=== PATIENT | female | born 1970 | race Caucasian/White ===

== ENCOUNTER 2020-02-28 11:41 | Outpatient (REF) | payer OTHER, SELFPAY | END 2020-02-28 11:42 | disposition home or self-care (01) | LOC: HO.HOSX 11:41 | PROVIDERS: Visit Provider Orthopaedic Surgery | DX: Z13.89 Encounter for screening for other disorder (principal) ==

== ENCOUNTER → 2020-03-03 09:16 | Outpatient (BNVA) | payer OTHER, SELFPAY | PROVIDERS: Visit Provider Orthopaedic Surgery | DX: E66.01 Morbid (severe) obesity due to excess calories (principal); M17.11 Unilateral primary osteoarthritis, right knee | CPT/HCPCS: Q3014 ==

== ENCOUNTER → 2020-03-08 08:04 | Outpatient (BNVA) | payer OTHER, SELFPAY | PROVIDERS: PCP Family Medicine; Visit Provider Surgery | DX: E66.01 Morbid (severe) obesity due to excess calories (principal); K21.9 Gastro-esophageal reflux disease without esophagitis | CPT/HCPCS: 99202 ==

== ENCOUNTER 2020-03-17 09:49 | Outpatient (REF) | payer OTHER, SELFPAY ==
--- NOTE | 2020-03-17 10:00 | EMG_ITS ---
Right median and ulnar motor and sensory studies were performed. Right radial sensory studies were performed and paraspinal muscles were tested. IMPRESSION: Mild right median neuropathy across carpal tunnel. MD SAMMY Carmichael/PARRISH / [id number]
== END 2020-03-17 09:50 | disposition home or self-care (01) ==
LOC: HO.NEURO 09:49
PROVIDERS: Visit Provider Family Medicine
DX: G56.01 Carpal tunnel syndrome, right upper limb (principal)
CPT/HCPCS: 95860; 95886; 95909

== ENCOUNTER → 2020-03-21 14:51 | Outpatient (BNVA) | payer OTHER, SELFPAY | PROVIDERS: PCP Family Medicine; Visit Provider Nurse Practitioner Family | DX: Z76.89 Persons encountering health services in other specified circumstances (principal) | CPT/HCPCS: 99212 ==

== ENCOUNTER → 2020-03-28 08:33 | Outpatient (BNVA) | payer OTHER, SELFPAY | PROVIDERS: PCP Family Medicine; Visit Provider Dietitian, Registered | DX: Z76.89 Persons encountering health services in other specified circumstances (principal) ==

== ENCOUNTER → 2020-04-06 08:08 | Outpatient (BNVA) | payer OTHER, SELFPAY | PROVIDERS: PCP Family Medicine; Visit Provider Surgery ==

== ENCOUNTER → 2020-04-13 08:12 | Outpatient (BNVA) | payer OTHER, SELFPAY | PROVIDERS: PCP Family Medicine; Visit Provider Surgery | DX: E66.01 Morbid (severe) obesity due to excess calories (principal) | CPT/HCPCS: Q3014 ==

== ENCOUNTER 2020-04-14 08:00 | Outpatient (REF) | payer OTHER, SELFPAY ==
[2020-04-14 08:37] LABS: MANUAL DIFF FLAG NO
[2020-04-14 08:48] LABS: Basophils Percent Auto 0.4 % (0-2); Eosinophils Absolute Auto 0.2 X10*3/uL (0.0-0.4); Eosinophils Percent Auto 5.1 % (0-4); Hematocrit 45.7 % (37-47); Imm Gran Abs Auto 0.01 X10*3/uL (0.00-0.03); Imm Gran Pct Auto 0.2 % (0.0-0.4); Lymphocytes Absolute Auto 1.4 X10*3/uL (1.2-4.9); Mean Corpuscular HGB Conc 32.8 g/dl (31.0-35.0); Mean Corpuscular Volume 97.4 fL (80-98); Mean Platelet Volume 12.6 fL (9.4-12.3); Monocytes Absolute Auto 0.4 X10*3/uL (0.1-1.2); Monocytes Percent Auto 8.1 % (2-11); Neutrophils Absolute Auto 2.5 X10*3/uL (2.0-8.3); Neutrophils Percent Auto 55.2 % (45-73); Platelet Count 194 X10*3/uL (160-400); Red Blood Count 4.69 X10*6/uL (4.20-5.50); Red Cell Distribution Width 13.3 % (11.0-16.0); White Blood Count 4.6 X10*3/uL (4.8-10.8)
[2020-04-14 08:58] LABS: Estimated Average Glucose 100 mg/dL; Hemoglobin A1C 127.5661 umol/L; Hemoglobin A1c % 5.1 %
[2020-04-14 09:06] LABS: Alanine Aminotransferase 7 U/L (0-31); Albumin Level 4.2 g/dL (3.5-5.0); Alkaline Phosphatase 72 U/L (39-117); Anion Gap 10 (12-20); Aspartate Amino Transferase 15 U/L (5-31); Bilirubin Total 0.6 mg/dL (0.0-1.0); Blood Urea Nitrogen 14 mg/dL (9-16); C Reactive Protein 0.42 mg/dL (< or = 0.50); Carbon Dioxide 28 mmol/L (22-29); Chloride 108 mmol/L (96-108); Cholesterol 184 mg/dL; Estimated Glomerular Filt Rate > 60; Glucose Random 86 mg/dL (60-115); HDL Cholesterol 55 mg/dL; LDL Cholesterol Calculated 116 mg/dl; Potassium 4.5 mmol/l (3.3-5.1); Sodium 141 mmol/L (135-145); Total Protein 6.9 g/dL (6.5-8.0); Triglycerides 69 mg/dL
[2020-04-14 09:28] LABS: Ferritin 87 ng/mL (10-250); TSH reflex Free T4 2.51 mIU/mL (0.32-4.0); Vitamin D 25-OH Total 12.7 ng/mL (>30)
[2020-04-14 09:35] LABS: Folate 8.6 ng/mL (> or = 4.0); Vitamin B12 220 pg/mL (200-900)
[2020-04-15 10:52] LABS: Insulin Level Total 4.3 uIU/mL
[2020-04-15 15:42] LABS: Calcium (PTHI) 9.2 mg/dL (8.6-10.4); PTHI 52 pg/mL (14-64)
[2020-04-18 00:27] LABS: Zinc 64 mcg/dL (60-130)
[2020-04-18 14:07] LABS: Vitamin B1 7 nmol/L (8-30)
[2020-04-20 19:02] LABS: Vitamin A 25 mcg/dL (38-98)
== END 2020-04-14 08:01 | disposition home or self-care (01) ==
LOC: HO.LAB 08:00
PROVIDERS: PCP Family Medicine; Visit Provider Surgery
DX: E66.01 Morbid (severe) obesity due to excess calories (principal); K21.9 Gastro-esophageal reflux disease without esophagitis
CPT/HCPCS: 36415; 80053; 80061; 82306; 82607; 82728; 82746; 83036; 83525; 83970; 84425; 84443; 84590; 84630; 85025; 86140

== ENCOUNTER 2020-04-22 07:48 | Outpatient (REF) | payer OTHER, SELFPAY ==
--- NOTE | ~2020-04-22 | XR_ITS ---
EXAMINATION: XR KNEE STANDING, BILATERAL XR KNEE, RIGHT CLINICAL INFORMATION: Bilateral knee pain. COMPARISON: None TECHNIQUE: AP bilateral knee. Right knee 2 views. FINDINGS: AP BILATERAL KNEE: There is bilateral genu valgus deformity of both knees with greater on the right side. There is moderate sclerosis along the right subchondral lateral tibia, question old bone contusion or stress fracture. There is moderate loss of lateral compartment joint space right knee with periarticular spurring. There is an enthesophyte along the superomedial condyle likely old avulsion injury. No visible fracture, dislocation or subluxation seen. The left knee is unremarkable. RIGHT KNEE: The patellofemoral compartment joint space is normal. No abnormal spur or joint effusion seen. No loose bodies or bony erosive changes. XR/XR knee standing BI IMPRESSION: Genu valgum deformities of both knees, slightly greater on the right side. Moderate loss of lateral compartment joint space with periarticular spurring, right knee. There is subchondral sclerosis right lateral tibia. Question old fracture or bone contusion. This could be correlated with MRI right knee. There is a moderate enthesophyte along the medial superior femoral condyle/Merlyn stieda disease from old medial collateral ligament avulsion injury.
--- NOTE | ~2020-04-22 | FL_ITS ---
EXAMINATION: XR GI SERIES CLINICAL INFORMATION: Morbid obesity due to excessive calories. COMPARISON: None TECHNIQUE: Routine upper GI air-contrast study was performed in upright and lying position. FINDINGS: Following oral administration of thick barium and effervescent granules, there is normal propagation of bolus from the oral cavity through the pharynx, esophagus into stomach without any evidence of obstruction, narrowing or stricture. On placing patient supine and prone lying, there is a small hiatal hernia with gastroesophageal reflux. The course, caliber and peristalsis of the stomach and duodenal bulb is normal. The soft tissues are normal. FLUOROSCOPY TIME: 1.1 minutes DOSE AREA PRODUCT: 28.775 uGy-m2 (microgray-meter squared) FL/FL upper GI series IMPRESSION: Small hiatal hernia with mild gastroesophageal reflux. The rest of the upper GI exam is unremarkable.
--- NOTE | ~2020-04-22 | XR_ITS ---
EXAMINATION: XR KNEE STANDING, BILATERAL XR KNEE, RIGHT CLINICAL INFORMATION: Bilateral knee pain. COMPARISON: None TECHNIQUE: AP bilateral knee. Right knee 2 views. FINDINGS: AP BILATERAL KNEE: There is bilateral genu valgus deformity of both knees with greater on the right side. There is moderate sclerosis along the right subchondral lateral tibia, question old bone contusion or stress fracture. There is moderate loss of lateral compartment joint space right knee with periarticular spurring. There is an enthesophyte along the superomedial condyle likely old avulsion injury. No visible fracture, dislocation or subluxation seen. The left knee is unremarkable. RIGHT KNEE: The patellofemoral compartment joint space is normal. No abnormal spur or joint effusion seen. No loose bodies or bony erosive changes. XR/XR knee RT 2V IMPRESSION: Genu valgum deformities of both knees, slightly greater on the right side. Moderate loss of lateral compartment joint space with periarticular spurring, right knee. There is subchondral sclerosis right lateral tibia. Question old fracture or bone contusion. This could be correlated with MRI right knee. There is a moderate enthesophyte along the medial superior femoral condyle/Merlyn stieda disease from old medial collateral ligament avulsion injury.
--- NOTE | ~2020-04-22 | XR_ITS ---
EXAMINATION: XR CHEST CLINICAL INFORMATION: Morbid obesity. COMPARISON: Chest radiographs dated 05/14/2007. TECHNIQUE: 2 views of the chest were obtained. FINDINGS: No significant abnormality is noted involving the heart, lungs, mediastinum, bony thorax or soft tissues. XR/XR chest 2V IMPRESSION: No acute cardiopulmonary process.
== END 2020-04-22 07:49 | disposition home or self-care (01) ==
LOC: HO.XRAY 07:48
PROVIDERS: Visit Provider Surgery
DX: Z01.818 Encounter for other preprocedural examination (principal); M25.561 Pain in right knee; M25.562 Pain in left knee; K21.9 Gastro-esophageal reflux disease without esophagitis; E66.01 Morbid (severe) obesity due to excess calories
CPT/HCPCS: 71046; 73560; 73565; 74240

== ENCOUNTER 2020-04-28 07:21 | Outpatient (REF) | payer OTHER, SELFPAY ==
--- NOTE | ~2020-04-28 | US_ITS ---
EXAMINATION: US COMPLETE ABDOMEN WITH LIVER ELASTOGRAPHY CLINICAL INFORMATION: Bariatric service evaluation. E66.01 COMPARISON: None. TECHNIQUE: Real-time imaging of the abdominal viscera. Noninvasive ultrasound liver fibrosis assessment is performed using Aden ElastPQ point quantification shear wave elastography (pSWE) with a C5-2 MHz transducer. Multiple elastography samples are obtained. FINDINGS: PANCREAS: The visualized pancreas is normal in size and contour and echogenicity. There is no pancreatic ductal distention. Portion pancreatic tail partly obscured by bowel gas and not completely imaged. ABDOMINAL AORTA: The proximal, middle, and distal aortic segments are normal in caliber. INFERIOR VENA CAVA: Visualized portions are normal. LIVER: Normal. The liver demonstrates normal size, contour and echogenicity. No focal lesion or intrahepatic biliary duct dilatation. The right lobe measures 14.7 cm in length. The left lobe measures 8.9 cm in length. Portal flow is towards the liver (hepatopetal). Shear wave liver elastography median stiffness is 1.79 m/s (reference: normal median stiffness is 1.3 m/s or less). IQR/median stiffness to assess sampling precision is 0.12 (reference: good quality data set is IQR/median stiffness of 0.15 or less). GALLBLADDER: Prior cholecystectomy. COMMON BILE DUCT: Normal in caliber measuring 0.4 cm in diameter. RIGHT KIDNEY: Normal. No hydronephrosis. No renal calculi or focal parenchymal lesions. The kidney measures 10.3 cm in maximum dimension. LEFT KIDNEY: Normal. No hydronephrosis. No renal calculi or focal parenchymal lesions. The kidney measures 10.4 cm in maximum dimension. SPLEEN: Normal. The spleen measures 10.3 cm in maximum dimension. FREE FLUID: None. ??? US/US abdomen comp w elastography IMPRESSION: 1. Liver normal in size and homogeneous. Prior cholecystectomy. No ductal dilatation. 2. Liver elastography: Measurements are suggestive of compensated advanced chronic liver disease but need further test for confirmation. 3. Visualized pancreas unremarkable. No hydronephrosis. REFERENCE: Society of Radiologists in Ultrasound Liver Stiffness Thresholds (2019): LIVER STIFFNESS THRESHOLDS: *Liver Stiffness equal or less than 1.3 m/s: High probability of being normal. *Liver Stiffness less than 1.7 m/s: In the absence of other known clinical signs, rules out compensated advanced chronic liver disease. *Liver Stiffness 1.7-2.1 m/s: Suggestive of compensated advanced chronic liver disease but need further test for confirmation. *Liver Stiffness over 2.1 m/s: Rules in compensated advanced chronic liver disease. *Liver Stiffness over 2.4 m/s: Suggestive of clinically significant portal hypertension. QUALITY OF DATA SET: *IQR/Median value equal or less than 0.15 implies a quality data set. *IQR/Median value over 0.15 implies a poor quality data set. SIGNIFICANT CHANGE FROM PRIOR EXAM: Significant change if liver stiffness measurement is 10% or greater from prior exam. OTHER CONSIDERATIONS: The stage of liver fibrosis may be overestimated in the setting of acute hepatitis, liver inflammation, elevated liver function tests, hepatic vascular congestion, obstructive cholestasis, non-fasting state, and infiltrative diseases such as amyloidosis and lymphoma. In some patients with NAFLD, the liver stiffness thresholds for compensated advanced chronic liver disease may be lower. In causes other than viral hepatitis and NAFLD, liver stiffness thresholds are not well established.
== END 2020-04-28 07:22 | disposition home or self-care (01) ==
LOC: HO.US 07:21
PROVIDERS: Visit Provider Surgery
DX: Z01.818 Encounter for other preprocedural examination (principal); E66.01 Morbid (severe) obesity due to excess calories; K21.9 Gastro-esophageal reflux disease without esophagitis
CPT/HCPCS: 76705; 76981

== ENCOUNTER → 2020-05-11 08:25 | Outpatient (BNVA) | payer OTHER, SELFPAY | PROVIDERS: PCP Family Medicine; Visit Provider Surgery | DX: E66.01 Morbid (severe) obesity due to excess calories (principal) | CPT/HCPCS: Q3014 ==

== ENCOUNTER → 2020-05-16 08:00 | Outpatient (BNVA) | payer OTHER, SELFPAY | PROVIDERS: PCP Family Medicine; Visit Provider Surgery ==

== ENCOUNTER 2020-05-30 07:40 | Outpatient (REF) | payer OTHER, SELFPAY ==
[2020-05-31 14:17] LABS: H Pylori Breath Test NOT DETECTED (NOT DETECTED)
== END 2020-05-30 07:41 | disposition home or self-care (01) ==
LOC: HO.LNP 07:40
PROVIDERS: PCP Family Medicine; Visit Provider Surgery
DX: A04.8 Other specified bacterial intestinal infections (principal); E66.01 Morbid (severe) obesity due to excess calories; K21.9 Gastro-esophageal reflux disease without esophagitis
CPT/HCPCS: 83013; 99211

== ENCOUNTER → 2020-06-08 08:11 | Outpatient (BNVA) | payer OTHER, SELFPAY | PROVIDERS: PCP Family Medicine; Visit Provider Surgery | DX: E66.01 Morbid (severe) obesity due to excess calories (principal); Z68.41 Body mass index [BMI] 40.0-44.9, adult; F17.200 Nicotine dependence, unspecified, uncomplicated; Z71.3 Dietary counseling and surveillance; Z71.6 Tobacco abuse counseling | CPT/HCPCS: Q3014 ==

== ENCOUNTER → 2020-06-14 12:53 | Outpatient (BNVA) | payer OTHER, SELFPAY | PROVIDERS: PCP Family Medicine; Visit Provider Dietitian, Registered ==

== ENCOUNTER → 2020-09-21 13:19 | Outpatient (BNVA) | payer OTHER, SELFPAY | PROVIDERS: Visit Provider Nurse Practitioner Family | DX: K21.9 Gastro-esophageal reflux disease without esophagitis (principal) | CPT/HCPCS: Q3014 ==

== ENCOUNTER 2021-02-02 14:40 | Outpatient (REF) | payer OTHER, SELFPAY ==
--- NOTE | ~2021-02-02 | MM_ITS ---
EXAMINATION: MM SCREENING DIGITAL BREAST TOMOSYNTHESIS, BILATERAL CLINICAL INFORMATION: Screening. Asymptomatic. The lifetime risk of breast cancer based on the Tyrer-Cuzick Model is 19%. COMPARISON: Mammography: 12/19/2018, 12/11/2018, 10/09/2017, 06/01/2016 TECHNIQUE: Digital breast tomosynthesis is performed in both the craniocaudal and mediolateral oblique views along with computer-aided detection (CAD). Synthesized 2D images are generated from the tomosynthesis. Additional bilateral exaggerated CC views are provided. FINDINGS: There are scattered areas of fibroglandular density (ACR BI-RADS breast composition Category b). There are no significant masses, abnormal calcifications, or other abnormalities. No developing density. No significant changes. MM/MM tomosynthesis screening BI IMPRESSION: No mammographic evidence of malignancy. ASSESSMENT: BI-RADS 1: Negative RECOMMENDATION: Routine annual mammography screening. This patient's information was entered into a reminder system with a target due date for their next mammogram.
== END 2021-02-02 14:41 | disposition home or self-care (01) ==
LOC: HO.MAMMO 14:40
PROVIDERS: Visit Provider Nurse Practitioner Primary Care
DX: Z12.31 Encounter for screening mammogram for malignant neoplasm of breast (principal)
CPT/HCPCS: 77063; 77067

== ENCOUNTER → 2021-02-14 13:37 | Outpatient (BNVA) | payer OTHER, SELFPAY | PROVIDERS: Visit Provider Surgery Vascular Surgery | DX: I83.11 Varicose veins of right lower extremity with inflammation (principal); E66.9 Obesity, unspecified; F17.210 Nicotine dependence, cigarettes, uncomplicated; Z68.41 Body mass index [BMI] 40.0-44.9, adult | CPT/HCPCS: 99202 ==

== ENCOUNTER 2021-03-07 06:51 | Outpatient (REF) | payer OTHER, SELFPAY ==
--- NOTE | ~2021-03-07 | US_ITS ---
EXAMINATION: US LOWER EXTREMITY VENOUS (REFLUX EXAM), BILATERAL CLINICAL INDICATION: This is a 51-year-old female with varicose veins and venous insufficiency. COMPARISON: None. TECHNIQUE: Color flow triplex imaging and compression Doppler was performed to evaluate both the deep and the superficial systems bilaterally. To evaluate the superficial system, the examination was performed in the upright position. Color-flow Doppler ultrasound and compression ultrasound were utilized. In addition, maneuvers were utilized to demonstrate reflux. FINDINGS: 1. DEEP VENOUS ULTRASOUND OF THE RIGHT LOWER EXTREMITY: Common Femoral Vein: Compressible, normal respiratory variation and augmented flow. Femoral vein: Compressible, normal color flow and augmentation. Popliteal Vein: There is reflux in the left popliteal vein with the reflux time of 1072 ms. Deep Reflux: There is deep vein reflux in the popliteal vein. There is no evidence of a Anthony's cyst. 2. SUPERFICIAL ULTRASOUND WITH DOPPLER OF RIGHT LOWER EXTREMITY: GREAT SAPHENOUS VEIN: Saphenofemoral Junction: 0.6 cm. There is no reflux. Mid Thigh: 0.3 cm Above Knee: 0.3 cm Below Knee: 0.2 cm. There is no reflux at this level and above. Mid Calf: 0.3 cm. The reflux time is 3516 ms. Ankle: 0.2 cm. The reflux time is 3400 ms. GSV REFLUX: There is no reflux in the great saphenous vein at the junction and extending through the thigh. There is mid and distal calf reflux. DUPLICATED GREAT SAPHENOUS VEIN: None SMALL SAPHENOUS VEIN: Proximal: 0.2 cm Distal: 0.2 cm SSV REFLUX: No evidence of reflux. VEIN OF GIACOMINI: None Imaged. PERFORATORS: There are 0.3 cm mid thigh perforators without reflux. VARICOSITIES: There are 0.3 cm proximal thigh varicose veins. There are 0.5 cm 0.6 cm calf and lateral knee varicose veins. The posterior lateral knee varicose veins measure 0.5 cm with the reflux time of 2788 ms. The other varicose veins do not reflux. 3. DEEP VENOUS ULTRASOUND OF THE LEFT LOWER EXTREMITY: Common Femoral Vein: Compressible, normal respiratory variation and augmented flow. Femoral Vein: Compressible, normal color flow and augmentation. Popliteal Vein: Compressible, normal augmentation. Deep Reflux: There is no evidence of reflux in the deep system in either the common femoral vein or the popliteal vein. There is no evidence of a Anthony's cyst. 4. SUPERFICIAL ULTRASOUND WITH DOPPLER OF LEFT LOWER EXTREMITY: GREAT SAPHENOUS VEIN: Saphenofemoral Junction: 0.9 cm Mid Thigh: 0.3 cm Above Knee: 0.3 cm Below Knee: 0.2 cm Mid Calf: 0.2 cm Ankle: 0.2 cm GSV REFLUX: No evidence of reflux. DUPLICATED GREAT SAPHENOUS VEIN: There is a 0.5 cm duplicated lateral great saphenous vein at the junction without reflux. It measures 0.2 cm in the mid thigh with the reflux time of 1516 ms. SMALL SAPHENOUS VEIN: Proximal: 0.3 cm Distal: 0.1 cm SSV REFLUX: No evidence of reflux. VEIN OF GIACOMINI: None Imaged. PERFORATORS: There is a 0.1 cm proximal calf sheet metal assembler without reflux. VARICOSITIES: There are 0.3 cm proximal thigh varicose veins without reflux. There are 0.3 cm varicose veins at the knee with greater than 3 seconds of reflux. There are calf varicose veins measuring 0.3 cm and 0.6 cm without reflux. US/US venous duplex LE BI IMPRESSION: 1. There is a patent right great saphenous vein without reflux at the saphenofemoral junction or extending through the thigh to below the knee. There is distal reflux in this great saphenous vein. 2. There is a patent right small saphenous vein without evidence of reflux. 3. There are varicose veins in the right lower extremity with only reflux seen at the posterior lateral knee of 2780 ms. This measures 0.5 cm. 4. There is a patent left great saphenous vein without reflux. 5. There is a patent left duplicated lateral great saphenous vein without reflux at the junction. 6. There is a patent left small saphenous vein without reflux. 7. There are 0.3 cm varicose veins at the knee with greater than 3 seconds of reflux.
== END 2021-03-07 06:52 | disposition home or self-care (01) ==
LOC: HO.US 06:51
PROVIDERS: PCP Nurse Practitioner Primary Care; Visit Provider Surgery Vascular Surgery
DX: I83.11 Varicose veins of right lower extremity with inflammation (principal)
CPT/HCPCS: 93970

== ENCOUNTER → 2021-03-14 09:22 | Outpatient (BNVA) | payer OTHER, SELFPAY | PROVIDERS: PCP Nurse Practitioner Primary Care; Visit Provider Surgery Vascular Surgery | DX: I83.11 Varicose veins of right lower extremity with inflammation (principal) | CPT/HCPCS: 99212 ==

== ENCOUNTER 2021-03-24 13:14 | Outpatient (REF) | payer OTHER, SELFPAY ==
[2021-03-24 15:28] LABS: TSH reflex Free T4 1.47 uIU/mL (0.32-4.0)
[2021-03-24 15:39] LABS: Folate 15.4 ng/mL (> or = 4.0); Vitamin B12 774 pg/mL (200-900)
[2021-03-29 12:52] LABS: Vitamin D 25-OH, D2 5 ng/mL; Vitamin D 25-OH, D3 17 ng/mL; Vitamin D 25-OH, Total 22 ng/mL (30-100)
== END 2021-03-24 13:15 | disposition home or self-care (01) ==
LOC: HO.LAB 13:14
PROVIDERS: PCP Nurse Practitioner Primary Care; Referring Provider Nurse Practitioner Primary Care; Visit Provider Nurse Practitioner Family
DX: K21.9 Gastro-esophageal reflux disease without esophagitis (principal); E53.8 Deficiency of other specified B group vitamins; R79.89 Other specified abnormal findings of blood chemistry; K58.1 Irritable bowel syndrome with constipation; K59.04 Chronic idiopathic constipation; E55.9 Vitamin D deficiency, unspecified; R19.7 Diarrhea, unspecified; Z79.899 Other long term (current) drug therapy
CPT/HCPCS: 36415; 82306; 82607; 82746; 84443; 99212

== ENCOUNTER 2021-03-25 09:01 | Outpatient (REF) | payer OTHER, SELFPAY | END 2021-03-25 09:02 | disposition home or self-care (01) | LOC: HO.LNP 09:01 | PROVIDERS: Visit Provider Nurse Practitioner Family | DX: K21.9 Gastro-esophageal reflux disease without esophagitis (principal) | CPT/HCPCS: 87338 ==

== ENCOUNTER → 2021-03-31 11:15 | Outpatient (BNVA) | payer OTHER, SELFPAY | PROVIDERS: PCP Nurse Practitioner Primary Care; Visit Provider Surgery Vascular Surgery | DX: I83.11 Varicose veins of right lower extremity with inflammation (principal) | CPT/HCPCS: 37766 ==

== ENCOUNTER → 2021-04-13 09:00 | Outpatient (BNVA) | payer OTHER, SELFPAY | PROVIDERS: PCP Nurse Practitioner Primary Care; Visit Provider Surgery Vascular Surgery | DX: I83.11 Varicose veins of right lower extremity with inflammation (principal) | CPT/HCPCS: 99212 ==

== ENCOUNTER → 2021-07-13 09:39 | Outpatient (BNVA) | payer OTHER, SELFPAY | PROVIDERS: PCP Nurse Practitioner Primary Care; Visit Provider Surgery Vascular Surgery | DX: I83.11 Varicose veins of right lower extremity with inflammation (principal) | CPT/HCPCS: 99212 ==

== ENCOUNTER 2022-02-28 12:15 | Outpatient (REF) | payer OTHER, SELFPAY ==
--- NOTE | ~2022-02-28 | US_ITS ---
EXAMINATION: US SOFT TISSUE HEAD/NECK CLINICAL INFORMATION: Enlarged lymph nodes. COMPARISON: None TECHNIQUE: Linear transducer grayscale and color Doppler examination of the bilateral neck in the submandibular region. FINDINGS: The bilateral submandibular glands are normal-appearing. There are prominent bilateral cervical lymph nodes adjacent to the submandibular glands. Largest right cervical lymph node measures 1.6 x 2.9 x 0.7 cm. Largest left cervical lymph node measures 1.2 x 1.7 x 0.7 cm. Lymph nodes demonstrate normal ultrasound morphology and flow. Management should be determined on a clinical basis. Small bilateral thyroid nodules are incidentally noted. US/US soft tiss head and/or neck IMPRESSION: Normal-appearing submandibular glands. Prominent bilateral submandibular lymph nodes. Management should be determined on a clinical basis.
== END 2022-02-28 12:16 | disposition home or self-care (01) ==
LOC: HO.US 12:15
PROVIDERS: PCP Nurse Practitioner Primary Care; Visit Provider Nurse Practitioner Primary Care
DX: R59.0 Localized enlarged lymph nodes (principal)
CPT/HCPCS: 76536

== ENCOUNTER → 2022-07-10 11:42 | Outpatient (BNVA) | payer OTHER, SELFPAY | PROVIDERS: PCP Nurse Practitioner Primary Care; Visit Provider Nurse Practitioner Family | DX: Z76.0 Encounter for issue of repeat prescription (principal); K21.9 Gastro-esophageal reflux disease without esophagitis; K59.01 Slow transit constipation; R14.0 Abdominal distension (gaseous) | CPT/HCPCS: 99212 ==

== ENCOUNTER 2022-08-16 13:44 | Outpatient (REF) | payer OTHER, SELFPAY ==
--- NOTE | ~2022-08-16 | XR_ITS ---
EXAMINATION: XR SHOULDER, RIGHT CLINICAL INFORMATION: Right shoulder pain x 3 weeks COMPARISON: None available. TECHNIQUE: AP external rotation, Grashey, scapular Y, and axillary views of the right shoulder. FINDINGS: The glenohumeral and AC joint space is maintained normal. There is mild inferior spurring along the AC joint but no visible acute fracture, dislocation or subluxation seen. The soft tissues are normal. XR/XR shoulder RT min 2V IMPRESSION: Mild degenerative changes right shoulder joint. No visible acute fracture or dislocation seen.
== END 2022-08-16 13:45 | disposition home or self-care (01) ==
LOC: HO.HHCX 13:44
PROVIDERS: Visit Provider Nurse Practitioner Primary Care
DX: M25.511 Pain in right shoulder (principal)
CPT/HCPCS: 73030

== ENCOUNTER → 2022-09-04 08:28 | Outpatient (BNVA) | payer OTHER, SELFPAY | PROVIDERS: Visit Provider Nurse Practitioner Family | DX: K21.9 Gastro-esophageal reflux disease without esophagitis (principal); K59.01 Slow transit constipation; R14.0 Abdominal distension (gaseous); Z79.899 Other long term (current) drug therapy | CPT/HCPCS: 99212 ==

== ENCOUNTER 2022-09-27 09:50 | Outpatient (REF) | payer OTHER, SELFPAY | END 2022-09-27 09:51 | disposition home or self-care (01) | LOC: HO.HHCL 09:50 | PROVIDERS: Visit Provider Nurse Practitioner Primary Care | DX: R09.81 Nasal congestion (principal); R20.0 Anesthesia of skin; R20.2 Paresthesia of skin | CPT/HCPCS: 36415; 87624; 88141; 88142 ==

== ENCOUNTER 2022-09-27 09:55 | Outpatient (REF) | payer OTHER, SELFPAY ==
[2022-09-27 11:51] LABS: Hematocrit 46.8 % (37.0-47.0); Hemoglobin 15.4 g/dl (12.0-16.0)
[2022-09-27 12:53] LABS: Free T4 (Free Thyroxine) 0.89 ng/dL (0.71-1.85)
[2022-09-27 12:58] LABS: Vitamin B12 945 pg/mL (200-900)
[2022-09-28 12:09] LABS: Syphilis Screen Nonreactive (Nonreactive)
== END 2022-09-27 09:56 | disposition home or self-care (01) ==
LOC: HO.HHCL 09:55
PROVIDERS: Visit Provider Nurse Practitioner Primary Care
DX: R20.0 Anesthesia of skin (principal); R20.2 Paresthesia of skin
CPT/HCPCS: 36415; 82607; 84439; 85014; 85018; 86780

== ENCOUNTER 2022-09-28 07:33 | Outpatient (REF) | payer OTHER, SELFPAY ==
--- NOTE | ~2022-09-28 | MM_ITS ---
EXAMINATION: MM SCREENING DIGITAL BREAST TOMOSYNTHESIS, BILATERAL CLINICAL INFORMATION: Screening. Asymptomatic. The lifetime risk of breast cancer based on the Tyrer-Cuzick Model is 12.4%. COMPARISON: Mammography: This study is compared with prior exams dating back to 2019. TECHNIQUE: Digital breast tomosynthesis is performed in both the craniocaudal and mediolateral oblique views along with computer-aided detection (CAD). Synthesized 2D images are generated from the tomosynthesis. FINDINGS: There are scattered areas of fibroglandular density (ACR BI-RADS breast composition Category b). There are no significant masses, abnormal calcifications, or other abnormalities. MM/MM tomosynthesis screening BI IMPRESSION: No mammographic evidence of malignancy. ASSESSMENT: BI-RADS BI-RADS 1 - Negative RECOMMENDATION: Routine annual mammography screening. 1 year F/U This examination should not preclude the clinical evaluation of a suspicious palpable abnormality. This patient's information was entered into a reminder system with a target due date for their next mammogram.
== END 2022-09-28 07:34 | disposition home or self-care (01) ==
LOC: HO.MAMMO 07:33
PROVIDERS: Visit Provider Nurse Practitioner Primary Care
DX: Z12.31 Encounter for screening mammogram for malignant neoplasm of breast (principal)
CPT/HCPCS: 77063; 77067

== ENCOUNTER → 2022-09-28 07:45 | Outpatient (BNV) | payer OTHER, SELFPAY | PROVIDERS: Visit Provider Radiology Diagnostic Radiology | DX: Z12.31 Encounter for screening mammogram for malignant neoplasm of breast (principal) | CPT/HCPCS: 77063; 77067 ==

== ENCOUNTER 2022-11-08 05:55 | Day surgery (SDC) | payer OTHER, SELFPAY ==
[2022-11-06 11:01] VITALS: BMI 40.3
--- NOTE | 2022-11-07 12:39 | HO.ANESPROP2 ---
Documented by User: Renu Toro NP 11/07/22 12:41 HPI - Anesthesia Eval Consult details Narrative: 52yo F for Upper Endoscopy and Colonoscopy [facility] Active Problems Active Problems: All Active Problems (Updated 03/24/21 @ 14:00 by Rochelle Sosa, [facility]) Low vitamin D level (Acute) Varicose veins of right lower extremity with inflammation (Acute) Vitamin B12 deficiency (Acute) Vitamin A deficiency (Acute) Vitamin B1 deficiency (Acute) Bipolar 1 disorder (Acute) Gastroesophageal reflux disease (Acute) Morbid obesity (Acute) Arthritis of right knee (Acute) Past Medical History Medical History Arthritis of right knee Bipolar 1 disorder Depression Gastroesophageal reflux disease Low vitamin D level Morbid obesity Right tennis elbow Family History Family History Father No problems noted. Mother Hx of heat stroke History of colon cancer Sister Diabetes Brother No problems noted. Daughter No problems noted. Surgical History Surgical History History of colonoscopy S/P cholecystectomy Social History Social History Alcohol intake: current Alcohol intake frequency: does not drink Patient Tobacco Use Status: Current everyday Tobacco user Tobacco use type: Cigarette Cigarettes Per Day: 2 Date Education Initiated: 11/08/22 Use of substances other than those prescribed or required for medical reasons: No Are you DNR?: No Advance Directives: No Advance Directives Information Provided: Yes Meds Allergies Allergy/AdvReac Type Severity Reaction Status Date / Time No Known Allergies Allergy Verified 09/04/22 08:43 [No Known Allergies*] Home Medications Medication Instructions Recorded Confirmed Last Taken Type buspirone 10 mg tablet 10 mg PO BID 02/19/20 11/08/22 Unknown History cyclobenzaprine 5 mg tablet 5 mg PO BID PRN Pain 02/19/20 11/08/22 Unknown History gabapentin 300 mg capsule 300 mg PO BEDTIME 02/19/20 11/08/22 Unknown History naproxen 500 mg tablet 500 mg PO BID 02/19/20 11/08/22 Unknown History oxycodone-acetaminophen 5 mg-325 1 tab PO Q12H PRN severe pain 03/08/20 11/08/22 Unknown History mg tablet melatonin 5 mg tablet 5 mg PO BEDTIME PRN insomnia 09/21/20 11/08/22 Unknown History zolpidem 10 mg tablet 10 mg PO BEDTIME PRN Insomnia 09/21/20 11/08/22 Unknown History Exam Exam Date and Time: November 07, 2022 1239 Height,Weight and Vital Signs: Height 5 ft 5 in Weight 109.996 kg Assessment and Plan Assessment Anesthesia Assessment: Chart Reviewed Documented by User: Soheila Guajardo MD 11/08/22 07:24 PMF Past Medical History Medical History Arthritis of right knee Bipolar 1 disorder Depression Gastroesophageal reflux disease Low vitamin D level Morbid obesity Right tennis elbow Family History Family History Father No problems noted. Mother Hx of heat stroke History of colon cancer Sister Diabetes Brother No problems noted. Daughter No problems noted. Family history of problems with anesthesia: No Surgical History Surgical History History of colonoscopy S/P cholecystectomy History of Problems with Anesthesia: No Social History Social History Alcohol intake: current Alcohol intake frequency: does not drink Patient Tobacco Use Status: Current everyday Tobacco user Tobacco use type: Cigarette Cigarettes Per Day: 2 Date Education Initiated: 11/08/22 Use of substances other than those prescribed or required for medical reasons: No Are you DNR?: No Advance Directives: No Advance Directives Information Provided: Yes Meds Allergies Allergy/AdvReac Type Severity Reaction Status Date / Time No Known Allergies Allergy Verified 09/04/22 08:43 [No Known Allergies*] Home Medications Medication Instructions Recorded Confirmed Last Taken Type buspirone 10 mg tablet 10 mg PO BID 02/19/20 11/08/22 Unknown History cyclobenzaprine 5 mg tablet 5 mg PO BID PRN Pain 02/19/20 11/08/22 Unknown History gabapentin 300 mg capsule 300 mg PO BEDTIME 02/19/20 11/08/22 Unknown History naproxen 500 mg tablet 500 mg PO BID 02/19/20 11/08/22 Unknown History oxycodone-acetaminophen 5 mg-325 1 tab PO Q12H PRN severe pain 03/08/20 11/08/22 Unknown History mg tablet melatonin 5 mg tablet 5 mg PO BEDTIME PRN insomnia 09/21/20 11/08/22 Unknown History zolpidem 10 mg tablet 10 mg PO BEDTIME PRN Insomnia 09/21/20 11/08/22 Unknown History Exam Airway Mallampati Class: II TM Dist: >3cm Neck ROM: Full Loose/Missing/Broken Teeth: Yes and Lower Heart: rrr Lungs: cta Assessment and Plan Assessment Anesthesia Assessment: Anesthesia Plan Discussed Final Anesthetic Review Family History of Problems with Anesthesia: No History of Problems with Anesthesia: No NPO: Yes ASA Class: II Final Preanesthetic Review: No Changes in Pt Med Stat, Meds/Allgs Chart Reviewed, Consent Obtained/Reviewed and Anes Risks/Benef Reviewed Patient Risk: Low Procedure Risk: Low Anesthetic Plan Anesthetic Plan: MAC: Disposition: Standard PACU
[2022-11-08 06:19] VITALS: BMI 39.3
[2022-11-08 06:26] VITALS: BP 125/71; PULSE 57; RESP 18; TEMP 36.6; O2SAT 98
[2022-11-08] MEDS: Lactated Ringers 1,000 ML 100 ML IVCONT (06:52)
--- NOTE | 2022-11-08 07:35 | MHC.SHP ---
Pre-Procedural Eval Section A Date of Service: 11/08/22 Section B Chief Complaint: screening ,reflux disease Details of Present Illness: dysphagia as well Relevant Family History (Specify if Yes): Yes Relevant Social History: Tobacco Use Present Medications: see Short Stay Collaborative assessment Medical History: Significant History (Arthritis of right knee Bipolar 1 disorder Depression Gastroesophageal reflux disease Low vitamin D level Morbid obesity Right tennis elbow) History of Previous Operations: Relevant previous surgery/procedure and date(s) (History of colonoscopy S/P cholecystectomy) Allergies: Allergies Allergy/AdvReac Type Severity Reaction Status Date / Time No Known Allergies Allergy Verified 09/04/22 08:43 [No Known Allergies*] Review of Systems Sugical H&P ROS: Negative: Constitution, Cardiovascular, Respiratory, Neurological, Psychiatric, Hem-Onc, Allergic/Immunologic, Gastrointestinal, Genitourinary, Musculoskeletal, Integumentary, Endocrine and Eyes/Ears/Nose/Throat Exam Surgical H&P Exam: Normal: HEENT, Normal: Heart, Normal: Lungs, Normal: Extremities, Normal: Abdomen, Normal: Skin and Normal: Neurological Plan Diagnosis/Plan: Unchanged I have reviewed the history and physical and performed a pertinent physical examination on my patient. No changes have occurred unless specified. EGD and balloon dilation with colonoscopy Time Spent With Patient Time: Total time managing care of this patient today ____ minutes.
--- NOTE | 2022-11-08 07:37 | W.PM.OPN ---
Operative Note Operative Note Date of Service: 11/08/22 Narrative: Operative Information Procedure Description: EGD, Colonoscopy Indication: GERD, colon screening, dysphagia Anesthesia: MAC FLEXIBLE TRANSORAL UPPER GASTROINTESTINAL ENDOSCOPY AND COLONOSCOPY PROCEDURE NOTE UPPER ENDOSCOPY Consent: Indications for the procedure and potential complications of bleeding, perforation, reaction to medications and missed diagnosis were discussed with the patient and informed consent was obtained. Instrument: Olympus GIF H 190 J mid size upper endoscope Monitoring: Vital signs and clinical assessment, continuous EKG monitoring, Pulse oximetry, Carbon Dioxide monitoring and blood pressure monitoring were done throughout the procedure. Procedure: The patient was placed in the left lateral decubitis position and pre-procedure medications were administered and a bite block was placed. The endoscope was inserted into the mouth and advanced under direct vision to the third part of duodenum. A careful inspection was made as the upper endoscope was withdrawn including a retroflexed examination of the proximal stomach; Findings and interventions are described below. Findings: Larynx:normal Esophagus: GE junction at 35 cm, diaphragm hiatus at 38 cm consistent with 3 cm sliding hiatal hernia, salmon pink tongues at GEJ suggestive of short segment barretts, bx taken from GEj and distal esophagus, balloon dilation done at distal and proximal esophagus to 20 mm, no tears seen Stomach: PAtchy erythematous mucosa with some scarring. Biopsies were obtained. Grade 3 flap valve on retroflexed examination of the cardia with lax LEs noted. Duodenum: Normal bulb and descending duodenum, bx taken Intervention: Biopsies as noted above COLONOSCOPY Instrument: Olympus variable stiffness pediatric scope 190L Colonoscopy Monitoring: Vital signs and clinical assessment, continuous EKG monitoring, Pulse oximetry, Carbon Dioxide monitoring and blood pressure monitoring were done throughout the procedure. Colon withdrawal time was 18 minutes. Procedure: The patient was placed in the left lateral decubitis position and pre-procedure medications were administered. After a digital rectal examination of the ano-rectum, the video colonoscope was inserted into the rectum and advanced through the colon to the cecum/TI. The colonoscope was slowly withdrawn in a retrograde panoramic fashion and the colon mucosa was carefully examined including a retroflexed view of the rectum. Findings and interventions are described below. Procedure Difficulty:moderate Findings: Terminal Ileum-not intubated Cecum: 6-8 mm sessile polyp removed with cold snare Ascending Colon: 5-6 mm sessile polyp removed with cold forceps, diverticulosis noted Transverse Colon -normal Descending Colon: diverticulosis noted Sigmoid Colon: moderate severe diverticulosis, x3 sessile polyps 8-10 mm removed with cold snare Rectum: Retroflexion with small internal hemorrhoids, grade I Anorectum - normal Colon preparation: [place] Bowel Preparation Scale Right colon; 2 Transverse colon: 2 Left colon; 2 (0 = Unprepared colon segment with mucosa not seen due to solid stool that cannot be cleared. 1 = Portion of mucosa of the colon segment seen, but other areas of the colon segment not well seen due to staining, residual stool and/or opaque liquid. 2 = Minor amount of residual staining, small fragments of stool and/or opaque liquid, but mucosa of colon segment seen well. 3 = Entire mucosa of colon segment seen well with no residual staining, small fragments of stool or opaque liquid) Impression and Post Procedure Diagnosis: Endoscopy Findings: hiatal hernia possible barretts lax LES gastritis Colonoscopy Findings: polyps internal hemorrhoids diverticular disease Plan: Await Pathology results Repeat Colonoscopy in 2-3 years due to polyps or earlier if clinically indicated High fiber diet leaflet avoid straining at stool, epsom salts and sitz bath, anusol supps or cream GERD precautions smoking cessation Above findings were reviewed with the patient and relevant handouts were provided if indicated.
[2022-11-08 08:41] VITALS: BP 99/54; PULSE 64; RESP 16; TEMP 36.1; O2SAT 97
[2022-11-08 09:01] VITALS: BP 109/64; PULSE 50; RESP 18; TEMP 36.1; O2SAT 98
== END 2022-11-08 09:34 | disposition home or self-care (01) ==
PROVIDERS: PCP Nurse Practitioner Primary Care; Visit Provider Internal Medicine Gastroenterology
PROC: (CPT 45385; principal; 2022-11-08 07:30)
DX: Z12.11 Encounter for screening for malignant neoplasm of colon (principal); D12.0 Benign neoplasm of cecum; K63.5 Polyp of colon; K57.30 Diverticulosis of large intestine without perforation or abscess without bleeding; K64.0 First degree hemorrhoids; K59.01 Slow transit constipation; K21.9 Gastro-esophageal reflux disease without esophagitis; R13.10 Dysphagia, unspecified; K20.80 Other esophagitis without bleeding; K29.70 Gastritis, unspecified, without bleeding; K44.9 Diaphragmatic hernia without obstruction or gangrene; F31.9 Bipolar disorder, unspecified; E55.9 Vitamin D deficiency, unspecified; E66.01 Morbid (severe) obesity due to excess calories; Z68.41 Body mass index [BMI] 40.0-44.9, adult; Z90.49 Acquired absence of other specified parts of digestive tract
CPT/HCPCS: 45385; 45380; 43249; 43239; 88305; 88342; C1726

== ENCOUNTER → 2022-11-08 05:55 | Outpatient (BNV) | payer OTHER, SELFPAY | PROVIDERS: PCP Nurse Practitioner Primary Care; Visit Provider Internal Medicine Gastroenterology | DX: Z12.11 Encounter for screening for malignant neoplasm of colon (principal); K21.9 Gastro-esophageal reflux disease without esophagitis; D12.0 Benign neoplasm of cecum; D12.2 Benign neoplasm of ascending colon; D12.5 Benign neoplasm of sigmoid colon; K64.0 First degree hemorrhoids | CPT/HCPCS: 43249; 45380; 45385 ==

== ENCOUNTER 2024-05-29 09:13 | Outpatient (AMB) | payer OTHER, SELFPAY ==
--- NOTE | 2024-05-29 09:20 | MHC.OFFVIS ---
Vital Signs 05/29/24 09:21 Height 5 ft 5 in Weight 238 lb 8.642 oz BMI 39.7 BP 110/76 Blood Pressure Location Rt brachial Position Sitting Pulse 56 Pulse Source Pulse Oximeter Pulse Oximetry (%) 98 Oxygen Delivery Method Room Air Intake Visit Reasons: FUV re-establish care. Since 2022. Intake Note: ESTABLISHED PATIENT for re-est care. Prev mgmt of constipation. CHARLES 2022. Chief Complaint; Pt reports sx are well controlled currently. No GI concerns at this time. Rfid Technician Required: No Rfid Technician Services: Rfid Technician Offered & Declined Accompanied by: Self / Same As Patient Allergies No Known Allergies [No Known Allergies*] Allergy (Verified 05/29/24 09:20) HPI HPI FUV re-establish care. Since 2022.: Details: LAST VISIT: 09/04/2022 Gastroesophageal reflux disease Continue omeprazole every morning half an hour before breakfast. Continue avoiding dietary triggers. Discussed with patient staying upright for minimum 3 hours after meals. Patient will be sent for upper endoscopy to evaluate for esophagitis, Layne's, gastritis, duodenitis, gastric or peptic ulcers, Constipation Patient was encouraged to increase fluid intake and activity to promote better bowel motility. Patient states that she is moving her bowels better now that she is losing weight and changing her diet. Patient can take Senokot on as needed basis Postprandial abdominal bloating Reports postprandial abdominal bloating specially when drinking milk or eating ice cream. Patient was encouraged to avoid lactose. Low FODMAP diet discussed with patient. List of food recommended as well as list of food to avoid given to patient. Screen for colon cancer Discussed with patient going for colonoscopy. Last colonoscopy in 2016 showed hyperplastic polyp. Family history of colo rectal cancer in patient should have a colonoscopy every 5 years regardless. Discussed with patient clear liquid diet day before the procedure as well as the importance of good bowel prep. Patient denies any cardiac or respiratory symptoms. No history of sleep apnea. Not on any anticoagulation medication. Denies any issues with anesthesia in the past. No infectious disease in the past or present. Patient will do MiraLax prep split 17:00 and 22:00. I will see patient after the procedure. Patient is agreeable to this plan and verbalizes understanding of instructions. She was given the opportunity to ask questions and all questions answered. ? Thank you for allowing me to participate in her care Plan Medications New bisacodyl (Dulcolax (bisacodyl)) take 2 tabs at noon the day before your colonoscopy 10 mg (2 x 5 mg) PO ONCE 1 day 2 tabs 0RF Z12.11 - Encounter for screening for malignant neoplasm of colon polyethylene glycol 3350 (Miralax) As directed by gastroenterology department at [facility] 238 grams PO ONCE 238 grams 0RF Z12.11 - Encounter for screening for malignant neoplasm of colon Refilled simethicone (Gas Relief (simethicone)) 125 mg PO TID-QID PRN 240 caps 5RF abdominal distention K21.9 - Gastro-esophageal reflux disease without esophagitis omeprazole 20 mg PO DAILY 90 caps 2RF K21.9 - Gastro-esophageal reflux disease without esophagitis UPPER ENDOSCOPY AND COLONOSCOPY 11/08/[address] EDMONDS Findings: Larynx:normal Esophagus: GE junction at 35 cm, diaphragm hiatus at 38 cm consistent with 3 cm sliding hiatal hernia, salmon pink tongues at GEJ suggestive of short segment barretts, bx taken from GEj and distal esophagus, balloon dilation done at distal and proximal esophagus to 20 mm, no tears seen Stomach: PAtchy erythematous mucosa with some scarring. Biopsies were obtained. Grade 3 flap valve on retroflexed examination of the cardia with lax LEs noted. Duodenum: Normal bulb and descending duodenum, bx taken Intervention: Biopsies as noted above COLONOSCOPY Instrument: Olympus variable stiffness pediatric scope 190L Colonoscopy Monitoring: Vital signs and clinical assessment, continuous EKG monitoring, Pulse oximetry, Carbon Dioxide monitoring and blood pressure monitoring were done throughout the procedure. Colon withdrawal time was 18 minutes. Procedure: The patient was placed in the left lateral decubitis position and pre-procedure medications were administered. After a digital rectal examination of the ano-rectum, the video colonoscope was inserted into the rectum and advanced through the colon to the cecum/TI. The colonoscope was slowly withdrawn in a retrograde panoramic fashion and the colon mucosa was carefully examined including a retroflexed view of the rectum. Findings and interventions are described below. Procedure Difficulty:moderate Findings: Terminal Ileum-not intubated Cecum: 6-8 mm sessile polyp removed with cold snare Ascending Colon: 5-6 mm sessile polyp removed with cold forceps, diverticulosis noted Transverse Colon -normal Descending Colon: diverticulosis noted Sigmoid Colon: moderate severe diverticulosis, x3 sessile polyps 8-10 mm removed with cold snare Rectum: Retroflexion with small internal hemorrhoids, grade I Anorectum - normal Colon preparation: [place] Bowel Preparation Scale Right colon; 2 Transverse colon: 2 Left colon; 2 (0 = Unprepared colon segment with mucosa not seen due to solid stool that cannot be cleared. 1 = Portion of mucosa of the colon segment seen, but other areas of the colon segment not well seen due to staining, residual stool and/or opaque liquid. 2 = Minor amount of residual staining, small fragments of stool and/or opaque liquid, but mucosa of colon segment seen well. 3 = Entire mucosa of colon segment seen well with no residual staining, small fragments of stool or opaque liquid) Impression and Post Procedure Diagnosis: Endoscopy Findings: hiatal hernia possible barretts lax LES gastritis Colonoscopy Findings: polyps internal hemorrhoids diverticular disease Plan: Await Pathology results Repeat Colonoscopy in 2-3 years due to polyps or earlier if clinically indicated High fiber diet leaflet avoid straining at stool, epsom salts and sitz bath, anusol supps or cream GERD precautions smoking cessation PATHOLOGY RESULTS Diagnosis A. Duodenum, biopsy: Duodenal mucosa within normal limits; preserved villous architecture and no increased intraepithelial lymphocytes seen. B. Stomach, biopsy: Gastric body mucosa within normal limits; negative for Helicobacter pylori, intestinal metaplasia and dysplasia. C. Gastroesophageal junction, biopsy: Squamous and columnar junctional mucosa with mild chronic inactive inflammation and intestinal metaplasia consistent with Layne's esophagus; negative for dysplasia (see comment). D. Esophagus, distal, biopsy: Squamous mucosa with rare scattered intraepithelial eosinophils (up to 3- 4 per high power field) and reactive epithelial changes; negative for fungal organisms and intestinal metaplasia. E. Colon, cecum, polypectomy: Tubular adenoma; negative for high-grade dysplasia. F. Colon, ascending, polyp, biopsy: Clinically polypoid colonic mucosa noted; negative for a hyperplastic or neoplastic process. G. Colon, sigmoid, polypectomy: Hyperplastic polyp. COMMENT (C): These findings are consistent with Layne's esophagus if the biopsies were taken above the anatomic gastroesophageal junction. Clinical and endoscopic correlation is advised. TODAY'S VISIT Is here today to discuss going for colonoscopy. Patient had colonoscopy and upper endoscopy in October of 2022, never follow-up after procedure. Patient was diagnosed with Barretts and 1 tubular adenoma seen without high-grade dysplasia or carcinoma. Recommendation was made for patient to return for colorectal screening in 2-3 years. Patient reports that she has been feeling well. For avoiding dietary triggers. Eating better. Denies any acid reflux, dyspepsia, dysphagia or odynophagia. Patient is taking omeprazole in the morning and famotidine at bedtime. Denies any melena, hematochezia, unintentional weight loss or ribbon like stools. Patient denies any issues with anesthesia in the past. No history of sleep apnea. No family history of CRC. Not on any anticoagulation medication [facility] Medical History (Updated 05/29/24 @ 10:30 by Rochelle Sosa, [facility]) Layne's esophagus determined by biopsy Bipolar 1 disorder Gastroesophageal reflux disease Arthritis of right knee Morbid obesity Depression Low vitamin D level Right tennis elbow Surgical History History of esophagogastroduodenoscopy (EGD) S/P cholecystectomy History of colonoscopy Family History Father No problems noted. Mother Hx of heat stroke History of colon cancer Sister Diabetes Brother No problems noted. Daughter No problems noted. Social History Alcohol intake: current Alcohol intake frequency: does not drink Patient Tobacco Use Status: Current everyday Tobacco user Tobacco use type: Cigarette Cigarettes Per Day: 2 Review of Systems Const Denies weight gain and Denies weight loss ENT Reports no additional complaints, Denies dysphagia and Denies odynophagia Card Reports no additional complaints Resp Reports no additional complaints GI Denies abdominal pain, Denies belching, Denies melena, Denies bloating, Denies change in bowel habits, Denies dysphagia, Denies excessive flatus, Denies dyspepsia, Denies heartburn, Denies diarrhea, Denies loose stools, Denies nausea, Denies odynophagia and Denies vomiting Musc Reports no additional complaints Neuro Reports no additional complaints Psych Reports no additional complaints Endo Reports no additional complaints Physical Exam Vital Signs: Last Vital Signs Pulse 56 05/29/24 09:21 BP 110/76 05/29/24 09:21 Pulse Ox 98 05/29/24 09:21 Oxygen Delivery Method Room Air 05/29/24 09:21 BMI result Body Mass Index 39.7 Const General: healthy appearing and no acute distress Nutritional Appearance: obese Orientation/consciousness: patient oriented x3 Resp Effort & Inspection: normal respiratory effort, able to speak in complete sentences, no tracheal deviation and symmetric chest movement Auscultation: clear to auscultation bilaterally Cardio Rate: regular rate Heart sounds: S1 normal heart sound present and S2 normal heart sound present GI Inspection: Yes normal to inspection, No distended and Yes obesity Palpation (GI): Soft to palpation, not firm, nontender and No hepatosplenomegaly present Auscultation: normal bowel sounds General: Yes no CVA tenderness Back/Spine/Pelvis Back: no CVA tenderness Skin General skin exam: elasticity normal, turgor normal and dry skin Neuro General: patient oriented x3 Psych Appearance: grossly normal Mental Status: mental status grossly normal Assessment & Plan Assessment & Plan (1) Gastroesophageal reflux disease: Code(s): K21.9 - Gastro-esophageal reflux disease without esophagitis Category: Medical Qualifiers: Esophagitis presence: without esophagitis Qualified Code(s): K21.9 - Gastro-esophageal reflux disease without esophagitis (2) Layne's esophagus determined by biopsy: Code(s): K22.70 - Layne's esophagus without dysplasia Category: Medical (3) Postprandial abdominal bloating: Code(s): R14.0 - Abdominal distension (gaseous) (4) Screen for colon cancer: Code(s): Z12.11 - Encounter for screening for malignant neoplasm of colon Plan Patient reports to be feeling much better. No longer is constipated. Moves her bowels without any issues. Occasional abdominal bloating depending on what she eats. Symptoms of acid reflux are controlled with omeprazole occasionally takes famotidine at bedtime. Diagnosed with Barretts on last endoscopy in 2022. We will send patient for upper endoscopy as patient never returned for follow-up after her last endoscopy. What to expect before during and after procedure discussed with patient. Stressed the importance of good bowel prep and clear liquid diet day before procedure. Patient will call our office if she will have any GI concerning symptoms, otherwise will be seen after the procedure. I have stressed with patient the importance of following up after the procedure to discuss if the treatment for Barretts is appropriate or if we need to change PPI depending on biopsy results. Patient agrees. Message sent to surgical schedulers to book procedure for patient. She is agreeable to current plan of care and verbalizes understanding of instructions. She was given the opportunity to ask questions and all questions answered. Thank you for allowing me to participate in her care Medications: New bisacodyl (Dulcolax (bisacodyl)) take 4 tabs at noon the day before your colonoscopy 20 mg (4 x 5 mg) PO ONCE 1 day 4 tabs 0RF Z12.11 - Encounter for screening for malignant neoplasm of colon polyethylene glycol 3350 (Miralax) As directed by gastroenterology department at [facility] 238 grams PO ONCE 238 grams 0RF Z12.11 - Encounter for screening for malignant neoplasm of colon Coding Level of Care Code Est Pt Level 4 (65976) Complex EM visit Add On G2211 Diagnoses Gastroesophageal reflux disease without esophagitis K21.9 Esophagitis presence: without esophagitis Layne's esophagus determined by biopsy K22.70 Postprandial abdominal bloating R14.0 Screen for colon cancer Z12.11 Time Spent (min) 40 Comment 25 minutes spent with patient and additional 15 minutes spent reviewing
[2024-05-29 09:21] VITALS: BP 110/76; PULSE 56; O2SAT 98; BMI 39.7
--- OUTSIDE RECORDS SUMMARY | 2024-05-29 09:59 | XMS_ITS | Encounter Summary ---
Author Organization [employer] Address [address] [place] [address] Care Team Providers Care Clerical And Office Support Workers Name Role Phone Marni Allison PEREZ Primary Care Provider [phone] Uche Dueñas PharmD Unavailable [phone] Encounter Details Date Type Department Care Team (Latest Contact Info) Description 05/21/2024 Travel Social History Tobacco Use Types Packs/Day Years Used Date Smoking Tobacco: Every Day Cigarettes 1 32.2 Started: 1992 Passive Smoke Exposure: Current Smokeless Tobacco: Never Comments:1 ppd since 22 y/o, reduced to 5-10 cigs/day at 51 y/o Alcohol Use Standard Drinks/Week Comments Never 0 (1 standard drink = 0.6 oz pur e alcohol) Depression Answer Date Recorded Patient Health Questionnaire-9 Score 17 05/21/2024 Patient Health Questionnaire-9 Score 17 05/21/2024 Last PHQ-9: Questionnaire Data Not on file 0 05/21/2024 Housing Stability Answer Date Recorded What is your housing situation today? I have shakeel gotti 02/26/[address] you li ve. Do you have problems with any of the following? None of the above 02/26/2023 Food Insecurity Answer Date Recorded Within the past 12 months, y ou worried that your food would run out before you got money to buy more: Never True 02/26/2023 Within the past 12 months,th e food you bought just didn't last and you didn't have enough money to get more: Never True 02/2023 Transportation Answer Date Recorded In the past 12 months, has l ack of transportation kept you from medical appts, meetings, work or from getting things needed for daily living? No 01/15/2023 Utilities Answer Date Recorded In the past 12 months, has t he electric, gas, oil or water company threatened to shut off services in your home? I am not sure 05/21/2024 Depression Answer Date Recorded Patient Health Questionnaire-2 Score 4 05/21/2024 Internet Access Answer Date Recorded Internet Access Q1 Yes 05/21/2024 Internet Access Q2 Not on file 05/21/2024 Comments Unknown Sex and Gender Information Value Date Recorded Sex Assigned at Female 01/15/2022 10:15 AM EDT Legal Sex Female 10:15 AM EDT Gender Identity Female 01/15/2022 10:15 AM EDT Sexual Orientation Choose not to disclose 2021 10:15 AM EDT documented as of this encounter Plan of Treatment Upcoming Encounters Date Type Department Care Team (Late st Contact Info) Description 06/17/2024 9:30 AM EDT Clinical Support [facility] [address] [place] [address] Rohini Torres, SYMONE [address] [place] [address] 08/25/2024 9:15 AM EDT Office Visit [facility] [address] [place] [phone] Allison Grider ANP [address] [place] [address] documented as of this encounter Goals Goal Patient Goal Type Associated Problems Recent Progress Patient-Stated? Author Quit using tobacco (cigarettes, smokeless, etc) Tobacco Use No Uche Dueñas, Molly documented as of this encounter Visit Diagnoses Not on filedocumented in this encounter Additional Health Concerns Assessment Noted Time PHQ-9 Depression Total Score: 17 025 9:34 AM EST documented as of this encounter Care Teams Clerical And Office Support Workers Relationship Specialty Start Date End Date Allison Grider ANP [address] [place] [id number] PCP - General Family Medicine 04/05/20 Uche Dueñas PharmD [address] [place] [phone] Pharmacist Internal Medicine 11/11/23 documented as of this encounter
--- OUTSIDE RECORDS SUMMARY | 2024-05-29 09:59 | XMS_ITS | Encounter Summary ---
Author Organization [employer] Address [address] [place] [address] [address] [place] [address] Care Team Providers Care Electric Organ Assembler Name Role Phone Allison Grider Primary Care Provider [phone] Uche Dueñas PharmD Unavailable [phone] Reason for Visit * Reason Onset Date Comments Med Refill 12/21/2022 Encounter Details Date Type Department Care Team (Late st Contact Info) Description 12/21/2022 Telephone [facility] [address] [place] [address] Allison Grider ANP [address] [place] [address] Med Refill Social History Tobacco Use Types Packs/Day Years Used Date Smoking Tobacco: Every Day Cigarettes Passive Smoke Exposure: Current Smokeless Tobacco: Never Alcohol Use Standard Drinks/Week Comments Never 0 (1 standard drink = 0.6 oz pur e alcohol) Depression Answer Date Recorded Patient Health Questionnaire-9 Score 4 12/04/2022 Depression Answer Date Recorded Patient Health Questionnaire-2 Score 1 12/04/2022 Comments Unknown Sex and Gender Information Value Date Recorded Sex Assigned at Female 01/15/2022 10:15 AM EDT Legal Sex Female 10:15 AM EDT Gender Identity Female 01/15/2022 10:15 AM EDT Sexual Orientation Choose not to disclose 2021 10:15 AM EDT documented as of this encounter Miscellaneous Notes * Telephone Encounter - Katrin Rivera - 12/21/2022 11:21 AM EDT Tc from patient requesting a med refill for medication oxycodone 5mg. PCP Dr. Grider documented in this encounter Plan of Treatment Upcoming Encounters Date Type Department Care Team (Late st Contact Info) Description 06/17/2024 9:30 AM EDT Clinical Support [facility] [address] [place] [address] Rohini Torres, RN [address] [place] [address] 08/25/2024 9:15 AM EDT Office Visit [facility] [address] [place] [address] Allison Grider ANP [address] [place] [address] documented as of this encounter Visit Diagnoses Not on filedocumented in this encounter Additional Health Concerns Assessment Noted Time PHQ-9 Depression Total Score: 4 12/05/19 23 10:38 AM EDT documented as of this encounter Care Teams Electric Organ Assembler Relationship Specialty Start Date End Date Allison Grider ANP [address] [place] [address] PCP - General Family Medicine 04/05/20 Uche Dueñas, CatarinoD [address] [place] [phone] Pharmacist Internal Medicine 11/11/23 documented as of this encounter
--- OUTSIDE RECORDS SUMMARY | 2024-05-29 09:59 | XMS_ITS | Clinical Summary ---
Author Organization [employer] Address 75 [facility] 7t [place] [address] Care Team Providers Care Five Roll Refiner Batch Mixer Name Role Phone Yefri Terrell CHRIS Primary Care Provider [phone] Uche Dueñas PharmD Unavailable [phone] Allergies No known active allergies Medications * This document contains information received from the source organization and may not represent a complete record from that organization. busPIRone (Buspar) 5 MG tablet TAKE TWO TABLETS BY MOUTH TWICE A DAY DIRECTED. 023 Active cyanocobalamin (Vitamin B-12) 1000 MCG tablet TOME LIZBET TABLETA VIA ORAL CADA SHANTEL 023 Active gabapentin (Neurontin) 300 MG capsule TOME LIZBET CAPSULA VIA ORAL CADA MANANA DIRECTED 023 Active melatonin 5 MG tablet TAKE ONE TABLET BY MOUTH AT BEDTIME DIRECTED FOR SLEEP. 023 Active omeprazole (PriLOSEC) [address] capsule TOME LIZBET CAPSULA VIA ORAL DOS VECES AL SHANTEL BEFORE A MEAL). 023 Active senna (Senokot) 8.6 MG tablet TOME DOS TABLETAS VIA ORAL AL ACOSTARSE REMA SEA NECESARIO FOR CONSTIPATION 023 Active GAS RELIEF 125 MG capsule TAKE 1 CAPSULE BY MOUTH 3 TO 4 TIMES A DAY NEEDED FOR ABDO INAL DISTENSION 023 Active ziprasidone (Geodon) 80 MG capsule TAKE 1 CAPSULE BY MOUTH EVERY NIGHT WITH MEALS . 023 Active zolpidem (Ambien) 10 MG tablet TAKE 1/2 -1 TABLET BY MOUTH AT BEDTIME NEEDED FOR SLEEP. 023 Active naloxone (Narcan) 4 mg/0.1 mL nasal spray Administer 0.1 mL into affected nostril(s). 021 Active Diclofenac Sodium (Voltaren) 1 % gelIndications:Ac [place] pain of right shoulder Apply up to 4x/d to affected joint(s) for pain/swelling 100 g 2 023 Active Semaglutide-Weigh t Management (Wegovy) 0.25 MG/0.5ML solution auto-injectorIndi cations:BMI 40.0-44.9, adult (CMS/HCC),Class 3 severe obesity with serious comorbidity and body mass index (BMI) of 40.0 to 44.9 in adult, unspecified obesity type (CMS/HCC),Post-tr aumatic osteoarthritis of right knee Inject 0.25 mg under the skin every 7 (seven) days. 2 mL 024 Active cholecalciferol (D3 Super Strength) 50 MCG (1999 UT) capsule TAKE ONE CAPSULE BY MOUTH EVERY MORNING 90 capsule 1 024 Active naproxen (Naprosyn) 500 MG tabletIndications :Post-traumatic osteoarthritis of right knee TAKE 1 TABLET BY MOUTH IN THE MORNING AND AT BEDTIME IF NEEDED FOR MODERATE PAIN. TAKE WITH FOOD. 60 tablet Active oxyCODONE-acetami nophen (Percocet) 5-325 MG tabletIndications :Pain Take 1 tablet by mouth every 12 (twelve) hours if needed for severe pain for up to 28 days. 56 tablet 025 2024 Active oxyCODONE-acetami nophen (Percocet) 5-325 MG tabletIndications :Pain Take 1 tablet by mouth every 12 (twelve) hours if needed for severe pain for up to 28 days. 56 tablet 025 2024 Discontinued(R eorder (will not trigger notification to Pharmacy)) Active Problems Problem Noted Date Diagnosed Date Class 2 severe obesity with serious comorbidity and body mass index (BMI) of 38.0 to 38.9 in adult 01/21/2024 Vitamin A deficiency 11/11/2023 Gender dysphoria in adult 02/11/2023 Arthritis of right knee 01/10/2023 01/11/20 23 Low vitamin D level 01/10/2023 01/10/2023 Varicose veins of right lower extremity with inf lammation 01/10/2023 01/10/2023 Morbid obesity 01/10/2023 01/10/2023 Vitamin B1 deficiency 01/10/2023 01/10/2023 Vitamin B12 deficiency 01/10/2023 Bipolar 1 disorder 01/10/2023 01/10/2023 Vitamin D deficiency 08/15/2022 Plantar fasciitis 05/11/2019 Shoulder pain 07/31/2018 Spasm of cervical paraspinous muscle 07/31/2018 Heel pain 07/08/2018 Bipolar disorder 06/05/2017 Osteoarthritis of knee 10/02/2016 Insomnia 07/03/2016 Post-traumatic osteoarthritis of right knee 06/16 Tear of lateral meniscus of knee 07/03/2016 Gastroesophageal reflux disease 05/31/2016 Knee pain 11/14/2012 Encounters Date Type Department Care Team Description 05/26/2024 Telephone [facility] [address] [place] [address] Yefri Terrell ANP Status check forearm 05/21/2024 9:00 AM EST Office Visit [facility] [address] [place] [address] Yefri Terrell ANP Class 2 severe obesity with serious comorbidity and body mass index (BMI) of 38.0 to 38.9 in adult, unspecified obesity type (CMS/HCC) (Primary Dx); Pain 05/21/2024 Travel 05/12/2024 Patient Outreach [facility] [address] [place] [address] Yefri Terrell ANP Pre-visit Planning (Pre-visit planning - LVM ) 04/20/2024 Refill [facility] [address] [place] [address] Yefri Terrell ANP Pain 03/19/2024 Refill [facility] [address] [place] [address] Yefri Terrell ANP Pain 03/16/2024 Telephone [facility] [address] [place] [address] Monserrat Nguyễn [place] May recall from Last 3 Months Immunizations Name Administration Dates Next Due Influenza injectable quadriv alent IIV4 with preservative 02/04/2017 Influenza injectable quadriv alent preservative free 01/15/2023,01/23/2022,12/24/2018,07/08 Influenza, IIV3, injectable 12/09/2009, 8 Influenza, seasonal, injecta ble, preservative free 01/21/2024 Pfizer Covid-19 Vaccine 12+ 01/21/2024 Pneumococcal Conjugate PCV 20 01/15/2023 Pneumococcal Polysaccharide PPSV23 12/24/2018 TD (adult), 2 Lf tetanus tox oid, preservative free, adsorbed 10/17/2020 Td (adult), 5 Lf tetanus tox oid, preservative free, adsorbed 09/01/2013 Tdap 01/20/2010,01/12/2008 Zoster, Recombinant 01/06/2021 Social History Tobacco Use Types Packs/Day Years Used Date Smoking Tobacco: Every Day Cigarettes 1 32.2 Started: 1992 Passive Smoke Exposure: Current Smokeless Tobacco: Never Tobacco Cessation:Ready to Q uit: Not Asked; Counseling Given: Not Answered Comments:1 ppd since 22 y/o, reduced to [...] not to disclose 2021 10:15 AM EDT Last Filed Vital Signs Vital Sign Reading Time Taken Comments Blood Pressure 112/67 05/21/2024 9:07 AM EST Pulse 65 05/21/2024 9:07 AM EST Temperature 36.6 ??C (97.9 ??F) 05/21/2024 9:07 AM ES T Respiratory Rate 20 05/21/2024 9:07 AM EST Oxygen Saturation 98% 05/21/2024 9:07 AM EST Inhaled Oxygen Concentration - - Weight 110 kg (242 lb) 05/21/2024 9:07 AM EST Height 167.6 cm (5' 6 ) 05/21/2024 9:07 AM EST Body Mass Index 39.06 05/21/2024 9:07 AM EST Plan of Treatment Upcoming Encounters Date Type Department Care Team (Late st Contact Info) Description 06/17/2024 9:30 AM EDT Clinical Support [facility] [address] [place] [address] Rohini Torres, SYMONE [address] [place] [address] 08/25/2024 9:15 AM EDT Office Visit [facility] [address] [place] [address] Yefri Terrell, CHRIS [address] [place] [address] Health Maintenance Due Date Last Done Comments CT Colonography 1970 FIT DNA/Cologuard 1970 FIT 1970 FOBT 1970 HIV Screening 1970 Lipid Panel 1970 Sigmoidoscopy 1970 Hepatitis C Screening 01/14/1988 Hepatitis B Vaccines (1 of 3 - 19+ 3-dose series) 1989 Lung Cancer Screening 01/14/2020 Zoster Vaccines (2 of 2) 03/03/2021 01/06/2021 Mammogram 09/29/2023 09/28/2022, 09/15, 02/02/2021, Additional history exists Depression Monitoring (PHQ-9) 11/21/2024 05/21/2024, 05/21/2024 Alcohol/Substance Use Screening 05/21/2025 05/21/2024 Depression Screening 05/21/2025 05/21/2024, 05/22/19 25 SDOH Screening 05/21/2025 05/21/2024 Tobacco Screening 05/21/2025 05/21/2024 Pap Smear 09/27/2025 09/27/2022, 09/27/2022 Colonoscopy 11/08/2025 09/05/2017, 01/29/2017 Colorectal Cancer Screening 11/08/2025 Cervical Cancer Screening 09/28/2027 HPV/Cotest 09/28/2027 09/27/2022, 07/11/2016 DTaP/Tdap/Td Vaccines (5 - Td or Tdap) 10/17/2030 10/17/2020, 09/01/2013, 01/20/2010, Additional history exists RSV Patients and Patients Aged 60 years or older (1 - 1-dose 75+ series) 2045 Pneumococcal Vaccine: 50+ Years Completed 01/15/2023, 12/24/2018 COVID-19 Vaccine Completed 01/21/2024, , 02/14/2021, Additional history exists Influenza Vaccine Completed 01/21/2024, , 01/23/2022, Additional history exists HIB Vaccines Aged Out No longer eligi ble based on patient's age to complete this topic HPV Vaccines Aged Out No longer eligi ble based on patient's age to complete this topic Hepatitis A Vaccines Aged Out No long er eligible based on patient's age to complete this topic IPV Vaccines Aged Out No longer eligi ble based on patient's age to complete this topic Meningococcal Vaccine Aged Out No yong lazarus eligible based on patient's age to complete this topic RSV under 20 months Aged Out No longe r eligible based on patient's age to complete this topic Rotavirus Vaccines Aged Out No longer eligible based on patient's age to complete this topic Goals Goal Patient Goal Type Associated Problems Recent Progress Patient-Stated? Author Quit using tobacco (cigarettes, smokeless, etc) Tobacco Use No Uche Dueñas PharmD Procedures Procedure Name Priority Date/Time Associated Diagnosis Comments BI MAMMOGRAM SCREENING TOMOSYNTHESIS BILATERAL Routine 09/28/2022 7:51 AM EDT THINPREP IMAGING PAP AND HPV MRNA E6/E7 WITH REFLEX TO HPV 16,18/45 Routine 09/27/2022 12:00 AM EDT THINPREP IMAGING PAP AND HPV MRNA E6/E7 WITH REFLEX TO HPV 16,18/45 Routine 09/27/2022 12:00 AM EDT Screening for cervical cancer HM COLONOSCOPY Routine 09/05/2017 from Last 3 Months or Most Recently Relevant to Health Maintenance Results * BI Mammogram Screening Tomosynthesis Bilateral (09/28/2022 7:51 AM EDT) Anatomical Region Laterality Modality Breast Bilateral Mammography 09/28/2022 7:51 AM EDT Narrative 10/23/2022 2:04 PM EDT ? [facility] ? [address] [facility] ?[place] [address] ? Mammography Report ? Signed ? Patient: Tyrone,Ludmila E ?MR#: [id number] ? : 1970 ?Acct:[id number] ? Age/Sex: 52 / F ?ADM Date: 07/14/23 ? Loc: HO.MAMMO ? Attending Dr: Yefri Terrell ADVERTISEMENT DISTRIBUTOR ? Ordering Physician: YEFRI TERRELL ADVERTISEMENT DISTRIBUTOR ?Results: ? Date of Service: 09/28/22 ?Follow Up: ? Procedure(s): MM tomosynthesis screening BI ?? Accession Number(s): [id number] ? cc: NIDHI,YEFRI GUZMAN ? EXAMINATION: ?? MM SCREENING DIGITAL BREAST TOMOSYNTHESIS, BILATERAL ? CLINICAL INFORMATION: ? Screening. Asymptomatic. ? The lifetime risk of breast cancer based on the Tyrer-Cuzick Model is ?? 12.4%. ? COMPARISON: ?? Mammography: This study is compared with prior exams dating back to ?? 2018. ? TECHNIQUE: ?? Digital breast tomosynthesis is performed in both the craniocaudal and ?? mediolateral oblique views along with computer-aided detection (CAD). ?? Synthesized 2D images are generated from the tomosynthesis. ? FINDINGS: ?? There are scattered areas of fibroglandular density (ACR BI-RADS breast ?? composition Category b). ? There are no significant masses, abnormal calcifications, or other ?? abnormalities. ? MM/MM tomosynthesis screening BI ?? IMPRESSION: ?? No mammographic evidence of malignancy. ? ASSESSMENT: ? BI-RADS BI-RADS 1 - Negative ? RECOMMENDATION: ?? Routine annual mammography screening. ? 1 year F/U ? This examination should not preclude the clinical evaluation of a ?? suspicious palpable abnormality. ? This patient's information was entered into a reminder system with a ?? target due date for their next mammogram. ? Dictated By: ?Amparo De Paz MD ? Signed By: ?<Electronically signed by Amparo De Paz MD in OV> ? 10/23/22 1401 ? DD/DT: 09/28/ 0751 ? TD/TT: ? Spray Technician: ? Procedure Note Donotuseinterpreter, Image - [facility]/23/20[facility] [address] [place] [address] Mammography Report Signed Patient: Ludmila Hansen EMR#: [id number] : 1970Acct:[id number] Age/Sex: 52 / FADM Date: 09/28/22 Loc: HO.MAMMO Attending Dr: Yefri Terrell ADVERTISEMENT DISTRIBUTOR Ordering Physician: YEFRI TERRELL NPResults: Date of Service: 09/28/22Follow Up: Procedure(s): MM tomosynthesis screening BI Accession Number(s): [id number] cc: YEFRI TERRELL NP EXAMINATION: MM SCREENING DIGITAL BREAST TOMOSYNTHESIS, BILATERAL CLINICAL INFORMATION: Screening. Asymptomatic. The lifetime risk of breast cancer based on the Tyrer-Cuzick Model is 12.4%. COMPARISON: Mammography: This study is compared with prior exams dating back to 2019. TECHNIQUE: Digital breast tomosynthesis is performed in both the craniocaudal and mediolateral oblique views along with computer-aided detection (CAD). Synthesized 2D images are generated from the tomosynthesis. FINDINGS: There are scattered areas of fibroglandular density (ACR BI-RADS breast composition Category b). There are no significant masses, abnormal calcifications, or other abnormalities. MM/MM tomosynthesis screening BI IMPRESSION: No mammographic evidence of malignancy. ASSESSMENT: BI-RADS BI-RADS 1 - Negative RECOMMENDATION: Routine annual mammography screening. 1 year F/U This examination should not preclude the clinical evaluation of a suspicious palpable abnormality. This patient's information was entered into a reminder system with a target due date for their next mammogram. Dictated By: Amparo De Paz MD Signed By: <Electronically signed by Amparo De Paz MD in OV> 10/23/22 1401 DD/ 0751 TD/TT: Spray Technician: Yefri Terrell ANP IMG BI PROCEDURES Final Result * Thinprep TIS PAP And HPV mRNA E6/E7 With Reflex To HPV 16,18/45 (09/27/2022 12:00 AM EDT) HPV nRNA E6/E7 [facility] SOURCE: SEE NOTE [facility] Comment:None given Report Status: [facility] Clinical Information: SEE [facility] Comment:None given LMP: SEE NOTE [facility] Comment:NONE GIVEN Prev. PAP: SEE NOTE [facility] Comment:NONE GIVEN Prev. BX: SEE NOTE [facility] Comment:NONE GIVEN Statement Of Adequacy: SEE NOTE [facility] Comment:Satisfactory for karen luation.Endocervical/transformation zone componentpresent. General Categorization: [facility] Interpretation/Result: SEE NOTE [facility] Comment:Cytology Results: Ne gative for intraepitheliallesion or malignancy. Cytology Comment [facility] Aircraft Worker: SEE NOTE [facility] Comment:EXJ, CT(ASCP)CT Scre ening Location: [address] [address] Review Aircraft Worker: [facility] Pathologist [facility] PAP Infection [facility] 09/27/2022 09/27/2022 Yefri Terrell [facility] PATHOLOGY ORDERABLES Final R esult [facility] [address] [place] [address] [phone] * Hm Colonoscopy (09/05/2017) Colonoscopy Normal Normal 09/05/2017 Historical Provider HEALTH MAINTENANCE Final Result from Last 3 Months or Most Recently Relevant to Health Maintenance Insurance [facility] Care Teams Five Roll Refiner Batch Mixer Relationship Specialty Start Date End Date Yefri Terrell ANP [address] [place] [address] PCP - General Family Medicine 04/05/20 Uche Dueñas PharmD [address] [place] [address] Pharmacist Internal Medicine 11/11/23
--- OUTSIDE RECORDS SUMMARY | 2024-05-29 09:59 | XMS_ITS | Encounter Summary ---
Author Organization [employer] Address [address] [facility] 7t [place] [address] Care Team Providers Care Stave Log Ripsaw Operator Name Role Phone Allison Grider Primary Care Provider [phone] Uche Dueñas PharmD Unavailable [phone] Reason for Visit * Reason Onset Date Comments Med Refill 11/22/2022 Encounter Details Date Type Department Care Team ([facility] Contact Info) Description 11/22/2022 Telephone [facility] [address] [place] [address] Allison Grider ANP [address] [place] [address] Med Refill Social History Tobacco Use Types Packs/Day Years Used Date Smoking Tobacco: Every Day Cigarettes Passive Smoke Exposure: Current Smokeless Tobacco: Never Alcohol Use Standard Drinks/Week Comments Never 0 (1 standard drink = 0.6 oz pur e alcohol) Comments Unknown Sex and Gender Information Value Date Recorded Sex Assigned at Female 01/15/2022 10:15 AM EDT Legal Sex Female 10:15 AM EDT Gender Identity Female 01/15/2022 10:15 AM EDT Sexual Orientation Choose not to disclose 2021 10:15 AM EDT documented as of this encounter Miscellaneous Notes * Telephone Encounter - Eileen Bai - 11/22/2022 9:16 AM EDT Tc from pt requesting medication refill on oxyCODONE-acetaminophen (Percocet) 5- 325 MG tablet documented in this encounter Plan of Treatment Upcoming Encounters Date Type Department Care Team ([facility] st Contact Info) Description 06/17/2024 9:30 AM EDT Clinical Support [facility] [address] [place] [address] Rohini Torres, RN [address] [place], [place] 08/25/2024 9:15 AM EDT Office Visit [facility] [address] [place] [address] Allison Grider ANP [address] [place], [place] documented as of this encounter Visit Diagnoses Not on filedocumented in this encounter Additional Health Concerns Assessment Noted Time PHQ-9 Depression Total Score: 13 023 1:20 PM EDT documented as of this encounter Care Teams Stave Log Ripsaw Operator Relationship Specialty Start Date End Date Allison Grider ANP [address] [place] [address] PCP - General Family Medicine 04/05/20 Uche Dueñas, CatarinoD [address] [place] [address] [phone] Pharmacist Internal Medicine 11/11/23 documented as of this encounter
--- OUTSIDE RECORDS SUMMARY | 2024-05-29 09:59 | XMS_ITS | Encounter Summary ---
Author Organization [employer] Address [address] [facility] 7t [place] [address] Care Team Providers Care Sharepoint Manager Name Role Phone Allison Grider Primary Care Provider [phone] Uche Dueñas PharmD Unavailable [phone] Reason for Visit * Reason Onset Date Comments Med Refill 01/17/2024 Encounter Details Date Type Department Care Team ([facility] st Contact Info) Description 01/17/2024 Telephone [facility] MED[facility]INE [address] [place] [address] Allison Grider ANP [address] [place] [address] Med Refill Social History Tobacco Use Types [...] Recorded Patient Health Questionnaire-9 Score 4 12/04/2022 Housing Stability Answer Date Recorded What is your housing situation today? I have shakeelricky gotti 02/26/[address] you [...] to shut off services in your home? No 01/15/2023 Depression Answer Date Recorded Patient Health Questionnaire-2 Score 1 12/04/2022 Comments Unknown Sex and Gender Information Value Date Recorded Sex Assigned at Female 01/15/2022 10:15 AM EDT Legal Sex Female 10:15 AM EDT Gender Identity Female 01/15/2022 10:15 AM EDT Sexual Orientation Choose not to disclose 2021 10:15 AM EDT documented as of this encounter Miscellaneous Notes * Telephone Encounter - Thanh Myers - 01/17/2024 11:36 AM EDT TC from pt requesting medication refill. Medications needing refill : oxyCODONE-acetaminophen (Percocet) 5-325 MG tablet To be sent to: [facility] documented in this encounter Plan of Treatment Upcoming Encounters Date Type Department Care Team (Late st Contact Info) Description 06/17/2024 9:30 AM EDT Clinical Support [facility] [address] [place] [address] Rohini Torres, SYMONE [address] [place] [address] 08/25/2024 9:15 AM EDT Office Visit [facility] [address] [place] [address] Allison Grider ANP [address] [place] [address] documented as of this encounter Goals Goal Patient Goal Type Associated Problems Recent Progress Patient-Stated? Author Quit using tobacco (cigarettes, smokeless, etc) Tobacco Use No Uche Dueñas, PharmD documented as of this encounter Visit Diagnoses Not on filedocumented in this encounter Additional Health Concerns Assessment Noted Time PHQ-9 Depression Total Score: 4 12/05/19 23 10:38 AM EDT documented as of this encounter Care Teams Sharepoint Manager Relationship Specialty Start Date End Date Allison Grider ANP [address] [place] [address] PCP - General Family Medicine 04/05/20 Uche Dueñas PharmD [address] [place] [address] Pharmacist Internal Medicine 11/11/23 documented as of this encounter
--- OUTSIDE RECORDS SUMMARY | 2024-05-29 09:59 | XMS_ITS | Encounter Summary ---
Author Organization [employer] Address [address] [facility] 7t [place] [address] Care Team Providers Care Antisqueak Chalker Name Role Phone Allison Grider Primary Care Provider [phone] Uche Dueñas PharmD Unavailable [phone] Reason for Visit * Reason Onset Date Comments Med Refill 10/22/2022 Encounter Details Date Type Department Care Team (Late st Contact Info) Description 10/22/2022 Telephone [facility] [address] [place] [address] Allison Grider ANP [address] [place] [address] Med Refill Social History Tobacco Use Types [...] * Telephone Encounter - Katrin Rivera - 10/22/2022 11:30 AM EDT Tc from patient requesting a med refill on medication oxycodone [address] Grider documented in this encounter Plan of Treatment Upcoming Encounters Date Type Department Care Team (Late st Contact Info) Description 06/17/2024 9:30 AM EDT Clinical Support [facility] [address] [place] [address] Rohini Torres, RN [address] [place], [place] 08/25/2024 9:15 AM EDT Office Visit [facility] [address] [place] [address] Allison Grider ANP [address] [place], [place] documented as of this encounter Visit Diagnoses Not on filedocumented in this encounter Additional Health Concerns Assessment Noted Time PHQ-9 Depression Total Score: 13 023 1:20 PM EDT documented as of this encounter Care Teams Antisqueak Chalker Relationship Specialty Start Date End Date Allison Grider ANP [address] [place] [phone] PCP - General Family Medicine 04/05/20 Uche Dueñas, CatarinoD [address] [place] [phone] Pharmacist Internal Medicine 11/11/23 documented as of this encounter
--- OUTSIDE RECORDS SUMMARY | 2024-05-29 09:59 | XMS_ITS | Encounter Summary ---
Author Organization [employer] Address [address] [facility] 7t [place] [address] Care Team Providers Care Training Manager Name Role Phone Allison Grider Primary Care Provider [phone] Uche Dueñas PharmD Unavailable [phone] Reason for Visit * Reason Onset Date Comments Med Refill 12/18/2023 Encounter Details Date Type Department Care Team ([facility] st Contact Info) Description 12/18/2023 Telephone [facility] MEDICINE [address] [place] [address] Allison Grider ANP [address] [place] [address] Med Refill Social History Tobacco Use Types [...] encounter Miscellaneous Notes * Telephone Encounter - Estelle Greene - 12/18/2023 2:28 PM EDT TC from pt requesting medication refill. Medications needing refill : oxyCODONE-acetaminophen (Percocet) 5-325 MG tablet To be sent to: [facility] documented in this encounter Plan of Treatment Upcoming Encounters Date Type Department Care Team (Late st Contact Info) Description 06/17/2024 9:30 AM EDT Clinical Support [facility] [address] [place] [address] Rohini Torres, SYMONE [address] [place] [address] 08/25/2024 9:15 AM EDT Office Visit [facility] MEDICINE [address] [place] [address] Allison Grider ANP [address] [place] [address] documented as of this encounter Goals Goal [...] documented as of this encounter Care Teams Training Manager Relationship Specialty Start Date End Date Allison Grider ANP [address] [place] [address] PCP - General Family Medicine 04/05/20 Uche Dueñas PharmD [address] [place] [address] Pharmacist Internal Medicine 11/11/23 documented as of this encounter
--- OUTSIDE RECORDS SUMMARY | 2024-05-29 10:00 | XMS_ITS | Encounter Summary ---
Author Organization [employer] Address [address] [facility] 7t [place] [address] Care Team Providers Care Gis Software Developer Name Role Phone Allison Grider Primary Care Provider [phone] Uche Dueñas PharmD Unavailable Encounter Details Date Type Department Care Team (Late st Contact Info) Description 03/09/2022 Orders Only [facility] [address] [place] [address] Allison Grider ANP [address] [place] [address] Cervical lymphadenopathy (Primary Dx) Social History Tobacco Use Types Packs/Day Years Used Date Smoking Tobacco: Never Assessed Comments Unknown Sex and Gender Information Value Date Recorded Sex Assigned at Female 01/15/2022 10:15 AM EDT Legal Sex Female 10:15 AM EDT Gender Identity Female 01/15/2022 10:15 AM EDT Sexual Orientation Choose not to disclose 2021 10:15 AM EDT documented as of this encounter Plan of Treatment Upcoming Encounters Date Type Department Care Team (Late Contact Info) Description 06/17/2024 9:30 AM EDT Clinical Support [facility] [address] [place] [address] Rohini Torres, SYMONE [address] [place] [address] 08/25/2024 9:15 AM EDT Office Visit [facility] [address] [place] [address] Allison Grider ANP [address] [place] [address] Scheduled Orders Name Type Priority Associated Diagnoses Orde r Schedule US Cervical Lymph Node Imaging Routine Cervical lymphadenopathy Expected: 09/07/2022, Expires: 03/09/2023 documented as of this encounter Visit Diagnoses Diagnosis Cervical lymphadenopathy- Primary Enlargement of lymph nodes documented in this encounter Care Teams Gis Software Developer Relationship Specialty Start Date End Date Allison Grider ANP [address] [place] [address] PCP - General Family Medicine 04/05/20 Uche Dueñas, Molly [address] [place] [address] Pharmacist Internal Medicine 11/11/23 documented as of this encounter
--- OUTSIDE RECORDS SUMMARY | 2024-05-29 10:00 | XMS_ITS | Encounter Summary ---
Author Organization [employer] Address [address] [facility] 7t [place] [address] Care Team Providers Care Director Of Advertising Sales Name Role Phone Allison Grider Primary Care Provider [phone] Uche Dueñas PharmD Unavailable Reason for Visit * Reason Onset Date Comments Med Refill 07/20/2022 Encounter Details Date Type Department Care Team (Late st Contact Info) Description 07/20/2022 Telephone [facility] [address] [place] [address] Allison Grider ANP [address] [place] [address] Med Refill Social History Tobacco Use Types [...] * Telephone Encounter - Katrin Rivera - 07/20/2022 1:31 PM EDT Tc from patient requesting a med refill for medication oxycodone [address] Grider documented in this encounter Plan of Treatment Upcoming Encounters Date Type Department Care Team (Late st Contact Info) Description 06/17/2024 9:30 AM EDT Clinical Support [facility] [address] [place] [address] Rohini Torres, RN [address] [place] [address] 08/25/2024 9:15 AM EDT Office Visit [facility] [address] [place] [address] Allison Grider ANP [address] [place] [address] documented as of this encounter Visit Diagnoses Not on filedocumented in this encounter Care Teams Director Of Advertising Sales Relationship Specialty Start Date End Date Allison Grider ANP [address] [place] [address] PCP - General Family Medicine 04/05/20 Uche Dueñas, CatarinoD [address] [place] [address] Pharmacist Internal Medicine 11/11/23 documented as of this encounter
--- OUTSIDE RECORDS SUMMARY | 2024-05-29 10:00 | XMS_ITS | Encounter Summary ---
Author Organization [employer] Address 75 [facility] 7t [place] [address] Care Team Providers Care Senior Pharmacy Technician Name Role Phone Allison Grider Primary Care Provider Uche Dueñas PharmD Unavailable [phone] Encounter Details Date Type Department Care Team (Late st Contact Info) Description 05/21/2024 9:00 AM EST Office Visit [facility] [address] [place], [place] [phone] Allison Grider ANP 230 [place] [address] Class 2 severe obesity with serious comorbidity and body mass index (BMI) of 38.0 to 38.9 in adult, unspecified obesity type (CMS/HCC) (Primary Dx); Pain Social History Tobacco Use Types Packs/Day Years [...] the past 12 months, has t he [employer], gas, oil or water [employer] threatened to shut off services in your [...] AM EDT documented as of this encounter Last Filed Vital Signs Vital Sign Reading [...] Mass Index 39.06 05/21/2024 9:07 AM EST documented in this encounter Plan of Treatment Upcoming Encounters Date Type Department Care Team (Late st Contact Info) Description 06/17/2024 9:30 AM EDT Clinical Support [facility] [address] [place] [address] Rohini Torres, SYMONE 505 [place] [address] 08/25/2024 9:15 AM EDT Office Visit [facility] [address] [place] [address] Allison Grider ANP [address] [place] [address] documented as of this encounter Goals Goal Patient Goal Type Associated Problems Recent Progress Patient-Stated? Author Quit using tobacco (cigarettes, smokeless, etc) Tobacco Use No Uche Dueñas, Molly documented as of this encounter Visit Diagnoses Diagnosis Class 2 severe obesity with serious comorbidity and body mass index (BMI) of 38.0 to 38.9 in adult, unspecified obesity type (CMS/HCC)- Primary Pain Generalized pain documented in this encounter Additional Health Concerns Assessment Noted Time PHQ-9 Depression Total Score: 17 05/21/2 025 9:34 AM EST documented as of this encounter Care Teams Senior Pharmacy Technician Relationship Specialty Start Date End Date Allison Grider ANP [address] [place] [address] PCP - General Family Medicine 04/05/20 Uche Dueñas, PharmD [address] [place] [address] Pharmacist Internal Medicine 11/11/23 documented as of this encounter
--- OUTSIDE RECORDS SUMMARY | 2024-05-29 10:00 | XMS_ITS | Encounter Summary ---
Author Organization [employer] Address 75 [facility] 7t [place] [address] Care Team Providers Care Portable Track Line Marker Name Role Phone Allison Grider Primary Care Provider [phone] Uche Dueñas PharmD Unavailable [phone] Reason for Visit * Reason Onset Date Comments Med Refill 02/17/2024 Encounter Details Date Type Department Care Team ([facility] st Contact Info) Description 02/17/2024 Telephone [facility] 230 [place] [address] Allison Grider ANP [address] [place] [address] Med Refill Social History Tobacco Use Types [...] encounter Miscellaneous Notes * Telephone Encounter - Belen Carter LPN - 02/17/2024 10:04 AM EST Medication pended to PCP. * Telephone Encounter - Sukhdev Kern - 02/17/2024 9:46 AM EST TC from pt requesting medication refill. Medications needing refill : naproxen (Naprosyn) 500 MG tablet To be sent to: [facility] documented in this encounter Plan of Treatment Upcoming Encounters Date Type Department Care Team (Late st Contact Info) Description 06/17/2024 9:30 AM EDT Clinical Support [facility] [address] [place] [address] Rohini Torres, SYMONE 505 [place] [address] 08/25/2024 9:15 AM EDT Office Visit [facility] 230 [place] [address] Allison Grider ANP [address] [place] [address] documented as of this encounter Goals Goal Patient Goal Type Associated Problems Recent Progress Patient-Stated? Author Quit using tobacco (cigarettes, smokeless, etc) Tobacco Use No Uche Dueñas PharmD documented as of this encounter Visit Diagnoses Not on filedocumented in this encounter Additional Health Concerns Assessment Noted Time PHQ-9 Depression Total Score: 4 12/05/19 23 10:38 AM EDT documented as of this encounter Care Teams Portable Track Line Marker Relationship Specialty Start Date End Date Allison Grider ANP [address] [place] [address] PCP - General Family Medicine 04/05/20 Uche Dueñas, Molly [address] [place] [address] Pharmacist Internal Medicine 11/11/23 documented as of this encounter
--- OUTSIDE RECORDS SUMMARY | 2024-05-29 10:00 | XMS_ITS | Encounter Summary ---
Author Organization [employer] Address 75 [facility] 7t [place] [address] Care Team Providers Care Strap Stitcher Name Role Phone Allison Grider Primary Care Provider [phone] Uche Dueñas PharmD Unavailable [phone] Reason for Visit * Reason Comments Pre-visit Planning Pre-visit planning - LVM Encounter Details Date Type Department Care Team ([facility] st Contact Info) Description 05/12/2024 Patient Outreach [facility] [address] [place] [address] Allison Grider ANP [address] [place] [address] Pre-visit Planning (Pre-visit planning - LVM ) Social History Tobacco Use Types Packs/Day Years [...] AM EDT documented as of this encounter Progress Notes * Ginette Keith - 05/12/2024 2:21 PM EST SILVANO Be placed outbound call to patient to complete pre-visit planning. No answer at this time. Patient name and were not confirmed. CC left voicemail requesting return call. Direct contact information provided. documented in this encounter Plan of Treatment Upcoming Encounters Date Type Department Care Team ([facility] st Contact Info) Description 06/17/2024 9:30 AM EDT Clinical Support [facility] [address] [place] [address] Rohini Torres, SYMONE 505 [place] [address] 08/25/2024 9:15 AM EDT Office Visit [facility] [address] [place] [address] Allison Grider ANP [address] [place] [address] documented as of this encounter Goals Goal [...] documented as of this encounter Care Teams Strap Stitcher Relationship Specialty Start Date End Date Allison Grider ANP [address] [place] [address] PCP - General Family Medicine 04/05/20 Uche Dueñas PharmD [address] [place] [address] Pharmacist Internal Medicine 11/11/23 documented as of this encounter
--- OUTSIDE RECORDS SUMMARY | 2024-05-29 10:00 | XMS_ITS | Encounter Summary ---
Author Organization [employer] Address 75 [facility] 7t [place] [address] Care Team Providers Care Laborer Prestressed Concrete Name Role Phone Allison Grider Primary Care Provider [phone] Uche Dueñas PharmD Unavailable [phone] Reason for Visit * Reason Onset Date Comments Status check forearm 05/26/2024 Encounter Details Date Type Department Care Team ([facility] st Contact Info) Description 05/26/2024 Telephone [facility] [address] [place] [address] Allison Grider ANP [address] [place] [address] Status check forearm Social History Tobacco Use Types Packs/Day Years [...] encounter Miscellaneous Notes * Telephone Encounter - CHRIS Draper - 05/28/2024 10:58 AM EDT Nope! Glad it's better. * Telephone Encounter - Juanita Rodriguez RN - 05/28/2024 10:34 AM EDT Telephone call to pt's friend Ludmila (on HIPAA), spoke with VONTRAVEL who was present and gave verbal consent to speak. Ludmila provided nigerian translation. States bump on pt's forearm went down a lot , denies redness, swelling, or discharge. Reviewed that provider had been considering ultrasound if not improved and would send note on current status, if any update to plan of care, nurses to call pt back.Reviewed NTT[employer] furs salesperson, WIC hours/extended/Sat, pt verbalized understanding. * Telephone Encounter - Shaina Cross RN - 05/27/2024 2:32 PM EDT Telephone call placed to pt for status check. No answer, left v/m. Will retask for final attempt. * Telephone Encounter - Juanita Rodriguez RN - 05/26/2024 11:39 AM EDT Telephone call to pt to status check bump on arm, no answer, left voicemail to call back [facility]. Will task to call again. * Telephone Encounter - Juanita Rodriguez RN - 05/26/2024 11:35 AM EDT ----- Message from Allisno Grider sent at 05/21/2024 9:25 AM EST ----- Please outreach pt next week for status check on bump on R forearm documented in this encounter Plan of Treatment Upcoming Encounters Date Type Department Care Team (Late st Contact Info) Description 06/17/2024 9:30 AM EDT Clinical Support [facility] [address] [place] [address] Rohini Torres, SYMONE 505 [place] [address] 08/25/2024 9:15 AM EDT Office Visit [facility] 230 [place] [address] Allison Grider ANP [address] [place] [address] documented as of this encounter Goals Goal Patient Goal Type Associated Problems Recent Progress Patient-Stated? Author Quit using tobacco (cigarettes, smokeless, etc) Tobacco Use No Uche Dueñas, PharmD documented as of this encounter Visit Diagnoses Not on filedocumented in this encounter Additional Health Concerns Assessment Noted Time PHQ-9 Depression Total Score: 17 025 9:34 AM EST documented as of this encounter Care Teams Laborer Prestressed Concrete Relationship Specialty Start Date End Date Allison Grider ANP [address] [place] [address] PCP - General Family Medicine 04/05/20 Uche Dueñas PharmD [address] [place] [address] Pharmacist Internal Medicine 11/11/23 documented as of this encounter
== END 2024-05-29 11:58 | disposition home or self-care (01) ==
LOC: HO.HGI 09:14
PROVIDERS: PCP Nurse Practitioner Primary Care; Visit Provider Nurse Practitioner Family
DX: K21.9 Gastro-esophageal reflux disease without esophagitis (principal); K22.70 Barrett's esophagus without dysplasia; R14.0 Abdominal distension (gaseous); Z12.11 Encounter for screening for malignant neoplasm of colon
CPT/HCPCS: 99214; G2211

== ENCOUNTER → 2024-05-29 09:13 | Outpatient (BNVA) | payer OTHER, SELFPAY | PROVIDERS: PCP Nurse Practitioner Primary Care; Visit Provider Nurse Practitioner Family | DX: Z12.11 Encounter for screening for malignant neoplasm of colon (principal); K21.9 Gastro-esophageal reflux disease without esophagitis; K22.70 Barrett's esophagus without dysplasia; R14.0 Abdominal distension (gaseous) | CPT/HCPCS: 99212 ==

== ENCOUNTER 2024-10-19 08:29 | Outpatient (REF) | payer OTHER, SELFPAY ==
--- OUTSIDE RECORDS SUMMARY | 2024-10-19 08:49 | XMS_ITS | Encounter Summary ---
Author Organization [employer] Address 75 [facility] 7t [place] [address] Care Team Providers Care Box Office Clerk Name Role Phone Allison Grider Primary Care Provider [phone] Uche Dueñas PharmD Unavailable [phone] Reason for Visit * Reason Onset Date Comments Med Refill 08/13/2024 Encounter Details Date Type Department Care Team ([facility] st Contact Info) Description 08/13/2024 Telephone [facility] 230 [place] [address] Allison Grider ANP [address] [place] [address] Med Refill Social History Tobacco Use Types Packs/Day Years Used Date Smoking Tobacco: Every Day Cigarettes 1 32.6 Started: 1992 Passive Smoke Exposure: Current Smokeless [...] encounter Miscellaneous Notes * Telephone Encounter - Kareem Roberto - 08/13/2024 10:40 AM EDT TC from pt requesting medication refill. Medications needing refill: oxyCODONE-acetaminophen (Percocet) 5-325 MG tablet To be sent to: [facility] documented in this encounter Plan of Treatment Upcoming Encounters Date Type Department Care Team (Late st Contact Info) Description 11/09/2024 9:30 AM EDT Telemedicine [facility] [address] [place] [address] Rohini Torres, SYMONE 505 [place] [address] 11/19/2024 9:15 AM EDT Office Visit [facility] 230 [place] [address] Allison Girder, ANP [address] [place] [address] documented as of this encounter Goals Goal Patient Goal Type Associated Problems Recent Progress Patient-Stated? Author Quit using tobacco (cigarettes, smokeless, etc) Tobacco Use No Uche Dueñas, PharmRianna documented as of this encounter Visit Diagnoses Not on filedocumented in this encounter Additional Health Concerns Assessment Noted Time PHQ-9 Depression Total Score: 17 05/21/ 025 9:34 AM EST documented as of this encounter Care Teams Box Office Clerk Relationship Specialty Start Date End Date Allison Grider ANP [address] [place] [address] PCP - General Family Medicine 04/05/20 Uche Dueñas, PharmD [address] [place] [address] Pharmacist Internal Medicine 11/11/23 documented as of this encounter
== END 2024-10-19 08:30 | disposition home or self-care (01) ==
LOC: HO.HOSX 08:29
PROVIDERS: Visit Provider Orthopaedic Surgery
DX: M17.11 Unilateral primary osteoarthritis, right knee (principal); M25.561 Pain in right knee; E66.01 Morbid (severe) obesity due to excess calories; M21.061 Valgus deformity, not elsewhere classified, right knee; F17.210 Nicotine dependence, cigarettes, uncomplicated; Z68.38 Body mass index [BMI] 38.0-38.9, adult; Z98.890 Other specified postprocedural states
CPT/HCPCS: 99202

== ENCOUNTER 2024-10-19 09:26 | Outpatient (AMB) | payer OTHER, SELFPAY ==
[2024-10-19 10:03] VITALS: BMI 38.3
--- NOTE | 2024-10-19 10:03 | MHC.OFFVIS ---
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 She was last seen in 2019 where we discussed that she was not a surgical candidate at this time due to weight and age. Met with weight mgmt in 2020. Patient reports that the knee is painful all the time, and is unstable. 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 At the time she was morbidly obese and has subsequently done well to lose weight. She comes in today with a BMI under 40 and looks much improved from prior. Her right knee however prevents her from walking normally. She has a valgus deformity and a very antalgic gait. She states she is in constant pain and has very limited ambulatory capacity. [facility] Medical History (Updated 09/04/24 @ 08:26 by Ginette Hollis PA-C) Bipolar 1 disorder Layne's esophagus determined by biopsy Gastroesophageal reflux disease Tubular adenoma of colon Nicotine dependence, cigarettes, uncomplicated Obesity Low vitamin D level Arthritis of right knee Right tennis elbow Surgical History (Updated 09/04/24 @ 08:29 by Ginette Hollis PA-C) History of left knee surgery History of esophagogastroduodenoscopy (EGD) History of colonoscopy S/P cholecystectomy Family History Father No problems noted. Mother Hx of heat stroke History of colon cancer Sister Diabetes Brother No problems noted. Daughter No problems noted. Social History Alcohol intake: current Alcohol intake frequency: does not drink Patient Tobacco Use Status: Current everyday Tobacco user Tobacco use type: Cigarette Cigarettes Per Day: 2 Physical Exam Vital Signs: BMI result Body Mass Index 38.3 Const General: cooperative, healthy appearing, no acute distress, well developed and alert HEENT Head: Yes normal to inspection, Yes normocephalic and Yes atraumatic Mouth: moist mucous membranes Eyes General: appearance normal, both eyes and all related structures EOM: EOMs intact bilaterally Chest Other: no audible wheezing. Resp Other: No audible wheezing Effort & Inspection: normal respiratory effort Cardio Other: Radial pulse palpable with no rythmic abnormalities Back/Spine/Pelvis Cervical Spine: normal cervical lordosis Skin General skin exam: no rashes or lesions noted Neuro General: no focal motor deficits Extrem Other: Tenderness to palpation lateral compartment right knee. Dorsalis pedis pulse 2 +. Firing EHL/tib ant/gastrocs. Skin intact to light touch. 15 degree valgus deformity with gait antalgia. Psych Appearance: grossly normal and well kempt Mental Status: mental status grossly normal Speech and movement: Normal speech and movement present Affect: normal affect Attitude: cooperative Results Reviewed Results Reviewed: I personally reviewed relevant radiographs. Severe valgus pattern osteoarthritis right knee Assessment & Plan Assessment & Plan (1) Arthritis of right knee: Code(s): M17.11 - Unilateral primary osteoarthritis, right knee Category: Medical Plan: Is a 54-year-old woman who comes in today with severe valgus pattern osteoarthritis right knee. Her gait pattern is very poor and she is minimally ambulatory capacity. Seen her in the past and she has been losing steady weight and is within acceptable limits. She has decreased her smoking to 2 cigarettes per day and was recently diagnosed with Layne's esophagus via endoscopy. She would like to be more active and I recommend right knee replacement. I reviewed with her the surgery as well as the nonsurgical options. Certainly injected in the knee might help her temporarily feel better but her valgus malalignment we will not improve and this is preventing her from walking. I discussed the risk of peroneal nerve injury as well as complications associated with infection and stiffness and aseptic loosening as well as medical complications potentially associated with surgery such as blood clots, pulmonary embolism, organ failure, pneumonia, urinary tract infecions. She expressed understanding and we will begin the preoperative clearance process. Also counseled her to quit smoking entirely. Orders: Orders XR knee RT 3V Today M25.561 - Pain in right knee Coding Level of Care Code Est Pt Level 4 (78797) Diagnoses Arthritis of right knee M17.11
== END 2024-10-19 10:39 | disposition home or self-care (01) ==
LOC: HO.HOS 09:26
PROVIDERS: PCP Nurse Practitioner Primary Care; Visit Provider Orthopaedic Surgery
DX: M17.11 Unilateral primary osteoarthritis, right knee (principal)
CPT/HCPCS: 99204

== ENCOUNTER 2024-11-04 10:07 | Outpatient (REF) | payer OTHER, SELFPAY ==
--- NOTE | ~2024-11-04 | MM_ITS ---
EXAMINATION: MM SCREENING DIGITAL BREAST TOMOSYNTHESIS, BILATERAL CLINICAL INFORMATION: Screening. Asymptomatic. COMPARISON: Mammography: Comparison is made with available priors TECHNIQUE: Digital breast mammography with tomosynthesis is performed in both the craniocaudal and mediolateral oblique views along with computer-aided detection (CAD). FINDINGS: There are scattered areas of fibroglandular density (ACR BI-RADS breast composition Category b). There are no significant masses, abnormal calcifications, or other abnormalities. MM/MM tomosynthesis screening BI IMPRESSION: No mammographic evidence of malignancy. ASSESSMENT: BI-RADS BI-RADS 1 - Negative RECOMMENDATION: Routine annual mammography screening. 1 year F/U This examination should not preclude the clinical evaluation of a suspicious palpable abnormality. This patient's information was entered into a reminder system with a target due date for their next mammogram. Electronically signed by: Corazon Glover DO 11/05/2024 04:54 PM EDT
--- OUTSIDE RECORDS SUMMARY | 2024-11-04 11:15 | XMS_ITS | Encounter Summary ---
Author Organization [employer] Address 75 [facility] 7t [place] [address] Care Team Providers Care Commissary Worker Name Role Phone Allison Grider Primary Care Provider [phone] Uche Dueñas PharmD Unavailable [phone] Reason for Visit * Reason Onset Date Comments Med Refill 08/13/2024 Encounter Details Date Type Department Care Team ([facility] st Contact Info) Description 08/13/2024 Telephone [facility] MEDICINE [address] [place] [address] Allison Grider ANP [address] [place] [address] Med Refill Social History Tobacco Use Types [...] sent to: [facility] documented in this encounter Plan of Treatment Upcoming Encounters Date Type Department Care Team ([facility] st Contact Info) Description 11/09/2024 9:30 AM EDT Telemedicine [facility] PEDS [address] [place] [address] Rohini Torres, SYMONE [address] [place] [address] 11/19/2024 9:15 AM EDT Office Visit [facility] MEDICINE [address] [place] [address] Allison Grider, ANP [address] [place] [address] 12/16/2024 10:45 AM EDT Office Visit [facility] MEDICINE [address] [place] [address] Michelle Kyle NP 230 [place] [address] documented as of this encounter Goals Goal Patient Goal Type Associated Problems Recent Progress Patient-Stated? Author Quit using tobacco (cigarettes, smokeless, etc) Tobacco Use No Uche Dueñas, Molly documented as of this encounter Visit Diagnoses Not on filedocumented in this encounter Additional Health Concerns Assessment Noted Time PHQ-9 Depression Total Score: 17 025 9:34 AM EST documented as of this encounter Care Teams Commissary Worker Relationship Specialty Start Date End Date Allison Grider ANP [address] [place] [address] PCP - General Family Medicine 04/05/20 Uche Dueñas, PharmD [address] [place] [address] Pharmacist Internal Medicine 11/11/23 documented as of this encounter
== END 2024-11-04 10:08 | disposition home or self-care (01) ==
LOC: HO.MAMMO 10:07
PROVIDERS: PCP Nurse Practitioner Primary Care; Visit Provider Nurse Practitioner Primary Care
DX: Z12.31 Encounter for screening mammogram for malignant neoplasm of breast (principal)
CPT/HCPCS: 77063; 77067

== ENCOUNTER → 2024-11-04 10:45 | Outpatient (BNV) | payer OTHER, SELFPAY | PROVIDERS: PCP Nurse Practitioner Primary Care; Visit Provider Internal Medicine | DX: Z12.31 Encounter for screening mammogram for malignant neoplasm of breast (principal) | CPT/HCPCS: 77063; 77067 ==

== ENCOUNTER 2024-11-06 08:46 | Outpatient (AMB) | payer OTHER, SELFPAY ==
--- NOTE | 2024-11-06 07:45 | A.OFFVIS_ITS ---
Intake Visit Reasons: LDCT Allergies No Known Allergies (No Known Allergies*) Allergy (Verified 10/19/24 10:08) HPI HPI LDCT: Details: Initial visit for this 54 smoker with a 25PYH. Patient started smoking at age 22 for 32 years at 1/2-1ppd. Currently at 1/2ppd. . Denies marijuana use. Denies second hand smoke exposure. Denies exposure to chemicals or substances like asbestos. . Denies known family history of lung cancer. Denies personal history of cancers. Denies chest CT in last year. . Denies recent travel outside the [place]. Denies recent respiratory illness or recent hospitalization for respiratory issues. Denies testing positive for COVID. Admits receiving COVID Vaccine. . Denies fever, chills, new/worsening cough, hemoptysis, hoarseness or dysphagia. Denies significant chest pain, significant dyspnea or unintentional weight loss. Patient Lung Cancer Screening Questionnaire reviewed with patient by provider. . Shared Decision Making Completed. Patient meets criteria. Discussed in detail with patient, the risk vs benefit of LDCT screening. Patient consents to proceed with scan. Discussed smoking cessation. [facility] Medical History (Updated 11/06/24 @ 09:11 by Ginette Hollis PA-C) Bipolar 1 disorder Layne's esophagus determined by biopsy Gastroesophageal reflux disease Tubular adenoma of colon Nicotine dependence, cigarettes, uncomplicated Obesity Low vitamin D level Arthritis of right knee Right tennis elbow Surgical History (Updated 09/04/24 @ 08:29 by Ginette Hollis PA-C) History of left knee surgery History of esophagogastroduodenoscopy (EGD) History of colonoscopy S/P cholecystectomy Family History Father No problems noted. Mother Hx of heat stroke History of colon cancer Sister Diabetes Brother No problems noted. Daughter No problems noted. Social History (Updated 11/06/24 @ 09:12 by Ginette Hollis PA-C) Alcohol intake: current Alcohol intake frequency: does not drink Patient Tobacco Use Status: Current everyday Tobacco user Tobacco use type: Cigarette Years Smoked: (onset 22yo, 1/2-1ppd x 32yrs, now 1/2ppd - 25pyh) Assessment & Plan Assessment & Plan (1) Nicotine dependence, cigarettes, uncomplicated: Comment: (onset 22yo, 1/2-1ppd x 32yrs, now 1/2ppd - 25pyh) Code(s): F17.210 - Nicotine dependence, cigarettes, uncomplicated Category: Medical Plan: - SDM visit completed today in office. - Patient meets criteria for LDCT for lung cancer screening purposes and is asymptomatic. - Smoking cessation counseling offered. Patients can always call [phone]. - Will arrange for a LDCT scan of the chest for screening purposes at [facility]. - Risks, benefits, and alternatives were discussed in detail and the patient agrees to proceed. - Risks discussed include but are not limited to: radiation exposure, anxiety during testing and while awaiting results, false negatives, false positives and possibility of additional intervention such as further imaging or surgical procedures for benign disease. - Benefits are obviously detection of lung cancer at an early stage which can lead to improved outcomes. - Discussed the importance of screening program compliance with adherence to yearly LDCT scan as scheduled - or sooner interval scans for personalized screening regimen. - Discussed follow up plan. Our office will send a letter discussing results and if needed set up phone call and office visit based on CT findings. - Patient educated on results categorization and the management decisions for suspicious findings potentially found on the screening LDCT scan. Any patient with a Lung RADS score of 3 or 4 will be reviewed by a multidisciplinary team at [facility] to form a plan of action in regards to scan findings. - If further work up is warranted for a suspicious lung finding this will be followed by the Lung Cancer Screening program in conjunction with the Thoracic Surgery Department at [facility]. - A copy of the office note and LDCT will be sent to the patient's PCP - as well as documentation on any associated further plans of care. - Incidental findings on LDCT are the PCP's responsibility. These findings are indicated with an S finding on the LDCT Assessment. A note discussing the findings will be sent to the PCP who is then responsible for further management. - All questions answered.? Coding Level of Care Code Lung Cancer Screening G0296 Diagnoses Nicotine dependence, cigarettes, uncomplicated F17.210
--- OUTSIDE RECORDS SUMMARY | 2024-11-06 08:59 | XMS_ITS | Encounter Summary ---
Author Organization [email or web address] Address [address] [facility] 7t [place] [address] Care Team Providers Care Pocket Operator Name Role Phone Allison Grider Primary Care Provider Uche Dueñas PharmD Unavailable [phone] Reason for Visit * Reason Onset Date Comments Med Refill 08/13/2024 Encounter Details Date Type Department Care Team ([facility] st Contact Info) Description 08/13/2024 Telephone [facility] [address] [place] [address] Allison Grider ANP [address] [place] [address] Med Refill Social History Tobacco Use Types [...] sent to: [facility] documented in this encounter Plan of Treatment Upcoming Encounters Date Type Department Care Team ([facility] st Contact Info) Description 11/09/2024 9:30 AM EDT Telemedicine [facility] [address] [place] [address] Rohini Torres, SYMONE [address] [place] [address] 11/19/2024 9:15 AM EDT Office Visit [facility] [address] [place] [address] Allison Grider, ANP [address] [place] [address] 12/16/2024 10:45 AM EDT Office Visit [facility] [address] [place] [address] Michelle Kyle NP [address] [place] [address] documented as of this encounter Goals Goal Patient Goal Type Associated Problems Recent Progress Patient-Stated? Author Quit using tobacco (cigarettes, smokeless, etc) Tobacco Use No Uche Dueñas, Molly documented as of this encounter Visit Diagnoses Not on filedocumented in this encounter Additional Health Concerns Assessment Noted Time PHQ-9 Depression Total Score: 17 025 9:34 AM EST documented as of this encounter Care Teams Pocket Operator Relationship Specialty Start Date End Date Allison Grider ANP [address] [place] [address] PCP - General Family Medicine 04/05/20 Uche Dueñas, PharmD [address] [place] [phone] Pharmacist Internal Medicine 11/11/23 documented as of this encounter
== END 2024-11-06 09:30 | disposition home or self-care (01) ==
PROVIDERS: Family Provider Nurse Practitioner Primary Care; PCP Nurse Practitioner Primary Care; Visit Provider Physician Assistant Medical
DX: F17.210 Nicotine dependence, cigarettes, uncomplicated (principal)
CPT/HCPCS: G0296

== ENCOUNTER 2024-11-06 09:09 | Outpatient (REF) | payer OTHER, SELFPAY ==
--- NOTE | ~2024-11-06 | CT_ITS ---
CLINICAL HISTORY: F17.210 - Nicotine dependence, cigarettes, uncomplicated Examination CT lung cancer screening History Screening examination performed for pulmonary nodules Technique Axial CT images of the chest using low-dose technique. Effective radiation dose total: 76.1 mGy-cm, CTDIvol 1.8 mGy. Referring provider counseled the patient on shared decision-making for LDCT screening. Additional counseling was provided on smoking cessation. Comparison: None available Findings: Lungs: Solid pulmonary nodules measure up to 4 mm (series 4, image 48, right upper lobe). No emphysema. Mild amount of subsegmental atelectasis versus linear scarring, such as in the right middle lobe Coronary artery calcifications: None Other: None Limited upper abdomen: Status post cholecystectomy. Impression: LungRADS 2 - Benign Appearance: Continue annual screening with low dose Chest CT in 12 months. ##L2# Category 1: Normal; continue annual screening Category 2: Benign appearance or behavior, continue annual screening Category 3: Probably benign, [address] recommended Category 4A: Suspicious, [address] recommended; may consider PET/CT Category 4B: Suspicious, Additional diagnostics and/or tissue sampling recommended Category 4X: Suspicious, Additional diagnostics and/or tissue sampling recommended Category 0: Recalls (incomplete screen due to Incomplete coverage, Noise, Respiratory motion, Expiration, Obscured by acute abnormality) This document has been electronically signed by: Concepcion Sutherland MD on 11/07/2024 13:14:32
== END 2024-11-06 09:10 | disposition home or self-care (01) ==
LOC: HO.CT 09:09
PROVIDERS: PCP Nurse Practitioner Primary Care; Visit Provider Physician Assistant Medical
DX: Z12.2 Encounter for screening for malignant neoplasm of respiratory organs (principal); F17.210 Nicotine dependence, cigarettes, uncomplicated
CPT/HCPCS: 71271; G0296

== ENCOUNTER → 2024-11-06 09:11 | Outpatient (BNV) | payer OTHER, SELFPAY | PROVIDERS: PCP Nurse Practitioner Primary Care; Visit Provider Radiology Diagnostic Radiology | DX: F17.210 Nicotine dependence, cigarettes, uncomplicated (principal) | CPT/HCPCS: 71271 ==

== ENCOUNTER 2024-11-10 11:05 | Outpatient (AMB) | payer OTHER, SELFPAY ==
--- OUTSIDE RECORDS SUMMARY | 2024-11-09 09:30 | XMS_ITS | Encounter Summary ---
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 The patient last took Percocet on: 11/09/24 Medication is: 100% % effective at alleviating pain. OBJECTIVE: ACADEMIC DIRECTOR checked: 11/09/2024 Pill count completed for Percocet , count today is 14 , anticipated count should be 7, this is as expected. Vital Signs Pain Score: 5 Pain Loc: Back Pain Education: Yes Last PCP visit: 05/21/24 BPI completed on: 06/17/24 , pain severity score: 5, activity interference score: 2 BPI completed on: 05/15/23 , pain severity score: 6, activity interference score: 6 STARLA-7 Total Score: 15 (05/21/2024 9:34 AM) Controlled substance agreement signed: Controlled Substance Agreement 06/17/2024 HISTORIOGRAPHY PROFESSOR Tier: 3 Current Medications[1] Smoking status: Yes5-6 cigarettes/ day ETOH use: Denies Illicit substances: Denies Marijuana use: No Lab Results Component Value Date POCOXYCODONE Positive 06/17/2024 ASSESSMENT: A: HISTORIOGRAPHY PROFESSOR Visit; Chronic opioid use related to pain. PLAN: Information on pain group given: Previously discussed Information on acupuncture given: Previously discussed Narcan education provided: Yes Narcan prescription: inactive- refill request submitted to provider Ludmila Rutledge will continue taking medication as prescribed and follow up at the next HISTORIOGRAPHY PROFESSOR visit or sooner if needed. Ludmila Rutledge has verbalized understanding of care plan. Future Appointments Date Time Provider Department Center 11/19/2024 9:15 AM CHRIS Draper MEDIC[facility] 12/16/2024 10:45 AM Michelle Kyle NP MEDICINE [facility] 02/01/2025 10:00 AM [address]ini [address] [facility] Rohini Torres RN [1] Current Outpatient Medications: busPIRone (Buspar) 5 MG tablet, , Disp: , Rfl: cyanocobalamin (Vitamin B-12) 1000 MCG tablet, , Disp: , Rfl: D3 Super Strength 50 MCG (2000 UT) capsule, TAKE ONE CAPSULE BY MOUTH EVERY MORNING, Disp: 90 capsule, Rfl: 1 Diclofenac Sodium (Voltaren) 1 % gel, Apply up to 4x/d to affected joint(s) for pain/swelling, Disp: 100 g, Rfl: 2 gabapentin (Neurontin) 300 MG capsule, , Disp: , Rfl: GAS RELIEF 125 MG capsule, , Disp: , Rfl: melatonin 5 MG tablet, , Disp: , Rfl: naloxone (Narcan) 4 mg/0.1 mL nasal spray, Administer 0.1 mL into affected nostril(s)., Disp: , Rfl: naproxen (Naprosyn) 500 MG tablet, TAKE 1 TABLET BY MOUTH IN THE MORNING AND AT BEDTIME IF NEEDED FOR MODERATE PAIN. TAKE WITH FOOD., Disp: 60 tablet, Rfl: 0 nicotine (Nicoderm CQ) 7 MG/24HR patch, Place 1 patch on the skin 1 (one) time each day at the sametime., Disp: 42 patch, Rfl: 0 nicotine polacrilex (Nicorette) 2 MG gum, Chew 1 piece up to every [address] of cigarete, Disp: 100 each, Rfl: 3 omeprazole (PriLOSEC) [address] capsule, , Disp: , Rfl: oxyCODONE-acetaminophen (Percocet) 5-325 MG tablet, Take 1 tablet by mouth every 12 (twelve) hours if needed for severe pain for up to 28 days., Disp: 56 tablet, Rfl: 0 Semaglutide-Weight Management (Wegovy) 0.25 MG/0.5ML solution auto-injector, Inject 0.25 mg under the skin every 7 (seven) days., Disp: 2 mL, Rfl: 0 senna (Senokot) 8.6 MG tablet, , Disp: , Rfl: varenicline (Chantix) 0.5 MG tablet, Take 0.5 mg PO once daily on Days 1 through 3, then 0.5 mg PO twice daily on Days 4 through 7, then start 1mg twice daily prescription; take with full glass of water, Disp: 11 tablet, Rfl: 0 varenicline (Chantix) 1 MG tablet, Take 1 tablet (1 mg) by mouth 2 times daily. Take with full glass of water. Start after initial 7d rx., Disp: 60 tablet, Rfl: 2 ziprasidone (Geodon) 80 MG capsule, , Disp: , Rfl: zolpidem (Ambien) 10 MG tablet, , Disp: , Rfl: documented in this encounter Plan of Treatment Upcoming Encounters Date Type Department Care Team (Late st Contact Info) Description 11/19/2024 9:15 AM EDT Office Visit [facility] [address] [place] [address] [phone] Allison Grider ANP [address] [place] [phone] 12/16/2024 10:45 AM EDT Office Visit [facility] [address] [place] [address] Michelle Kyle NP [address] [place] [address] 02/01/2025 10:00 AM EST Telemedicine [facility] [address] [place] [address] Rohini Torres, RN [address] [place] [address] documented as of this encounter Goals Goal Patient Goal Type Associated Problems Recent Progress Patient-Stated? Author Quit using tobacco (cigarettes, smokeless, etc) Tobacco Use No Uche Dueñas, PharmRianna documented as of this encounter Visit Diagnoses Diagnosis long term care pharmacist (current) use of opiate analgesic documented in this encounter Additional Health Concerns Assessment Noted Time PHQ-9 Depression Total Score: 17 025 9:34 AM EST documented as of this encounter Care Teams Field Clerk Relationship Specialty Start Date End Date Allison Grider ANP [address] [place] [address] PCP - General Family Medicine 04/05/20 Uche Dueñas, PharmD [address] [place] [phone] Pharmacist Internal Medicine 11/11/23 documented as of this encounter
[2024-11-10 11:16] VITALS: BMI 38.3
--- NOTE | 2024-11-10 11:16 | MHC.OFFVIS ---
Vital Signs 11/10/24 11:16 Height 5 ft 5 in Weight 230 lb BMI 38.3 Intake Visit Reasons: New prob- Right wrist ganglion cyst Intake Note: Ludmila is a 54 year old right hand dominant female who presents today for a new problem visit to evaluate a right wrist ganglion cyst. Patient has a volar cyst on the radial aspect of right right wrist that is painful to touch. She reports it has been there for several months, however, it has increased in size. She is taking pain meds for health problems but it is not touching the pain. Since, she has been experiencing numbness and tingling on her right index and middle fingers. Denies finger locking.No previous injuries or surgeries to the right hand. Scheduled for R TKA w/NE 01/05/25. Allergies No Known Allergies (No Known Allergies*) Allergy (Verified 11/10/24 11:20) HPI HPI New prob- Right wrist ganglion cyst: Details: Ludmila is a 54 year old right hand dominant female who presents today for a new problem visit to evaluate a right wrist ganglion cyst. Patient has a volar cyst on the radial aspect of right right wrist that is painful to touch. She reports it has been there for several months, however, it has increased in size. She is taking pain meds for health problems but it is not touching the pain. Since, she has been experiencing numbness and tingling on her right index and middle fingers. Denies finger locking.No previous injuries or surgeries to the right hand. Scheduled for R TKA w/NE 01/05/25. [facility] Medical History (Updated 11/10/24 @ 17:50 by ANDREW Tuttle) Bipolar 1 disorder Layne's esophagus determined by biopsy Gastroesophageal reflux disease Tubular adenoma of colon Nicotine dependence, cigarettes, uncomplicated Obesity Low vitamin D level Arthritis of right knee Right tennis elbow Surgical History (Updated 09/04/24 @ 08:29 by Ginette Hollis PA-C) History of left knee surgery History of esophagogastroduodenoscopy (EGD) History of colonoscopy S/P cholecystectomy Family History Father No problems noted. Mother Hx of heat stroke History of colon cancer Sister Diabetes Brother No problems noted. Daughter No problems noted. Social History (Updated 11/10/24 @ 11:21 by MAURO Chilel Alcohol intake: current Alcohol intake frequency: does not drink Patient Tobacco Use Status: Current everyday Tobacco user Tobacco use type: Cigarette Years Smoked: (onset 22yo, 1/2-1ppd x 32yrs, now 1/2ppd - 25pyh) Current occupational status: disabled Current occupation: rt handed Review of Systems Const All systems reviewed & are unremarkable except as noted in HPI and below Physical Exam Vital Signs: BMI result Body Mass Index 38.3 Extrem Other: Patient is alert, oriented, and in no acute distress. Neuro: Normal sensation of the tips of all digits of the right hand at this time Vascular: Cap refill brisk Pain: Minimal tenderness to palpation about mass noted on volar and radial aspect of the right wrist No pain with range of motion of the right hand or wrist ROM: Patient is able to make a closed fist and extend all digits of the right hand fully and without difficulty Skin: There is an approximately 1-1.5 cm in diameter mass noted of the volar and radial aspect of the right wrist, just adjacent to the radial artery, consistent with ganglion cyst No lacerations or abrasions. General: No ecchymosis, erythema, or evidence of infection. Psych: Appears grossly normal Affect normal Attitude cooperative Assessment & Plan Assessment & Plan (1) Ganglion cyst of volar aspect of right wrist: Code(s): M67.431 - Ganglion, right wrist Category: Medical Plan 1. Right volar ganglion cyst Patient is educated about this condition Patient is educated about the treatment options available, would like to proceed with surgical intervention However, as the patient is scheduled for a right total knee replacement with Dr. Marie, I feel it is best to hold off on any surgical intervention delay right total knee replacement Patient is educated that unfortunately, I can not perform an aspiration of the cyst at this time, as the cyst is directly adjacent to the radial artery and it would be too risky to stick a needle into that area Patient understands this and is amenable to this plan Follow-up after recovery from right total knee replacement for reassessment and discussion of surgery, sooner with any acute concerns Coding Level of Care Code Est Pt Level 3 (60966) Diagnoses Ganglion cyst of volar aspect of right wrist M67.431
--- OUTSIDE RECORDS SUMMARY | 2024-11-10 11:58 | XMS_ITS | Encounter Summary ---
Author Organization [employer] Address [address] [facility] 7t [place] [address] Care Team Providers Care Shipyard Helper Name Role Phone Allison Grider Primary Care Provider Uche Dueñas PharmD Unavailable [phone] Reason for Visit * Reason Onset Date Comments Med Refill 08/13/2024 Encounter Details Date Type Department Care Team ([facility] st Contact Info) Description 08/13/2024 Telephone [facility] [address] [place] [address] Allison Grider ANP [address] [place] [address] Med Refill Social History Tobacco Use Types [...] sent to: [facility] documented in this encounter Plan of Treatment Upcoming Encounters Date Type Department Care Team (Late st Contact Info) Description 11/19/2024 9:15 AM EDT Office Visit [facility] [address] [place] [address] Allison Grider ANP [address] [place] [address] 12/16/2024 10:45 AM EDT Office Visit [facility] [address] [place] [address] Michelle Kyle NP [address] [place], [place] 02/01/2025 10:00 AM EST Telemedicine [facility] [address] [place] [address] Rohini Torres, SYMONE [address] [place], [place] documented as of this encounter Goals Goal Patient Goal Type Associated Problems Recent Progress Patient-Stated? Author Quit using tobacco (cigarettes, smokeless, etc) Tobacco Use No Uche Dueñas, PharmD documented as of this encounter Visit Diagnoses Not on filedocumented in this encounter Additional Health Concerns Assessment Noted Time PHQ-9 Depression Total Score: 17 025 9:34 AM EST documented as of this encounter Care Teams Shipyard Helper Relationship Specialty Start Date End Date Allison Grider ANP [address] [place] [phone] PCP - General Family Medicine 04/05/20 Uche Dueñas, PharmD [address] [place] [address] Pharmacist Internal Medicine 11/11/23 documented as of this encounter
--- OUTSIDE RECORDS SUMMARY | 2024-11-10 11:59 | XMS_ITS | Encounter Summary ---
Author Organization [employer] Address [address] [facility] 7t [place] [address] Care Team Providers Care Isobutylene Operator Chief Name Role Phone Allison Grider CHRIS Primary Care Provider [phone] Uche Dueñas PharmD Unavailable [phone] Encounter Details Date Type Department Care Team (Latest Contact Info) Description 11/09/2024 Travel Social History Tobacco Use Types Packs/Day [...] Description 11/19/2024 9:15 AM EDT Office Visit [facility] [address] [place] [address] Allison Grider ANP [address] [place] [address] 12/16/2024 10:45 AM EDT Office Visit [facility] [address] [place] [address] Michelle Kyle NP [address] [place] [address] 02/01/2025 10:00 AM EST Telemedicine [facility] [address] [place] [address] Rohini Torres, SYMONE [address] [place] [address] documented as of this encounter Goals Goal Patient Goal Type Associated Problems Recent Progress Patient-Stated? Author Quit using tobacco (cigarettes, smokeless, etc) Tobacco Use Uche Lindsay, CatarinoD documented as of this encounter Visit Diagnoses Not on filedocumented in this encounter Additional Health Concerns Assessment Noted Time PHQ-9 Depression Total Score: 17 025 9:34 AM EST documented as of this encounter Care Teams Isobutylene Operator Chief Relationship Specialty Start Date End Date Allison Grider ANP [address] [place] [address] PCP - General Family Medicine 04/05/20 Uche Dueñas, PharmD [address] [place] [address] [place] [address] Pharmacist Internal Medicine 11/11/23 documented as of this encounter
--- OUTSIDE RECORDS SUMMARY | 2024-11-10 11:59 | XMS_ITS | Encounter Summary ---
Author Organization [employer] Address [address] [facility] 7t [place] [address] Care Team Providers Care Mid Teacher Name Role Phone Allison Grider Primary Care Provider [phone] Uche Dueñas PharmD Unavailable [phone] Encounter Details Date Type Department Care Team (Late st Contact Info) Description 11/06/2024 Abstract [facility] MEDICINE [address] [place] [address] Allison Grider ANP [address] [place] [address] Social History Tobacco Use Types Packs/Day Years [...] Description 11/19/2024 9:15 AM EDT Office Visit [facility] MEDICINE [address] [place] [phone] Allison Grider ANP [address] [place] [address] 12/16/2024 10:45 AM EDT Office Visit [facility] MEDICINE [address] [place] [phone] Michelle Kyle NP 230 [place] [address] 02/01/2025 10:00 AM EST Telemedicine [facility] MED & PEDS [address] [place] [address] Rohini Torres, RN [address] [place] [address] documented as of this encounter Goals Goal Patient Goal Type Associated Problems Recent Progress Patient-Stated? Author Quit using tobacco (cigarettes, smokeless, etc) Tobacco Use No Uche Dueñas, CatarinoD documented as of this encounter Visit Diagnoses Not on filedocumented in this encounter Additional Health Concerns Assessment Noted Time PHQ-9 Depression Total Score: 17 05/21/ 025 9:34 AM EST documented as of this encounter Care Teams Mid Teacher Relationship Specialty Start Date End Date Allison Grider ANP [address] [place] [address] PCP - General Family Medicine 04/05/20 Uche Dueñas PharmD [address] [place] [address] Pharmacist Internal Medicine 11/11/23 documented as of this encounter
--- OUTSIDE RECORDS SUMMARY | 2024-11-10 11:59 | XMS_ITS | Encounter Summary ---
Author Organization [employer] Address [address] [facility] 7t [place] [address] Care Team Providers Care Mineral Economist Name Role Phone Allison Grider ANP Primary Care Provider [phone] Uche Dueñas PharmD Unavailable [phone] Reason for Visit * Reason Onset Date Comments Med Refill 10/22/2022 Encounter Details Date Type Department Care Team ([facility] st Contact Info) Description 10/22/[address] [facility] MEDICINE [address] [place] [address] Allison Grider ANP 230 [place] [address] Med Refill Social History Tobacco Use Types [...] Description 11/19/2024 9:15 AM EDT Office Visit [facility] MEDICINE [address] [place] [address] Allison Grider ANP 230 [place], [place] 12/16/2024 10:45 AM EDT Office Visit [facility] MEDICINE [address] [place], [place] [phone] Michelle Kyle NP 230 [place], [place] 02/01/2025 10:[address] [facility] CHC MED & PEDS [address] [place], [place] [phone] Rohini Torres, RN [address] [place], [place] documented as of this encounter Visit Diagnoses Not on filedocumented in this encounter Additional Health Concerns Assessment Noted Time PHQ-9 Depression Total Score: 13 023 1:20 PM EDT documented as of this encounter Care Teams Mineral Economist Relationship Specialty Start Date End Date Allison Grider ANP [address] [place] [address] [phone] PCP - General Family Medicine 04/05/20 Uche Dueñas PharmD [address] [place] [address] Pharmacist Internal Medicine 11/11/23 documented as of this encounter
--- OUTSIDE RECORDS SUMMARY | 2024-11-10 11:59 | XMS_ITS | Encounter Summary ---
Author Organization [employer] Address [address] [facility] 7t [place] [address] Care Team Providers Care Radiologic Therapist Name Role Phone Allison Grider Primary Care Provider [phone] Uche Dueñas PharmD Unavailable [phone] Reason for Visit * Reason Onset Date Comments Med Refill 02/17/2024 Encounter Details Date Type Department Care Team ([facility] st Contact Info) Description 02/17/2024 Telephone [facility] MEDICINE 230 [place] [address] Allison Grider ANP [address] [place] [address] Med Refill Social History Tobacco Use Types [...] Description 11/19/2024 9:15 AM EDT Office Visit [facility] MEDICINE [address] [place] [phone] Allison Grider ANP [address] [place] [address] 12/16/2024 10:45 AM EDT Office Visit [facility] MEDICINE [address] [place] [phone] Michelle Kyle NP 230 [place] [address] 02/01/2025 10:00 AM EST Telemedicine [facility] CHC MED & PEDS [address] [place] [address] Rohini Torres, RN [address] [place], [place] documented as of this encounter Goals [...] documented as of this encounter Care Teams Radiologic Therapist Relationship Specialty Start Date End Date Allison Grider ANP [address] [place] [address] PCP - General Family Medicine 04/05/20 Uche Dueñas, PharmD [address] [place] [phone] Pharmacist Internal Medicine 11/11/23 documented as of this encounter
--- OUTSIDE RECORDS SUMMARY | 2024-11-10 11:59 | XMS_ITS | Clinical Summary ---
Author Organization [employer] Address [address] [facility] 7t [place] [address] Care Team Providers Care Director Of Communications Name Role Phone Yefri Terrell CHRIS Primary Care Provider [phone] Uche Dueñas PharmD Unavailable [phone] Allergies No known active allergies Medications * This document contains information received from the source organization and may not represent a complete record from that organization. busPIRone (Buspar) 5 MG tablet 023 Active cyanocobalamin (Vitamin B-12) 1000 MCG tablet 023 Active gabapentin (Neurontin) 300 MG capsule 023 Active melatonin 5 MG tablet 023 Active omeprazole (PriLOSEC) [address] capsule 023 Active senna (Senokot) 8.6 MG tablet 023 Active GAS RELIEF 125 MG capsule 023 Active ziprasidone (Geodon) 80 MG capsule 023 Active zolpidem (Ambien) 10 MG tablet 023 Active Diclofenac Sodium (Voltaren) 1 % gelIndications:Ac aleksey pain of right shoulder Apply up to 4x/d to affected joint(s) for pain/swelling 100 g 2 023 Active Semaglutide-Weigh t Management (Wegovy) 0.25 MG/0.5ML solution auto-injectorIndi cations:BMI 40.0-44.9, adult (CMS/HCC),Class 3 severe obesity with serious comorbidity and body mass index (BMI) of 40.0 to 44.9 in adult, unspecified obesity type,Post-traumat ic osteoarthritis of right knee Inject 0.25 mg under the skin every 7 (seven) days. 2 mL 024 Active naproxen (Naprosyn) 500 MG tabletIndications :Post-traumatic osteoarthritis of right knee TAKE 1 TABLET BY MOUTH IN THE MORNING AND AT BEDTIME IF NEEDED FOR MODERATE PAIN. TAKE WITH FOOD. 60 tablet Active D3 Super Strength 50 MCG (2000 UT) capsule TAKE ONE CAPSULE BY MOUTH EVERY MORNING 90 capsule 1 Active nicotine (Nicoderm CQ) 7 MG/24HR patchIndications: Smoking trying to quit Place 1 patch on the skin 1 (one) time each day at the same time. 42 patch Active nicotine polacrilex (Nicorette) 2 MG gumIndications:Sm oking trying to quit Chew 1 piece up to every [address] of cigarete 100 each 3 Active varenicline (Chantix) 0.5 MG tabletIndications :Smoking trying to quit Take 0.5 mg PO once daily on Days 1 through 3, then 0.5 mg PO twice daily on Days 4 through 7, then start 1mg twice daily prescription; take with full glass of water 11 tablet Active varenicline (Chantix) 1 MG tabletIndications :Smoking trying to quit Take 1 tablet (1 mg) by mouth 2 times daily. Take with full glass of water. Start after initial 7d rx. 60 tablet 2 Active oxyCODONE-acetami nophen (Percocet) 5-325 MG tabletIndications :Pain Take 1 tablet by mouth every 12 (twelve) hours if needed for severe pain for up to 28 days. 56 tablet 025 2024 Active naloxone (Narcan) 4 mg/0.1 mL nasal spray Administer 1 spray (4 mg) into affected nostril(s) if needed for opioid reversal. 2 each 1 Active naloxone (Narcan) 4 mg/0.1 mL nasal spray Administer 0.1 mL into affected nostril(s). 021 2024 Discontinued(R eorder (will not trigger notification to Pharmacy)) oxyCODONE-acetami nophen (Percocet) 5-325 MG tabletIndications :Pain Take 1 tablet by mouth every 12 (twelve) hours if needed for severe pain for up to 28 days. 56 tablet 025 2024 Discontinued(R eorder (will not trigger notification to Pharmacy)) Active Problems Problem Noted Date Diagnosed Date Long-term current use of opiate analgesic 2024 Class 2 severe obesity with serious comorbidity and body mass index (BMI) of 38.0 to 38.9 in adult 01/21/2024 Vitamin A deficiency 11/11/2023 Gender dysphoria in adult 02/11/2023 Arthritis of right knee 01/10/2023 01/11/20 Low vitamin D level 01/10/2023 01/10/2023 Varicose [...] Encounters Date Type Department Care Team Description 11/09/2024 9:30 AM EDT Telemedicine [facility] MED & PEDS [address] [place] [address] Rohini Torres, RN adjunct faculty for medical terminology (current) use of opiate analgesic 11/09/2024 Refill [facility] MED & PEDS [address] [place] [address] Rohini Torres, SYMONE 11/09/2024 Travel 11/06/2024 Abstract [facility] MEDICINE [address] [place] [address] Yefri Terrell ANP 11/04/2024 Orders Only [facility] MEDICINE [address] [place] [address] Yefri Terrell ANP 10/27/2024 Telephone [facility] MEDICINE [address] [place] [address] Yefri Terrell ANP Appointment Request 10/15/2024 Refill [facility] MEDICINE [address] [place] [address] Yefri Terrell ANP Pain 09/15/2024 Refill [facility] MED & PEDS [address] [place] [address] Rohini Torres RN Pain 09/15/[address] [address] Yefri Terrell ANP Med Refill 09/07/2024 10:00 AM EDT Telemedicine [facility] MED & PEDS [address] [place] [address] Rohini Torres, SYMONE Osteoarthritis of right knee, unspecified osteoarthritis type 09/07/2024 Travel 08/27/2024 9:00 AM EDT Office Visit [address] [address] Yefri Terrell ANP Post-traumatic osteoarthritis of right knee (Primary Dx); Class 2 severe obesity with serious comorbidity and body mass index (BMI) of 38.0 to 38.9 in adult, unspecified obesity type (CMS/HCC); Gender dysphoria in adult; Screening mammogram for breast cancer; Smoking trying to quit; Ganglion cyst of volar aspect of right wrist; Dietary counseling; Exercise counseling; Tobacco abuse counseling 08/27/2024 Travel 08/26/[address] [address] Neelima Bazan [place] CHART PREP 08/13/2024 Refill [facility] MED [facility] PEDS [address] [place] [address] Rohini Torres RN Pain 08/13/[address] [address] Yefri Terrell ANP Med Refill 08/11/2024 Refill [facility] MED [facility] PEDS [address] [place] [address] Yefri Terrell ANP from Last 3 Months Immunizations Immunization Administration Dates Next Due Influenza injectable quadriv [...] Sign Reading Time Taken Comments Blood Pressure 120/76 08/27/2024 8:41 AM EDT Pulse 60 08/27/2024 8:41 AM EDT Temperature 36.4 C (97.5 F) 08/27/2024 8:41 AM EDT Respiratory Rate 17 08/27/2024 8:41 AM EDT Oxygen Saturation 98% 05/21/2024 9:07 AM EST Inhaled Oxygen Concentration - - Weight 108 kg (238 lb 4 oz) 08/27/2024 8:41 AM E DT Height 167 cm (5' 5.75 ) 08/27/2024 8:41 AM EDT Body Mass Index 38.75 08/27/2024 8:41 AM EDT Plan of Treatment Upcoming Encounters Date Type Department Care Team (Late st Contact Info) Description 11/19/2024 9:15 AM EDT Office Visit [facility] MEDICINE [address] [place] [address] Yefri Terrell ANP [address] [place] [address] 12/16/2024 10:45 AM EDT Office Visit [facility] MED[facility]INE [address] [place] [address] Michelle Kyle NP 230 [place] [address] 02/01/2025 10:00 AM EST Telemedicine [facility] [address] [place] [address] Rohini Torres, RN [address] [place] [address] Health Maintenance Due Date Last Done Comments CT Colonography 1970 FIT DNA/Cologuard 1970 FIT 1970 FOBT 1970 HIV Screening 1970 Lipid Panel 1970 Sigmoidoscopy 1970 Hepatitis C Screening 01/14/1988 Hepatitis B Vaccines (1 of 3 - 19+ 3-dose series) 1989 Zoster Vaccines (2 of 2) 03/03/2021 01/06/2021 Influenza Vaccine (#1) 2024 , 01/15/2023, 01/23/2022, Additional history exists Depression Monitoring 11/21/2024 05/21/2024, 025 Alcohol/Substance Use Screening 05/21/2025 05/21/2024 SDOH Screening 05/21/2025 05/21/2024 Disability Screening 08/27/2025 08/27/2024 Tobacco Screening 08/27/2025 08/27/2024 Pap Smear 09/27/2025 09/27/2022, 09/27/2022 Mammogram 11/06/2025 11/06/2024, 10/17, 09/28/2022, Additional history exists Lung Cancer Screening 11/07/2025 11/07/2024 Colonoscopy 11/08/2025 09/05/2017, 01/29/2017 Colorectal Cancer Screening 11/08/2025 Cervical Cancer Screening 09/28/2027 HPV/Cotest 09/28/2027 09/27/2022, 07/11/2016 DTaP/Tdap/Td Vaccines (5 - Td or Tdap) 10/17/2030 10/17/2020, 09/01/2013, 01/20/2010, Additional history exists RSV Patients and Patients Aged 60 years or older (1 - 1-dose 75+ series) 2045 Pneumococcal Vaccine: 50+ Years Completed 01/15/2023, 12/24/2018 COVID-19 Vaccine Completed 01/21/2024, , 02/14/2021, Additional history exists HIB Vaccines Aged Out [...] patient's age to complete this topic Meningococcal B Vaccine Aged Out No l onger eligible based on patient's age to complete [...] Procedure Name Priority Date/Time Associated Diagnosis Comments LDCT LUNG SCREENING Routine 11/07/2024 1 :14 PM EDT BI MAMMOGRAM SCREENING TOMOSYNTHESIS BILATERAL Routine 11/04/2024 10:15 AM EDT THINPREP IMAGING PAP AND HPV MRNA E6/E7 WITH REFLEX TO HPV 16,18/45 Routine 09/27/2022 12:00 AM EDT THINPREP IMAGING PAP AND HPV MRNA E6/E7 WITH REFLEX TO HPV 16,18/45 Routine 09/27/2022 12:00 AM EDT Screening for cervical cancer HM COLONOSCOPY Routine 09/05/2017 from Last 3 Months or Most Recently Relevant to Health Maintenance Results * CT Lung Screening Low dose (11/07/2024 1:14 PM EDT) Anatomical Region Laterality Modality Lung Computed Tomogra phy 11/07/2024 1:14 PM EDT Narrative 11/07/2024 1:15 PM EDT [address] [address] [address] Scan Report Signed Patient: Ludmila Hansen MR#: [id number] : 1970 Acct:[id number] Age/Sex: 54 / F ADM Date: 11/06/24 Loc: HO.CT Attending Dr: Ginette Hollis PA-C Ordering Physician: Ginette Hollis PA-C Date of Service: 11/06/24 Procedure(s): CT lung screening Accession Number(s): [id number] cc: Ginette Hollis PA-C; YEFRI TERRELL NP Report Number: [id number]: Total DLP = 76.00 mGy-cm CLINICAL HISTORY: F17.210 - Nicotine dependence, cigarettes, uncomplicated Examination CT lung cancer screening History Screening examination performed for pulmonary nodules Technique Axial CT images of the chest using low-dose technique. Effective radiation dose total: 76.1 mGy-cm, CTDIvol 1.8 mGy. Referring provider counseled the patient on shared decision-making for LDCT screening. Additional counseling was provided on smoking cessation. Comparison: None available Findings: Lungs: Solid pulmonary nodules measure up to 4 mm (series 4, image 48, right upper lobe). No emphysema. Mild amount of subsegmental atelectasis versus linear scarring, such as in the right middle lobe Coronary artery calcifications: None Other: None Limited upper abdomen: Status post cholecystectomy. Impression: LungRADS 2 - Benign Appearance: Continue annual screening with low dose Chest CT in 12 months. ##L2# Category 1: Normal; continue annual screening Category 2: Benign appearance or behavior, continue annual screening Category 3: Probably benign, [address] recommended Category 4A: Suspicious, [address] recommended; may consider PET/CT Category 4B: Suspicious, Additional diagnostics and/or tissue sampling recommended Category 4X: Suspicious, Additional diagnostics and/or tissue sampling recommended Category 0: Recalls (incomplete screen due to Incomplete coverage, Noise, Respiratory motion, Expiration, Obscured by acute abnormality) This document has been electronically signed by: Concepcion Sutherland MD on 11/07/2024 13:14:32 Dictated By: Concepcion Vargas MD Signed By: <Electronically signed by Concepcion Vargas MD in OV> 11/07/24 1315 DD/ 1314 TD/TT: 11/07/24 1314 Flake Cutter Operator: Procedure Note Barbiter, Image - 11/07/[address] [place] [address] [address] Scan Report Signed Patient: Ludmila Hansen EMR#: [id number] : 1970Acct:[id number] Age/Sex: 54 / FADM Date: 11/06/24 Loc: HO.CT Attending Dr: Ginette Hollis PA-C Ordering Physician: Ginette Hollis PA-C Date of Service: 11/06/24 Procedure(s): CT lung screening Accession Number(s): [id number] cc: Ginette Hollis PA-C; YEFRI TERRELL NP Report Number: [id number]: Total DLP = 76.00 mGy-cm CLINICAL HISTORY: F17.210 - Nicotine dependence, cigarettes, uncomplicated Examination CT lung cancer screening History Screening examination performed for pulmonary nodules Technique Axial CT images of the chest using low-dose technique. Effective radiation dose total: 76.1 mGy-cm, CTDIvol 1.8 mGy. Referring provider counseled the patient on shared decision-making for LDCT screening. Additional counseling was provided on smoking cessation. Comparison: None available Findings: Lungs: Solid pulmonary nodules measure up to 4 mm (series 4, image 48, right upper lobe). No emphysema. Mild amount of subsegmental atelectasis versus linear scarring, such as in the right middle lobe Coronary artery calcifications: None Other: None Limited upper abdomen: Status post cholecystectomy. Impression: LungRADS 2 - Benign Appearance: Continue annual screening with low dose Chest CT in 12 months. ##L2# Category 1: Normal; continue annual screening Category 2: Benign appearance or behavior, continue annual screening Category 3: Probably benign, [address] recommended Category 4A: Suspicious, [address] recommended; may consider PET/CT Category 4B: Suspicious, Additional diagnostics and/or tissue sampling recommended Category 4X: Suspicious, Additional diagnostics and/or tissue sampling recommended Category 0: Recalls (incomplete screen due to Incomplete coverage, Noise, Respiratory motion, Expiration, Obscured by acute abnormality) This document has been electronically signed by: Concepcion Sutherland MD on 11/07/2024 13:14:32 Dictated By: Concepcion Vargas MD Signed By: <Electronically signed by Concepcion Vargas MD in OV> 11/07/24 1315 DD/ 131 TD/TT: 11/07/241313 Flake Cutter Operator: [facility] External Provider IMG CT PROCEDURES Edited Result - Final * BI Mammogram Screening Tomosynthesis Bilateral (11/04/2024 10:15 AM EDT) Anatomical Region Laterality Modality Breast Bilateral Mammography 11/04/2024 10:1 5 AM EDT Narrative 11/05/2024 4:57 PM EDT [address] [place] [address] Mammography Report Signed Patient: Ludmila Hansen MR#: [id number] : 1970 Acct:[id number] Age/Sex: 54 / F ADM Date: 11/04/24 Loc: MAMMO Attending Dr: Yefri Terrell NP Ordering Physician: YEFRI TERRELL NP Results: 1Negative Date of Service: 11/04/24 Follow Up: 1 Year From Orig ina Mammogram Procedure(s): MM tomosynthesis screening BI Accession Number(s): [id number] cc: YEFRI TERRELL NP EXAMINATION: MM SCREENING DIGITAL BREAST TOMOSYNTHESIS, BILATERAL CLINICAL INFORMATION: Screening. Asymptomatic. COMPARISON: Mammography: Comparison is made with available priors TECHNIQUE: Digital breast mammography with tomosynthesis is performed in both the craniocaudal and mediolateral oblique views along with computer-aided detection (CAD). FINDINGS: There are scattered areas of fibroglandular [...] target due date for their next mammogram. Electronically signed by: Corazon Glover DO 11/05/2024 04:54 PM EDT RP Dictated By: Corazon Glover DO Signed By: <Electronically signed by Corazon Glover DO in OV> 11/05/24 1654 DD/ 1015 TD/TT: 11/04/24 1035 Flake Cutter Operator: Procedure Note Donotuseinterpreter, Image - [facility]/05/[facility] [address] [place] [address] Mammography Report Signed Patient: Ludmila Hansen EMR#: [id number] : 1970Acct:[id number] Age/Sex: 54 / FADM Date: 11/04/24 Loc: MAMMO Attending Dr: Yefri Terrell NP Ordering Physician: YEFRI TERRELL NPResults: 1Negative Date of Service: 11/04/24Follow Up: 1 Year From Orig inal Mammogram Procedure(s): MM tomosynthesis screening BI Accession Number(s): [id number] cc: YEFRI TERRELL NP EXAMINATION: MM SCREENING DIGITAL BREAST TOMOSYNTHESIS, BILATERAL CLINICAL INFORMATION: Screening. Asymptomatic. COMPARISON: Mammography: Comparison is made with available priors TECHNIQUE: Digital breast mammography with tomosynthesis is performed in both the craniocaudal and mediolateral oblique views along with computer-aided detection (CAD). FINDINGS: There are scattered areas of fibroglandular [...] target due date for their next mammogram. Electronically signed by: Corazon Glover DO 11/05/2024 04:54 PM EDT RP Dictated By: Corazon Glover DO Signed By: <Electronically signed by Corazon Glover DO in OV> 11/05/24 1654 DD/ 1015 TD/TT: 11/04/24 1035 Flake Cutter Operator: us Yefri Terrell ANP IMG BI PROCEDURES Final Result * Thinprep TIS PAP And HPV mRNA E6/E7 With Reflex To HPV 16,18/45 (09/27/2022 12:00 AM EDT) HPV nRNA E6/E7 [facility] SOURCE: SEE NOTE [facility] Comment:None given Report Status: [facility] Clinical Information: SEE NOTE [facility] Comment:None given LMP: SEE [facility] Comment:NONE GIVEN Prev. PAP: SEE NOTE [facility] Comment:NONE GIVEN Prev. BX: SEE [facility] Comment:NONE GIVEN Statement Of Adequacy: SEE [facility] Comment:Satisfactory for karen luation.Endocervical/transformation zone componentpresent. General Categorization: [facility] Interpretation/Result: SEE NOTE [facility] Comment:Cytology Results: Ne gative for intraepitheliallesion or malignancy. Cytology Comment [facility] Chief Operations Officer: SEE NOTE [facility] Comment:EXJ, CT(ASCP)CT Scre ening Location: [address] [address] Review Chief Operations Officer: [facility] Pathologist [facility] PAP Infection [facility] 09/27/2022 09/27/2022 Yefri PEREZ LAB PATHOLOGY ORDERABLES Final R esult [facility] [address] [place] [address] [phone] * Colonoscopy (09/05/2017) Colonoscopy Normal Normal 09/05/2017 Historical Provider HEALTH MAINTENANCE Final Result from Last 3 Months or Most Recently Relevant to Health Maintenance Insurance [place] [facility] < 65 [place] [phone] * Guarantor: Ludmila Ball Account Type Relation to Patient Date of Phone Billing Address Personal/Family Self [place] Care Teams Director Of Communications Relationship Specialty Start Date End Date Yefri Terrell ANP [address] [place] [phone] PCP - General Family Medicine 04/05/20 Uche Dueñas, PharmD [address] [place] [address] Pharmacist Internal Medicine 11/11/23
--- OUTSIDE RECORDS SUMMARY | 2024-11-10 11:59 | XMS_ITS | Encounter Summary ---
Author Organization [employer] Address 75 [facility] 7t [place] [address] Care Team Providers Care Financial Project Manager Name Role Phone Allison Grider Primary Care Provider [phone] Uche Dueñas PharmD Unavailable [phone] Reason for Visit * Reason Onset Date Comments Med Refill 12/18/2023 Encounter Details Date Type Department Care Team ([facility] st Contact Info) Description 12/18/2023 Telephone [facility] 230 [place] [address] Allison Grider ANP 230 [place] [address] Med Refill Social History Tobacco Use Types [...] sent to: [facility] documented in this encounter Plan of Treatment Upcoming Encounters Date Type Department Care Team (Late st Contact Info) Description 11/19/2024 9:15 AM EDT Office Visit [facility] [address] [place] [address] Allison Grider ANP 230 [place] [address] 12/16/2024 10:45 AM EDT Office Visit [facility] [address] [place] [address] Michelle Kyle NP 230 [place] [address] 02/01/2025 10:00 AM EST Telemedicine [facility] 505 [place], [place] [phone] Rohini Torres RN 505 [place], [place] documented as of this encounter Goals [...] documented as of this encounter Care Teams Financial Project Manager Relationship Specialty Start Date End Date Allison Grider, ANP [address] [place] [address] PCP - General Family Medicine 04/05/20 Uche Dueñas, CatarinoD [address] [place] [address] Pharmacist Internal Medicine 11/11/23 documented as of this encounter
--- OUTSIDE RECORDS SUMMARY | 2024-11-10 11:59 | XMS_ITS | Encounter Summary ---
Author Organization [employer] Address 75 [facility] 7t [place] [address] Care Team Providers Care Java Android Developer Name Role Phone Allison Grider ANP Primary Care Provider [phone] Uche Dueñas PharmD Unavailable [phone] Reason for Visit * Reason Onset Date Comments Med Refill 11/22/2022 Encounter Details Date Type Department Care Team (Late st Contact Info) Description 11/22/2022 Telephone [facility] MEDICINE 230 [place] [address] Allison Grider ANP 230 [place] [address] Med Refill Social History Tobacco Use Types [...] Description 11/19/2024 9:15 AM EDT Office Visit [facility] 230 [place] [address] Allison Grider ANP 230 [place] [address] 12/16/2024 10:45 AM EDT Office Visit [facility] 230 [place] [address] Michelle Kyle, MEGAN 230 [place], [place] 02/01/2025 10:00 AM EST Telemedicine [facility] 505 [place], [place] [phone] Rohini Torres, SYMONE 505 [place] [address] documented as of this encounter Visit Diagnoses Not on filedocumented in this encounter Additional Health Concerns Assessment Noted Time PHQ-9 Depression Total Score: 13 023 1:20 PM EDT documented as of this encounter Care Teams Java Android Developer Relationship Specialty Start Date End Date Allison Grider ANP [address] [place] [address] PCP - General Family Medicine 04/05/20 Uche Dueñas, Molly [address] [place] [address] Pharmacist Internal Medicine 11/11/23 documented as of this encounter
--- OUTSIDE RECORDS SUMMARY | 2024-11-10 11:59 | XMS_ITS | Encounter Summary ---
Author Organization [employer] Address 75 [facility] 7t [place] [address] Care Team Providers Care Senior Technical Writer Name Role Phone Allison Grider CHRIS Primary Care Provider [phone] Uche Dueñas PharmD Unavailable [phone] Reason for Visit * Reason Onset Date Comments Med Refill 11/09/2024 Encounter Details Date Type Department Care Team ([facility] st Contact Info) Description 11/09/2024 Refill [facility]S 505 [place] [address] Rohini Torres, RN 505 [place] [address] Social History Tobacco Use Types Packs/Day Years [...] Description 11/19/2024 9:15 AM EDT Office Visit [facility]INE [address] [place] [address] Allison Grider ANP 230 [place] [address] 12/16/2024 10:45 AM EDT Office Visit [facility] [address] [place] [address] Michelle Kyle NP 230 [place] [address] 02/01/2025 10:00 AM EST Telemedicine [facility] P[facility]S 505 [place] [address] Rohini Torres, SYMONE 505 [place] [address] documented as of this encounter Goals Goal [...] as of this encounter Care Teams Senior Technical Writer Relationship Specialty Start Date End Date Allison Grider ANP 230 [place] [address] PCP - General Family Medicine 04/05/20 Uche Dueñas, Molly [address] [place] [address] Pharmacist Internal Medicine 11/11/23 documented as of this encounter
--- OUTSIDE RECORDS SUMMARY | 2024-11-10 11:59 | XMS_ITS | Encounter Summary ---
Author Organization [employer] Address 75 [facility] 7t [place] [address] Care Team Providers Care Critical Care Technician Name Role Phone Allison Grider Primary Care Provider [phone] Uche Dueñas PharmD Unavailable [phone] Reason for Visit * Reason Onset Date Comments Med Refill 09/15/2024 Encounter Details Date Type Department Care Team (Late st Contact Info) Description 09/15/2024 Telephone [facility] 230 [place] [address] Allison Grider ANP 230 [place] [address] Med Refill Social History Tobacco Use Types [...] * Telephone Encounter - Thanh Myers - 09/15/2024 9:33 AM EDT TC from pt requesting medication refill. Medications needing refill : oxyCODONE-acetaminophen (Percocet) 5-325 MG tablet To be sent to: [facility] - [address] documented in this encounter Plan of Treatment Upcoming Encounters Date Type Department Care Team (Late st Contact Info) Description 11/19/2024 9:15 AM EDT Office Visit [facility]INE [address] [place] [address] Allison Grider ANP 230 [place] [address] 12/16/2024 10:45 AM EDT Office Visit [facility] [address] [place] [address] Michelle Kyle NP 230 [place], [place] 02/01/2025 10:00 AM EST Telemedicine [facility]S [address] [place] [address] Rohini Torres, RN [address] [place], [place] documented as of this encounter Goals [...] documented as of this encounter Care Teams Critical Care Technician Relationship Specialty Start Date End Date Allison Grider ANP [address] [place] [address] PCP - General Family Medicine 04/05/20 Uche Dueñas, PharmD [address] [place] [address] Pharmacist Internal Medicine 11/11/23 documented as of this encounter
--- OUTSIDE RECORDS SUMMARY | 2024-11-10 11:59 | XMS_ITS | Encounter Summary ---
Author Organization [employer] Address 75 [facility] 7t [place] [address] Care Team Providers Care Sales Agent Business Services Name Role Phone Allison Grider Primary Care Provider [phone] Uche Dueñas PharmD Unavailable [phone] Reason for Visit * Reason Onset Date Comments Med Refill 07/16/2024 Encounter Details Date Type Department Care Team ([facility] st Contact Info) Description 07/16/2024 Telephone [facility] 230 [place] [address] Allison Grider ANP 230 [place] [address] Med Refill Social History Tobacco Use Types [...] encounter Miscellaneous Notes * Telephone Encounter - Javed Torres - 07/16/2024 1:31 PM EDT TC from pt requesting medication refill. Medications needing refill : oxyCODONE-acetaminophen (Percocet) 5-325 MG tablet To be sent to: [facility] documented in this encounter Plan of Treatment Upcoming Encounters Date Type Department Care Team (Late st Contact Info) Description 11/19/2024 9:15 AM EDT Office Visit [facility] [address] [place] [address] Allison Grider ANP 230 [place] [address] 12/16/2024 10:45 AM EDT Office Visit [facility] [address] [place] [address] Michelle Kyle NP 230 [place], [place] 02/01/2025 10:00 AM EST Telemedicine [facility]S [address] [place] [address] Rohini Torres, SYMONE [address] [place], [place] documented as of this encounter Goals [...] documented as of this encounter Care Teams Sales Agent Business Services Relationship Specialty Start Date End Date Allison Grider ANP [address] [place] [address] PCP - General Family Medicine 04/05/20 Uche Dueñas, PharmD 230 [place] [address] Pharmacist Internal Medicine 11/11/23 documented as of this encounter
--- OUTSIDE RECORDS SUMMARY | 2024-11-10 11:59 | XMS_ITS | Encounter Summary ---
Author Organization [employer] Address 75 [facility] 7t [place] [address] Care Team Providers Care Capacitor Assembler Name Role Phone Allison Grider Primary Care Provider Uche Dueñas PharmD Unavailable Encounter Details Date Type Department Care Team (Late Contact Info) Description 03/09/2022 Orders Only [facility]S 505 [place], [place] [phone] Allison Grider ANP [address] [place] [address] Cervical lymphadenopathy (Primary Dx) Social History Tobacco [...] Department Care Team (Late Contact Info) Description 11/19/2024 9:15 AM EDT Office Visit [address] [address] Allison Grider ANP 230 [place] [address] 12/16/2024 10:45 AM EDT Office Visit [address] [address] Michelle Kyle NP 230 [place] [address] 02/01/2025 10:00 AM EST Telemedicine [facility] 505 [place] [address] Rohini Torres, RN [address] [place] [address] Scheduled Orders Name Type Priority Associated Diagnoses Orde r Schedule US Cervical Lymph Node Imaging Routine Cervical lymphadenopathy Expected: 09/07/2022, Expires: 03/09/2023 documented as of this encounter Visit Diagnoses Diagnosis Cervical lymphadenopathy- Primary Enlargement of lymph nodes documented in this encounter Care Teams Capacitor Assembler Relationship Specialty Start Date End Date Allison Grider ANP 230 [place] [address] PCP - General Family Medicine 04/05/20 Uche Dueñas PharmD [address] [place] [address] Pharmacist Internal Medicine 11/11/23 documented as of this encounter
--- OUTSIDE RECORDS SUMMARY | 2024-11-10 11:59 | XMS_ITS | Encounter Summary ---
Author Organization [employer] Address 75 [facility] 7t [place] [address] Care Team Providers Care Lap Checker Name Role Phone Allison Grider Primary Care Provider [phone] Uche Dueñas PharmD Unavailable [phone] Reason for Visit * Reason Onset Date Comments Med Refill 07/20/2022 Encounter Details Date Type Department Care Team (Late st Contact Info) Description 07/20/2022 Telephone [facility] MEDICINE [address] [place] [address] Allison Grider ANP [address] [place] [address] Med Refill Social History Tobacco Use Types [...] Office Visit [facility] MEDICINE [address] [place] [address] Allison Grider ANP 230 [place] [address] 12/16/2024 10:45 AM EDT Office Visit [facility] MEDICINE 230 [place] [address] Michelle Kyle NP 230 [place], [place] 02/01/2025 10:00 AM EST Telemedicine [facility] MED [facility] PEDS 505 [place], [place] [phone] Rohini Torres, SYMONE 505 [place] [address] documented as of this encounter Visit Diagnoses Not on filedocumented in this encounter Care Teams Lap Checker Relationship Specialty Start Date End Date Allison Grider ANP [address] [place] [address] PCP - General Family Medicine 04/05/20 Uche Dueñas, Molly [address] [place] [address] Pharmacist Internal Medicine 11/11/23 documented as of this encounter
--- OUTSIDE RECORDS SUMMARY | 2024-11-10 11:59 | XMS_ITS | Encounter Summary ---
Author Organization [employer] Address 75 [facility] 7t [place] [address] Care Team Providers Care Director Of Home Economics Name Role Phone Yefri Terrell Primary Care Provider [phone] Uche Dueñas PharmD Unavailable [phone] Encounter Details Date Type Department Care Team (Late st Contact Info) Description 11/04/2024 Orders Only [facility] MEDICINE 230 [place] [address] Yefri Terrell ANP 230 [place] [address] Social History Tobacco Use Types Packs/Day Years [...] Description 11/19/2024 9:15 AM EDT Office Visit [facility] MEDICINE [address] [place] [address] Yefri Terrell ANP 230 [place] [address] 12/16/2024 10:45 AM EDT Office Visit [address] [address] Michelle Kyle, MEGAN 230 [place] [address] 02/01/2025 10:00 AM EST Telemedicine [facility] MED & PEDS 505 [place] [address] Rohini Torres, RN 505 [place] [address] documented as of this encounter Goals Goal Patient Goal Type Associated Problems Recent Progress Patient-Stated? Author Quit using tobacco (cigarettes, smokeless, etc) Tobacco Use No Uche Dueñas, CatarinoD documented as of this encounter Procedures Procedure Name Priority Date/Time Associated Diagnosis Comments LDCT LUNG SCREENING Routine 11/07/2024 1 :14 PM EDT BI MAMMOGRAM SCREENING TOMOSYNTHESIS BILATERAL Routine 11/04/2024 10:15 AM EDT documented in this encounter Results * CT Lung Screening Low dose (11/07/2024 1:14 PM EDT) Anatomical Region Laterality Modality Lung Computed Tomogra phy 11/07/2024 1:14 PM EDT Narrative 11/07/2024 1:15 PM EDT [place] [address] [address] Scan Report Signed Patient: Ludmila Hansen MR#: [id number] : 1970 Acct:[id number] Age/Sex: 54 / F ADM Date: 11/06/24 Loc: .CT Attending Dr: Ginette Hollis PA-C Ordering Physician: Ginette Hollis PA-C Date of Service: 11/06/24 Procedure(s): CT lung screening Accession Number(s): [id number] cc: Ginette Hollis PA-C; YEFRI TERRELL NP Report Number: [id number]: Total DLP = 76.00 mGy-cm CLINICAL HISTORY: [...] 11/07/24 1315 DD/ 1314 TD/TT: 11/07/24 1314 Globe Cleaner: Procedure Note Donotuseinterpreter, Image - 11/07/[address] [place] [address] [address] Scan Report Signed Patient: Ludmila Hansen EMR#: [id number] : 1970Acct:[id number] Age/Sex: 54 / FADM Date: 11/06/24 Loc: .CT Attending Dr: Ginette Hollis PA-C Ordering Physician: Ginette Hollis PA-C Date of Service: 11/06/24 Procedure(s): CT lung screening Accession Number(s): [id number] cc: Ginette Hollis PA-C; YEFRI TERRELL NP Report Number: [id number]: Total DLP = 76.00 mGy-cm CLINICAL HISTORY: [...] 11/07/24 1315 DD/ 1314 TD/TT: 11/07/24 1314 Globe Cleaner: [facility] External Provider IMG CT PROCEDURES Edited Result - Final * BI Mammogram Screening Tomosynthesis Bilateral (11/04/2024 10:15 AM EDT) Anatomical Region Laterality Modality Breast Bilateral Mammography 11/04/2024 10:1 5 AM EDT Narrative 11/05/2024 4:57 PM EDT [facility] [address] [place] [address] Mammography Report Signed Patient: Ludmila Hansen MR#: [id number] : 1970 Acct:[id number] Age/Sex: 54 / F ADM Date: 11/04/24 Loc: [place] Attending Dr: Yefri Terrell NP Ordering Physician: YEFRI TERRELL NP Results: 1Negative Date of Service: 11/04/24 Follow Up: 1 Year From Orig inal Mammogram Procedure(s): MM tomosynthesis screening BI Accession Number(s): [id number] cc: YEFRI TERRELL NP EXAMINATION: MM SCREENING [...] Corazon Glover DO 11/05/2024 04:54 PM EDT Dictated By: Corazon Glover DO Signed By: <Electronically signed by Corazon Glover DO in OV> 11/05/24 1654 DD/ 1015 TD/TT: 11/04/24 1035 Globe Cleaner: Procedure Note Donotuseinterpreter, Image - 11/05/2024 [facility] [address] [place] [address] Mammography Report Signed Patient: Ludmila Hansen EMR#: [id number] : 1970Acct:[id number] Age/Sex: 54 / FADM Date: 11/04/24 Loc: [place] Attending Dr: Yefri Terrell NP Ordering Physician: YEFRI TERRELL NPResults: 1Negative Date of Service: 11/04/24Follow Up: 1 Year From Orig inal Mammogram Procedure(s): MM tomosynthesis screening BI Accession Number(s): [id number] cc: YEFRI TERRELL AIRCONDITIONING DRAFTING OFFICER EXAMINATION: MM SCREENING DIGITAL BREAST TOMOSYNTHESIS, BILATERAL [...] Corazon Glover DO 11/05/2024 04:54 PM EDT Dictated By: Corazon Glover DO Signed By: <Electronically signed by Corazon Glover DO in OV> 11/05/24 1654 DD/ 1015 TD/TT: 11/04/24 1035 Globe Cleaner: Yefri PEREZ IMG BI PROCEDURES Final Result documented in this encounter Visit Diagnoses Not on filedocumented in this encounter Additional Health Concerns Assessment Noted Time PHQ-9 Depression Total Score: 17 025 9:34 AM EST documented as of this encounter Care Teams Director Of Home Economics Relationship Specialty Start Date End Date Yefri Terrell ANP 230 [place] [address] PCP - General Family Medicine 04/05/20 Uche Dueñas PharmD 230 [place] [address] Pharmacist Internal Medicine 11/11/23 documented as of this encounter
--- OUTSIDE RECORDS SUMMARY | 2024-11-10 11:59 | XMS_ITS | Encounter Summary ---
Author Organization [employer] Address 75 [facility] 7t [place] [address] Care Team Providers Care Neuropathologist Name Role Phone Allison Grider Primary Care Provider [phone] Uche Dueñas PharmD Unavailable [phone] Reason for Visit * Reason Onset Date Comments Med Refill 12/21/2022 Encounter Details Date Type Department Care Team (Late st Contact Info) Description 12/21/2022 Telephone [facility]ICINE 230 [place] [address] Allison Grider ANP 230 [place] [address] Med Refill Social History Tobacco Use Types [...] Description 11/19/2024 9:15 AM EDT Office Visit [facility] [address] [place] [address] Allison Grider ANP 230 [place] [address] 12/16/2024 10:45 AM EDT Office Visit [facility] 230 [place] [address] Michelle Kyle NP 230 [place] [address] 02/01/2025 10:00 AM EST Telemedicine [facility] 505 [place], [place] [phone] Rohini Torres, SYMONE 505 [place] [address] documented as of this encounter Visit Diagnoses Not on filedocumented in this encounter Additional Health Concerns Assessment Noted Time PHQ-9 Depression Total Score: 4 12/05/19 23 10:38 AM EDT documented as of this encounter Care Teams Neuropathologist Relationship Specialty Start Date End Date Allison Grider ANP [address] [place] [address] PCP - General Family Medicine 04/05/20 Uche Dueñas, CatarinoD [address] [place] [address] Pharmacist Internal Medicine 11/11/23 documented as of this encounter
== END 2024-11-10 11:35 | disposition home or self-care (01) ==
LOC: HO.HOS 11:06
PROVIDERS: PCP Nurse Practitioner Primary Care
DX: M67.431 Ganglion, right wrist (principal)
CPT/HCPCS: 99213

== ENCOUNTER → 2024-11-10 11:05 | Outpatient (BNVA) | payer OTHER, SELFPAY | PROVIDERS: PCP Nurse Practitioner Primary Care | DX: M67.431 Ganglion, right wrist (principal) | CPT/HCPCS: 99212 ==

== ENCOUNTER → 2024-12-07 11:23 | Outpatient (BNV) | payer OTHER, SELFPAY | PROVIDERS: PCP Nurse Practitioner Primary Care; Visit Provider Internal Medicine Cardiovascular Disease | DX: R00.1 Bradycardia, unspecified (principal) | CPT/HCPCS: 93010 ==

== ENCOUNTER → 2024-12-15 10:28 | Outpatient (BNVA) | payer OTHER, SELFPAY | PROVIDERS: PCP Nurse Practitioner Primary Care | DX: Z01.818 Encounter for other preprocedural examination (principal) ==

== ENCOUNTER 2024-12-17 13:51 | Outpatient (REF) | payer OTHER, SELFPAY ==
--- OUTSIDE RECORDS SUMMARY | 2024-12-16 10:45 | XMS_ITS | Encounter Summary ---
Author Organization [employer] Address 75 [facility] 7t [place] [address] Care Team Providers Care Computer Video Game Designer Name Role Phone Marni Allison PEREZ Primary Care Provider [phone] Uche Dueñas PharmD Unavailable [phone] Reason for Visit * Reason Comments Pre-op Exam Encounter Details Date Type Department Care Team ([facility] st Contact Info) Description 12/16/2024 10:45 AM EDT Office Visit [facility] MEDICINE [address] [place] [address] Michelle Kyle NP 230 [place] [address] Pre-op examination (Primary Dx) Social History Tobacco Use Types Packs/Day Years Used Date Smoking Tobacco: Every Day Cigarettes 1 32.8 Started: 1992 Passive Smoke Exposure: Current Smokeless [...] Sign Reading Time Taken Comments Blood Pressure 120/82 12/16/2024 11:19 AM EDT Pulse 61 12/16/2024 11:19 AM EDT Temperature 36.7 C (98 F) 12/16/2024 11:19 AM EDT Respiratory Rate 15 12/16/2024 11:19 AM EDT Oxygen Saturation 99% 12/16/2024 11:19 AM EDT Inhaled Oxygen Concentration - - Weight 104 kg (229 lb 3.2 oz) 12/16/2024 11:19 A M EDT Height 165.1 cm (5' 5 ) 12/16/2024 11:19 AM EDT Body Mass Index 38.14 12/16/2024 11:19 AM EDT documented in this encounter Plan of Treatment Upcoming Encounters Date Type Department Care Team (Late st Contact Info) Description 12/30/2024 4:00 PM EDT Telemedicine [facility] MEDICINE [address] [place] [address] Allison Grider ANP 230 [place] [address] 02/01/2025 10:00 AM EST Telemedicine [facility] CHC MED & PEDS [address] [place] [address] Rohini Torres, RN [address] [place] [address] Scheduled Orders Name Type Priority Associated Diagnoses Orde r Schedule CBC auto differential Lab Routine Pre-op examination Expected: 12/16/2024 (Approximate), Expires: 12/16/2025 ECG 12 lead ECG Routine Pre-op examination Ordered: 12/16/2024 Hepatic Function Panel Lab Routine Pre-op examination Expected: 12/17/2024 (Approximate), Expires: 12/17/2025 documented as of this encounter Goals Goal Patient Goal Type Associated Problems Recent Progress Patient-Stated? Author Quit using tobacco (cigarettes, smokeless, etc) Tobacco Use No Uche Dueñas, PharmD documented as of this encounter Visit Diagnoses Diagnosis Pre-op examination- Primary documented in this encounter Additional Health Concerns Assessment Noted Time PHQ-9 Depression Total Score: 17 05/21/ 025 9:34 AM EST documented as of this encounter Care Teams Computer Video Game Designer Relationship Specialty Start Date End Date Allison Grider, CHRIS 230 [place] [address] PCP - General Family Medicine 04/05/20 Uche Dueñas, PharmD 230 [place] [address] Pharmacist Internal Medicine 11/11/23 documented as of this encounter
--- OUTSIDE RECORDS SUMMARY | 2024-12-17 15:31 | XMS_ITS | Encounter Summary ---
Author Organization [employer] Address 75 [facility] 7t [place] [address] Care Team Providers Care Poultry Inseminator Name Role Phone Allison Grider Primary Care Provider [phone] Uche Dueñas PharmD Unavailable [phone] Reason for Visit * Reason Onset Date Comments Med Refill 12/21/2022 Encounter Details Date Type Department Care Team ([facility] st Contact Info) Description 12/21/2022 Telephone [facility] MEDICINE 230 [place] [address] Allison Grider ANP 230 [place] [address] Med Refill Social History Tobacco Use Types [...] Info) Description 12/30/2024 4:00 PM EDT Telemedicine [facility] MEDICINE 230 [place] [address] Allison Grider ANP 230 [place], [place] 02/01/2025 10:00 AM EST Telemedicine [facility] CHC MED & PEDS 505 [place], [place] [phone] Rohini Torres, RN 505 [place], [place] [phone] documented as of this encounter Visit Diagnoses Not on filedocumented in this encounter Additional Health Concerns Assessment Noted Time PHQ-9 Depression Total Score: 4 12/05/19 23 10:38 AM EDT documented as of this encounter Care Teams Poultry Inseminator Relationship Specialty Start Date End Date Allison Grider ANP [address] [place] [address] PCP - General Family Medicine 04/05/20 Uche Dueñas, CatarinoD [address] [place] [address] Pharmacist Internal Medicine 11/11/23 documented as of this encounter
--- OUTSIDE RECORDS SUMMARY | 2024-12-17 15:31 | XMS_ITS | Encounter Summary ---
Author Organization [employer] Address 75 [facility] 7t [place] [address] Care Team Providers Care Torts Law Professor Name Role Phone Allison Grider Primary Care Provider [phone] Uche Dueñas PharmD Unavailable [phone] Reason for Visit * Reason Onset Date Comments Med Refill 09/15/2024 Encounter Details Date Type Department Care Team ([facility] st Contact Info) Description 09/15/2024 Telephone [facility] MEDICINE 230 [place] [address] Allison Grider ANP 230 [place] [address] Med Refill Social History Tobacco Use Types [...] sent to: [facility] documented in this encounter Plan of Treatment Upcoming Encounters Date Type Department Care Team (Late st Contact Info) Description 12/30/2024 4:00 PM EDT Telemedicine [facility] MEDICINE 230 [place] [address] Allison Grider ANP 230 [place] [address] 02/01/2025 10:00 AM EST Telemedicine [facility] CHC MED & PEDS 505 [place] [address] Rohini Torres, RN 505 [place] [address] documented as of this encounter Goals Goal [...] documented as of this encounter Care Teams Torts Law Professor Relationship Specialty Start Date End Date Allison Grider ANP 230 [place] [address] PCP - General Family Medicine 04/05/20 Uche Dueñas, CatarinoD 230 [place] [address] Pharmacist Internal Medicine 11/11/23 documented as of this encounter
--- OUTSIDE RECORDS SUMMARY | 2024-12-17 15:31 | XMS_ITS | Encounter Summary ---
Author Organization [employer] Address [address] [facility] [address] 7t [place] [address] Care Team Providers Care Ship Rigger Name Role Phone Allison Grider Primary Care Provider [phone] Uche Dueñas PharmD Unavailable [phone] Encounter Details Date Type Department Care Team ([facility] st Contact Info) Description 12/16/2024 Telephone [facility] MEDICINE 230 [place] [address] Michelle Kyle NP 230 [place] [address] Social History Tobacco Use Types Packs/Day Years [...] encounter Miscellaneous Notes * Telephone Encounter - Kristi Gomez RN - 12/17/2024 11:11 AM EDT T/C to pt. Advised of message from TUBING MILL SETTER re: need for pt to come to lab for Hepatic panel draw. Pt then handed phone to her HOME CARE SPECIALIST Ludmila who states they will be able to come to the lab tomorrow. * Telephone Encounter - Michelle Kyle NP - 12/17/2024 9:54 AM EDT Leander I spoke with Sandra from [facility] ortho scheduling office this morning. She informed labs completed 12/07 are acceptable. Patient will only need to complete hepatic panel which I have ordered. Pleaseinform the patient to have lab drawn. Thanks * Telephone Encounter - Kristi Gomez RN - 12/16/2024 11:26 AM EDT T/C to [facility] Ortho per request of Michelle Kyle INTEGRATION ANALYST to determine whether [facility] will accept BMP and CBC completed 12/07/24 or if pt need to repeat labs prior to surgery scheduled 01/05/25. Female transferred call to surgical specialist. No answer, v/m left requesting call back to Blue team nurses with answer to provider's question. documented in this encounter Plan of Treatment Upcoming Encounters Date Type Department Care Team (Late st Contact Info) Description 12/30/2024 4:00 PM EDT Telemedicine [facility] MEDICINE 230 [place] [address] Allison Grider ANP 230 [place] [address] 02/01/2025 10:00 AM EST Telemedicine [facility] CHC MED & PEDS 505 [place], [place] [phone] Rohini Torres, RN 505 [place] [address] documented as of this encounter Goals Goal Patient Goal Type Associated Problems Recent Progress Patient-Stated? Author Quit using tobacco (cigarettes, smokeless, etc) Tobacco Use No Uche Dueñas, CatarinoD documented as of this encounter Visit Diagnoses Not on filedocumented in this encounter Additional Health Concerns Assessment Noted Time PHQ-9 Depression Total Score: 17 025 9:34 AM EST documented as of this encounter Care Teams Ship Rigger Relationship Specialty Start Date End Date Allison Grider ANP [address] [place] [address] PCP - General Family Medicine 04/05/20 Uche Dueñas, PharmD [address] [place] [address] Pharmacist Internal Medicine 11/11/23 documented as of this encounter
--- OUTSIDE RECORDS SUMMARY | 2024-12-17 15:31 | XMS_ITS | Encounter Summary ---
Author Organization [employer] Address 75 [facility] 7t [place] [address] Care Team Providers Care Manager Organizational Name Role Phone Marni Allison PEREZ Primary Care Provider [phone] Uche Dueñas PharmD Unavailable [phone] Reason for Visit * Reason Onset Date Comments Med Refill 12/15/2024 Encounter Details Date Type Department Care Team ([facility] st Contact Info) Description 12/15/2024 Refill [facility]EDS [address] [place], [place] [phone] Rohini Torres, RN 505 [place] [address] Pain Social History Tobacco Use Types Packs/Day [...] Info) Description 12/30/2024 4:00 PM EDT Telemedicine [facility] MEDICINE [address] [place] [address] Allison Grider ANP 230 [place] [address] 02/01/2025 10:00 AM EST Telemedicine [facility] PEDS 505 [place] [address] Rohini Torres, RN 505 [place] [address] documented as of this encounter Goals Goal Patient Goal Type Associated Problems Recent Progress Patient-Stated? Author Quit using tobacco (cigarettes, smokeless, etc) Tobacco Use No Uche Dueñas, CatarinoD documented as of this encounter Visit Diagnoses Diagnosis Pain Generalized pain documented in this encounter Additional Health Concerns Assessment Noted Time PHQ-9 Depression Total Score: 17 025 9:34 AM EST documented as of this encounter Care Teams Manager Organizational Relationship Specialty Start Date End Date Allison Grider ANP [address] [place] [id number] PCP - General Family Medicine 04/05/20 Uche Dueñas, PharmD [address] [place] [address] Pharmacist Internal Medicine 11/11/23 documented as of this encounter
--- OUTSIDE RECORDS SUMMARY | 2024-12-17 15:31 | XMS_ITS | Encounter Summary ---
Author Organization [employer] Address 75 [facility] 7t [place] [address] Care Team Providers Care Emt P Name Role Phone Allison Grider Primary Care Provider [phone] Uche Dueñas PharmD Unavailable [phone] Reason for Visit * Reason Onset Date Comments Med Refill 07/20/2022 Encounter Details Date Type Department Care Team (Late st Contact Info) Description 07/20/2022 Telephone [facility] [address] [place] [phone] Allison Grider ANP [address] [place], [place] [phone] Med Refill Social History Tobacco Use Types [...] Info) Description 12/30/2024 4:00 PM EDT Telemedicine [facility] [address] [place] [phone] Allison Grider ANP [address] [place] [address] 02/01/2025 10:00 AM EST Telemedicine [facility] MED [facility] PEDS 505 [place] [address] Rohini Torres, RN [address] [place] [address] documented as of this encounter Visit Diagnoses Not on filedocumented in this encounter Care Teams Emt P Relationship Specialty Start Date End Date Allison Grider ANP [address] [place] [id number] PCP - General Family Medicine 04/05/20 Uche Dueñas, CatarinoD [address] [place] [address] Pharmacist Internal Medicine 11/11/23 documented as of this encounter
--- OUTSIDE RECORDS SUMMARY | 2024-12-17 15:31 | XMS_ITS | Encounter Summary ---
Author Organization [employer] Address 75 [facility] 7t [place] [address] Care Team Providers Care Sightseeing Guide Name Role Phone Allison Grider Primary Care Provider Uche Dueñas PharmD Unavailable [phone] Encounter Details Date Type Department Care Team (Late st Contact Info) Description 03/09/2022 Orders Only [facility] MED [facility] PEDS 505 [place] [address] Allison Grider ANP [address] [place] [address] Cervical lymphadenopathy (Primary Dx) Social History Tobacco [...] Info) Description 12/30/2024 4:00 PM EDT Telemedicine [facility] MEDICINE 230 [place] [address] Allison Grider ANP [address] [place] [address] 02/01/2025 10:00 AM EST Telemedicine [facility] 505 [place] [address] Rohini Torres, RN 505 [place] [address] Scheduled Orders Name Type Priority Associated Diagnoses Orde r Schedule US Cervical Lymph Node Imaging Routine Cervical lymphadenopathy Expected: 09/07/2022, Expires: 03/09/2023 documented as of this encounter Visit Diagnoses Diagnosis Cervical lymphadenopathy- Primary Enlargement of lymph nodes documented in this encounter Care Teams Sightseeing Guide Relationship Specialty Start Date End Date Allison Grider ANP [address] [place] [address] PCP - General Family Medicine 04/05/20 Uche Dueñas, Molly [address] [place] [address] Pharmacist Internal Medicine 11/11/23 documented as of this encounter
--- OUTSIDE RECORDS SUMMARY | 2024-12-17 15:31 | XMS_ITS | Encounter Summary ---
Author Organization [employer] Address 75 [facility] [place] 7t [place] [address] Care Team Providers Care Printing Sales Representative Name Role Phone Marni Allison PEREZ Primary Care Provider Uche Dueñas PharmD Unavailable [phone] Encounter Details Date Type Department Care Team (Latest Contact Info) Description 12/16/2024 Travel Social History Tobacco Use Types Packs/Day [...] Info) Description 12/30/2024 4:[address] [facility] [address] [place] [phone] Allison Grider ANP [address] [place] [address] 02/01/2025 10:[address] [facility] MED [facility] PEDS 505 [place] [address] Rohini Torres, RN 505 [place] [address] documented as of this encounter Goals Goal Patient Goal Type Associated Problems Recent Progress Patient-Stated? Author Quit using tobacco (cigarettes, smokeless, etc) Tobacco Use No Uche Dueñas PharmD documented as of this encounter Visit Diagnoses Not on filedocumented in this encounter Additional Health Concerns Assessment Noted Time PHQ-9 Depression Total Score: 17 025 9:34 AM EST documented as of this encounter Care Teams Printing Sales Representative Relationship Specialty Start Date End Date Allison Grider ANP [address] [place] [address] [phone] PCP - General Family Medicine 04/05/20 Uche Dueñas PharmD [address] [place] [phone] Pharmacist Internal Medicine 11/11/23 documented as of this encounter
--- OUTSIDE RECORDS SUMMARY | 2024-12-17 15:31 | XMS_ITS | Encounter Summary ---
Author Organization [employer] Address 75 [facility] 7t [place] [address] Care Team Providers Care Real Estate Closer Name Role Phone Allison Grider Primary Care Provider [phone] Uche Dueñas PharmD Unavailable Reason for Visit * Reason Onset Date Comments Med Refill 02/17/2024 Encounter Details Date Type Department Care Team ([facility] st Contact Info) Description 02/17/2024 Telephone [facility] MEDICINE 230 [place], [place] [phone] Allison Grider ANP 230 [place] [address] Med Refill Social History Tobacco Use Types [...] Info) Description 12/30/2024 4:00 PM EDT Telemedicine [facility] MED[facility]INE [address] [place] [address] Allison Grider ANP 230 [place] [address] 02/01/2025 10:00 AM EST Telemedicine [facility] MED [facility] PEDS [address] [place] [address] Rohini Torres, RN 505 [place] [address] documented as of this encounter Goals Goal [...] documented as of this encounter Care Teams Real Estate Closer Relationship Specialty Start Date End Date Allison Grider ANP 230 [place] [address] PCP - General Family Medicine 04/05/20 Uche Dueñas, PharmD 230 [place] [address] Pharmacist Internal Medicine 11/11/23 documented as of this encounter
--- OUTSIDE RECORDS SUMMARY | 2024-12-17 15:31 | XMS_ITS | Encounter Summary ---
Author Organization [employer] Address 75 [facility] 7t [place] [address] Care Team Providers Care Tire Maintenance Technician Name Role Phone Allison Grider Primary Care Provider [phone] Uche Dueñas PharmD Unavailable Reason for Visit * Reason Onset Date Comments Med Refill 10/22/2022 Encounter Details Date Type Department Care Team (Late Contact Info) Description 10/22/2022 Telephone [facility] MEDICINE [address] [place] [address] Allison Grider ANP [address] [place] [address] Med Refill Social History Tobacco Use Types [...] Info) Description 12/30/2024 4:00 PM EDT Telemedicine [facility] [address] [place] [address] Allison Grider ANP 230 [place] [address] 02/01/2025 10:00 AM EST Telemedicine [facility] PEDS 505 [place] [address] Rohini Torres, SYMONE 505 [place] [address] documented as of this encounter Visit Diagnoses Not on filedocumented in this encounter Additional Health Concerns Assessment Noted Time PHQ-9 Depression Total Score: 13 023 1:20 PM EDT documented as of this encounter Care Teams Tire Maintenance Technician Relationship Specialty Start Date End Date Allison Grider ANP [address] [place] [address] PCP - General Family Medicine 04/05/20 Uche Dueñas, CatarinoD [address] [place] [address] Pharmacist Internal Medicine 11/11/23 documented as of this encounter
--- OUTSIDE RECORDS SUMMARY | 2024-12-17 15:31 | XMS_ITS | Encounter Summary ---
Author Organization [employer] Address 75 [facility] 7t [place] [address] Care Team Providers Care Drawing Tender Name Role Phone Allison Grider Primary Care Provider [phone] Uche Dueñas PharmD Unavailable [phone] Reason for Visit * Reason Onset Date Comments Med Refill 07/16/2024 Encounter Details Date Type Department Care Team ([facility] st Contact Info) Description 07/16/2024 Telephone [facility] MEDICINE [address] [place] [address] Allison Grider ANP [address] [place] [address] Med Refill Social History Tobacco Use Types [...] be sent to: [facility] [address] documented in this encounter Plan of Treatment Upcoming Encounters Date Type Department Care Team (Late st Contact Info) Description 12/30/2024 4:00 PM EDT Telemedicine [facility] MEDICINE [address] [place] [address] Allison Grider ANP [address] [place] [address] 02/01/2025 10:00 AM EST Telemedicine [facility] MED & PEDS 505 [place] [address] Rohini Torres, RN 505 [place] [address] documented as of this encounter Goals Goal [...] documented as of this encounter Care Teams Drawing Tender Relationship Specialty Start Date End Date Allison Grider ANP [address] [place] [address] PCP - General Family Medicine 04/05/20 Uche Dueñas, PharmD 230 [place] [address] Pharmacist Internal Medicine 11/11/23 documented as of this encounter
--- OUTSIDE RECORDS SUMMARY | 2024-12-17 15:31 | XMS_ITS | Encounter Summary ---
Author Organization [employer] Address 75 [facility] 7t [place] [address] Care Team Providers Care Video Games Mechanic Name Role Phone Allison Grider Primary Care Provider [phone] Uche Dueñas PharmD Unavailable [phone] Reason for Visit * Reason Onset Date Comments Med Refill 08/13/2024 Encounter Details Date Type Department Care Team ([facility] st Contact Info) Description 08/13/2024 Telephone [facility] MEDICINE 230 [place] [address] Allison Grider ANP [address] [place] [address] Med Refill Social History Tobacco Use Types [...] sent to: [facility] [address] documented in this encounter Plan of Treatment Upcoming Encounters Date Type Department Care Team (Late st Contact Info) Description 12/30/2024 4:00 PM EDT Telemedicine [facility] MEDICINE 230 [place] [address] Allison Grider ANP [address] [place] [address] 02/01/2025 10:00 AM EST Telemedicine [facility] MED [facility] PEDS 505 [place] [address] Rohini Torres, RN 505 [place] [address] documented as of this encounter Goals Goal [...] documented as of this encounter Care Teams Video Games Mechanic Relationship Specialty Start Date End Date Allison Grider ANP [address] [place] [address] PCP - General Family Medicine 04/05/20 Uche Dueñas, CatarinoD [address] [place] [address] Pharmacist Internal Medicine 11/11/23 documented as of this encounter
--- OUTSIDE RECORDS SUMMARY | 2024-12-17 15:31 | XMS_ITS | Encounter Summary ---
Author Organization [employer] Address 75 [facility] 7t [place] [address] Care Team Providers Care Strategic Planning Specialist Name Role Phone Allison Grider Primary Care Provider [phone] Uche Dueñas PharmD Unavailable [phone] Reason for Visit * Reason Onset Date Comments Med Refill 12/18/2023 Encounter Details Date Type Department Care Team ([facility] st Contact Info) Description 12/18/2023 Telephone [facility] MEDICINE [address] [place], [place] [phone] Allison Grider ANP [address] [place] [address] Med Refill Social History Tobacco Use Types [...] sent to: [facility] [address] documented in this encounter Plan of Treatment Upcoming Encounters Date Type Department Care Team (Late st Contact Info) Description 12/30/2024 4:00 PM EDT Telemedicine [facility] MEDICINE 230 [place] [address] Allison Grider ANP [address] [place] [address] 02/01/2025 10:00 AM EST Telemedicine [facility] MED [facility] PEDS [address] [place] [address] Rohini Torres, RN 505 [place] [address] documented as of this encounter Goals Goal [...] documented as of this encounter Care Teams Strategic Planning Specialist Relationship Specialty Start Date End Date Allison Grider ANP [address] [place] [address] PCP - General Family Medicine 04/05/20 Uche Dueñas PharmD 230 [place] [address] Pharmacist Internal Medicine 11/11/23 documented as of this encounter
--- OUTSIDE RECORDS SUMMARY | 2024-12-17 15:31 | XMS_ITS | Clinical Summary ---
Author Organization [employer] Address [address] [facility] 7t [place] [address] Care Team Providers Care Studio Artist Name Role Phone Marni Yefri PEREZ Primary Care Provider [phone] Uche Dueñas PharmD Unavailable [phone] Allergies No known active allergies Medications * [...] Active Diclofenac Sodium (Voltaren) 1 % gelIndications:[place] pain of right shoulder Apply up to 4x/d to affected joint(s) for pain/swelling 100 g 2 023 Active naproxen (Naprosyn) 500 MG tabletIndications :Post-traumatic osteoarthritis of right knee TAKE 1 TABLET BY MOUTH IN THE MORNING AND AT BEDTIME IF NEEDED FOR MODERATE PAIN. TAKE WITH FOOD. 60 tablet 024 Active D3 Super Strength 50 MCG (2000 UT) capsule TAKE ONE CAPSULE BY MOUTH EVERY MORNING 90 capsule 1 025 Active nicotine (Nicoderm CQ) 7 MG/24HR patchIndications: Smoking trying to quit Place 1 patch on the skin 1 (one) time each day at the same time. 42 patch 025 Active nicotine polacrilex (Nicorette) 2 MG gumIndications:Sm oking trying to quit Chew 1 piece up to every [address] of cigarete 100 each 3 025 Active varenicline (Chantix) 0.5 MG tabletIndications :Smoking trying to quit Take 0.5 mg PO once daily on Days 1 through 3, then 0.5 mg PO twice daily on Days 4 through 7, then start 1mg twice daily prescription; take with full glass of water 11 tablet 025 Active varenicline (Chantix) 1 MG tabletIndications :Smoking [...] 28 days. 56 tablet 025 2024 Active Semaglutide-Weigh t Management (Wegovy) 0.25 MG/0.5ML solution auto-injectorIndi cations:BMI 40.0-44.9, adult (CMS/HCC) ([facility]),Class 3 severe obesity with serious comorbidity and body mass index (BMI) of 40.0 to 44.9 in adult, unspecified obesity type ([facility]),Post-trauma tic osteoarthritis of right knee Inject 0.25 mg under the skin every 7 (seven) days. 2 mL 024 2024 Discontinued(M ed list cleanup (will not trigger notification to Pharmacy)) oxyCODONE-acetami [...] with inf lammation 01/10/2023 01/10/2023 Morbid obesity ([facility]) 01/10/2023 023 Vitamin B1 deficiency 01/10/2023 01/10/2023 Vitamin B12 deficiency 01/10/2023 Bipolar 1 disorder ([facility]) 01/10/2023 Vitamin D deficiency 08/15/2022 Plantar fasciitis 05/11/2019 Shoulder pain 07/31/2018 Spasm of cervical paraspinous muscle 07/31/2018 Heel pain 07/08/2018 Bipolar disorder 06/05/2017 Osteoarthritis of knee 10/02/2016 Insomnia 07/03/2016 Post-traumatic osteoarthritis of right knee 06/16 Tear of lateral meniscus of knee 07/03/2016 Gastroesophageal reflux disease 05/31/2016 Knee pain 11/14/2012 Encounters Date Type Department Care Team Description 12/16/2024 10:45 AM EDT Office Visit [facility] [address] [place] [address] [phone] Michelle Kyle NP Pre-op examination (Primary Dx) 12/16/2024 Telephone [facility] [address] [place] [address] 68370 Michelle Kyle NP 12/16/2024 Travel 12/15/2024 Telephone [facility] [address] [place] [phone] Yefri Terrell ANP Durable Medical Equipment (non slip bath mat, 12 inch suction cup grab bars, commode, rollator walker with seat) 12/15/2024 Refill [facility] [address] [place] [address] Rohini Torres RN Pain 12/15/2024 Telephone [facility] [address] [place] [address] Yefri Terrell ANP Med Refill 12/07/2024 Telephone [facility] [address] [place] [phone] Yefri Terrell ANP Durable Medical Equipment 12/03/2024 Travel 11/19/2024 9:15 AM EDT Office Visit [facility] [address] [place] [address] [phone] Yefri Terrell ANP Osteoarthritis of right knee, unspecified osteoarthritis type (Primary Dx); Smoking trying to quit 11/19/2024 Travel 11/13/2024 Refill [facility] [address] [place] [phone] Yefri Terrell ANP Pain 11/09/2024 9:30 AM EDT Telemedicine [facility] [address] [place] [address] Rohini Torres, SYMONE long term care pharmacist (current) use of opiate analgesic 11/09/2024 Refill [facility] [address] [place] [address] Rhoini Torres RN 11/09/2024 Travel 11/06/[address] [address] eYfri Terrell ANP 11/04/2024 Orders Only [facility] [address] [place] [address] Yefri Terrell ANP 10/27/2024 Telephone [facility] [address] [place] [address] 118[address] Yefri Terrell ANP Appointment Request 10/15/2024 Refill [facility] [address] [place] [address] 30[address] Yefri Terrell ANP Pain from Last 3 Months Immunizations Immunization Administration Dates Next Due Influenza injectable quadriv alent IIV4 with preservative 02/04/2017 Influenza injectable quadriv alent preservative free 01/15/2023,01/23/2022,12/24/2018,07/08 Influenza, IIV3, injectable 12/09/2009,10/27/200 8 Influenza, seasonal, injecta ble, preservative free 01/21/2024 Pfizer Covid-19 Vaccine 12+ 01/21/2024 Pneumococcal Conjugate PCV 20 01/15/2023 Pneumococcal Polysaccharide PPSV23 12/24/2018 TD (adult), 2 Lf tetanus tox oid, preservative free, adsorbed 10/17/2020 Td (adult), 5 Lf tetanus tox oid, preservative free, adsorbed 09/01/2013 Tdap 01/20/2010,01/12/2008 Zoster, Recombinant 12/03/2024,01/06/2021 Social History Tobacco Use Types Packs/Day Years [...] Mass Index 38.14 12/16/2024 11:19 AM EDT Plan of Treatment Upcoming Encounters Date Type Department Care Team (Late st Contact Info) Description 12/30/2024 4:00 PM EDT Telemedicine [facility] [address] [place] [address] Yefri Terrell ANP [address] [place] [address] 02/01/2025 10:00 AM EST Telemedicine [facility] [address] [place] [address] Rohini Torres, RN [address] [place] [address] Health Maintenance Due Date Last Done Comments CT Colonography 1970 FIT DNA/Cologuard 1970 FIT 1970 FOBT 1970 HIV Screening 1970 Lipid Panel 1970 Sigmoidoscopy 1970 Hepatitis C Screening 01/14/1988 Hepatitis B Vaccines (1 of 3 - 19+ 3-dose series) 1989 Influenza Vaccine (#1) 2024 , 01/15/2023, 01/23/2022, Additional history exists Depression Monitoring 11/21/2024 05/21/2024, 025 Alcohol/Substance Use Screening 05/21/2025 05/21/2024 SDOH Screening 05/21/2025 05/21/2024 Disability Screening 08/27/2025 08/27/2024 Pap Smear 09/27/2025 09/27/2022, 09/27/2022 Mammogram 11/06/2025 11/06/2024, 10/17, 09/28/2022, Additional history exists Lung Cancer Screening 11/07/2025 11/07/2024 Colonoscopy 11/08/2025 09/05/2017, 01/29/2017 Colorectal Cancer Screening 11/08/2025 Tobacco Screening 12/17/2025 12/17/2024 Cervical Cancer Screening 09/28/2027 HPV/Cotest 09/28/2027 09/27/2022, 07/11/2016 DTaP/Tdap/Td Vaccines (5 - Td or Tdap) 10/17/2030 10/17/2020, 09/01/2013, 01/20/2010, Additional history exists RSV Patients and Patients Aged 60 years or older (1 - 1-dose 75+ series) 2045 Pneumococcal Vaccine: 50+ Years Completed 01/15/2023, 12/24/2018 COVID-19 Vaccine Completed 01/21/2024, , 02/14/2021, Additional history exists Zoster Vaccines Completed 12/03/2024, 01/06/2021 HIB Vaccines Aged Out No longer eligi [...] (cigarettes, smokeless, etc) Tobacco Use Uche Lindsay, Mloly Procedures Procedure Name Priority Date/Time Associated Diagnosis Comments BASIC METABOLIC PANEL Routine 12/07/2024 11:35 AM EDT CBC Routine 12/07/2024 11:35 AM EDT MRSA NASAL SCREEN Routine 12/07/2024 10: 40 AM EDT LDCT LUNG SCREENING Routine 11/07/2024 1 :14 [...] Recently Relevant to Health Maintenance Results * (ABNORMAL) CBC (12/07/2024 11:35 AM EDT) White Blood Count 5.4 4.8 - 10.8 X10*3/uL [facility] Red Blood Count 5.00 4.20 - 5.50 X10*6/uL [facility] Hemoglobin 16.2(H) 12.0 - 16.0 g/dl [facility] Hematocrit 48.3(H) 37.0 - 47.0 % [facility] Mean Corpuscular Volume 96.6 80.0 - 98.0 fL [facility] Mean Corpuscular Hemoglobin 32.4 27.0 - 33.0 pg [facility] Mean Corpuscular HGB Conc 33.5 31.0 - 35.0 g/dl [facility] Red Cell Distribution Width 13.6 11.0 - 16.0 % [facility] Platelet Count 164 160 - 400 X10*3/uL [facility] Mean Platelet Volume 11.9 9.4 - 12.3 fL [facility] NRBC Pct Auto 0.0 0.0 - 0.2 /100WBC [facility] NRBC Abs Auto 0.000 0.0 - 0.012 X10*3/uL [facility] 12/07/2024 11:3 5 AM EDT 12/07/2024 11:35 AM EDT us Generic External Data Provider LAB BLOOD ORDERAB LES Final Result [facility] [address] [place] [phone] * (ABNORMAL) Basic Metabolic Panel (12/07/2024 11:35 AM EDT) Sodium 140 135 - 145 mmol/L [facility] Potassium 4.4 3.3 - 5.1 mmol/L [facility] Chloride 107 96 - 108 mmol/L [facility] Carbon Dioxide 27 22 - 29 mmol/L [facility] Anion Gap 10(L) 12 - 20 [facility] Urea Nitrogen (BUN) 9 9 - 16 mg/dL [facility] Creatinine, Serum 0.87 0.5 - 1.4 mg/dL [facility] Creatinine Clr Calc Pharmacy 89.9 [facility] Comment:Provided height and weight: 167.64 cm,103.873 kg.eGFR (calculated from the MDRD study equation) and eCrCl(calculated from the Cockcroft-Gault equation) are based ondifferent parameters and may not yield comparable results.If eCrCl result is absurd, please check patient'sheight/weight. Estimated Glomerular Filt Rate >60 [facility] Comment:Chronic Kidney Disea se: Estimated GFR < 60 mL/min/1.37l4Fawusf Kidney Disease: Estimated GFR < 15 mL/min/1.73m2 Glucose 97 60 - 115 mg/dL [facility] Calcium 9.5 8.4 - 10.2 mg/dL [facility] 12/07/2024 11:3 5 AM EDT 12/07/2024 11:35 AM EDT Generic External Data Provider LAB BLOOD ORDERAB LES Final Result Performing Organization Address [facility] de Phone Number [facility] [address] [place] [phone] * MRSA Nasal Screen (12/07/2024 10:40 AM EDT) MRSA Nasal PCR NEGATIVE Negative [facility] SA Nasal PCR NEGATIVE Negative [facility] MRSA Interpretation SEE NOTE [facility] Comment:MRSA target DNA not detected; SA target DNA not detected.A MRSA NEGATIVE, SA NEGATIVE test result does not precludeMRSA or SA nasal colonization. 12/07/2024 10:4 0 AM EDT 12/07/2024 11:04 AM EDT Generic External Data Provider LAB MICROBIOLOGY - GENERAL ORDERABLES Final Result Performing Organization Address [facility] de Phone Number [facility] [address] [place] [phone] * CT Lung Screening Low dose (11/07/2024 1:14 PM EDT) Anatomical Region Laterality Modality Lung Computed Tomogra phy 11/07/2024 1:14 PM EDT Narrative 11/07/2024 1:15 PM EDT [address] [address] [address] Scan Report Signed Patient: Ludmila Hansen MR#: [id number] : 1970 Acct:[id number] Age/Sex: 54 / F ADM Date: 11/06/24 Loc: HO.CT Attending Dr: Ginette Hollis PA-C Ordering Physician: Ginette Hollis PA-C Date of Service: 11/06/24 Procedure(s): CT lung screening Accession Number(s): [id number] cc: Ginette Hollis PA-C; YEFRI TERRELL NP Report Number: [id number]: Total DLP = 76.00 mGy-cm CLINICAL HISTORY: [...] Vargas MD Signed By: <Electronically signed by Concepcoin Vargas MD in OV> 11/07/24 1315 DD/ 13 TD/TT: 11/07/24 131 Wardrobe Manager: Procedure Note Donotuseinterpreter, Image - 11/07/[address] [address] [address] Scan Report Signed Patient: Ludmila Hansen EMR#: [id number] : 1970Acct:[id number] Age/Sex: 54 / FADM Date: 11/06/24 Loc: HO.CT Attending Dr: Ginette Hollis PA-C Ordering Physician: Ginette Hollis PA-C Date of Service: 11/06/24 Procedure(s): CT lung screening Accession Number(s): [id number] cc: Ginette Hollis PA-C; YEFRI TERRELL NP Report Number: [id number]: Total DLP = 76.00 mGy-cm CLINICAL HISTORY: [...] 11/07/24 1315 DD/ 1314 TD/TT: 11/07/24 1314 Wardrobe Manager: [facility] External Provider IMG CT PROCEDURES Edited Result - Final * BI Mammogram Screening Tomosynthesis Bilateral (11/04/2024 10:15 AM EDT) Anatomical Region Laterality Modality Breast Bilateral Mammography 11/04/2024 10:1 5 AM EDT Narrative 11/05/2024 4:57 PM EDT [address] [place] [address] Mammography Report Signed Patient: Ludmila Hansen MR#: [id number] : 1970 Acct:[id number] Age/Sex: 54 / F ADM Date: 11/04/24 Loc: HO.MAMMO Attending Dr: Yefri Terrell NP Ordering Physician: YEFRI TERRELL NP Results: 1Negative Date of Service: 11/04/24 Follow Up: 1 Year From [facility] ina Mammogram Procedure(s): MM tomosynthesis screening BI Accession Number(s): [id number] cc: YEFRI TERRELL NP EXAMINATION: MM SCREENING [...] 11/05/24 1654 DD/ 1015 TD/TT: 11/04/24 1035 Wardrobe Manager: Procedure Note Donotuseinterpreter, Image - 11/05/2024 [facility] [address] [place] [address] Mammography Report Signed Patient: Ludmila Hansen EMR#: [id number] : 1970Acct:[id number] Age/Sex: 54 / FADM Date: 11/04/24 Loc: HO.MAMMO Attending Dr: Yefri Terrell NP Ordering Physician: YEFRI TERRELL NPResults: 1Negative Date of Service: 11/04/24Follow Up: 1 Year From Orig inal Mammogram Procedure(s): MM tomosynthesis screening BI Accession Number(s): [id number] cc: YEFRI TERRELL NP EXAMINATION: MM SCREENING [...] 11/05/24 1654 DD/ 1015 TD/TT: 11/04/24 1035 Wardrobe Manager: Yefri Terrell ANP IMG BI PROCEDURES Final Result * Thinprep TIS PAP And HPV mRNA E6/E7 With Reflex To HPV 16,18/45 (09/27/2022 12:00 AM EDT) HPV nRNA E6/E7 [facility] SOURCE: SEE NOTE [facility] Comment:None given Report Status: [facility] Clinical Information: SEE NOTE [facility] Comment:None given LMP: SEE NOTE [facility] Comment:NONE GIVEN Prev. PAP: SEE NOTE [facility] Comment:NONE GIVEN Prev. BX: SEE NOTE [facility] Comment:NONE GIVEN Statement Of Adequacy: SEE NOTE [facility] Comment:Satisfactory for karen luation.Endocervical/transformation zone componentpresent. General Categorization: [facility] Interpretation/Result: SEE NOTE [facility] Comment:Cytology Results: Ne gative for intraepitheliallesion or malignancy. Cytology Comment [facility] Slate Handler: SEE NOTE [facility] Comment:EXJ, CT(ASCP)CT Scre ening Location: [address] [address] Review Slate Handler: [facility] Pathologist [facility] PAP Infection [facility] 09/27/2022 09/27/2022 us Yefri Terrell ANP LAB PATHOLOGY ORDERABLES Final R esult [facility] [address] [place], [place] [phone] * Colonoscopy (09/05/2017) Colonoscopy Normal Normal 09/05/2017 us Historical Provider HEALTH MAINTENANCE Final Result from Last 3 Months or Most Recently Relevant to Health Maintenance Insurance [facility] ONE CARE < 65 [place] [id number] Care Teams Studio Artist Relationship Specialty Start Date End Date Yefri Terrell ANP [address] [place], [place] PCP - General Family Medicine 04/05/20 Uche Dueñas, CatarinoD [address] [place], [place] Pharmacist Internal Medicine 11/11/23
--- OUTSIDE RECORDS SUMMARY | 2024-12-17 15:31 | XMS_ITS | Encounter Summary ---
Author Organization [employer] Address [address] [facility] 7t [place] [address] Care Team Providers Care Cutter And Paster Press Clippings Name Role Phone Allison Grider Primary Care Provider [phone] Uche Dueñas PharmD Unavailable [phone] Reason for Visit * Reason Onset Date Comments Med Refill 11/22/2022 Encounter Details Date Type Department Care Team (Late st Contact Info) Description 11/22/2022 Telephone [facility] [address] [place] [address] Allison Grider ANP [address] [place] [address] Med Refill Social History Tobacco Use Types [...] Info) Description 12/30/2024 4:00 PM EDT Telemedicine [facility] [address] [place] [address] Allison Grider ANP [address] [place] [address] 02/01/2025 10:00 AM EST Telemedicine [facility] [address] [place] [address] Rohini Torres, SYMONE [address] [place] [address] documented as of this encounter Visit Diagnoses Not on filedocumented in this encounter Additional Health Concerns Assessment Noted Time PHQ-9 Depression Total Score: 13 023 1:20 PM EDT documented as of this encounter Care Teams Cutter And Paster Press Clippings Relationship Specialty Start Date End Date Allison Grider ANP [address] [place] [phone] PCP - General Family Medicine 04/05/20 Uche Dueñas, CatarinoD [address] [place] [address] Pharmacist Internal Medicine 11/11/23 documented as of this encounter
--- OUTSIDE RECORDS SUMMARY | 2024-12-17 15:31 | XMS_ITS | Encounter Summary ---
Author Organization [employer] Address [address] [facility] [address] 7[address] [place] [address] Care Team Providers Care Professor Of Management Name Role Phone Allison Grider ANP Primary Care Provider [phone] Uche Dueñas PharmD Unavailable [phone] Encounter Details Date Type Department Care Team ([facility] st Contact Info) Description 11/06/2024 Abstract [facility] [address] [place] [address] Allison Grider ANP [address] [place] [address] Social History Tobacco Use Types Packs/Day Years [...] Info) Description 12/30/2024 4:00 PM EDT Telemedicine [facility] [address] [place] [address] Allison Grider ANP [address] [place] [address] 02/01/2025 10:00 AM EST Telemedicine [facility] [address] [place] [address] Rohini Torres, RN [address] [place] [address] documented as of this encounter Goals Goal Patient Goal Type Associated Problems Recent Progress Patient-Stated? Author Quit using tobacco (cigarettes, smokeless, etc) Tobacco Use No Uche Dueñas, Molly documented as of this encounter Visit Diagnoses Not on filedocumented in this encounter Additional Health Concerns Assessment Noted Time PHQ-9 Depression Total Score: 17 025 9:34 AM EST documented as of this encounter Care Teams Professor Of Management Relationship Specialty Start Date End Date Allison Grider ANP [address] [place] [address] PCP - General Family Medicine 04/05/20 Uche Dueñas, PharmD [address] [place] [address] Pharmacist Internal Medicine 11/11/23 documented as of this encounter
--- OUTSIDE RECORDS SUMMARY | 2024-12-17 15:31 | XMS_ITS | Encounter Summary ---
Author Organization [employer] Address [address] [facility] 7t [place] [address] Care Team Providers Care Abrasive Mixer Name Role Phone Allison Grider Primary Care Provider [phone] Uche Dueñas PharmD Unavailable [phone] Reason for Visit * Reason Onset Date Comments Durable Medical Equipment 12/15/2024 non sl ip bath mat, 12 inch suction cup grab bars, commode, rollator walker with seat Encounter Details Date Type Department Care Team (Late st Contact Info) Description 12/15/2024 Telephone [facility] [address] [place] [address] Allison Grider ANP [address] [place] [address] Durable Medical Equipment (non slip bath mat, 12 inch suction cup grab bars, commode, rollator walker with seat) Social History Tobacco Use Types Packs/Day Years [...] encounter Miscellaneous Notes * Telephone Encounter - Yolanda Dill - 12/15/2024 12:03 PM EDT Please see message below and advise. If agree, please provide diagnosis and notes to support the need for each DME. Thank you ----- Message from Lorrie Duran sent at 12/15/2024 10:44 AM EDT ----- Regarding: RE: DME request Greetings, I am (Lorrie Arguello), Charter Pilot for [facility] Care Management, requesting the following DME???s on behalf of patient as patient will be undergoing knee replacement surgery on January 05, 2025. DME Item: non slip bath mat, 12 inch suction cup grab bars, commode, rollator walker with seat, PT OT evaluation for walker. Supportive DX: I83.11, E51.9,E66.01, M17.09, M17.11, M62.838 If you should have any inquiries regarding this request, feel free to contact the Charter Pilot below. Nut Sheller: Lorrie Arguello E-mail: [email or web address] Building And Construction Manager: Jessy Cross E-mail: [email or web address] Thanks in advance for your assistance with this request. Sincerely, [facility] Care Management ----- Message ----- From: Yolanda Dill Sent: 12/07/2024 2:56 PM EDT To: Lorrie Arguello Subject: FW: DME request River Andrew, PCP is asking whether the pt is getting ortho surgery soon? Per pcp, rolling walker could be appropriate if she is having surgery bu,otherwise, she has been doing better and using cane. If pt is having surgery, pcp asks that it be included in the request. Thank you ----- Message ----- From: Yolanda Dill Sent: 12/07/2024 10:39 AM EDT To: Lorrie Arguello Subject: RE: DME request River Andrew, This has been sent to pcp for review. Thank you ----- Message ----- From: Lorrie Arguello Sent: 12/07/2024 8:40 AM EDT To: Yolanda Dill Subject: DME request Brooke, I am (Lorrie Arguello), Charter Pilot for [facility] Care Management, requesting the following DME???s on behalf of patient. DME Item: non slip bath mat, 12 inch suction cup grab bars, commode, rollator walker with seat, PT OT evaluation for walker. Supportive DX: I83.11, E51.9,E66.01, M17.09, M17.11, M62.838 If you should have any inquiries regarding this request, feel free to contact the Charter Pilot below. Nut Sheller: Lorrie Arguello E-mail: [email or web address] Building And Construction Manager: Jessy Cross E-mail: [email or web address] Thanks in advance for your assistance with this request. Sincerely, [facility] Care Management documented in this encounter Plan of Treatment Upcoming Encounters Date Type Department Care Team (Late st Contact Info) Description 12/30/2024 4:00 PM EDT Telemedicine [facility] [address] [place] [address] Allison Grider ANP [address] [place], [place] 02/01/2025 10:00 AM EST Telemedicine [facility] [address] [place], [place] [phone] Rohini Torres, SYMONE [address] [place], [place] documented as of this encounter Goals [...] documented as of this encounter Care Teams Abrasive Mixer Relationship Specialty Start Date End Date Allison Grider ANP [address] [place] [address] PCP - General Family Medicine 04/05/20 Uche Dueñas, PharmD [address] [place] [address] Pharmacist Internal Medicine 11/11/23 documented as of this encounter
--- OUTSIDE RECORDS SUMMARY | 2024-12-17 15:31 | XMS_ITS | Encounter Summary ---
Author Organization [employer] Address [address] [facility] 7t [place] [address] Care Team Providers Care Slipcover Cutter Name Role Phone Allison Grider Primary Care Provider [phone] Uche Dueñas PharmD Unavailable [phone] Reason for Visit * Reason Onset Date Comments Med Refill 12/15/2024 Encounter Details Date Type Department Care Team ([facility] st Contact Info) Description 12/15/2024 Telephone [facility] [address] [place] [address] Allison Gridre ANP 230 [place] [address] Med Refill Social History Tobacco Use Types [...] encounter Miscellaneous Notes * Telephone Encounter - Nena Murphy - 12/15/2024 9:36 AM EDT TC from pt requesting medication refill. Medications needing refill : oxyCODONE-acetaminophen (Percocet) 5-325 MG tablet To be sent to: [facility] documented in this encounter Plan of Treatment Upcoming Encounters Date Type Department Care Team (Late st Contact Info) Description 12/30/2024 4:00 PM EDT Telemedicine [facility] [address] [place] [address] Allison Grider ANP 230 [place] [address] 02/01/2025 10:00 AM EST Telemedicine [facility] 505 [place] [address] Rohini Torres, RN 505 [place] [address] documented as of this encounter Goals Goal [...] documented as of this encounter Care Teams Slipcover Cutter Relationship Specialty Start Date End Date Allison Grider ANP 230 [place] [address] PCP - General Family Medicine 04/05/20 Uche Dueñas, PharmD 230 [place] [address] Pharmacist Internal Medicine 11/11/23 documented as of this encounter
[2024-12-17 16:33] LABS: Hematocrit 46.9 % (37.0-47.0); Hemoglobin 15.8 g/dl (12.0-16.0); Imm Gran Abs Auto 0.01 X10*3/uL (0.00-0.03); Imm Gran Pct Auto 0.2 % (0.0-0.4); Lymphocytes Absolute Auto 1.4 X10*3/uL (1.2-4.9); MANUAL DIFF FLAG SCAN; Mean Corpuscular HGB Conc 33.7 g/dl (31.0-35.0); Mean Corpuscular Hemoglobin 32.4 pg (27.0-33.0); Mean Corpuscular Volume 96.1 fL (80.0-98.0); NRBC Abs Auto 0.000 X10*3/uL (0.0-0.012); NRBC Pct Auto 0.0 /100WBC (0.0-0.2); Platelet Count 164 X10*3/uL (160-400); Red Blood Count 4.88 X10*6/uL (4.20-5.50); SCAN SMEAR FLAG 1; White Blood Count 5.1 X10*3/uL (4.8-10.8)
[2024-12-17 16:35] LABS: PLT ABN DIST 1
[2024-12-17 16:49] LABS: Alanine Aminotransferase 12 U/L (0-31); Albumin Level 4.4 g/dL (3.5-5.0); Alkaline Phosphatase 89 U/L (39-117); Anion Gap 11 (12-20); Aspartate Amino Transferase 24 U/L (5-31); Blood Urea Nitrogen 11 mg/dL (9-16); Calcium 9.0 mg/dL (8.4-10.2); Carbon Dioxide 27 mmol/L (22-29); Chloride 106 mmol/L (96-108); Cholesterol 206 mg/dL (<200); Estimated Glomerular Filt Rate > 60; HDL Cholesterol 73 mg/dL (>40); Potassium 4.2 mmol/L (3.3-5.1); Sodium 140 mmol/L (135-145); Total Protein 7.2 g/dL (6.5-8.0); Triglycerides 70 mg/dL (<150)
== END 2024-12-17 13:52 | disposition home or self-care (01) ==
LOC: HO.HHCL 13:51
PROVIDERS: PCP Nurse Practitioner Primary Care; Visit Provider Nurse Practitioner
DX: Z01.818 Encounter for other preprocedural examination (principal); E66.812 Obesity, class 2; Z68.38 Body mass index [BMI] 38.0-38.9, adult; Z13.1 Encounter for screening for diabetes mellitus
CPT/HCPCS: 36415; 80053; 80061; 80076; 82248; 83036; 84443; 85025

== ENCOUNTER 2024-12-31 09:22 | Outpatient (AMB) | payer OTHER, SELFPAY ==
--- NOTE | 2024-12-30 09:41 | A.OFFVIS_ITS ---
Vital Signs 12/31/24 09:43 Height 5 ft 6 in Weight 242 lb BMI 39.1 Intake Visit Reasons: Pre-Op: R TKA w/NE 01/05/25 Intake Note: Ludmila is a 54 year old female who presents today for a preoperative visit for an upcoming right total knee arthroplasty, scheduled with Dr. Marie on 01/05/2025. Pain management agreement reviewed and signed. Allergies No Known Allergies (No Known Allergies*) Allergy (Verified 12/31/24 09:35) Medication List - Last Reconciled 12/31/24 by Gerard Rollins PA-C buspirone 5 mg PO BID cholecalciferol (vitamin D3) 50 mcg PO DAILY cyanocobalamin (vitamin B-12) 1,000 mcg PO DAILY docusate sodium 100 mg PO DAILY famotidine 40 mg PO BEDTIME [Folding Front Wheeled walker Duration: 99 days] gabapentin 300 mg PO DAILY melatonin 5 mg PO BEDTIME PRN naproxen 500 mg PO BID PRN omeprazole 20 mg PO DAILY oxycodone-acetaminophen 5-325 mg 1 tab PO Q12H PRN simethicone (Gas Relief Extra Strength) 125 mg PO TID-QID PRN ziprasidone HCl 80 mg PO BID zolpidem 5 mg PO BEDTIME PRN HPI Comments Details: Ms Echavarria presents to the office today for Orthopedic Pre op clearance. She is scheduled for right total knee arthroplasty with Dr. Marie on 01/05/2025. She has been experiencing right knee pain for several years which is preventing her from walking normally and limits her ability to perform daily activities. Over the last several years she has been working to optimize herself for total joint arthroplasty by losing weight and decreasing her smoking to 2 cigarettes a day. She was recently diagnosed with Layne's esophagus via endoscopy. She is looking to be more active. Patient lives with her in a 2 level home with 2 steps to enter. She smokes 5-10 cig per day. She does take Percocet 5/235mg tabs occasionally for pain. Primary care clearance obtained on 12/16/2024: Michelle Kyle NP -surgery specific cardiac risks: Medium -the patient is at minimal risk for a moderate risk procedure; therefore an acceptable risk for the proposed procedure and may proceed as directed by surgery and anesthesia. The patient meets ACC/aha guidelines to proceed with this noncardiac surgery without additional testing. Reviewed with patient that no surgery is completely free of risk in this evaluation is to assist surgeon and accurately reviewing informed consent. [facility] Medical History (Updated 12/07/24 @ 10:17 by Denise Llanos RN) Back pain Constipation Bipolar 1 disorder Layne's esophagus determined by biopsy Gastroesophageal reflux disease Tubular adenoma of colon Nicotine dependence, cigarettes, uncomplicated Obesity Low vitamin D level Arthritis of right knee Right tennis elbow Surgical History Hx of varicose vein ligation and stripping History of esophagogastroduodenoscopy (EGD) History of colonoscopy S/P cholecystectomy Family History Father No problems noted. Mother Hx of heat stroke History of colon cancer Sister Diabetes Brother No problems noted. Daughter No problems noted. Social History Are you a primary patient centered care specialist to a significant other at home: No Do you presently have visiting nurse or other home services: No Alcohol intake: current Alcohol intake frequency: does not drink Patient Tobacco Use Status: Current everyday Tobacco user Tobacco use type: Cigarette Cigarettes Per Day: 6 Years Smoked: (onset 22yo, 1/2-1ppd x 32yrs, now 1/2ppd - 25pyh) Current occupational status: disabled Current occupation: rt handed Review of Systems Const All systems reviewed & are unremarkable except as noted in HPI and below Physical Exam Vital Signs: BMI result Body Mass Index 39.1 Const General: cooperative, healthy appearing, comfortable and no acute distress Orientation/consciousness: patient oriented x3 HEENT Head: Yes normal to inspection and Yes atraumatic Ears: hearing grossly normal bilaterally Mouth: moist mucous membranes Eyes General: appearance normal, both eyes and all related structures EOM: EOMs intact bilaterally Neck Neck: Yes normal visual inspection and Yes no lymphadenopathy Chest Other: no audible wheezing. Resp Other: No audible wheezing Effort & Inspection: normal respiratory effort and able to speak in complete sentences Cardio Other: Radial pulse palpable with no rythmic abnormalities Rate: regular rate Peripheral pulses: Peripheral pulses 2+ throughout GI Inspection: Yes normal to inspection Palpation (GI): Soft to palpation Back/Spine/Pelvis Cervical Spine: normal cervical lordosis Skin General skin exam: no rashes or lesions noted Neuro General: patient oriented x3 Extrem Other: Knee skin intact with no open wounds or abrasions. She does have a scar along the inferior pole of the patella. Tenderness to palpation lateral compartment right knee. Dorsalis pedis pulse 2 +. Firing EHL/tib ant/gastrocs. Skin intact to light touch. 15 degree valgus deformity with gait antalgia. No evidence of venous stasis. Psych Appearance: well kempt Mental Status: mental status grossly normal Speech and movement: Normal speech and movement present Affect: normal affect Attitude: cooperative Results Reviewed Results Reviewed: X-rays of the right knee obtained in the office today for surgical planning Assessment & Plan Assessment & Plan (1) Arthritis of right knee: Code(s): M17.11 - Unilateral primary osteoarthritis, right knee Category: Medical Plan: Ms Echavarria as exhausted all conservative measures consisting of lifestyle modifications, physical therapy, analgesics, corticosteroid injections and use of assisted devices and continues to have significant limitations in daily activities along with decreased quality of life. Given the patient's desire to improve their quality of life, surgical intervention consisting of joint replacement surgery is recommended at this time.? We discussed the procedure in detail today; which includes pre op preparation with labs and reviewing patients medication regimen prior to surgery. Patient was sent to the lab for a type and screen. I discussed at length the post op course which includes physical therapy services in the hospital along with the discharge routine and the patients plan upon discharge. Patient would like to be discharged home with VNA services. She was given a prescription for a walker and commode for postop use. I explained to the patient, once they are DC home, they will receive VNA services which will include PT 2-3x per week. We also discussed their choice for outpatient PT once they are discharged from home PT. An order for physical therapy was placed at [facility] and she will contact them to make an appointment to begin after her 1st postop appointment. Post op DVT ppx was also discussed and the considering the patient does not have a h/o DVT/PE or cancer we will place her on ASA 325mg tabs po bid. I reviewed with the patient their post op pain medication regimen along with the detailed wean program. The patient did express understanding of this and agreed to the narcotic policy. Lastly, I discussed with the patient the risks to the procedure. Risks including but not limited to infection, injury to surrounding nerves, tissue , bone, small and large vessels, stiffness, aseptic loosening, fracture, dislocation, amputation, DVT/PE along with intraoperative complications including but not l imited to . The patient does express understanding, all questions were answered and the patient would like to proceed? with right total knee arthroplasty with Dr. Marie. Consents were signed and dated while in the office today.? Post-Operative Recovery Notes: * DVT ppx : ASA 325mg tabs po bid * Hospital DC plan: Home with vna * Physical Therapy: [facility] * Walker and commode ordered - Contact information given to patient with instructions on how to obtain the items. Orders: Orders PT Evaluation and Treatment Today Z96.651 - Presence of right artificial knee joint XR knee RT 3V Today M17.11 - Unilateral primary osteoarthritis, right knee Type and Screen Today Z01.818 - Encounter for other preprocedural examination Medications: New [bed side commode] duration 99 days 1 ea 0RF M17.11 - Unilateral primary osteoarthritis, right knee Refilled [Folding Front Wheeled walker] Duration: 99 days 1 ea 0RF M17.11 - Unilateral primary osteoarthritis, right knee Coding Level of Care Code Est Pt Level 3 (20191) Complex EM visit Add On G2211 Diagnoses Arthritis of right knee M17.11
[2024-12-31 09:43] VITALS: BMI 39.1
--- OUTSIDE RECORDS SUMMARY | 2024-12-31 10:38 | XMS_ITS | Encounter Summary ---
Author Organization [employer] Address [address] [facility] 7t [place] [address] Care Team Providers Care Rotor Winder Name Role Phone Allison Grider Primary Care Provider Uche Dueñas PharmD Unavailable [phone] Reason for Visit * Reason Onset Date Comments Med Refill 07/16/2024 Encounter Details Date Type Department Care Team ([facility] st Contact Info) Description 07/16/2024 Telephone [facility] [address] [place] [address] Allison Grider ANP 230 [place] [address] Med Refill Social History Tobacco Use Types [...] to: [facility] [address] documented in this encounter Plan of Treatment Upcoming Encounters Date Type Department Care Team ([facility] st Contact Info) Description 02/01/2025 10:00 AM EST Telemedicine [facility] [address] [place] [address] Rohini Torres, SYMONE 505 [place] [address] documented as of this encounter Goals Goal Patient Goal Type Associated Problems Recent Progress Patient-Stated? Author Quit using tobacco (cigarettes, smokeless, etc) Tobacco Use No Uche Dueñas, PharmD documented as of this encounter Visit Diagnoses Not on filedocumented in this encounter Additional Health Concerns Assessment Noted Time PHQ-9 Depression Total Score: 17 025 9:34 AM EST documented as of this encounter Care Teams Rotor Winder Relationship Specialty Start Date End Date Allison Grider ANP 230 [place] [address] PCP - General Family Medicine 04/05/20 Uche Dueñas PharmD 230 [place] [address] Pharmacist Internal Medicine 11/11/23 documented as of this encounter
--- OUTSIDE RECORDS SUMMARY | 2024-12-31 10:38 | XMS_ITS | Encounter Summary ---
Author Organization [employer] Address [address] [facility] 7t [place] [address] Care Team Providers Care Php Software Engineer Name Role Phone Allison Grider Primary Care Provider [phone] Uche Dueñas PharmD Unavailable [phone] Reason for Visit * Reason Onset Date Comments chart prep 12/29/2024 Encounter Details Date Type Department Care Team ([facility] st Contact Info) Description 12/29/2024 Telephone [facility] 230 [place] [address] Allison Grider ANP [address] [place] [address] chart prep Social History Tobacco Use Types Packs/Day Years [...] encounter Miscellaneous Notes * Telephone Encounter - Allison Bai MA - 12/29/2024 12:37 PM EDT ..Chart Prep Labs: not applicable Images: not applicable Vaccines due: Updated Referrals: Not Applicable Screenings: Not Applicable Overdue care gaps: PHQ9 documented in this encounter Plan of Treatment Upcoming Encounters Date Type Department Care Team ([facility] st Contact Info) Description 02/01/2025 10:00 AM EST Telemedicine [facility] [address] [place] [address] Rohini Torres, SYMONE [address] [place] [address] documented as of this encounter Goals Goal Patient Goal Type Associated Problems Recent Progress Patient-Stated? Author Quit using tobacco (cigarettes, smokeless, etc) Tobacco Use Uche Lindsay, PharmD documented as of this encounter Visit Diagnoses Not on filedocumented in this encounter Additional Health Concerns Assessment Noted Time PHQ-9 Depression Total Score: 17 025 9:34 AM EST documented as of this encounter Care Teams Php Software Engineer Relationship Specialty Start Date End Date Allison Grider ANP [address] [place] [address] PCP - General Family Medicine 04/05/20 Uche Dueñas, Molly [address] [place] [address] Pharmacist Internal Medicine 11/11/23 documented as of this encounter
--- OUTSIDE RECORDS SUMMARY | 2024-12-31 10:38 | XMS_ITS | Encounter Summary ---
Author Organization [employer] Address [address] [facility] 7t [place] [address] Care Team Providers Care Mining Detail Draftsperson Name Role Phone Marni Allison PEREZ Primary Care Provider [phone] Uche Dueñas PharmD Unavailable [phone] Encounter Details Date Type Department Care Team (Late st Contact Info) Description 12/18/2024 Results Follow-Up [facility] [address] [place] [address] Michelle Kyle NP [address] [place] [address] CBC auto differential, Hepatic Function Panel Social History Tobacco Use Types Packs/Day Years [...] Care Team (Late st Contact Info) Description 02/01/2025 10:00 AM EST Telemedicine [facility] [address] [place] [address] Rohini Torres, RN [address] [place] [address] documented as of this encounter Goals Goal Patient Goal Type Associated Problems Recent Progress Patient-Stated? Author Quit using tobacco (cigarettes, smokeless, etc) Tobacco Use No Uche Dueñas PharmD documented as of this encounter Visit Diagnoses Not on filedocumented in this encounter Additional Health Concerns Assessment Noted Time PHQ-9 Depression Total Score: 17 025 9:34 AM EST documented as of this encounter Care Teams Mining Detail Draftsperson Relationship Specialty Start Date End Date Allison Grider ANP [address] [place], [place] [id number] PCP - General Family Medicine 04/05/20 Uche Dueñas PharmD 230 [place], [place] [phone] Pharmacist Internal Medicine 11/11/23 documented as of this encounter
--- OUTSIDE RECORDS SUMMARY | 2024-12-31 10:38 | XMS_ITS | Encounter Summary ---
Author Organization [employer] Address [address] [facility] 7t [place] [address] Care Team Providers Care [employer] Special Education Teacher Name Role Phone Allison Grider Primary Care Provider [phone] Uche Dueñas PharmD Unavailable [phone] Reason for Visit * Reason Onset Date Comments Med Refill 09/15/2024 Encounter Details Date Type Department Care Team ([facility] st Contact Info) Description 09/15/2024 Telephone [facility] 230 [place] [address] Allison Grider ANP [address] [place] [address] Med Refill Social History Tobacco Use Types [...] sent to: [facility] documented in this encounter Plan of Treatment Upcoming Encounters Date Type Department Care Team (Late st Contact Info) Description 02/01/2025 10:00 AM EST Telemedicine [facility] 505 [place] [address] Rohini Torres, SYMONE 505 [place] [address] documented as of this encounter Goals Goal Patient Goal Type Associated Problems Recent Progress Patient-Stated? Author Quit using tobacco (cigarettes, smokeless, etc) Tobacco Use No Uche Dueñas, Molly documented as of this encounter Visit Diagnoses Not on filedocumented in this encounter Additional Health Concerns Assessment Noted Time PHQ-9 Depression Total Score: 17 025 9:34 AM EST documented as of this encounter Care Teams [employer] Special Education Teacher Relationship Specialty Start Date End Date Allison Grider ANP 230 [place] [address] PCP - General Family Medicine 04/05/20 Uche Dueñas PharmD 230 [place] [address] Pharmacist Internal Medicine 11/11/23 documented as of this encounter
--- OUTSIDE RECORDS SUMMARY | 2024-12-31 10:38 | XMS_ITS | Encounter Summary ---
Author Organization [employer] Address [address] [facility] 7t [place] [address] Care Team Providers Care Fiber Analyst Name Role Phone Allison Grider Primary Care Provider [phone] Uche Dueñas PharmD Unavailable [phone] Reason for Visit * Reason Onset Date Comments Med Refill 12/18/2023 Encounter Details Date Type Department Care Team ([facility] st Contact Info) Description 12/18/2023 Telephone [facility] 230 [place], [place] [phone] Allison Grider ANP [address] [place] [address] Med Refill Social History Tobacco Use Types [...] sent to: [facility] [address] documented in this encounter Plan of Treatment Upcoming Encounters Date Type Department Care Team ([facility] Contact Info) Description 02/01/2025 10:00 AM EST Telemedicine [facility] P[facility]S 505 [place] [address] Rohini Torres, RN [address] [place] [address] documented as of this encounter Goals Goal [...] documented as of this encounter Care Teams Fiber Analyst Relationship Specialty Start Date End Date Allison Grider ANP [address] [place] [address] PCP - General Family Medicine 04/05/20 Uche Dueñas, CatarinoD [address] [place] [address] Pharmacist Internal Medicine 11/11/23 documented as of this encounter
--- OUTSIDE RECORDS SUMMARY | 2024-12-31 10:38 | XMS_ITS | Encounter Summary ---
Author Organization [employer] Address [address] [facility] 7t [place] [address] Care Team Providers Care Merchant Police Name Role Phone Allison Grider ANP Primary Care Provider Uche Dueñas PharmD Unavailable [phone] Encounter Details Date Type Department Care Team ([facility] st Contact Info) Description 12/30/2024 Telephone [facility] MEDICINE 230 [place] [address] Allison Grider ANP [address] [place] [address] Social History Tobacco Use Types Packs/Day Years [...] encounter Miscellaneous Notes * Telephone Encounter - Makenna Holland - 12/30/2024 3:41 PM EDT Called Patient, no answer. Advised to call back and check in for televisit. documented in this encounter Plan of Treatment Upcoming Encounters Date Type Department Care Team ([facility] st Contact Info) Description 02/01/2025 10:00 AM EST Telemedicine [facility] & PEDS 505 [place] [address] Rohini Torres, SYMONE 505 [place] [address] documented as of this encounter Goals Goal Patient Goal Type Associated Problems Recent Progress Patient-Stated? Author Quit using tobacco (cigarettes, smokeless, etc) Tobacco Use No Uche Dueñas, Molly documented as of this encounter Visit Diagnoses Not on filedocumented in this encounter Additional Health Concerns Assessment Noted Time PHQ-9 Depression Total Score: 17 025 9:34 AM EST documented as of this encounter Care Teams Merchant Police Relationship Specialty Start Date End Date Allison Grider ANP [address] [place] [address] PCP - General Family Medicine 04/05/20 Uche Dueñas, CatarinoD [address] [place] [address] Pharmacist Internal Medicine 11/11/23 documented as of this encounter
--- OUTSIDE RECORDS SUMMARY | 2024-12-31 10:38 | XMS_ITS | Encounter Summary ---
Author Organization [employer] Address [address] [facility] 7t [place] [address] Care Team Providers Care Repairer Hairspring Name Role Phone Allison Grider Primary Care Provider [phone] Uche Dueñas PharmD Unavailable [phone] Reason for Visit * Reason Onset Date Comments Med Refill 08/13/2024 Encounter Details Date Type Department Care Team ([facility] st Contact Info) Description 08/13/[address] [facility] MEDICINE 230 [place] [address] Allison Grider ANP [address] [place] [address] Med Refill Social History Tobacco Use Types [...] to: [facility] - [address] documented in this encounter Plan of Treatment Upcoming Encounters Date Type Department Care Team ([facility] st Contact Info) Description 02/01/2025 10:[address] [facility]S [address] [place] [address] Rohini Torres, RN 505 [place] [address] documented as of this encounter Goals Goal Patient Goal Type Associated Problems Recent Progress Patient-Stated? Author Quit using tobacco (cigarettes, smokeless, etc) Tobacco Use No Uche Dueñas, PharmD documented as of this encounter Visit Diagnoses Not on filedocumented in this encounter Additional Health Concerns Assessment Noted Time PHQ-9 Depression Total Score: 17 03/06/2 025 9:34 AM EST documented as of this encounter Care Teams Repairer Hairspring Relationship Specialty Start Date End Date Allison Grider ANP [address] [place] [address] PCP - General Family Medicine 04/05/20 Uche Dueñas PharmD 230 [place] [address] Pharmacist Internal Medicine 11/11/23 documented as of this encounter
--- OUTSIDE RECORDS SUMMARY | 2024-12-31 10:39 | XMS_ITS | Encounter Summary ---
Author Organization [employer] Address [address] [facility] 7t [place] [address] Care Team Providers Care Truck Dock Material Mover Name Role Phone Allison Grider Primary Care Provider [phone] Uche Dueñas PharmD Unavailable [phone] Reason for Visit * Reason Onset Date Comments Med Refill 10/22/2022 Encounter Details Date Type Department Care Team (Late Contact Info) Description 10/22/[address] [facility] MEDICINE 230 [place] [address] Allison Grider ANP [address] [place] [address] Med Refill Social History Tobacco Use Types [...] Description 02/01/2025 10:[address] [facility]S 505 [place] [address] Rohini Torres, RN [address] [place] [address] documented as of this encounter Visit Diagnoses Not on filedocumented in this encounter Additional Health Concerns Assessment Noted Time PHQ-9 Depression Total Score: 13 023 1:20 PM EDT documented as of this encounter Care Teams Truck Dock Material Mover Relationship Specialty Start Date End Date Allison Grider, CHRIS [address] [place] [address] PCP - General Family Medicine 04/05/20 Uche Dueñas, Molly [address] [place] [address] Pharmacist Internal Medicine 11/11/23 documented as of this encounter
--- OUTSIDE RECORDS SUMMARY | 2024-12-31 10:39 | XMS_ITS | Encounter Summary ---
Author Organization [employer] Address [address] [facility] [address] [address] 7[address] [place] [address] Care Team Providers Care Financial Services Representative Name Role Phone Allison Grider ANP Primary Care Provider [phone] Uche Dueñas PharmD Unavailable [phone] Encounter Details Date Type Department Care Team ([facility] st Contact Info) Description 11/06/2024 Abstract [facility] [address] [place] [address] Allison Grider ANP [address] [place] [address] Social History Tobacco Use Types Packs/Day Years [...] Upcoming Encounters Date Type Department Care Team ([facility] st Contact Info) Description 02/01/2025 10:00 AM EST Telemedicine [facility] MED & PEDS [address] [place] [address] Rohini Torres, RN [address] [place] [address] documented as of this encounter Goals Goal [...] as of this encounter Care Teams Financial Services Representative Relationship Specialty Start Date End Date Allison Grider ANP [address] [place] [address] PCP - General Family Medicine 04/05/20 Uche Dueñas, Molly [address] [place] [address] Pharmacist Internal Medicine 11/11/23 documented as of this encounter
--- OUTSIDE RECORDS SUMMARY | 2024-12-31 10:39 | XMS_ITS | Encounter Summary ---
Author Organization [employer] Address [address] [facility] 7t [place] [address] Care Team Providers Care Olive Packer Name Role Phone Allison Grider Primary Care Provider [phone] Uche Dueñas PharmD Unavailable [phone] Reason for Visit * Reason Onset Date Comments Med Refill 07/20/2022 Encounter Details Date Type Department Care Team (Late st Contact Info) Description 07/20/2022 Telephone [facility] [address] [place] [address] Allison Grider ANP [address] [place] [address] Med Refill Social History Tobacco Use Types [...] Info) Description 02/01/2025 10:00 AM EST Telemedicine [facility] MED & PEDS [address] [place], [place] [phone] Rohini Torres, SYMONE [address] [place] [address] documented as of this encounter Visit Diagnoses Not on filedocumented in this encounter Care Teams Olive Packer Relationship Specialty Start Date End Date Allison Grider ANP [address] [place] [address] PCP - General Family Medicine 04/05/20 Uche Dueñas, Molly [address] [place] [address] Pharmacist Internal Medicine 11/11/23 documented as of this encounter
--- OUTSIDE RECORDS SUMMARY | 2024-12-31 10:39 | XMS_ITS | Clinical Summary ---
Author Organization [employer] Address [address] [facility] 7t [place] [address] Care Team Providers Care Bottom Pounder [employer] Name Role Phone Marni Yefri PEREZ Primary Care Provider [phone] Uche Dueñas PharmD Unavailable [phone] Allergies No known active allergies Medications * [...] MG/0.5ML solution auto-injectorIndi cations:BMI 40.0-44.9, adult (CMS/HCC) ([facility]),Class 3 severe obesity with serious comorbidity and body mass index (BMI) of 40.0 to 44.9 in adult, unspecified obesity type ([facility]),Post-trauma tic osteoarthritis of right knee [...] with inf lammation 01/10/2023 01/10/2023 Morbid obesity ([facility]) 01/10/2023 023 Vitamin B1 deficiency 01/10/2023 01/10/2023 Vitamin B12 deficiency 01/10/2023 Bipolar 1 disorder ([facility]) 01/10/2023 Vitamin D deficiency 08/15/2022 Plantar fasciitis 05/11/2019 Shoulder pain 07/31/2018 Spasm of cervical paraspinous muscle 07/31/2018 Heel pain 07/08/2018 Bipolar disorder 06/05/2017 Osteoarthritis of knee 10/02/2016 Insomnia 07/03/2016 Post-traumatic osteoarthritis of right knee 06/16 Tear of lateral meniscus of knee 07/03/2016 Gastroesophageal reflux disease 05/31/2016 Knee pain 11/14/2012 Encounters Date Type Department Care Team Description 12/30/2024 Telephone [facility] [address] [place] [address] Yefri Terrell ANP 12/29/[address] [address] Yefri Terrell ANP chart prep 12/24/2024 Telephone [facility] [address] [place] [address] Yefri Terrell ANP Durable Medical Equipment 12/18/2024 Results Follow-Up [address] [address] Michelle Kyle NP CBC auto differential, Hepatic Function Panel 12/18/[address] [address] Michelle Kyle NP 12/16/2024 10:45 AM EDT Office Visit [address] [address] Michelle Kyle NP Pre-op examination (Primary Dx) 12/16/[address] [address] Michelle Kyle NP 12/16/2024 Travel 12/15/[address] [address] Yefri Terrell ANP Durable Medical Equipment (non slip bath mat, 12 inch suction cup grab bars, commode, rollator walker with seat) 12/15/2024 Refill [facility] MED & PEDS [address] [place] [address] Rohini Torres RN Pain 12/15/[address] [address] Yefri Terrell ANP Med Refill 12/07/[address] [address] Yefri Terrell ANP Durable Medical Equipment 12/03/2024 Travel 11/19/2024 9:15 AM EDT Office Visit [address] [address] Yefri Terrell ANP Primary osteoarthritis of right knee (Primary Dx); Smoking trying to quit 11/19/2024 Travel 11/13/[address] [address] Yefri Terrell ANP Pain 11/09/2024 9:30 AM EDT Telemedicine [facility] MED & PEDS [address] [place] [address] Rohini Torres, RN penitentiary (current) use of opiate analgesic 11/09/2024 Refill [facility] MED & PEDS [address] [place] [address] Rohini Torres, SYMONE 11/09/2024 Travel 11/06/[address] [address] Yefri Terrell ANP 11/04/2024 Orders Only [address] [place] [address] Yefri Terrell ANP 10/27/2024 Telephone [facility] [address] [facility] [place] [address] Yefri Terrell ANP Appointment Request 10/15/2024 Refill [facility] [address] [facility] [address] Yefri Terrell ANP Pain from Last 3 [...] Upcoming Encounters Date Type Department Care Team ([facility] st Contact Info) Description 02/01/2025 10:00 AM EST Telemedicine [facility] MED & PEDS [address] [place] [address] Rohini Torres, RN [address] [place] [address] Health Maintenance Due Date Last Done Comments CT Colonography 1970 FIT DNA/Cologuard 1970 FIT 1970 FOBT 1970 HIV Screening 1970 Sigmoidoscopy 1970 Hepatitis C Screening 01/14/1988 [...] Cancer Screening 09/28/2027 HPV/Cotest 09/28/2027 09/27/2022, 07/11/2016 Lipid Panel 12/17/2029 12/17/2024 DTaP/Tdap/Td Vaccines (5 - Td or Tdap) [...] Procedure Name Priority Date/Time Associated Diagnosis Comments ECG 12-LEAD Routine 12/18/2024 10:03 AM EDT Pre-op examination SLIDE REVIEW Routine 12/17/2024 2:05 PM EDT HEPATIC FUNCTION PANEL Routine 2:05 PM EDT Pre-op examination CBC WITH AUTO DIFFERENTIAL Routine 12/17/2024 2:05 PM EDT Pre-op examination COMPREHENSIVE METABOLIC PANEL Routine 12/17/2024 2:05 PM EDT Class 2 severe obesity with serious comorbidity and body mass index (BMI) of 38.0 to 38.9 in adult, unspecified obesity type HEMOGLOBIN A1C Routine 12/17/2024 2:05 PM EDT Class 2 severe obesity with serious comorbidity and body mass index (BMI) of 38.0 to 38.9 in adult, unspecified obesity type TSH W/REFLEX TO FT4 Routine 12/17/2024 2 :05 PM EDT Class 2 severe obesity with serious comorbidity and body mass index (BMI) of 38.0 to 38.9 in adult, unspecified obesity type LIPID PANEL, STANDARD Routine 12/17/2024 2:05 PM EDT Class 2 severe obesity with serious comorbidity and body mass index (BMI) of 38.0 to 38.9 in adult, unspecified obesity type BASIC METABOLIC PANEL Routine 12/07/2024 11:35 AM [...] Recently Relevant to Health Maintenance Results * ECG 12 lead (12/18/2024 10:03 AM EDT) Narrative Michelle Kyle NP - 12/18/2024 10:03 AM EDT HR [address]. [address]us [address]. [address] changes us Michelle Kyle NP ECG ORDERABLES Final Result * Slide Review (12/17/2024 2:05 PM EDT) Slide Review VERIFIED [facility] 12/17/2024 2:05 PM EDT 12/17/2024 4:05 PM EDT us Michelle Kyle NP LAB BLOOD ORDERABLES Final Resu lt [facility] [address] [place] [address] [phone] * TSH W/Reflex to FT4 (12/17/2024 2:05 PM EDT) Pathologist [facility] TSH reflex Free T4 1.22 0.32 - 4.0 uIU/mL [facility] Blood Venous blood specimen / Unknown 12/17/2024 2:05 PM EDT 12/17/2024 4:11 PM EDT Yefri Terrell [facility] LAB BLOOD ORDERABLES Final Resul t [facility] [address] [place] [address] [phone] * (ABNORMAL) CBC auto differential (12/17/2024 2:05 PM EDT) Pathologist [facility] White Blood Count 5.1 4.8 - 10.8 X10*3/uL [facility] Red Blood Count 4.88 4.20 - 5.50 X10*6/uL [facility] Hemoglobin 15.8 12.0 - 16.0 g/dl [facility] Hematocrit 46.9 37.0 - 47.0 % [facility] Mean Corpuscular Volume 96.1 80.0 - 98.0 fL [facility] Mean Corpuscular Hemoglobin 32.4 27.0 - 33.0 pg [facility] Mean Corpuscular HGB Conc 33.7 31.0 - 35.0 g/dl [facility] Red Cell Distribution Width 13.2 11.0 - 16.0 % [facility] Platelet Count 164 160 - 400 X10*3/uL [facility] Mean Platelet Volume 13.1(H) 9.4 - 12.3 fL [facility] Neutrophils Percent Auto 60.2 45 - 73 % [facility] Imm Gran Pct Auto 0.2 0.0 - 0.4 % [facility] Lymphocytes Percent Auto 28.1 20 - 40 % [facility] Monocytes Percent Auto 7.7 2 - 11 % [facility] Eosinophils Percent Auto 3.2 0 - 4 % [facility] Basophils Percent Auto 0.6 0 - 2 % [facility] NRBC Pct Auto 0.0 0.0 - 0.2 /100WBC [facility] Neutrophils Absolute Auto 3.0 2.0 - 8.3 x10*3/uL [facility] Imm Gran Abs Auto 0.01 0.00 - 0.03 X10*3/uL [facility] Lymphocytes Absolute Auto 1.4 1.2 - 4.9 X10*3/uL [facility] Monocytes Absolute Auto 0.4 0.1 - 1.2 X10*3/uL [facility] Eosinophils Absolute Auto 0.2 0.0 - 0.4 X10*3/uL [facility] Basophils Absolute Auto 0.0 0.0 - 0.2 X10*3/uL [facility] NRBC Abs Auto 0.000 0.0 - 0.012 X10*3/uL [facility] Blood Venous blood specimen / Unknown 12/17/2024 2:05 PM EDT 12/17/2024 4:05 PM EDT Michelle Kyle HOT METAL CAR OPERATOR LAB BLOOD ORDERABLES Edited Res ult - Final [facility] [address] [place] [address] [phone] * Hemoglobin A1c (12/17/2024 2:05 PM EDT) Hemoglobin A1c 5.3 <6.0 % [facility] Comment:Hemoglobin A1C Refer ence Range Adults: 4.8 - 6.0 % Non diabetic: < 6.0 % Goal: < 7.0 %Additional Action Suggested: > 8.0 %Note: Hemoglobin A1c results are invalid for patients with abnormal amounts of HbF. Blood transfusions may impact the HbA1c concentration in the patient sample. Estimated Average Glucose 105 mg/dL [facility] Comment:eAG = Estimated ave rage glucose which is %A1C expressed asaverage glucose, using the formula of the Q0W-YvspstkGdkpdkv Glucose study (ADAG), Diabetes Care, Vol.31,#8,Oct. 2007 Blood Venous blood specimen / Unknown 12/17/2024 2:05 PM EDT 12/17/2024 4:05 PM EDT Yefri Terrell ANP LAB BLOOD ORDERABLES Final Resul t Performing Organization Address City/[facility]/ZIP Co de Phone Number [facility] [address] [place] [phone] * Hepatic Function Panel (12/17/2024 2:05 PM EDT) Bilirubin, Direct 0.2 0.0 - 0.5 mg/dL [facility] Blood Venous blood specimen / Unknown 12/17/2024 2:05 PM EDT 12/17/2024 4:11 PM EDT Michelle Kyle HOT METAL CAR OPERATOR LAB BLOOD ORDERABLES Final Resu lt Performing Organization Address City/[facility]/ZIP Co de Phone Number [facility] [address] [place] [phone] * (ABNORMAL) Lipid Panel, Standard (12/17/2024 2:05 PM EDT) Triglycerides 70 <150 mg/dL [facility] Comment:Desirable Triglyceri de: less than 150 mg/dLBorderline High Triglyceride 150-199 mg/dLHigh Triglyceride: 200-499 mg/dLVery High Triglyceride: greater than or equal to 5OO mg/dL Cholesterol 206(H) <200 mg/dL [facility] Comment:Desirable Cholestero l: less than 200 mg/dLBorderline High Cholesterol: 200-239 mg/dLHigh Cholesterol: greater than 239 mg/dL LDL Cholesterol Calculated 119(H) <100 mg/dL [facility] Comment:Desirable LDL: less than 100 mg/dLNear Optimal/Above Optimal LDL: 110- 129 mg/dLBorderline High LDL: 130-159 mg/dLHigh LDL: 160-189 mg/dLVery High LDL: greater than or equal to 190 mg/dL HDL Cholesterol 73 >40 mg/dL [facility] Comment:Desirable HDL: great er than 40 mg/dL Note: This HDL assay may give artificially low results in patients with liver disease. Blood Venous blood specimen / Unknown 12/17/2024 2:05 PM EDT 12/17/2024 4:11 PM EDT [facility] LAB BLOOD ORDERABLES Final Resul t [facility] [address] [place] [address] [phone] * (ABNORMAL) Comprehensive Metabolic Panel (12/17/2024 2:05 PM EDT) Sodium 140 135 - 145 mmol/L [facility] Potassium 4.2 3.3 - 5.1 mmol/L [facility] Chloride 106 96 - 108 mmol/L [facility] Carbon Dioxide 27 22 - 29 mmol/L [facility] Anion Gap 11(L) 12 - 20 [facility] Urea Nitrogen (BUN) 11 9 - 16 mg/dL [facility] Creatinine, Serum 0.91 0.5 - 1.4 mg/dL [facility] Estimated Glomerular Filt Rate >60 [facility] Comment:Chronic Kidney Disea se: Estimated GFR < 60 mL/min/[id number] Kidney Disease: Estimated GFR < 15 mL/min/1.73m2 Glucose 125(H) 60 - 115 mg/dL [facility] Calcium 9.0 8.4 - 10.2 mg/dL [facility] Bilirubin, Total 0.5 0.0 - 1.0 mg/dL [facility] Aspartate Amino Transferase 24 5 - 31 U/L [facility] Alanine Aminotransferase 12 0 - 31 U/L [facility] Total Protein 7.2 6.5 - 8.0 g/dL [facility] Albumin Level 4.4 3.5 - 5.0 g/dL [facility] Alkaline Phosphatase 89 39 - 117 U/L [facility] Blood Venous blood specimen / Unknown 12/17/2024 2:05 PM EDT 12/17/2024 4:11 PM EDT us Yferi Terrell ANP LAB BLOOD ORDERABLES Final Resul t Performing Organization Address City/[facility]/ZIP Co de Phone Number [facility] [address] [place] [phone] * (ABNORMAL) CBC (12/07/2024 11:35 AM EDT) White Blood Count 5.4 4.8 - 10.8 X10*3/uL [facility] Red Blood Count 5.00 4.20 - 5.50 X10*6/uL [facility] Hemoglobin 16.2(H) 12.0 - 16.0 g/dl [facility] Hematocrit 48.3(H) 37.0 - 47.0 % [facility] Mean Corpuscular Volume 96.6 80.0 - 98.0 fL [facility] Mean Corpuscular Hemoglobin 32.4 27.0 - 33.0 pg [facility] Mean Corpuscular HGB Conc 33.5 31.0 - 35.0 g/dl [facility] Red Cell Distribution Width 13.6 11.0 - 16.0 % [facility] Platelet Count 164 160 - 400 X10*3/uL [facility] Mean Platelet Volume 11.9 9.4 - 12.3 fL [facility] NRBC Pct Auto 0.0 0.0 - 0.2 /100WBC [facility] NRBC Abs Auto 0.000 0.0 - 0.012 X10*3/uL [facility] 12/07/2024 11:3 5 AM EDT 12/07/2024 11:35 AM EDT Generic External Data Provider LAB BLOOD ORDERAB LES Final Result Performing Organization Address City/[facility]/ZIP Co de Phone Number [facility] [address] [place] [address] [phone] * (ABNORMAL) Basic Metabolic Panel (12/07/2024 11:35 AM EDT) Sodium 140 135 - 145 mmol/L [facility] Potassium 4.4 3.3 - 5.1 mmol/L [facility] Chloride 107 96 - 108 mmol/L [facility] Carbon Dioxide 27 22 - 29 mmol/L [facility] Anion Gap 10(L) 12 - 20 [facility] Urea Nitrogen (BUN) 9 9 - 16 mg/dL [facility] Creatinine, Serum 0.87 0.5 - 1.4 mg/dL [facility] Creatinine Clr Calc Pharmacy 89.9 [facility] Comment:Provided height and weight: 167.64 cm,103.873 kg.eGFR (calculated from the MDRD study equation) and eCrCl(calculated from the Cockcroft-Gault equation) are based ondifferent parameters and may not yield comparable results.If eCrCl result is absurd, please check patient'sheight/weight. Estimated Glomerular Filt Rate >60 [facility] Comment:Chronic Kidney Disea se: Estimated GFR < 60 mL/min/1.59j5Umbwsa Kidney Disease: Estimated GFR < 15 mL/min/1.73m2 Glucose 97 60 - 115 mg/dL [facility] Calcium 9.5 8.4 - 10.2 mg/dL [facility] 12/07/2024 11:3 5 AM EDT 12/07/2024 11:35 AM EDT us Generic External Data Provider LAB BLOOD ORDERAB LES Final Result [facility] [address] [place] [address] [phone] * MRSA Nasal Screen (12/07/2024 10:40 AM EDT) MRSA Nasal PCR NEGATIVE Negative [facility] SA Nasal PCR NEGATIVE Negative [facility] MRSA Interpretation SEE NOTE [facility] Comment:MRSA target DNA not detected; SA target DNA not detected.A MRSA NEGATIVE, SA NEGATIVE test result does not precludeMRSA or SA nasal colonization. 12/07/2024 10:4 0 AM EDT 12/07/2024 11:04 AM EDT us Generic External Data Provider LAB MICROBIOLOGY - GENERAL ORDERABLES Final Result Performing Organization Address City/State/[facility] Co de Phone Number [facility] [address] [place] [phone] * CT Lung Screening Low dose (11/07/2024 1:14 PM EDT) Anatomical Region Laterality Modality Lung Computed Tomogra phy 11/07/2024 1:14 PM EDT Narrative 11/07/2024 1:15 PM EDT [address] [address] [address] Scan Report Signed Patient: Ludmila Hansen MR#: [id number] : 1970 Acct:[id number] Age/Sex: 54 / F ADM Date: 11/06/24 Loc: HO.CT Attending Dr: Ginette Hollis PA-C Ordering Physician: Ginette Hollis PA-C Date of Service: 11/06/24 Procedure(s): CT lung screening Accession Number(s): [id number] cc: Ginette Hollis PA-C; YEFRI TERRELL NP Report Number: [id number]: Total DLP = 76.00 mGy-cm CLINICAL HISTORY: [...] 11/07/24 1315 DD/ 1314 TD/TT: 11/07/24 1314 Weft Straightener: Procedure Note Donotuseinterpreter, Image - 11/07/[address] [place] [address] [address] Scan Report Signed Patient: Ludmila Hansen EMR#: [id number] : 1970Acct:[id number] Age/Sex: 54 / FADM Date: 11/06/24 Loc: HO.CT Attending Dr: Ginette Hollis PA-C Ordering Physician: Ginette Hollis PA-C Date of Service: 11/06/24 Procedure(s): CT lung screening Accession Number(s): [id number] cc: Ginette Hollis PA-C; YEFRI TERRELL NP Report Number: [id number]: Total DLP = 76.00 mGy-cm CLINICAL HISTORY: [...] 11/07/24 1315 DD/ 1314 TD/TT: 11/07/24 1314 Weft Straightener: [facility] External Provider IMG CT PROCEDURES Edited Result - Final * BI Mammogram Screening Tomosynthesis Bilateral (11/04/2024 10:15 AM EDT) Anatomical Region Laterality Modality Breast Bilateral Mammography 11/04/2024 10:1 5 AM EDT Narrative 11/05/2024 4:57 PM EDT [address] [place] [address] Mammography Report Signed Patient: Ludmila Hansen MR#: [id number] : 1970 Acct:[id number] Age/Sex: 54 / F ADM Date: 11/04/24 Loc: HO.MAMMO Attending Dr: Yefri Terrell NP Ordering Physician: YEFRI TERRELL NP Results: 1Negative Date of Service: 11/04/24 Follow Up: 1 Year From Orig inal Mammogram Procedure(s): MM tomosynthesis screening BI Accession Number(s): [id number] cc: YEFRI TERRELL NP EXAMINATION: MM SCREENING [...] 11/05/24 1654 DD/ 1015 TD/TT: 11/04/24 1035 Weft Straightener: Procedure Note Donotuseinterpreter, Image - 11/05/[address] [place] [address] Mammography Report Signed Patient: Ludmila Hansen EMR#: [id number] : 1970Acct:[id number] Age/Sex: 54 / FADM Date: 11/04/24 Loc: HO.MAMMO Attending Dr: Yefri Terrell HOT METAL CAR OPERATOR Ordering Physician: YEFRI TERRELL NPResults: 1Negative Date of Service: 11/04/24Follow Up: 1 Year From Orig inal Mammogram Procedure(s): MM tomosynthesis screening BI Accession Number(s): [id number] cc: YEFRI TERRELL HOT METAL CAR OPERATOR EXAMINATION: MM SCREENING DIGITAL BREAST TOMOSYNTHESIS, BILATERAL [...] 11/05/24 1654 DD/ 1015 TD/TT: 11/04/24 1035 Weft Straightener: Yefri Terrell ANP IMG BI PROCEDURES Final Result * Thinprep TIS PAP And HPV mRNA E6/E7 With Reflex To HPV 16,18/45 (09/27/2022 12:00 AM EDT) HPV nRNA E6/E7 [facility] SOURCE: SEE NOTE [facility] Comment:None given Report Status: [facility] Clinical Information: SEE NOTE [facility] Comment:None given LMP: SEE NOTE [facility] Comment:NONE GIVEN Prev. PAP: SEE NOTE [facility] Comment:NONE GIVEN Prev. BX: SEE NOTE [facility] Comment:NONE GIVEN Statement Of Adequacy: SEE NOTE [facility] Comment:Satisfactory for karen luation.Endocervical/transformation zone componentpresent. General Categorization: [facility] Interpretation/Result: SEE NOTE [facility] Comment:Cytology Results: Ne gative for intraepitheliallesion or malignancy. Cytology Comment [facility] Radiographer Mammographer: SEE NOTE [facility] Comment:EXJ, CT(ASCP)CT Scre ening Location: [place] [address] Review Radiographer Mammographer: [facility] Pathologist [facility] PAP Infection [facility] 09/27/2022 09/27/2022 [facility] LAB PATHOLOGY ORDERABLES Final R esult [facility] [address] [place] [address] [phone] * Colonoscopy (09/05/2017) Colonoscopy Normal Normal 09/05/2017 Historical Provider HEALTH MAINTENANCE Final Result from Last 3 Months or Most Recently Relevant to Health Maintenance Insurance [employer] CARE < 65 * Guarantor: Ludmila Ball Account Type Relation to Patient Date of Phone Billing Address Personal/Family Self [place], [place] Care Teams Bottom Pounder [employer] Relationship Specialty Start Date End Date Yefri Terrell ANP [address] [place] [address] PCP - General Family Medicine 04/05/20 Uche Dueñas, Molly [address] [place] [address] Pharmacist Internal Medicine 11/11/23
--- OUTSIDE RECORDS SUMMARY | 2024-12-31 10:39 | XMS_ITS | Encounter Summary ---
Author Organization [employer] Address [address] [facility] 7t [place] [address] Care Team Providers Care Art Department Head Name Role Phone Allison Grider Primary Care Provider [phone] Uche Dueñas PharmD Unavailable [phone] Reason for Visit * Reason Onset Date Comments Med Refill 12/21/2022 Encounter Details Date Type Department Care Team ([facility] st Contact Info) Description 12/21/2022 Telephone [facility] MEDICINE [address] [place] [address] Allison Grider ANP [address] [place] [address] Med Refill Social History Tobacco Use Types [...] Info) Description 02/01/2025 10:00 AM EST Telemedicine [facility] MED & PEDS [address] [place] [address] Rohini Torres, RN [address] [place] [address] documented as of this encounter Visit Diagnoses Not on filedocumented in this encounter Additional Health Concerns Assessment Noted Time PHQ-9 Depression Total Score: 4 12/05/19 23 10:38 AM EDT documented as of this encounter Care Teams Art Department Head Relationship Specialty Start Date End Date Allison Grider ANP [address] [place] [address] PCP - General Family Medicine 04/05/20 Uche Dueñas, CatarinoD [address] [place] [phone] Pharmacist Internal Medicine 11/11/23 documented as of this encounter
--- OUTSIDE RECORDS SUMMARY | 2024-12-31 10:39 | XMS_ITS | Encounter Summary ---
Author Organization [email or web address] Address 75 [facility] 7t [place] [address] Care Team Providers Care Kettle Girl Name Role Phone Allison Grider Primary Care Provider [phone] Uche Dueñas PharmD Unavailable [phone] Reason for Visit * Reason Onset Date Comments Med Refill 02/17/2024 Encounter Details Date Type Department Care Team ([facility] st Contact Info) Description 02/17/2024 Telephone [facility] MEDICINE 230 [place], [place] [phone] Allison Grider ANP 230 [place] [address] Med Refill Social History Tobacco Use Types [...] Info) Description 02/01/2025 10:00 AM EST Telemedicine [facility] MED & PEDS 505 [place] [address] Rohini Torres, SYMONE 505 [place] [address] documented as of this encounter Goals Goal [...] documented as of this encounter Care Teams Kettle Girl Relationship Specialty Start Date End Date Allison Grider ANP 230 [place] [address] PCP - General Family Medicine 04/05/20 Uche Dueñas, Molly 230 [place] [address] Pharmacist Internal Medicine 11/11/23 documented as of this encounter
--- OUTSIDE RECORDS SUMMARY | 2024-12-31 10:39 | XMS_ITS | Encounter Summary ---
Author Organization [employer] Address 75 [facility] 7t [place] [address] Care Team Providers Care Cryptologic Supervisor Name Role Phone Allison Grider Primary Care Provider [phone] Uche Dueñas PharmD Unavailable [phone] Encounter Details Date Type Department Care Team (Late st Contact Info) Description 03/09/2022 Orders Only [facility] MED & PEDS [address] [place] [address] Allison Grider ANP 230 [place] [address] Cervical lymphadenopathy (Primary Dx) Social History Tobacco [...] Info) Description 02/01/2025 10:00 AM EST Telemedicine [facility] MED & PEDS 505 [place] [address] Rohini Torres, RN 505 [place] [address] Scheduled Orders Name Type Priority Associated Diagnoses Orde r Schedule US Cervical Lymph Node Imaging Routine Cervical lymphadenopathy Expected: 09/07/2022, Expires: 03/09/2023 documented as of this encounter Visit Diagnoses Diagnosis Cervical lymphadenopathy- Primary Enlargement of lymph nodes documented in this encounter Care Teams Cryptologic Supervisor Relationship Specialty Start Date End Date Allison Grider ANP 230 [place] [address] PCP - General Family Medicine 04/05/20 Uche Dueñas, CatarinoD 230 [place] [address] Pharmacist Internal Medicine 11/11/23 documented as of this encounter
--- OUTSIDE RECORDS SUMMARY | 2024-12-31 10:39 | XMS_ITS | Encounter Summary ---
Author Organization [employer] Address 75 [facility] 7t [place] [address] Care Team Providers Care Energy Engineer Name Role Phone Allison Grider Primary Care Provider [phone] Uche Dueñas PharmD Unavailable [phone] Reason for Visit * Reason Onset Date Comments Med Refill 12/15/2024 Encounter Details Date Type Department Care Team ([facility] st Contact Info) Description 12/15/2024 Telephone [facility] MEDICINE 230 [place] [address] Allison Grider ANP 230 [place] [address] Med Refill Social History Tobacco Use Types [...] sent to: [facility] documented in this encounter Plan of Treatment Upcoming Encounters Date Type Department Care Team (Late st Contact Info) Description 02/01/2025 10:00 AM EST Telemedicine [facility] MED & PEDS 505 [place] [address] Rohini Torres, RN 505 [place] [address] documented as of this encounter Goals Goal Patient Goal Type Associated Problems Recent Progress Patient-Stated? Author Quit using tobacco (cigarettes, smokeless, etc) Tobacco Use No Uche Dueñas, Molly documented as of this encounter Visit Diagnoses Not on filedocumented in this encounter Additional Health Concerns Assessment Noted Time PHQ-9 Depression Total Score: 17 025 9:34 AM EST documented as of this encounter Care Teams Energy Engineer Relationship Specialty Start Date End Date Allison Grider ANP 230 [place] [address] PCP - General Family Medicine 04/05/20 Uche Dueñas PharmD 230 [place] [address] Pharmacist Internal Medicine 11/11/23 documented as of this encounter
--- OUTSIDE RECORDS SUMMARY | 2024-12-31 10:39 | XMS_ITS | Encounter Summary ---
Author Organization [employer] Address 75 [facility] 7t [place] [address] Care Team Providers Care Bereavement Counselor Name Role Phone Allison Grider Primary Care Provider [phone] Uche Dueñas PharmD Unavailable [phone] Reason for Visit * Reason Onset Date Comments Med Refill 11/22/2022 Encounter Details Date Type Department Care Team (Late st Contact Info) Description 11/22/2022 Telephone [facility] 230 [place] [address] Allison Grider ANP 230 [place] [address] Med Refill Social History Tobacco Use Types [...] Info) Description 02/01/2025 10:00 AM EST Telemedicine [facility]ED[facility] 505 [place] [address] Rohini Torres, RN 505 [place] [address] documented as of this encounter Visit Diagnoses Not on filedocumented in this encounter Additional Health Concerns Assessment Noted Time PHQ-9 Depression Total Score: 13 023 1:20 PM EDT documented as of this encounter Care Teams Bereavement Counselor Relationship Specialty Start Date End Date Allison Grider, CHRIS 230 [place] [address] PCP - General Family Medicine 04/05/20 Uche Dueñas, CatarinoD [address] [place] [address] Pharmacist Internal Medicine 11/11/23 documented as of this encounter
== END 2024-12-31 10:47 | disposition home or self-care (01) ==
LOC: HO.HOS 09:23
PROVIDERS: PCP Nurse Practitioner Primary Care; Visit Provider Physician Assistant
DX: M17.11 Unilateral primary osteoarthritis, right knee (principal)
CPT/HCPCS: 99213; G2211

== ENCOUNTER → 2024-12-31 09:29 | Outpatient (BNV) | payer OTHER, SELFPAY | PROVIDERS: Visit Provider Radiology Diagnostic Ultrasound | DX: Z96.651 Presence of right artificial knee joint (principal) | CPT/HCPCS: 73562 ==

== ENCOUNTER 2024-12-31 10:06 | Outpatient (REF) | payer OTHER, SELFPAY ==
--- NOTE | ~2024-12-31 | XR_ITS ---
EXAMINATION: XR KNEE, RIGHT CLINICAL INFORMATION: M17.11 - Unilateral primary osteoarthritis, right knee COMPARISON: X-ray 08/04/2020 TECHNIQUE: Two views of the right knee. AP bilateral knees one view. FINDINGS: Right knee: Genu valgus deformity.. Moderate lateral compartment arthritis. Mild medial compartment arthritis. There is a sclerotic focus in the lateral tibial plateau measuring 3.1 cm craniocaudal,, with a 0.3 cm lucent focus within this region. These findings were seen on the prior study; the degree of sclerosis appears prominent as compared to previous. Differential considerations include bony lesion, sequela of prior injury. No visible acute fracture or malalignment. Small effusion. Left knee: Mild lateral compartment arthritis. XR/XR knee RT 3V IMPRESSION: Right knee: 1. Moderate lateral compartment arthritis. 2. Sclerotic focus in the lateral tibial plateau measuring 3.1 cm, with small lucent focus within this region. These findings as seen on the prior study, with the degree of sclerosis possibly more prominent as compared to previous. Differential consideration include bony lesion, sequela of prior injury. Clinically correlate. Further imaging for evaluation as clinically indicated. Left knee: Mild lateral compartment arthritis. Electronically signed by: Francisco J Malik MD 12/31/2024 10:39 AM EDT
--- OUTSIDE RECORDS SUMMARY | 2025-01-01 11:48 | XMS_ITS | Encounter Summary ---
Author Organization [employer] Address 75 [facility] 7t [place] [address] Care Team Providers Care Survival Equipment Repairer Name Role Phone Allison Grider Primary Care Provider [phone] Uche Dueñas PharmD Unavailable [phone] Reason for Visit * Reason Onset Date Comments Med Refill 09/15/2024 Encounter Details Date Type Department Care Team ([facility] st Contact Info) Description 09/15/2024 Telephone [facility] MEDICINE 230 [place] [address] Allison Grider ANP 230 [place] [address] Med Refill Social History Tobacco Use Types [...] sent to: [facility] documented in this encounter Plan of Treatment Upcoming Encounters Date Type Department Care Team (Late st Contact Info) Description 02/01/2025 10:00 AM EST Telemedicine [facility] MED & PEDS 505 [place] [address] Rohini Torres, SYMONE 505 [place] [address] documented as of this encounter Goals Goal Patient Goal Type Associated Problems Recent Progress Patient-Stated? Author Quit using tobacco (cigarettes, smokeless, etc) Tobacco Use No Uche Dueñas, Molly documented as of this encounter Visit Diagnoses Not on filedocumented in this encounter Additional Health Concerns Assessment Noted Time PHQ-9 Depression Total Score: 17 025 9:34 AM EST documented as of this encounter Care Teams Survival Equipment Repairer Relationship Specialty Start Date End Date Allison Grider ANP 230 [place] [address] PCP - General Family Medicine 04/05/20 Uche Dueñas PharmD 230 [place] [address] Pharmacist Internal Medicine 11/11/23 documented as of this encounter
--- OUTSIDE RECORDS SUMMARY | 2025-01-01 11:48 | XMS_ITS | Encounter Summary ---
Author Organization [employer] Address 75 [facility] 7t [place] [address] Care Team Providers Care Client Hr Manager Name Role Phone Allison Grider Primary Care Provider [phone] Uche Dueñas PharmD Unavailable [phone] Reason for Visit * Reason Onset Date Comments Med Refill 12/21/2022 Encounter Details Date Type Department Care Team ([facility] st Contact Info) Description 12/21/2022 Telephone [facility] MEDICINE 230 [place] [address] Allison Grider ANP 230 [place] [address] Med Refill Social History Tobacco Use Types [...] Info) Description 02/01/2025 10:00 AM EST Telemedicine [facility] MED & PEDS 505 [place] [address] Rohini Torres, RN 505 [place] [address] documented as of this encounter Visit Diagnoses Not on filedocumented in this encounter Additional Health Concerns Assessment Noted Time PHQ-9 Depression Total Score: 4 12/05/19 23 10:38 AM EDT documented as of this encounter Care Teams Client Hr Manager Relationship Specialty Start Date End Date Allison Grider ANP 230 [place] [address] PCP - General Family Medicine 04/05/20 Uche Dueñas, CatarinoD [address] [place] [address] Pharmacist Internal Medicine 11/11/23 documented as of this encounter
--- OUTSIDE RECORDS SUMMARY | 2025-01-01 11:48 | XMS_ITS | Encounter Summary ---
Author Organization [employer] Address [address] [facility] [address] 7t [place] [address] Care Team Providers Care Foundry Tender Name Role Phone Allison Grider ANP Primary Care Provider [phone] Uche Dueñas PharmD Unavailable [phone] Encounter Details Date Type Department Care Team ([facility] st Contact Info) Description 11/06/2024 Abstract [facility] MEDICINE 230 [place] [address] Allison Grider ANP 230 [place] [address] Social History Tobacco Use Types Packs/Day Years [...] Upcoming Encounters Date Type Department Care Team ([facility] st Contact Info) Description 02/01/2025 10:00 AM EST Telemedicine [facility] MED & PEDS 505 [place] [address] Rohini Torres, RN 505 [place] [address] documented as of this encounter Goals Goal Patient Goal Type Associated Problems Recent Progress Patient-Stated? Author Quit using tobacco (cigarettes, smokeless, etc) Tobacco Use No Uche Dueñas PharmD documented as of this encounter Visit Diagnoses Not on filedocumented in this encounter Additional Health Concerns Assessment Noted Time PHQ-9 Depression Total Score: 17 025 9:34 AM EST documented as of this encounter Care Teams Foundry Tender Relationship Specialty Start Date End Date Allison Grider ANP 230 [place] [address] PCP - General Family Medicine 04/05/20 Uche Dueñas, Molly 230 [place] [address] Pharmacist Internal Medicine 11/11/23 documented as of this encounter
--- OUTSIDE RECORDS SUMMARY | 2025-01-01 11:48 | XMS_ITS | Encounter Summary ---
Author Organization [employer] Address 75 [facility] 7t [place] [address] Care Team Providers Care Machine Operator Packaging Name Role Phone Allison Grider Primary Care Provider [phone] Uche Dueñas PharmD Unavailable [phone] Reason for Visit * Reason Onset Date Comments Med Refill 07/20/2022 Encounter Details Date Type Department Care Team (Late st Contact Info) Description 07/20/2022 Telephone [facility] MEDICINE 230 [place] [address] Allison Grider ANP 230 [place] [address] Med Refill Social History Tobacco Use Types [...] Info) Description 02/01/2025 10:00 AM EST Telemedicine [facility] MED & PEDS [address] [place], [place] [phone] Rohini Torres, SYMONE 505 [place] [address] documented as of this encounter Visit Diagnoses Not on filedocumented in this encounter Care Teams Machine Operator Packaging Relationship Specialty Start Date End Date Allison Grider ANP [address] [place] [address] PCP - General Family Medicine 04/05/20 Uche Dueñas, Molly [address] [place] [address] Pharmacist Internal Medicine 11/11/23 documented as of this encounter
--- OUTSIDE RECORDS SUMMARY | 2025-01-01 11:48 | XMS_ITS | Encounter Summary ---
Author Organization [employer] Address 75 [facility] 7t [place] [address] Care Team Providers Care Union Carpenter Name Role Phone Allison Grider Primary Care Provider [phone] Uche Dueñas PharmD Unavailable [phone] Reason for Visit * Reason Onset Date Comments Med Refill 12/18/2023 Encounter Details Date Type Department Care Team ([facility] st Contact Info) Description 12/18/2023 Telephone [facility] MEDICINE 230 [place], [place] [phone] Allison Grider ANP 230 [place] [address] Med Refill Social History Tobacco Use Types [...] sent to: [facility] [address] documented in this encounter Plan of Treatment Upcoming Encounters Date Type Department Care Team ([facility] Contact Info) Description 02/01/2025 10:00 AM EST Telemedicine [facility] MED & PEDS 505 [place] [address] Rohini Torres, RN 505 [place] [address] documented as of this encounter Goals Goal [...] documented as of this encounter Care Teams Union Carpenter Relationship Specialty Start Date End Date Allison Grider ANP [address] [place] [address] PCP - General Family Medicine 04/05/20 Uche Dueñas, CatarionD [address] [place] [address] Pharmacist Internal Medicine 11/11/23 documented as of this encounter
--- OUTSIDE RECORDS SUMMARY | 2025-01-01 11:48 | XMS_ITS | Encounter Summary ---
Author Organization [employer] Address 75 [facility] 7t [place] [address] Care Team Providers Care Drum Puller Name Role Phone Allison Grider Primary Care Provider [phone] Uche Dueñas PharmD Unavailable [phone] Reason for Visit * Reason Onset Date Comments Med Refill 11/22/2022 Encounter Details Date Type Department Care Team (Late st Contact Info) Description 11/22/2022 Telephone [facility] MEDICINE 230 [place] [address] Allison Grider ANP 230 [place] [address] Med Refill Social History Tobacco Use Types [...] Info) Description 02/01/2025 10:00 AM EST Telemedicine [facility] CH[facility] MED & PEDS 505 [place] [address] Rohini Torres, RN 505 [place] [address] documented as of this encounter Visit Diagnoses Not on filedocumented in this encounter Additional Health Concerns Assessment Noted Time PHQ-9 Depression Total Score: 13 023 1:20 PM EDT documented as of this encounter Care Teams Drum Puller Relationship Specialty Start Date End Date Allison Grider, CHRIS 230 [place] [address] PCP - General Family Medicine 04/05/20 Uche Dueñas, CatarinoD 230 [place] [address] Pharmacist Internal Medicine 11/11/23 documented as of this encounter
--- OUTSIDE RECORDS SUMMARY | 2025-01-01 11:48 | XMS_ITS | Encounter Summary ---
Author Organization [employer] Address 75 [facility] 7t [place] [address] Care Team Providers Care Instant Potato Processor Name Role Phone Allison Grider Primary Care Provider [phone] Uche Dueñas PharmD Unavailable [phone] Reason for Visit * Reason Onset Date Comments chart prep 12/29/2024 Encounter Details Date Type Department Care Team ([facility] st Contact Info) Description 12/29/2024 Telephone [facility] MEDICINE 230 [place] [address] Allison Grider ANP 230 [place] [address] chart prep Social History Tobacco Use Types [...] [facility] Contact Info) Description 02/01/2025 10:00 AM EST Telemedicine [facility] MED & PEDS 505 [place] [address] Rohini Torres, SYMONE 505 [place] [address] documented as of this encounter Goals Goal Patient Goal Type Associated Problems Recent Progress Patient-Stated? Author Quit using tobacco (cigarettes, smokeless, etc) Tobacco Use Uche Lindsay, PharmD documented as of this encounter Visit Diagnoses Not on filedocumented in this encounter Additional Health Concerns Assessment Noted Time PHQ-9 Depression Total Score: 17 025 9:34 AM EST documented as of this encounter Care Teams Instant Potato Processor Relationship Specialty Start Date End Date Allison Grider ANP 230 [place] [address] PCP - General Family Medicine 04/05/20 Uche Dueñas, Molly 230 [place] [address] Pharmacist Internal Medicine 11/11/23 documented as of this encounter
--- OUTSIDE RECORDS SUMMARY | 2025-01-01 11:48 | XMS_ITS | Encounter Summary ---
Author Organization [employer] Address 75 [facility] 7t [place] [address] Care Team Providers Care Finish Carpenter Name Role Phone Allison Grider Primary Care Provider [phone] Uche Dueñas PharmD Unavailable [phone] Encounter Details Date Type Department Care Team (Late st Contact Info) Description 03/09/2022 Orders Only [facility] MED & PEDS 505 [place] [address] Allison Grider ANP 230 [place] [address] Cervical lymphadenopathy (Primary Dx) Social History Tobacco [...] 02/01/2025 10:00 AM EST Telemedicine [facility] MED & PEDS 505 [place] [address] Rohini Torres, RN 505 [place] [address] Scheduled Orders Name Type Priority Associated Diagnoses Orde r Schedule US Cervical Lymph Node Imaging Routine Cervical lymphadenopathy Expected: 09/07/2022, Expires: 03/09/2023 documented as of this encounter Visit Diagnoses Diagnosis Cervical lymphadenopathy- Primary Enlargement of lymph nodes documented in this encounter Care Teams Finish Carpenter Relationship Specialty Start Date End Date Allison Grider ANP 230 [place] [address] PCP - General Family Medicine 04/05/20 Uche Dueñas, CatarinoD [address] [place] [address] Pharmacist Internal Medicine 11/11/23 documented as of this encounter
--- OUTSIDE RECORDS SUMMARY | 2025-01-01 11:48 | XMS_ITS | Clinical Summary ---
Author Organization [employer] Address [address] [facility] [address] [place] [address] Care Team Providers Care Yarn Handler Name Role Phone Marni Yefri PEREZ Primary Care Provider [phone] Uche Dueñas PharmD Unavailable [phone] Allergies No known active allergies Medications * [...] with inf lammation 01/10/2023 01/10/2023 Morbid obesity ([facility]) 01/10/2023 023 Vitamin B1 deficiency 01/10/2023 01/10/2023 Vitamin B12 deficiency 01/10/2023 Bipolar 1 disorder ([facility]) 01/10/2023 Vitamin D deficiency 08/15/2022 Plantar fasciitis 05/11/2019 Shoulder pain 07/31/2018 Spasm of cervical paraspinous muscle 07/31/2018 Heel pain 07/08/2018 Bipolar disorder 06/05/2017 Osteoarthritis of knee 10/02/2016 Insomnia 07/03/2016 Post-traumatic osteoarthritis of right knee 06/16 Tear of lateral meniscus of knee 07/03/2016 Gastroesophageal reflux disease 05/31/2016 Knee pain 11/14/2012 Encounters Date Type Department Care Team Description 12/30/2024 Telephone [facility] [address] [place] [phone] Yefri Terrell ANP 12/29/[address] [address] Yefri Terrell ANP chart prep 12/24/2024 Telephone [facility] [address] [place] [address] Yefri Terrell ANP Durable Medical Equipment 12/18/2024 Results Follow-Up [address] [address] Michelle Kyle NP CBC auto differential, Hepatic Function Panel 12/18/[address] [address] Michelle Kyle NP 12/16/2024 10:45 AM EDT Office Visit [address] [address] Michelle Kyle NP Pre-op examination (Primary Dx) 12/16/[address] [address] Michelle Kyle NP 12/16/2024 Travel 12/15/[address] [address] Yefri Terrell ANP Durable Medical Equipment (non slip bath mat, 12 inch suction cup grab bars, commode, rollator walker with seat) 12/15/2024 Refill [facility] [address] [place] [address] Rohini Torres RN Pain 12/15/[address] [address] Yefri Terrlel ANP Med Refill 12/07/[address] [address] Yefri Terrell ANP Durable Medical Equipment 12/03/2024 Travel 11/19/2024 9:15 AM EDT Office Visit [address] [address] Yefri Terrell ANP Primary osteoarthritis of right knee (Primary Dx); Smoking trying to quit 11/19/2024 Travel 11/13/[address] [address] Yefri Terrell ANP Pain 11/09/2024 9:30 AM EDT Telemedicine [facility] [address] [place] [address] Rohini Torres, RN skilled nursing (current) use of opiate analgesic 11/09/2024 Refill [facility] [address] [place] [address] Rohini Torres, SYMONE 11/09/2024 Travel 11/06/[address] [address] Yefri Terrell ANP 11/04/2024 Orders Only [address] [place] [address] Yefri Terrell ANP 10/27/2024 Telephone [facility] [address] [facility] [place] [address] Yefri Terrell ANP Appointment Request 10/15/2024 Refill [facility] [address] [facility] [place] [address] Yefri Terrell ANP Pain from Last 3 [...] Upcoming Encounters Date Type Department Care Team ([facility] st Contact Info) Description 02/01/2025 10:00 AM EST Telemedicine [facility] [address] [place] [address] Rohini Torres, RN [address] [place] [address] Health Maintenance Due Date Last Done Comments [...] Procedure Name Priority Date/Time Associated Diagnosis Comments TYPE AND SCREEN Routine 12/31/2024 10:24 AM EDT ECG 12-LEAD Routine 12/18/2024 10:03 AM EDT [...] Recently Relevant to Health Maintenance Results * Type and screen (12/31/2024 10:24 AM EDT) Blood Type ON [facility] Antibody Screen NEGATIVE [facility] 12/31/2024 10:2 4 AM EDT 12/31/2024 10:51 AM EDT Narrative [facility] - 12/31/2024 11:39 AM EDT Spec expiration changed by BARTOLOME on 12/31/24Reason: PAT SSSWITNESSED BY NEHAURSING:Call Blood Bank (ext. [phone]) to band patient on admission.Type and Screen in effect until 2300 on 01/05/2025 us Generic External Data Provider LAB BLOOD BANK TE ST ORDERABLES Final Result Performing Organization Address [facility] de Phone Number [facility] [address] [place] [phone] * ECG 12 lead (12/18/2024 10:03 AM EDT) Narrative Archanaaurora Michelle, MEGAN - 12/18/2024 10:03 AM EDT HR 56 bpm. Sinus [address]. No ST changes us Michelle Kyle BATH HOUSE ATTENDANT ECG ORDERABLES Final Result * Slide Review (12/17/2024 2:05 PM EDT) Slide Review VERIFIED [facility] 12/17/2024 2:05 PM EDT 12/17/2024 4:05 PM EDT Michelle Kyle BATH HOUSE ATTENDANT LAB BLOOD ORDERABLES Final Resu lt Performing Organization Address [facility] de Phone Number [facility] [address] [place] [address] [phone] * TSH W/Reflex to FT4 (12/17/2024 2:05 PM EDT) TSH reflex Free T4 1.22 0.32 - 4.0 uIU/mL [facility] Blood Venous blood specimen / Unknown 12/17/2024 2:05 PM EDT 12/17/2024 4:11 PM EDT us Yefri Terrell ANP LAB BLOOD ORDERABLES Final Resul t Performing Organization Address [facility] de Phone Number [facility] [address] [place] [address] [phone] * (ABNORMAL) CBC auto differential (12/17/2024 2:05 PM EDT) White Blood Count 5.1 4.8 - 10.8 X10*3/uL [facility] Red Blood Count 4.88 4.20 - 5.50 X10*6/uL [facility] Hemoglobin 15.8 12.0 - 16.0 g/dl [facility] Hematocrit 46.9 37.0 - 47.0 % [facility] Mean Corpuscular Volume 96.1 80.0 - 98.0 fL [facility] Mean Corpuscular Hemoglobin 32.4 27.0 - 33.0 pg [facility] Mean Corpuscular HGB Conc 33.7 31.0 - 35.0 g/dl [facility] Red Cell Distribution Width 13.2 11.0 - 16.0 % [facility] Platelet Count 164 160 - 400 X10*3/uL [facility] Mean Platelet Volume 13.1(H) 9.4 - 12.3 fL [facility] Neutrophils Percent Auto 60.2 45 - 73 % [facility] Imm Gran Pct Auto 0.2 0.0 - 0.4 % [facility] Lymphocytes Percent Auto 28.1 20 - 40 % [facility] Monocytes Percent Auto 7.7 2 - 11 % [facility] Eosinophils Percent Auto 3.2 0 - 4 % [facility] Basophils Percent Auto 0.6 0 - 2 % [facility] NRBC Pct Auto 0.0 0.0 - 0.2 /100WBC [facility] Neutrophils Absolute Auto 3.0 2.0 - 8.3 x10*3/uL [facility] Imm Gran Abs Auto 0.01 0.00 - 0.03 X10*3/uL [facility] Lymphocytes Absolute Auto 1.4 1.2 - 4.9 X10*3/uL [facility] Monocytes Absolute Auto 0.4 0.1 - 1.2 X10*3/uL [facility] Eosinophils Absolute Auto 0.2 0.0 - 0.4 X10*3/uL [facility] Basophils Absolute Auto 0.0 0.0 - 0.2 X10*3/uL [facility] NRBC Abs Auto 0.000 0.0 - 0.012 X10*3/uL [facility] Blood Venous blood specimen / Unknown 12/17/2024 2:05 PM EDT 12/17/2024 4:05 PM EDT Michelle Kyle BATH HOUSE ATTENDANT LAB BLOOD ORDERABLES Edited Res ult - Final Performing Organization Address [facility] de Phone Number [facility] [address] [place] [phone] * Hemoglobin A1c (12/17/2024 2:05 PM EDT) Hemoglobin A1c 5.3 <6.0 % [facility] Comment:Hemoglobin A1C Refer ence Range Adults: 4.8 - 6.0 % Non diabetic: < 6.0 % Goal: < 7.0 %Additional Action Suggested: > 8.0 %Note: Hemoglobin A1c results are invalid for patients with abnormal amounts of HbF. Blood transfusions may impact the HbA1c concentration in the patient sample. Estimated Average Glucose 105 mg/dL [facility] Comment:eAG = Estimated ave rage glucose which is %A1C expressed asaverage glucose, using the formula of the U1M-WbegrvgNalaeth Glucose study (ADAG), Diabetes Care, Vol.31,#8,Oct. 2007 Blood Venous blood specimen / Unknown 12/17/2024 2:05 PM EDT 12/17/2024 4:05 PM EDT Yefri PEREZ LAB BLOOD ORDERABLES Final Resul t Performing Organization Address [facility] Co de Phone Number [facility] [address] [place] [phone] * Hepatic Function Panel (12/17/2024 2:05 PM EDT) Bilirubin, Direct 0.2 0.0 - 0.5 mg/dL [facility] Blood Venous blood specimen / Unknown 12/17/2024 2:05 PM EDT 12/17/2024 4:11 PM EDT Michelle Kyle BATH HOUSE ATTENDANT LAB BLOOD ORDERABLES Final Resu lt Performing Organization Address City/[facility]/ZIP Co de Phone Number [facility] [address] [place] [phone] [phone] * (ABNORMAL) Lipid Panel, Standard (12/17/2024 2:05 PM EDT) Triglycerides 70 <150 mg/dL [facility] Comment:Desirable Triglyceri de: less than 150 mg/dLBorderline High Triglyceride 150-199 mg/dLHigh Triglyceride: 200-499 mg/dLVery High Triglyceride: greater than or equal to 5OO mg/dL Cholesterol 206(H) <200 mg/dL [facility] Comment:Desirable Cholestero l: less than 200 mg/dLBorderline High Cholesterol: 200-239 mg/dLHigh Cholesterol: greater than 239 mg/dL LDL Cholesterol Calculated 119(H) <100 mg/dL [facility] Comment:Desirable LDL: less than 100 mg/dLNear Optimal/Above Optimal LDL: 110- 129 mg/dLBorderline High LDL: 130-159 mg/dLHigh LDL: 160-189 mg/dLVery High LDL: greater than or equal to 190 mg/dL HDL Cholesterol 73 >40 mg/dL [facility] Comment:Desirable HDL: great er than 40 mg/dL Note: This HDL assay may give artificially low results in patients with liver disease. Blood Venous blood specimen / Unknown 12/17/2024 2:05 PM EDT 12/17/2024 4:11 PM EDT Yefri Terrell ANP LAB BLOOD ORDERABLES Final Resul t Performing Organization Address City/[facility]/ZIP Co de Phone Number [facility] [address] [place] [phone] [phone] * (ABNORMAL) Comprehensive Metabolic Panel (12/17/2024 2:05 PM EDT) Sodium 140 135 - 145 mmol/L [facility] Potassium 4.2 3.3 - 5.1 mmol/L [facility] Chloride 106 96 - 108 mmol/L [facility] Carbon Dioxide 27 22 - 29 mmol/L [facility] Anion Gap 11(L) 12 - 20 [facility] Urea Nitrogen (BUN) 11 9 - 16 mg/dL [facility] Creatinine, Serum 0.91 0.5 - 1.4 mg/dL [facility] Estimated Glomerular Filt Rate >60 [facility] Comment:Chronic Kidney Disea se: Estimated GFR < 60 mL/min/1.08o4Igkrwc Kidney Disease: Estimated GFR < 15 mL/min/1.73m2 Glucose 125(H) 60 - 115 mg/dL [facility] Calcium 9.0 8.4 - 10.2 mg/dL [facility] Bilirubin, Total 0.5 0.0 - 1.0 mg/dL [facility] Aspartate Amino Transferase 24 5 - 31 U/L [facility] Alanine Aminotransferase 12 0 - 31 U/L [facility] Total Protein 7.2 6.5 - 8.0 g/dL [facility] Albumin Level 4.4 3.5 - 5.0 g/dL [facility] Alkaline Phosphatase 89 39 - 117 U/L [facility] Blood Venous blood specimen / Unknown 12/17/2024 2:05 PM EDT 12/17/2024 4:11 PM EDT [facility] LAB BLOOD ORDERABLES Final Resul t [facility] [address] [place] [address] [phone] * (ABNORMAL) CBC (12/07/2024 11:35 AM EDT) White Blood Count 5.4 4.8 - 10.8 X10*3/uL [facility] Red Blood Count 5.00 4.20 - 5.50 X10*6/uL [facility] Hemoglobin 16.2(H) 12.0 - 16.0 g/dl [facility] Hematocrit 48.3(H) 37.0 - 47.0 % [facility] Mean Corpuscular Volume 96.6 80.0 - 98.0 fL [facility] Mean Corpuscular Hemoglobin 32.4 27.0 - 33.0 pg [facility] Mean Corpuscular HGB Conc 33.5 31.0 - 35.0 g/dl [facility] Red Cell Distribution Width 13.6 11.0 - 16.0 % [facility] Platelet Count 164 160 - 400 X10*3/uL [facility] Mean Platelet Volume 11.9 9.4 - 12.3 fL [facility] NRBC Pct Auto 0.0 0.0 - 0.2 /100WBC [facility] NRBC Abs Auto 0.000 0.0 - 0.012 X10*3/uL [facility] 12/07/2024 11:3 5 AM EDT 12/07/2024 11:35 AM EDT us Generic External Data Provider LAB BLOOD ORDERAB LES Final Result [facility] [address] [place] [address] [phone] * (ABNORMAL) Basic Metabolic Panel (12/07/2024 11:35 AM EDT) Sodium 140 135 - 145 mmol/L [facility] Potassium 4.4 3.3 - 5.1 mmol/L [facility] Chloride 107 96 - 108 mmol/L [facility] Carbon Dioxide 27 22 - 29 mmol/L [facility] Anion Gap 10(L) 12 - 20 [facility] Urea Nitrogen (BUN) 9 9 - 16 mg/dL [facility] Creatinine, Serum 0.87 0.5 - 1.4 mg/dL [facility] Creatinine Clr Calc Pharmacy 89.9 [facility] Comment:Provided height and weight: 167.64 cm,103.873 kg.eGFR (calculated from the MDRD study equation) and eCrCl(calculated from the Cockcroft-Gault equation) are based ondifferent parameters and may not yield comparable results.If eCrCl result is absurd, please check patient'sheight/weight. Estimated Glomerular Filt Rate >60 [facility] Comment:Chronic Kidney Disea se: Estimated GFR < 60 mL/min/1.71o4Imcdyy Kidney Disease: Estimated GFR < 15 mL/min/1.73m2 Glucose 97 60 - 115 mg/dL [facility] Calcium 9.5 8.4 - 10.2 mg/dL [facility] 12/07/2024 11:3 5 AM EDT 12/07/2024 11:35 AM EDT Generic External Data Provider LAB BLOOD ORDERAB LES Final Result Performing Organization Address [facility] de Phone Number [facility] [address] [place] [phone] * MRSA Nasal Screen (12/07/2024 10:40 AM EDT) MRSA Nasal PCR NEGATIVE Negative [facility] SA Nasal PCR NEGATIVE Negative [facility] MRSA Interpretation SEE NOTE [facility] Comment:MRSA target DNA not detected; SA target DNA not detected.A MRSA NEGATIVE, SA NEGATIVE test result does not precludeMRSA or SA nasal colonization. 12/07/2024 10:4 0 AM EDT 12/07/2024 11:04 AM EDT Generic External Data Provider LAB MICROBIOLOGY - GENERAL ORDERABLES Final Result Performing Organization Address [facility] de Phone Number [facility] [address] [place] [phone] * CT Lung Screening Low dose (11/07/2024 1:14 PM EDT) Anatomical Region Laterality Modality Lung Computed Tomogra phy 11/07/2024 1:14 PM EDT Narrative 11/07/2024 1:15 PM EDT [address] [address] [address] Scan Report Signed Patient: Ludmila Hansen MR#: [id number] : 1970 Acct:[id number] Age/Sex: 54 / F ADM Date: 11/06/24 Loc: HO.CT Attending Dr: Ginette Hollis PA-C Ordering Physician: Ginette Hollis PA-C Date of Service: 11/06/24 Procedure(s): CT lung screening Accession Number(s): [id number] cc: Ginette Hollis PA-C; YEFRI TERRELL NP Report Number: [id number]: Total DLP = 76.00 mGy-cm CLINICAL HISTORY: [...] 11/07/24 1315 DD/ 1314 TD/TT: 11/07/24 1314 Field Support Engineer: Procedure Note Barbiter, Image - 11/07/[address] [address] [address] Scan Report Signed Patient: Ludmila Hansen EMR#: [id number] : 1970Acct:[id number] Age/Sex: 54 / FADM Date: 11/06/24 Loc: HO.CT Attending Dr: Ginette Hollis PA-C Ordering Physician: Ginette Hollis PA-C Date of Service: 11/06/24 Procedure(s): CT lung screening Accession Number(s): [id number] cc: Ginette Hollis PA-C; YEFRI TERRLEL NP Report Number: [id number]: Total DLP = 76.00 mGy-cm CLINICAL HISTORY: [...] by Concepcion Vargas MD in OV> 11/07/24 131 DD/ 13 TD/TT: 11/07/241313 Field Support Engineer: [facility] External Provider IMG CT PROCEDURES Edited Result - Final * BI Mammogram Screening Tomosynthesis Bilateral (11/04/2024 10:15 AM EDT) Anatomical Region Laterality Modality Breast Bilateral Mammography 11/04/2024 10:1 5 AM EDT Narrative 11/05/2024 4:57 PM EDT [address] [place] [address] Mammography Report Signed Patient: Ludmila Hansen MR#: [id number] : 1970 Acct:[id number] Age/Sex: 54 / F ADM Date: 11/04/24 Loc: .MAMMO Attending Dr: Yefri Terrell NP Ordering Physician: YEFRI TERRELL NP Results: 1Negative Date of Service: 11/04/24 Follow Up: 1 Year From Orig ina Mammogram Procedure(s): MM tomosynthesis screening BI Accession Number(s): [id number] cc: YEFRI TERRELL NP EXAMINATION: MM SCREENING [...] 11/05/24 1654 DD/ 1015 TD/TT: 11/04/24 1035 Field Support Engineer: Procedure Note Donotuseinterpreter, Image - 11/05/2024 [facility] [address] [place] [address] Mammography Report Signed Patient: Ludmila Hansen EMR#: [id number] : 1970Acct:[id number] Age/Sex: 54 / FADM Date: 11/04/24 Loc: HO.MAMMO Attending Dr: Yefri Terrell NP Ordering Physician: YEFRI TERRELL NPResults: 1Negative Date of Service: 11/04/24Follow Up: 1 Year From Orig inal Mammogram Procedure(s): MM tomosynthesis screening BI Accession Number(s): [id number] cc: YEFRI TERRELL NP EXAMINATION: MM SCREENING [...] 11/05/24 1654 DD/ 1015 TD/TT: 11/04/24 1035 Field Support Engineer: us Yefri Terrell ANP IMG BI PROCEDURES Final Result * Thinprep TIS PAP And HPV mRNA E6/E7 With Reflex To HPV 16,18/45 (09/27/2022 12:00 AM EDT) HPV nRNA E6/E7 [facility] SOURCE: SEE NOTE [facility] Comment:None given Report Status: [facility] Clinical Information: SEE NOTE [facility] Comment:None given LMP: SEE [facility] Comment:NONE GIVEN Prev. PAP: SEE NOTE [facility] Comment:NONE GIVEN Prev. BX: SEE NOTE [facility] Comment:NONE GIVEN Statement Of Adequacy: SEE [facility] Comment:Satisfactory for karen luation.Endocervical/transformation zone componentpresent. General Categorization: [facility] Interpretation/Result: SEE NOTE [facility] Comment:Cytology Results: Ne gative for intraepitheliallesion or malignancy. Cytology Comment [facility] Wax Pumper: SEE NOTE [facility] Comment:EXJ, CT(ASCP)CT Scre ening Location: [address] [address] Review Wax Pumper: [facility] Pathologist [facility] PAP Infection [facility] 09/27/2022 09/27/2022 Yefri PEREZ LAB PATHOLOGY ORDERABLES Final R esult [facility] [address] [place] [address] [phone] * Colonoscopy (09/05/2017) Colonoscopy Normal Normal 09/05/2017 Historical Provider HEALTH MAINTENANCE Final Result from Last 3 Months or Most Recently Relevant to Health Maintenance Insurance [facility] < 65 [place] [id number] Care Teams Yarn Handler Relationship Specialty Start Date End Date Yefri Terrell ANP [address] [place] [phone] PCP - General Family Medicine 04/05/20 Uche Dueñas, PharmD [address] [place] [address] Pharmacist Internal Medicine 11/11/23
--- OUTSIDE RECORDS SUMMARY | 2025-01-01 11:48 | XMS_ITS | Encounter Summary ---
Author Organization [employer] Address [address] [facility] [address] [place] [address] Care Team Providers Care Research Dietitian Name Role Phone Allison Grider Primary Care Provider [phone] Uche Dueñas PharmD Unavailable [phone] Reason for Visit * Reason Onset Date Comments Med Refill 08/13/2024 Encounter Details Date Type Department Care Team ([facility] st Contact Info) Description 08/13/2024 Telephone [facility] [address] [place] [address] Allison Grider ANP [address] [place] [address] Med Refill Social History Tobacco Use Types [...] to: [facility] - [address] documented in this encounter Plan of Treatment Upcoming Encounters Date Type Department Care Team ([facility] st Contact Info) Description 02/01/2025 10:00 AM EST Telemedicine [facility] [address] [place] [address] Rohini Torres, RN [address] [place] [address] documented as of this encounter Goals Goal [...] documented as of this encounter Care Teams Research Dietitian Relationship Specialty Start Date End Date Allison Grider ANP [address] [place] [address] PCP - General Family Medicine 04/05/20 Uche Dueñas PharmD [address] [place] [address] Pharmacist Internal Medicine 11/11/23 documented as of this encounter
--- OUTSIDE RECORDS SUMMARY | 2025-01-01 11:48 | XMS_ITS | Encounter Summary ---
Author Organization [employer] Address [address] [facility] 7t [place] [address] Care Team Providers Care Tableau Developer Name Role Phone Allison Grider Primary Care Provider [phone] Uche Dueñas PharmD Unavailable [phone] Reason for Visit * Reason Onset Date Comments Med Refill 07/16/2024 Encounter Details Date Type Department Care Team ([facility] st Contact Info) Description 07/16/2024 Telephone [facility] MEDICINE [address] [place] [address] Allison Grider ANP [address] [place] [address] Med Refill Social History Tobacco Use Types [...] to: [facility] - [address] documented in this encounter Plan of Treatment Upcoming Encounters Date Type Department Care Team ([facility] st Contact Info) Description 02/01/2025 10:00 AM EST Telemedicine [facility] MED & PEDS [address] [place] [address] Rohini Torres, SYMONE [address] [place] [address] documented as of this encounter Goals Goal Patient Goal Type Associated Problems Recent Progress Patient-Stated? Author Quit using tobacco (cigarettes, smokeless, etc) Tobacco Use No Uche Dueñas, PharmD documented as of this encounter Visit Diagnoses Not on filedocumented in this encounter Additional Health Concerns Assessment Noted Time PHQ-9 Depression Total Score: 17 025 9:34 AM EST documented as of this encounter Care Teams Tableau Developer Relationship Specialty Start Date End Date Allison Grider ANP [address] [place] [address] PCP - General Family Medicine 04/05/20 Uche Dueñas PharmD [address] [place] [address] Pharmacist Internal Medicine 11/11/23 documented as of this encounter
--- OUTSIDE RECORDS SUMMARY | 2025-01-01 11:48 | XMS_ITS | Encounter Summary ---
Author Organization [employer] Address [address] [facility] 7t [place] [address] Care Team Providers Care Robot Technician Name Role Phone Marni Allison PEREZ Primary Care Provider [phone] Uche Dueñas PharmD Unavailable [phone] Encounter Details Date Type Department Care Team (Late st Contact Info) Description 12/18/2024 Results Follow-Up [facility] MEDICINE [address] [place] [address] Michelle Kyle NP [address] [place] [address] CBC auto differential, Hepatic Function Panel Social [...] 02/01/2025 10:00 AM EST Telemedicine [facility] MED & PEDS [address] [place] [address] Rohini Torres, RN [address] [place] [address] documented as of this encounter Goals Goal Patient Goal Type Associated Problems Recent Progress Patient-Stated? Author Quit using tobacco (cigarettes, smokeless, etc) Tobacco Use No Uche Dueñas PharmD documented as of this encounter Visit Diagnoses Not on filedocumented in this encounter Additional Health Concerns Assessment Noted Time PHQ-9 Depression Total Score: 17 025 9:34 AM EST documented as of this encounter Care Teams Robot Technician Relationship Specialty Start Date End Date Allison Grider ANP [address] [place], [place] [phone] PCP - General Family Medicine 04/05/20 Uche Dueñas PharmD [address] [place], [place] [phone] Pharmacist Internal Medicine 11/11/23 documented as of this encounter
--- OUTSIDE RECORDS SUMMARY | 2025-01-01 11:48 | XMS_ITS | Encounter Summary ---
Author Organization [employer] Address 75 [facility] 7t [place] [address] Care Team Providers Care Etl Informatica Developer Name Role Phone Alilson Grider Primary Care Provider [phone] Uche Dueñas PharmD Unavailable [phone] Reason for Visit * Reason Onset Date Comments Med Refill 02/17/2024 Encounter Details Date Type Department Care Team ([facility] st Contact Info) Description 02/17/2024 Telephone [facility] MEDICINE [address] [place], [place] [phone] Allison Grider ANP [address] [place] [address] Med Refill Social History Tobacco Use Types [...] pended to PCP. * Telephone Encounter - Sukhdve Kern - 02/17/2024 9:46 AM EST TC from pt requesting medication refill. Medications needing refill : naproxen (Naprosyn) 500 MG tablet To be sent to: [facility] documented in this encounter Plan of Treatment Upcoming Encounters Date Type Department Care Team (Late st Contact Info) Description 02/01/2025 10:00 AM EST Telemedicine [facility] MED & PEDS [address] [place] [address] Rohini Torres, SYMONE [address] [place] [address] documented as of this encounter Goals Goal [...] documented as of this encounter Care Teams Etl Informatica Developer Relationship Specialty Start Date End Date Allison Grider ANP [address] [place] [address] PCP - General Family Medicine 04/05/20 Uche Dueñas, Molly [address] [place] [address] Pharmacist Internal Medicine 11/11/23 documented as of this encounter
--- OUTSIDE RECORDS SUMMARY | 2025-01-01 11:48 | XMS_ITS | Encounter Summary ---
Author Organization [employer] Address 75 [facility] 7t [place] [address] Care Team Providers Care Box Blank Machine Operator Helper Name Role Phone Allison Grider Primary Care Provider [phone] Uche Dueñas PharmD Unavailable [phone] Reason for Visit * Reason Onset Date Comments Med Refill 10/22/2022 Encounter Details Date Type Department Care Team (Late Contact Info) Description 10/22/2022 Telephone [facility] MEDICINE [address] [place] [address] Allison Grider ANP [address] [place] [address] Med Refill Social History Tobacco Use Types [...] Info) Description 02/01/2025 10:00 AM EST Telemedicine [facility] MED & PEDS [address] [place] [address] Rohini Torres, RN [address] [place] [address] documented as of this encounter Visit Diagnoses Not on filedocumented in this encounter Additional Health Concerns Assessment Noted Time PHQ-9 Depression Total Score: 13 023 1:20 PM EDT documented as of this encounter Care Teams Box Blank Machine Operator Helper Relationship Specialty Start Date End Date Allison Grider, CHRIS [address] [place] [address] PCP - General Family Medicine 04/05/20 Uche Dueñas, Molly [address] [place] [address] Pharmacist Internal Medicine 11/11/23 documented as of this encounter
--- OUTSIDE RECORDS SUMMARY | 2025-01-01 11:48 | XMS_ITS | Encounter Summary ---
Author Organization [employer] Address [address] [facility] [address] 7[address] [place] [address] Care Team Providers Care Note Taker Name Role Phone Allison Grider ANP Primary Care Provider [phone] Uche Dueñas PharmD Unavailable [phone] Encounter Details Date Type Department Care Team ([facility] st Contact Info) Description 12/30/2024 Telephone [facility] MEDICINE 230 [place] [address] Allison Grider ANP 230 [place] [address] Social History Tobacco Use Types Packs/Day Years [facility] [address] [place] [address] Rohini Torres, SYMONE 505 [place] [address] documented as of this encounter Goals Goal Patient Goal Type Associated Problems Recent Progress Patient-Stated? Author Quit using tobacco (cigarettes, smokeless, etc) Tobacco Use No Uche Dueñas, Molly documented as of this encounter Visit Diagnoses Not on filedocumented in this encounter Additional Health Concerns Assessment Noted Time PHQ-9 Depression Total Score: 17 025 9:34 AM EST documented as of this encounter Care Teams Note Taker Relationship Specialty Start Date End Date Allison Grider ANP [address] [place] [address] PCP - General Family Medicine 04/05/20 Uche Dueñas, CatarinoD [address] [place] [address] Pharmacist Internal Medicine 11/11/23 documented as of this encounter
--- OUTSIDE RECORDS SUMMARY | 2025-01-01 11:48 | XMS_ITS | Encounter Summary ---
Author Organization [employer] Address [address] [facility] [address]t [place] [address] Care Team Providers Care Engagement Manager Name Role Phone Allison Grider Primary Care Provider [phone] Uche Dueñas PharmD Unavailable [phone] Reason for Visit * Reason Onset Date Comments Med Refill 12/15/2024 Encounter Details Date Type Department Care Team ([facility] st Contact Info) Description 12/15/[address] [facility] MEDICINE [address] [place] [address] Allison Grider ANP [address] [place] [address] Med Refill Social History Tobacco Use Types [...] sent to: [facility] documented in this encounter Plan of Treatment Upcoming Encounters Date Type Department Care Team (Late st Contact Info) Description 02/01/2025 10:[address] [facility] MED & PEDS [address] [place] [address] Rohini Torres, RN [address] [place] [address] documented as of this encounter Goals Goal Patient Goal Type Associated Problems Recent Progress Patient-Stated? Author Quit using tobacco (cigarettes, smokeless, etc) Tobacco Use No Uche Dueñas, Molly documented as of this encounter Visit Diagnoses Not on filedocumented in this encounter Additional Health Concerns Assessment Noted Time PHQ-9 Depression Total Score: 17 025 9:34 AM EST documented as of this encounter Care Teams Engagement Manager Relationship Specialty Start Date End Date Allison Grider ANP [address] [place] [address] PCP - General Family Medicine 04/05/20 Uche Dueñas PharmD [address] [place] [address] Pharmacist Internal Medicine 11/11/23 documented as of this encounter
== END 2024-12-31 10:07 | disposition home or self-care (01) ==
LOC: HO.HOSX 10:06
PROVIDERS: Visit Provider Physician Assistant
DX: Z01.818 Encounter for other preprocedural examination (principal); M17.11 Unilateral primary osteoarthritis, right knee; Z96.651 Presence of right artificial knee joint
CPT/HCPCS: 73562; 99212

== ENCOUNTER 2025-01-05 06:06 | Day surgery (SDC) | payer OTHER, SELFPAY ==
--- OUTSIDE RECORDS SUMMARY | 2024-11-19 09:15 | XMS_ITS | Encounter Summary ---
Author Organization [employer] Address 75 [facility] 7t [place] [address] Care Team Providers Care Filter Screen Cleaner Name Role Phone Allison Grider Primary Care Provider [phone] Uche Dueñas PharmD Unavailable [phone] Reason for Visit * Reason Comments Follow-up Encounter Details Date Type Department Care Team (Latest Contact Info) Description 11/19/2024 9:15 AM EDT Office Visit [facility] MEDICINE 230 [place], [place] [phone] Allison Grider ANP 230 [place] [address] Osteoarthritis of right knee, unspecified osteoarthritis type (Primary Dx); Smoking trying to quit Social History Tobacco Use Types Packs/Day Years Used Date Smoking Tobacco: Every Day Cigarettes 1 32.7 Started: 1992 Passive Smoke Exposure: Current Smokeless [...] the past 12 months, has t he [employer], gas, oil or water company threatened to [...] Sign Reading Time Taken Comments Blood Pressure 120/70 11/19/2024 9:17 AM EDT Pulse 59 11/19/2024 9:17 AM EDT Temperature 36.5 C (97.7 F) 11/19/2024 9:17 AM EDT Respiratory Rate 14 11/19/2024 9:17 AM EDT Oxygen Saturation 98% 11/19/2024 9:17 AM EDT Inhaled Oxygen Concentration - - Weight 104 kg (229 lb 12.8 oz) 11/19/2024 9:17 A M EDT Height - - Body Mass Index 37.38 08/27/2024 8:41 AM EDT documented in this encounter Plan of Treatment Upcoming Encounters Date Type Department Care Team (Late st Contact Info) Description 11/26/2024 10:30 AM EDT Nurse Only [facility] [address] [place] [address] 12/16/2024 10:45 AM EDT Office Visit [facility] [address] [place] [address] Michelle Kyle NP 230 [place] [address] 12/30/2024 4:00 PM EDT Telemedicine [facility] 230 [place], [place] [phone] Allison Grider ANP 230 [place], [place] 02/01/2025 10:00 AM EST Telemedicine [facility] 505 [place] [address] Rohini Torres, RN 505 [place], [place] documented as of this encounter Goals Goal Patient Goal Type Associated Problems Recent Progress Patient-Stated? Author Quit using tobacco (cigarettes, smokeless, etc) Tobacco Use No Uche Dueñas, Molly documented as of this encounter Visit Diagnoses Diagnosis Osteoarthritis of right knee, unspecified osteoarthritis type- Primary Smoking trying to quit documented in this encounter Additional Health Concerns Assessment Noted Time PHQ-9 Depression Total Score: 17 025 9:34 AM EST documented as of this encounter Care Teams Filter Screen Cleaner Relationship Specialty Start Date End Date Allison Grider ANP [address] [place] [address] PCP - General Family Medicine 04/05/20 cUhe Dueñas PharmD [address] [place] [address] Pharmacist Internal Medicine 11/11/23 documented as of this encounter
--- OUTSIDE RECORDS SUMMARY | 2024-11-19 14:12 | XMS_ITS | Encounter Summary ---
Author Organization [employer] Address 75 [facility] 7t [place] [address] Care Team Providers Care Assistant Fitness Manager Name Role Phone Allison Grider Primary Care Provider [phone] Uche Dueñas PharmD Unavailable [phone] Reason for Visit * Reason Onset Date Comments Med Refill 09/15/2024 Encounter Details Date Type Department Care Team (Late st Contact Info) Description 09/15/2024 Telephone [facility] MEDICINE 230 [place] [address] Allison Grider ANP 230 [place] [address] Med Refill Social History Tobacco Use Types [...] to: [facility] documented in this encounter Plan of Treatment Upcoming Encounters Date Type Department Care Team (Late st Contact Info) Description 11/26/2024 10:30 AM EDT Nurse Only [facility] MED[facility]INE [address] [place] [address] 12/16/2024 10:45 AM EDT Office Visit [facility] MED[facility]INE [address] [place] [address] Michelle Kyle NP 230 [place] [address] 12/30/2024 4:00 PM EDT Telemedicine [facility] MEDICINE [address] [place] [address] Allison Grider ANP 230 [place] [address] 02/01/2025 10:00 AM EST Telemedicine [facility] 505 [place] [address] Rohini Torres, RN 505 [place] [address] documented as of this encounter Goals Goal [...] documented as of this encounter Care Teams Assistant Fitness Manager Relationship Specialty Start Date End Date Allison Grider ANP 230 [place] [address] PCP - General Family Medicine 04/05/20 Uche Dueñas, PharmD 230 [place] [address] Pharmacist Internal Medicine 11/11/23 documented as of this encounter
--- OUTSIDE RECORDS SUMMARY | 2024-11-19 14:12 | XMS_ITS | Encounter Summary ---
Author Organization [employer] Address 75 [facility] 7t [place] [address] Care Team Providers Care Secondary School Registrar Name Role Phone Allison Grider Primary Care Provider [phone] Uche Dueñas PharmD Unavailable Reason for Visit * Reason Onset Date Comments Med Refill 08/13/2024 Encounter Details Date Type Department Care Team (Late st Contact Info) Description 08/13/2024 Telephone [facility] [address] [place] [address] Allison Grider ANP [address] [place] [address] Med Refill Social History Tobacco Use Types [...] to: [facility] documented in this encounter Plan of Treatment Upcoming Encounters Date Type Department Care Team (Late st Contact Info) Description 11/26/2024 10:30 AM EDT Nurse Only [facility] [address] [place] [address] 12/16/2024 10:45 AM EDT Office Visit [facility] [address] [place] [address] Michelle Kyle NP 230 [place] [address] 12/30/2024 4:00 PM EDT Telemedicine [facility] [address] [place] [address] Allison Grider ANP [address] [place] [address] 02/01/2025 10:00 AM EST Telemedicine [facility] [address] [place] [address] Rohini Torres, RN 505 [place] [address] documented as of this encounter Goals Goal [...] documented as of this encounter Care Teams Secondary School Registrar Relationship Specialty Start Date End Date Allison Grider ANP [address] [place] [address] PCP - General Family Medicine 04/05/20 Uche Dueñas, PharmD [address] [place] [address] Pharmacist Internal Medicine 11/11/23 documented as of this encounter
--- OUTSIDE RECORDS SUMMARY | 2024-11-19 14:12 | XMS_ITS | Encounter Summary ---
Author Organization [employer] Address 75 [facility] 7t [place] [address] Care Team Providers Care Well Blower Name Role Phone Allison Grider Primary Care Provider [phone] Uche Dueñas PharmD Unavailable [phone] Reason for Visit * Reason Onset Date Comments Med Refill 07/16/2024 Encounter Details Date Type Department Care Team (Late st Contact Info) Description 07/16/2024 Telephone [facility]INE 230 [place] [address] Allison Grider ANP 230 [place] [address] Med Refill Social History Tobacco Use Types [...] sent to: [facility] documented in this encounter Plan of Treatment Upcoming Encounters Date Type Department Care Team (Late st Contact Info) Description 11/26/2024 10:30 AM EDT Nurse Only [facility] [address] [place] [address] 12/16/2024 10:45 AM EDT Office Visit [facility] [address] [place] [address] Michelle Kyle NP 230 [place] [address] 12/30/2024 4:00 PM EDT Telemedicine [facility] [address] [place] [address] Allison Grider ANP 230 [place] [address] 02/01/2025 10:00 AM EST Telemedicine [facility] 505 [place] [address] Rohini Torres, RN 505 [place] [address] documented as of this encounter Goals Goal [...] documented as of this encounter Care Teams Well Blower Relationship Specialty Start Date End Date Allison Grider ANP 230 [place] [address] PCP - General Family Medicine 04/05/20 Uche Dueñas, PharmD 230 [place] [address] Pharmacist Internal Medicine 11/11/23 documented as of this encounter
--- OUTSIDE RECORDS SUMMARY | 2024-11-19 14:12 | XMS_ITS | Encounter Summary ---
Author Organization [employer] Address 75 [facility] 7t [place] [address] Care Team Providers Care Braddisher Name Role Phone Allison Grider Primary Care Provider [phone] Uche Dueñas PharmD Unavailable [phone] Reason for Visit * Reason Onset Date Comments Med Refill 12/18/2023 Encounter Details Date Type Department Care Team ([facility] st Contact Info) Description 12/18/2023 Telephone [facility]INE 230 [place] [address] Allison Grider ANP 230 [place] [address] Med Refill Social History Tobacco Use Types [...] sent to: [facility] documented in this encounter Plan of Treatment Upcoming Encounters Date Type Department Care Team (Late st Contact Info) Description 11/26/2024 10:30 AM EDT Nurse Only [facility] [address] [place] [address] 12/16/2024 10:45 AM EDT Office Visit [facility] [address] [place] [address] Michelle Kyle NP 230 [place] [address] 12/30/2024 4:00 PM EDT Telemedicine [facility] [address] [place] [address] Allison Grider ANP 230 [place] [address] 02/01/2025 10:00 AM EST Telemedicine [facility] [address] [place] [address] Rohini Torres, RN [address] [place] [address] documented as of this encounter Goals Goal [...] documented as of this encounter Care Teams Braddisher Relationship Specialty Start Date End Date Allison Grider ANP 230 [place] [address] PCP - General Family Medicine 04/05/20 Uche Dueñas, PharmD 230 [place] [address] Pharmacist Internal Medicine 11/11/23 documented as of this encounter
--- OUTSIDE RECORDS SUMMARY | 2024-11-19 14:13 | XMS_ITS | Encounter Summary ---
Author Organization [employer] Address 75 [facility] 7t [place] [address] Care Team Providers Care Compensation Coordinator Name Role Phone Allison Grider Primary Care Provider Uche Dueñas PharmD Unavailable [phone] Reason for Visit * Reason Onset Date Comments Med Refill 07/20/2022 Encounter Details Date Type Department Care Team (Late st Contact Info) Description 07/20/2022 Telephone [facility] MED[facility]INE [address] [place] [address] Allison Grider ANP 230 [place] [address] Med Refill Social History Tobacco Use Types [...] Description 11/26/2024 10:30 AM EDT Nurse Only [facility] [address] [place] [address] 12/16/2024 10:45 AM EDT Office Visit [facility] 230 [place] [address] Michelle Kyle NP 230 [place] [address] 12/30/2024 4:00 PM EDT Telemedicine [facility] MED[facility]INE 230 [place], [place] [phone] Allison Grider ANP 230 [place], [place] 02/01/2025 10:00 AM EST Telemedicine [facility] 505 [place], [place] [phone] Rohini Torres, RN 505 [place], [place] documented as of this encounter Visit Diagnoses Not on filedocumented in this encounter Care Teams Compensation Coordinator Relationship Specialty Start Date End Date Allison Grider ANP [address] [place] [address] PCP - General Family Medicine 04/05/20 Uche Dueñas, CatarinoD [address] [place] [address] Pharmacist Internal Medicine 11/11/23 documented as of this encounter
--- OUTSIDE RECORDS SUMMARY | 2024-11-19 14:13 | XMS_ITS | Clinical Summary ---
Author Organization [employer] Address 75 [facility] 7t [place] [address] Care Team Providers Care Pay Station Attendant Name Role Phone Yefri Terrell CHRIS Primary Care Provider [phone] Uche Dueñas PharmD Unavailable [phone] Allergies No known active allergies Medications * [...] Active Diclofenac Sodium (Voltaren) 1 % gelIndications:[place] pain of right shoulder Apply up to [...] initial 7d rx. 60 tablet 2 Active naloxone (Narcan) 4 mg/0.1 mL nasal spray Administer 1 spray (4 mg) into affected nostril(s) if needed for opioid reversal. 2 each 1 Active oxyCODONE-acetami nophen (Percocet) 5-325 MG tabletIndications [...] Encounters Date Type Department Care Team Description 11/19/2024 9:15 AM EDT Office Visit [facility] [address] [place] [address] Yefri Terrell ANP Osteoarthritis of right knee, unspecified osteoarthritis type (Primary Dx); Smoking trying to quit 11/19/2024 Travel 11/13/2024 Refill [facility] 230 [place] [address] Yefri Terrell ANP Pain 11/09/2024 9:30 AM EDT Telemedicine [facility] [address] [place], [place] [phone] Rohini Torres RN terminal block assembler (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) use of opiate analgesic 11/09/2024 Refill [facility] P[facility] [address] [place] [address] Rohini Torres RN 11/09/2024 Travel 11/06/[address] [address] Yefri Terrell ANP 11/04/2024 Orders Only [facility] [address] [place] [address] Yefri Terrell ANP 10/27/[address] [address] Yefri Terrell ANP Appointment Request 10/15/2024 Refill [facility] [address] [place] [address] Yefri Terrell ANP Pain 09/15/2024 Refill [facility] P[facility] [address] [place] [address] Rohini Torres RN Pain 09/15/[address] [address] Yefri Terrell ANP Med Refill 09/07/2024 10:00 AM EDT Telemedicine [facility] P[facility] 505 [place] [address] Rohini Torres RN Osteoarthritis of right knee, unspecified osteoarthritis type 09/07/2024 Travel 08/27/2024 9:00 AM EDT Office Visit [address] [address] Yefri Terrlel ANP Post-traumatic osteoarthritis of right knee (Primary Dx); Class 2 severe obesity with serious comorbidity and body mass index (BMI) of 38.0 to 38.9 in adult, unspecified obesity type (CMS/HCC); Gender dysphoria in adult; Screening mammogram for breast cancer; Smoking trying to quit; Ganglion cyst of volar aspect of right wrist; Dietary counseling; Exercise counseling; Tobacco abuse counseling 08/27/2024 Travel 08/26/[address] [address] Neelima Bazan [place] CHART PREP from Last 3 Months Immunizations Immunization Administration [...] oz) 11/19/2024 9:17 A M EDT Height 167 cm (5' 5.75 ) 08/27/2024 8:41 AM EDT Body Mass Index 37.38 08/27/2024 8:41 AM EDT Plan of Treatment Upcoming Encounters Date Type Department Care Team (Late st Contact Info) Description 11/26/2024 10:30 AM EDT Nurse Only [facility] [address] [place] [address] 12/16/2024 10:45 AM EDT Office Visit [facility] [address] [place] [address] Michelle Kyle NP 230 [place] [address] 12/30/2024 4:00 PM EDT Telemedicine [facility] [address] [place] [address] Yefri Terrell ANP 230 [place] [address] 02/01/2025 10:00 AM EST Telemedicine [facility] 505 [place] [address] Rohini Torres, RN [address] [place] [address] Health Maintenance Due Date Last Done Comments [...] Screening 05/21/2025 05/21/2024 Disability Screening 08/27/2025 08/27/2024 Pap Smear 09/27/2025 09/27/2022, 09/27/2022 Mammogram 11/06/2025 11/06/2024, 10/17, 09/28/2022, Additional history exists Lung Cancer Screening 11/07/2025 11/07/2024 Colonoscopy 11/08/2025 09/05/2017, 01/29/2017 Colorectal Cancer Screening 11/08/2025 Tobacco Screening 11/19/2025 11/19/2024 Cervical Cancer Screening 09/28/2027 HPV/Cotest 09/28/2027 09/27/2022, [...] etc) Tobacco Use No Uche Dueñas, Molly Procedures Procedure Name Priority Date/Time Associated Diagnosis [...] PM EDT Narrative 11/07/2024 1:15 PM EDT [address] [address] [address] Scan Report Signed Patient: Ludmila Hansen MR#: [id number] : 1970 Acct:[id number] Age/Sex: 54 / F ADM Date: 11/06/24 Loc: .CT Attending Dr: Ginette Hollis PA-C Ordering Physician: Ginette Hollis PA-C Date of Service: 11/06/24 Procedure(s): CT lung screening Accession Number(s): [id number] cc: Ginette Hollis PA-C; YEFRI TERRELL NP Report Number: [id number]: Total DLP = 76.00 mGy-cm CLINICAL HISTORY: [...] 11/07/24 1315 DD/ 1314 TD/TT: 11/07/24 1314 Home Paraprofessional: Procedure Note Donotuseinterpreter, Image - 11/07/[address] [address] [address] Scan Report Signed Patient: Ludmila Hansen EMR#: [id number] : 1970Acct:[id number] Age/Sex: 54 / FADM Date: 11/06/24 Loc: HO.CT Attending Dr: Ginette Hollis PA-C Ordering Physician: Ginette Hollis PA-C Date of Service: 11/06/24 Procedure(s): CT lung screening Accession Number(s): [id number] cc: Ginette Hollis PA-C; YEFRI TERRELL NP Report Number: [id number]: Total DLP = 76.00 mGy-cm CLINICAL HISTORY: [...] OV> 11/07/24 1315 DD/ 131 TD/TT: 11/07/241313 Home Paraprofessional: [facility] External Provider IMG CT PROCEDURES Edited Result - Final * BI Mammogram Screening Tomosynthesis Bilateral (11/04/2024 10:15 AM EDT) Anatomical Region Laterality Modality Breast Bilateral Mammography 11/04/2024 10:1 5 AM EDT Narrative 11/05/2024 4:57 PM EDT [address] [place] [address] Mammography Report Signed Patient: Ludmila Hansen MR#: [id number] : 1970 Acct:[id number] Age/Sex: 54 / F ADM Date: 11/04/24 Loc: HO.MAMMO Attending Dr: Yefri Terrell NP Ordering Physician: YEFRI TERRELL NP Results: 1Negative Date of Service: 11/04/24 Follow Up: 1 Year From Orig inal Mammogram Procedure(s): MM tomosynthesis screening BI Accession Number(s): [id number] cc: YEFRI TERRELL NP EXAMINATION: MM SCREENING [...] 11/05/24 1654 DD/ 1015 TD/TT: 11/04/24 1035 Home Paraprofessional: Procedure Note Donotuseinterpreter, Image - 11/05/2024 [facility] [address] [place] [address] Mammography Report Signed Patient: Ludmila Hansen EMR#: [id number] : 1970Acct:[id number] Age/Sex: 54 / FADM Date: 11/04/24 Loc: HO.MAMMO Attending Dr: Yefri Terrell NP Ordering Physician: YEFRI TERRELL NPResults: 1Negative Date of Service: 11/04/24Follow Up: 1 Year From Orig inal Mammogram Procedure(s): MM tomosynthesis screening BI Accession Number(s): [id number] cc: YEFRI TERRELL NP EXAMINATION: MM SCREENING [...] 04:54 PM EDT RP Dictated By: Corazon lGover DO Signed By: <Electronically signed by Corazon Glover DO in OV> 11/05/24 1654 DD/ 1015 TD/TT: 11/04/24 1035 Home Paraprofessional: us Yefri PEREZ IMRoger BI PROCEDURES Final Result * Thinprep TIS PAP And HPV mRNA E6/E7 With Reflex To HPV 16,18/45 (09/27/2022 12:00 AM EDT) HPV nRNA E6/E7 [facility] SOURCE: SEE NOTE [facility] Comment:None given Report Status: [facility] Clinical Information: SEE NOTE [facility] Comment:None given LMP: SEE [facility] Comment:NONE GIVEN Prev. PAP: SEE [facility] Comment:NONE GIVEN Prev. BX: SEE [facility] Comment:NONE GIVEN Statement Of Adequacy: SEE [facility] Comment:Satisfactory for karen luation.Endocervical/transformation zone componentpresent. General Categorization: [facility] Interpretation/Result: SEE NOTE [facility] Comment:Cytology Results: Ne gative for intraepitheliallesion or malignancy. Cytology Comment [facility] Mold Finisher: SEE NOTE [facility] Comment:EXJ, CT(ASCP)CT Scre ening Location: [address] [address] Review Mold Finisher: [facility] Pathologist [facility] PAP Infection [facility] 09/27/2022 09/27/2022 Yefri PEREZ LAB PATHOLOGY ORDERABLES Final R esult [facility] [address] [place] [address] [phone] * Hm Colonoscopy (09/05/2017) Colonoscopy Normal Normal 09/05/2017 Historical Provider MD HEALTH MAINTENANCE Final Result from Last 3 Months or Most Recently Relevant to Health Maintenance Insurance [place], [place] [facility] < 65 [place] [id number] * Guarantor: Ludmila Ball Account Type Relation to Patient Date of Phone Billing Address Personal/Family Self [place], [place] * Guarantor: Ludmila Ball Account Type Relation to Patient Date of Phone Billing Address Personal/Family Self [place], [place] Care Teams Pay Station Attendant Relationship Specialty Start Date End Date Yefri Terrell ANP [address] [place] [address] [place] [address] PCP - General Family Medicine 04/05/20 Uche Dueñas, CatarinoD [address] [place] [address] Pharmacist Internal Medicine 11/11/23
--- OUTSIDE RECORDS SUMMARY | 2024-11-19 14:13 | XMS_ITS | Encounter Summary ---
Author Organization [employer] Address [address] [facility] [address] 7t [place] [address] Care Team Providers Care Prop Worker Name Role Phone Allison Grider Primary Care Provider [phone] Uche Dueñas PharmD Unavailable [phone] Encounter Details Date Type Department Care Team (Late st Contact Info) Description 11/06/2024 Abstract [facility] MEDICINE [address] [place] [address] Allison Grider ANP [address] [place] [address] Social History Tobacco Use Types Packs/Day Years [...] Description 11/26/2024 10:30 AM EDT Nurse Only [facility] MEDICINE [address] [place] [address] 12/16/2024 10:45 AM EDT Office Visit [facility] MED[facility]INE [address] [place] [address] Michelle Kyle NP [address] [place] [address] 12/30/2024 4:00 PM EDT Telemedicine [facility] MEDICINE [address] [place] [address] Allison Grider ANP [address] [place] [address] 02/01/2025 10:00 AM EST Telemedicine [facility] [address] [place] [address] Rohini Torres, SYMONE 505 [place] [address] documented as of this encounter Goals Goal Patient Goal Type Associated Problems Recent Progress Patient-Stated? Author Quit using tobacco (cigarettes, smokeless, etc) Tobacco Use No Dueñas, Uche, CatarinoD documented as of this encounter Visit Diagnoses Not on filedocumented in this encounter Additional Health Concerns Assessment Noted Time PHQ-9 Depression Total Score: 17 05/21/ 025 9:34 AM EST documented as of this encounter Care Teams Prop Worker Relationship Specialty Start Date End Date Allison Grider ANP [address] [place] [address] PCP - General Family Medicine 04/05/20 Uche Dueñas, PharmD [address] [place] [address] Pharmacist Internal Medicine 11/11/23 documented as of this encounter
--- OUTSIDE RECORDS SUMMARY | 2024-11-19 14:13 | XMS_ITS | Encounter Summary ---
Author Organization [employer] Address 75 [facility] 7t [place] [address] Care Team Providers Care Semiconductor Wafer Inspector Name Role Phone Allison Grider Primary Care Provider [phone] Uche Dueñas PharmD Unavailable [phone] Reason for Visit * Reason Onset Date Comments Med Refill 02/17/2024 Encounter Details Date Type Department Care Team ([facility] st Contact Info) Description 02/17/2024 Telephone [facility] MEDICINE 230 [place] [address] Allison Grider ANP 230 [place] [address] Med Refill Social History Tobacco Use Types [...] Description 11/26/2024 10:30 AM EDT Nurse Only [facility] [address] [place] [address] 12/16/2024 10:45 AM EDT Office Visit [facility] MED[facility]INE [address] [place] [address] Michelle Kyle NP 230 [place] [address] 12/30/2024 4:00 PM EDT Telemedicine [facility] MEDICINE [address] [place] [address] Allison Grider ANP [address] [place] [address] 02/01/2025 10:00 AM EST Telemedicine [facility] 505 [place] [address] Rohini Torres, RN [address] [place], [place] documented as of this encounter Goals [...] documented as of this encounter Care Teams Semiconductor Wafer Inspector Relationship Specialty Start Date End Date Allison Grider ANP [address] [place] [address] PCP - General Family Medicine 04/05/20 Uche Dueñas, PharmD [address] [place] [address] Pharmacist Internal Medicine 11/11/23 documented as of this encounter
--- OUTSIDE RECORDS SUMMARY | 2024-11-19 14:13 | XMS_ITS | Encounter Summary ---
Author Organization [employer] Address 75 [facility] 7t [place] [address] Care Team Providers Care Orthoptist Name Role Phone Allison Grider ANP Primary Care Provider [phone] Uche Dueñas PharmD Unavailable [phone] Encounter Details Date Type Department Care Team (Late st Contact Info) Description 03/09/2022 Orders Only [facility]S 505 [place], [place] [phone] Allison Grider ANP 230 [place] [address] Cervical lymphadenopathy (Primary Dx) Social History Tobacco [...] Department Care Team (Late Contact Info) Description 11/26/2024 10:30 AM EDT Nurse Only [facility] MEDICINE [address] [place] [phone] 12/16/2024 10:45 AM EDT Office Visit [facility] MEDICINE [address] [place] [phone] Michelle Kyle NP 230 [place] [address] 12/30/2024 4:00 PM EDT Telemedicine [facility] MEDICINE 230 [place] [address] Allison Grider ANP [address] [place] [address] 02/01/2025 10:00 AM EST Telemedicine [facility] 505 [place] [address] Rohini Torres, RN 505 [place] [address] Scheduled Orders Name Type Priority Associated Diagnoses Orde r Schedule US Cervical Lymph Node Imaging Routine Cervical lymphadenopathy Expected: 09/07/2022, Expires: 03/09/2023 documented as of this encounter Visit Diagnoses Diagnosis Cervical lymphadenopathy- Primary Enlargement of lymph nodes documented in this encounter Care Teams Orthoptist Relationship Specialty Start Date End Date Allison Grider ANP [address] [place] [address] PCP - General Family Medicine 04/05/20 Uche Dueñas, CatarinoD [address] [place] [address] Pharmacist Internal Medicine 11/11/23 documented as of this encounter
--- OUTSIDE RECORDS SUMMARY | 2024-11-19 14:13 | XMS_ITS | Encounter Summary ---
Author Organization [employer] Address 75 [facility] 7t [place] [address] Care Team Providers Care Commodity Director Name Role Phone Allison Grider Primary Care Provider [phone] Uche Dueñas PharmD Unavailable [phone] Reason for Visit * Reason Onset Date Comments Med Refill 10/22/2022 Encounter Details Date Type Department Care Team ([facility] st Contact Info) Description 10/22/[address] [facility] MEDICINE 230 [place] [address] Allison Grider ANP 230 [place] [address] Med Refill Social History Tobacco Use Types [...] Description 11/26/2024 10:30 AM EDT Nurse Only [address] [address] 12/16/2024 10:45 AM EDT Office Visit [address] [address] Michelle Kyle NP 230 [place] [address] 12/30/2024 4:00 PM EDT Telemedicine [address] [address] Allison Grider ANP 230 [place] [address] 02/01/2025 10:00 AM EST Telemedicine [facility]EDS 505 [place], [place] [phone] Rohini Torres, RN 505 [place] [address] documented as of this encounter Visit Diagnoses Not on filedocumented in this encounter Additional Health Concerns Assessment Noted Time PHQ-9 Depression Total Score: 13 023 1:20 PM EDT documented as of this encounter Care Teams Commodity Director Relationship Specialty Start Date End Date Allison Grider ANP [address] [place] [address] PCP - General Family Medicine 04/05/20 Uche Dueñas, CatarinoD [address] [place] [address] Pharmacist Internal Medicine 11/11/23 documented as of this encounter
--- OUTSIDE RECORDS SUMMARY | 2024-11-19 14:13 | XMS_ITS | Encounter Summary ---
Author Organization [employer] Address 75 [facility] 7t [place] [address] Care Team Providers Care Residential Tech Name Role Phone Allison Grider Primary Care Provider [phone] Uche Dueñas PharmD Unavailable [phone] Reason for Visit * Reason Onset Date Comments Med Refill 12/21/2022 Encounter Details Date Type Department Care Team (Late st Contact Info) Description 12/21/2022 Telephone [facility] MEDICINE 230 [place] [address] Allison Grider ANP 230 [place] [address] Med Refill Social History Tobacco Use Types [...] Description 11/26/2024 10:30 AM EDT Nurse Only [facility] MEDICINE [address] [place] [address] 12/16/2024 10:45 AM EDT Office Visit [address] [address] Michelle Kyle NP [address] [place] [address] 12/30/2024 4:00 PM EDT Telemedicine [address] [address] Allison Grider ANP 230 [place] [address] 02/01/2025 10:00 AM EST Telemedicine [facility] CH[facility] MED & PEDS 505 [place], [place] [phone] Rohini Torres, RN 505 [place] [address] documented as of this encounter Visit Diagnoses Not on filedocumented in this encounter Additional Health Concerns Assessment Noted Time PHQ-9 Depression Total Score: 4 12/05/19 23 10:38 AM EDT documented as of this encounter Care Teams Residential Tech Relationship Specialty Start Date End Date Allison Grider ANP [address] [place] [address] PCP - General Family Medicine 04/05/20 Uche Dueñas, CatarinoD [address] [place] [address] Pharmacist Internal Medicine 11/11/23 documented as of this encounter
--- OUTSIDE RECORDS SUMMARY | 2024-11-19 14:13 | XMS_ITS | Encounter Summary ---
Author Organization [employer] Address 75 [facility] 7t [place] [address] Care Team Providers Care Heat Pump Installer Name Role Phone Allison Grider ANP Primary Care Provider [phone] Uche Dueñas PharmD Unavailable [phone] Reason for Visit * Reason Onset Date Comments Med Refill 11/22/2022 Encounter Details Date Type Department Care Team (Late st Contact Info) Description 11/22/2022 Telephone [facility] MEDICINE 230 [place] [address] Allison Grider ANP 230 [place] [address] Med Refill Social History Tobacco Use Types [...] Description 11/26/2024 10:30 AM EDT Nurse Only [facility] MEDICINE [address] [place] [address] 12/16/2024 10:45 AM EDT Office Visit [address] [address] Michelle Kyle NP 230 [place] [address] 12/30/2024 4:00 PM EDT Telemedicine [address] [address] Allison Grider ANP 230 [place] [address] 02/01/2025 10:00 AM EST Telemedicine [facility] CHC MED & PEDS 505 [place], [place] [phone] Rohini Torres, RN 505 [place] [address] documented as of this encounter Visit Diagnoses Not on filedocumented in this encounter Additional Health Concerns Assessment Noted Time PHQ-9 Depression Total Score: 13 023 1:20 PM EDT documented as of this encounter Care Teams Heat Pump Installer Relationship Specialty Start Date End Date Allison Grider ANP [address] [place] [address] PCP - General Family Medicine 04/05/20 Uche Dueñas, CatarinoD [address] [place] [address] Pharmacist Internal Medicine 11/11/23 documented as of this encounter
--- OUTSIDE RECORDS SUMMARY | 2024-11-19 14:13 | XMS_ITS | Encounter Summary ---
Author Organization [employer] Address 75 [facility] 7t [place] [address] Care Team Providers Care Campus Ambassador Name Role Phone Allison Grider CHRIS Primary Care Provider [phone] Uche Dueñas PharmD Unavailable [phone] Encounter Details Date Type Department Care Team (Latest Contact Info) Description 11/19/2024 Travel Social History Tobacco Use Types Packs/Day [...] Description 11/26/2024 10:30 AM EDT Nurse Only [facility] MEDICINE [address] [place] [address] 12/16/2024 10:45 AM EDT Office Visit [address] [address] Michelle Kyle NP 230 [place] [address] 12/30/2024 4:00 PM EDT Telemedicine [facility] MEDICINE [address] [place] [address] Allison Grider ANP 230 [place] [address] 02/01/2025 10:00 AM EST Telemedicine [facility] CHC MED & PEDS 505 [place] [address] Rohini Torres, RN 505 [place] [address] documented as of this encounter Goals Goal Patient Goal Type Associated Problems Recent Progress Patient-Stated? Author Quit using tobacco (cigarettes, smokeless, etc) Tobacco Use Uche Lindsay, CatarinoD documented as of this encounter Visit Diagnoses Not on filedocumented in this encounter Additional Health Concerns Assessment Noted Time PHQ-9 Depression Total Score: 17 025 9:34 AM EST documented as of this encounter Care Teams Campus Ambassador Relationship Specialty Start Date End Date Allison Grider ANP 230 [place] [address] PCP - General Family Medicine 04/05/20 Uche Dueñas PharmD 230 [place] [address] Pharmacist Internal Medicine 11/11/23 documented as of this encounter
--- NOTE | 2024-12-07 | ECG_ITS ---
Test Reason : PRE OP Blood Pressure : */* mmHG Vent. Rate : 54 BPM Atrial Rate : 54 BPM P-R Int : 168 ms QRS Dur : 82 ms QT Int : 470 ms P-R-T Axes : 61 13 19 degrees QTcB Int : 445 ms Sinus bradycardia Otherwise normal ECG No previous ECGs available Referred By: Renu Toro Electronically Signed By: Tariq Mckay
[2024-12-07 10:31] VITALS: BP 125/60; PULSE 55; RESP 17; O2SAT 97; BMI 37.0
--- NOTE | 2024-12-07 10:51 | HO.ANESPROP2 ---
Documented by User: Renu Toro NP 01/01/25 12:20 HPI - Anesthesia Eval Consult details Narrative: 54yo F for Right Knee Replacement Total, 01/05/25 Medically optimized per PCP No recent illness No CP/SOB with a lot of walking outside daily GERD: ppi controls Smoker: 5-6 cigs daily PMFSH Active Problems Active Problems: All Active Problems Ganglion cyst of volar aspect of right wrist (Acute) Varicose veins of right lower extremity with inflammation (Acute) Vitamin B12 deficiency (Acute) Vitamin A deficiency (Acute) Vitamin B1 deficiency (Acute) Bipolar 1 disorder (Acute) Layne's esophagus determined by biopsy (Acute) Gastroesophageal reflux disease (Acute) Tubular adenoma of colon (Acute) Nicotine dependence, cigarettes, uncomplicated (Acute) Obesity (Acute) Low vitamin D level (Acute) Arthritis of right knee (Acute) Past Medical History Medical History Back pain Constipation Bipolar 1 disorder Layne's esophagus determined by biopsy Gastroesophageal reflux disease Tubular adenoma of colon Nicotine dependence, cigarettes, uncomplicated Obesity Low vitamin D level Arthritis of right knee Right tennis elbow Family History Family History Father No problems noted. Mother Hx of heat stroke History of colon cancer Sister Diabetes Brother No problems noted. Daughter No problems noted. Family history of problems with anesthesia: No Surgical History Surgical History Hx of varicose vein ligation and stripping History of esophagogastroduodenoscopy (EGD) History of colonoscopy S/P cholecystectomy History of Problems with Anesthesia: No Social History Social History Are you a primary neonatal intensive care unit nurse to a significant other at home: No Do you presently have visiting nurse or other home services: No Alcohol intake: current Alcohol intake frequency: does not drink Patient Tobacco Use Status: Current everyday Tobacco user Tobacco use type: Cigarette Cigarettes Per Day: 6 Years Smoked: (onset 22yo, 1/2-1ppd x 32yrs, now 1/2ppd - 25pyh) Use of substances other than those prescribed or required for medical reasons: No Have you been hit, kicked, punched, or otherwise hurt by someone within the past year? If so, by whom?: No Are you DNR?: No Advance Directives: No Advance Directives Information Provided: Yes Advance Directives on File: No Patient : No : No Poor oral hygiene: Yes Current occupational status: disabled Current occupation: rt handed Meds Allergies Allergy/AdvReac Type Severity Reaction Status Date / Time No Known Allergies (No Known Allergy Verified 12/31/24 09:35 Allergies*) Home Medications ?Medication ?Instructions ?Recorded ?Confirmed ?Last Taken ?Type buspirone 10 mg tablet 15 mg PO BID 02/19/20 01/05/25 01/05/25 History gabapentin 300 mg capsule 300 mg PO DAILY 02/19/20 12/31/24 01/05/25 History naproxen 500 mg tablet 500 mg PO BID PRN Pain 02/19/20 12/31/24 12/29/24 History oxycodone-acetaminophen 5 mg-325 1 tab PO Q12H PRN severe pain 03/08/20 12/31/24 Unknown History mg tablet melatonin 5 mg tablet 5 mg PO BEDTIME PRN insomnia 09/21/20 12/31/24 01/03/25 History zolpidem 10 mg tablet 5 mg PO BEDTIME PRN Insomnia 09/21/20 12/31/24 01/03/25 History docusate sodium 100 mg capsule 100 mg PO DAILY 05/29/24 12/31/24 01/03/25 History famotidine 40 mg tablet 40 mg PO BEDTIME 05/29/24 12/31/24 01/03/25 History ziprasidone HCl 80 mg capsule 80 mg PO BID 05/29/24 12/31/24 01/03/25 History Exam Height,Weight and Vital Signs: Height 5 ft 6 in Weight 103.873 kg Last Vital Signs Pulse 55 12/07/24 10:31 Resp 17 12/07/24 10:31 BP 125/60 12/07/24 10:31 Pulse Ox 97 12/07/24 10:31 O2 Del Method Room Air 12/07/24 10:31 Pertinent Lab Results Pertinent Lab Results: Lab Results 12/07/24 12/07/24 Range/Units 10:40 11:35 WBC 5.4 (4.8-10.8) X10*3/uL RBC 5.00 (4.20-5.50) X10*6/uL Hgb 16.2 H (12.0-16.0) g/dl Hct 48.3 H (37.0-47.0) % MCV 96.6 (80.0-98.0) fL MCH 32.4 (27.0-33.0) pg MCHC 33.5 (31.0-35.0) g/dl RDW 13.6 (11.0-16.0) % Plt Count 164 (160-400) X10*3/uL MPV 11.9 (9.4-12.3) fL Absolute Nucleated RBC 0.000 (0.0-0.012) X10*3/uL Nucleated RBC % (auto) 0.0 (0.0-0.2) /100WBC Sodium 140 (135-145) mmol/L Potassium 4.4 (3.3-5.1) mmol/L Chloride 107 (96-108) mmol/L Carbon Dioxide 27 (22-29) mmol/L Anion Gap 10 L (12-20) BUN 9 (9-16) mg/dL Creatinine 0.87 (0.5-1.4) mg/dL Estim Creat Clear Calc 89.9 Estimated GFR > 60 Random Glucose 97 (60-115) mg/dL Calcium 9.5 (8.4-10.2) mg/dL Nasal Screen MRSA (PCR) NEGATIVE (Negative) Nasal S. aureus Screen NEGATIVE (Negative) Nasal MRSA/S.aureus Interp SEE NOTE Narrative Narrative: EKG 11/2024 Vent. Rate : 54 BPM Atrial Rate : 54 BPM P-R Int : 168 ms QRS Dur : 82 ms QT Int : 470 ms P-R-T Axes : 61 13 19 degrees QTcB Int : 445 ms Sinus bradycardia Otherwise normal ECG No previous ECGs available Airway Mallampati Class: II TM Dist: >3cm Neck ROM: Full Loose/Missing/Broken Teeth: Yes (missing front lower and molars) Heart: RRR Lungs: CTAB Assessment and Plan Assessment Anesthesia Assessment: Anesthesia Plan Discussed, Smoking Cess. Discussed and PAT Visit Final Anesthetic Review Family History of Problems with Anesthesia: No History of Problems with Anesthesia: No Documented by User: Shawn Mendoza MD 01/05/25 13:29 [facility] Past Medical History Medical History Back pain Constipation Bipolar 1 disorder Layne's esophagus determined by biopsy Gastroesophageal reflux disease Tubular adenoma of colon Nicotine dependence, cigarettes, uncomplicated Obesity Low vitamin D level Arthritis of right knee Right tennis elbow Family History Family History Father No problems noted. Mother Hx of heat stroke History of colon cancer Sister Diabetes Brother No problems noted. Daughter No problems noted. Surgical History Surgical History Hx of varicose vein ligation and stripping History of esophagogastroduodenoscopy (EGD) History of colonoscopy S/P cholecystectomy History of Problems with Anesthesia: Yes Social History Social History Are you a primary neonatal intensive care unit nurse to a significant other at home: No Do you presently have visiting nurse or other home services: No Alcohol intake: current Alcohol intake frequency: does not drink Patient Tobacco Use Status: Current everyday Tobacco user Tobacco use type: Cigarette Cigarettes Per Day: 6 Years Smoked: (onset 22yo, 1/2-1ppd x 32yrs, now 1/2ppd - 25pyh) Use of substances other than those prescribed or required for medical reasons: No Have you been hit, kicked, punched, or otherwise hurt by someone within the past year? If so, by whom?: No Are you DNR?: No Advance Directives: No Advance Directives Information Provided: Yes Advance Directives on File: No Patient : No : No Poor oral hygiene: Yes Current occupational status: disabled Current occupation: rt handed Meds Allergies Allergy/AdvReac Type Severity Reaction Status Date / Time No Known Allergies (No Known Allergy Verified 12/31/24 09:35 Allergies*) Home Medications ?Medication ?Instructions ?Recorded ?Confirmed ?Last Taken ?Type buspirone 10 mg tablet 15 mg PO BID 02/19/20 01/05/25 01/05/25 History gabapentin 300 mg capsule 300 mg PO DAILY 02/19/20 12/31/24 01/05/25 History naproxen 500 mg tablet 500 mg PO BID PRN Pain 02/19/20 12/31/24 12/29/24 History oxycodone-acetaminophen 5 mg-325 1 tab PO Q12H PRN severe pain 03/08/20 12/31/24 Unknown History mg tablet melatonin 5 mg tablet 5 mg PO BEDTIME PRN insomnia 09/21/20 12/31/24 01/03/25 History zolpidem 10 mg tablet 5 mg PO BEDTIME PRN Insomnia 09/21/20 12/31/24 01/03/25 History docusate sodium 100 mg capsule 100 mg PO DAILY 05/29/24 12/31/24 01/03/25 History famotidine 40 mg tablet 40 mg PO BEDTIME 05/29/24 12/31/24 01/03/25 History ziprasidone HCl 80 mg capsule 80 mg PO BID 05/29/24 12/31/24 01/03/25 History Assessment and Plan Final Anesthetic Review History of Problems with Anesthesia: Yes NPO: Yes ASA Class: III Final Preanesthetic Review: No Changes in Pt Med Stat, Meds/Allgs Chart Reviewed, Consent Obtained/Reviewed and Anes Risks/Benef Reviewed Patient Risk: Intermediate Procedure Risk: Low Anesthetic Plan Anesthetic Plan: MAC:, Spinal and Regional Block Disposition: Standard PACU
[2024-12-07 11:56] LABS: Hematocrit 48.3 % (37.0-47.0); Hemoglobin 16.2 g/dl (12.0-16.0); Mean Corpuscular HGB Conc 33.5 g/dl (31.0-35.0); Mean Corpuscular Hemoglobin 32.4 pg (27.0-33.0); Mean Corpuscular Volume 96.6 fL (80.0-98.0); NRBC Abs Auto 0.000 X10*3/uL (0.0-0.012); NRBC Pct Auto 0.0 /100WBC (0.0-0.2); Platelet Count 164 X10*3/uL (160-400); Red Blood Count 5.00 X10*6/uL (4.20-5.50); White Blood Count 5.4 X10*3/uL (4.8-10.8)
[2024-12-07 12:19] LABS: MRSA Nasal PCR NEGATIVE (Negative); SA Nasal PCR NEGATIVE (Negative)
[2024-12-07 12:32] LABS: Anion Gap 10 (12-20); Blood Urea Nitrogen 9 mg/dL (9-16); Calcium 9.5 mg/dL (8.4-10.2); Carbon Dioxide 27 mmol/L (22-29); Chloride 107 mmol/L (96-108); Creatinine Clr Calc Pharmacy 89.9; Estimated Glomerular Filt Rate > 60; Potassium 4.4 mmol/L (3.3-5.1); Sodium 140 mmol/L (135-145)
[2025-01-05] VITALS (14 sets, daily range): BP systolic 104–135; BP diastolic 55–69; PULSE 43–63; RESP 12–18; TEMP 36.1–37.1; O2SAT 94–97; BMI 36.9
--- NOTE | ~2025-01-05 | XR_ITS ---
EXAMINATION: XR KNEE 1-2 VIEWS RIGHT HISTORY: RT TKA COMPARISON: Comparison is made with the prior examination dated 12/31/2024. FINDINGS: AP and lateral portable views of the right knee are submitted from the operating room at 10:58 AM. The patient is status post total knee arthroplasty. The orthopedic elements are in anatomic alignment. Postoperative changes are noted in the soft tissues. XR/XR knee RT 2V IMPRESSION: Status post right total knee arthroplasty. Electronically signed by: Madhu Merchant MD 01/05/2025 11:19 AM EDT
[2025-01-05] MEDS: Lactated Ringers 1,000 ML 100 ML IVCONT ×3 (06:48→22:54)
--- NOTE | 2025-01-05 07:23 | MHC.SHP ---
Pre-Procedural Eval Section A - 24 Hr Update-Section A only Date of Service: 01/05/25 The patient is an INPATIENT: No Changes since office visit: No Cold of Flu in the past 2 weeks, No New Medical Problems, No Changes in Medication and No Patient answered all questions The patient has been examined within 24 hours of the surgical procedure. The History & Physical has been completed within 30 days and I have reviewed it.: Yes Section B - Complete if H&P > 30 days Chief Complaint: Unilateral primary osteoarthritis, right knee Allergies: Allergies Allergy/AdvReac Type Severity Reaction Status Date / Time No Known Allergies (No Known Allergy Verified 12/31/24 09:35 Allergies*) Plan I have reviewed the history and physical and performed a pertinent physical examination on my patient. No changes have occurred unless specified. Time Spent With Patient Time: Total time managing care of this patient today ____ minutes.
--- NOTE | 2025-01-05 11:00 | P.DS_ITS ---
DS: Providers Provider Date of Service: 01/05/25 Date of discharge: 01/06/25 Primary care physician: Allison Grider NP DS: Diagnosis Discharge Diagnosis (1) Status post total right knee replacement: Status: Acute DS: Summary Hospital Course Hospital Course: The patient underwent a successful right total knee arthroplasty on 01/05/[address] Marie, was transferred to PACU and then to the floor to recover. During their stay, their vitals were stable, afebrile at 97.4 . Labs were unremarkable, H/H 15.4/45.1 . POD 1 she was started on lovenox 40mg subQ once a day for DVT ppx, they also received Physical Therapy services twice a day. Physical therapy should include gait training, ROM to tolerance and quad strength. She is WBAT. Prior to discharge, dressing clean dry and intact. The Aquacel dressing should remain intact and dry at all times. Any concerns with the dressing, please contact orthopedic office. No showering. The plan is to be discharged home [facility] Time Attestation Discharge Coordination Time (in mins): 30 Quality: Safe Use of Opioids Does Pt have an Active Cancer Diagnosis on the Problem List?: No Quality: Stroke Does the patient have a stroke diagnosis?: No Physical Exam Vital Signs: Vital Signs: Last Vital Signs Temp 98.5 F 01/05/25 10:55 Pulse 63 01/05/25 10:55 Resp 16 01/05/25 10:55 BP 106/59 L 01/05/25 10:55 Pulse Ox 97 01/05/25 10:55 O2 Del Method Simple Mask 01/05/25 10:55 O2 Flow Rate 8 01/05/25 10:55 BMI result Body Mass Index 37.0 DS: Data Data Completed and Pending Pending studies at discharge: Pending at discharge 01/05/25 09:43 Surgical [PTH] Routine Discharge Plan Discharge Patient Disposition: Home Health Service Referrals: Gerard Rollins PA-C [Physician Director Sales And Marketing, Orthopedics] - 1 Week Referral Note: 01/21/25 09:45 [facility] Orthopedic Surgeons Gerard Rollins PA-C Discharge Medications: New celecoxib 200 mg Capsule 200 mg PO BID 30 Days Qty: 60 0RF acetaminophen 325 mg Tablet 650 mg PO Q6H PRN (Reason: Pain, Mild 1-3,Fever,Headache) 30 Days Qty: 240 0RF aspirin 325 mg Tablet 325 mg PO BID 42 Days Qty: 84 0RF oxycodone 5 mg Tablet 5 mg PO Q4H PRN (Reason: Pain, Moderate(Pain Scale 4-6)) 7 Days Qty: 42 0RF Rx Instructions: Partial Fill upon patient request. enoxaparin 40 mg/0.4 mL Syringe 40 mg subcut Q24H 42 Days Qty: 16.8 0RF Continued cholecalciferol (vitamin D3) 50 mcg (2,000 unit) capsule 50 mcg PO DAILY Qty: 30 3RF cyanocobalamin (vitamin B-12) 1,000 mcg tablet 1,000 mcg PO DAILY Qty: 90 2RF simethicone [Gas Relief Extra Strength] 125 mg capsule 125 mg PO TID-QID PRN (Reason: for abdominal pain) Qty: 120 5RF omeprazole 20 mg capsule,delayed release(DR/EC) 20 mg PO DAILY Qty: 90 2RF buspirone 10 mg tablet 15 mg PO BID gabapentin 300 mg capsule 300 mg PO DAILY melatonin 5 mg tablet 5 mg PO BEDTIME PRN (Reason: insomnia) zolpidem 10 mg tablet 5 mg PO BEDTIME PRN (Reason: Insomnia) ziprasidone HCl 80 mg capsule 80 mg PO BEDTIME Rx Instructions: give with food (meal/snack) docusate sodium 100 mg capsule 100 mg PO DAILY famotidine 40 mg tablet 40 mg PO BEDTIME (DME) Folding Front Wheeled walker See Rx Instructions .ROUTE .MEDSUPPLY Qty: 1 0RF Rx Instructions: Duration: 99 days (DME) bed side commode See Rx Instructions .Route .MEDSUPPLY Qty: 1 0RF Rx Instructions: duration 99 days Discontinued naproxen 500 mg tablet 500 mg PO BID PRN (Reason: Pain) oxycodone-acetaminophen 5-325 mg tablet 1 tab PO Q12H PRN (Reason: severe pain) Discharge Orders: Discharge Order (Routine); Ordered 01/06/25 Ordered By: Gerard Rollins Diet: Regular diet Activity on Discharge: Use cane or walker Activity Restrictions/Additional Instructions: Physical Therapy for ROM 0-120, quad strength, gait training. Use walker for ambulation Limit stair climbing No shower or tub bath No driving for 6 weeks Continue anticoagulant Keep Aquacel dressing clean, dry and intact. Follow up with orthopedics in 2 weeks -Bandage/Incision Site Care: -Ice 20mins at a time -Make sure you use a towel or cloth on your skin as a barrier -DO NOT remove the bandage -Keep Bandage clean, dry and intact -Do not get the bandage wet: -No tub bath, pools or hot tubs -If there are any concerns regarding the bandage please call orthopedics: [phone] -Knee Precautions: -Refrain from putting pillows under the knee -Keep leg straight while resting the knee -Avoid low chairs and deep couches -Use supportive shoes with nonslip soles -Physical Therapy: -Patient is WBAT with the use of a walker -Range of Motion: 0-120 degrees. -Strengthening: Quadriceps and hip muscles -Walking: Gait training and gradually increasing distance with walker -Ankle pumps and incentive spirometry to limit the risk of blood clot -Diet: -Resume regular diet as tolerated. -Drink plenty of fluids and eat a high-fiber foods to avoid constipation -This is a common side effect of pain medication) -Take stool softeners as prescribed -Blood Clot Prevention: -Take the prescribed blood thinner lovenox as directed for 6 weeks -Perform ankle pumps and walk frequently with the walker and assistance if needed -Report calf pain, swelling, or shortness of breath immediately Print Language: Mongolian
--- NOTE | 2025-01-05 11:01 | W.MHC.F2F ---
Service Date Service Date: 01/05/25 Encounter Date of encounter: 01/05/25 Reasons for Services Signs and symptoms assessed: Weakness, poor balance, poor gait mechanics Reason for physical therapy: home safety and mobility, therapeutic exercises, restore joint function, gait/transfer training, ADL training and energy conservation Reason for occupational therapy: home safety and mobility, therapeutic exercises, restore joint function, gait/transfer training, ADL training and energy conservation Overseeing Care: Warren Marie Homebound: Leaving the home is medically contraindicated at this time without the asist of a device and/or another person due th the listed conditions above and below. Reason homebound: unsteady gait / fall risk, pain with ambulation, poor balance / fall risk and unable to drive Homebound supporting statement: Pt. is considered home bound due to recent surgery. Unable to drive, poor balance, poor gait mechanics. Certification: Based on the above findings, I certify that this patient is confined to the home and needs intermittent half-way care, physical therapy and/or speech therapy, or continues to need occupational therapy. The patient is under my care, and I have initiated the establishment of the plan of care. The patient will be followed by a physician who will periodically review the plan of care. Time Spent With Patient Time: Total time managing care of this patient today ____ minutes.
--- NOTE | 2025-01-05 11:19 | PM.OP ---
Brief Operative Note Date of Service: 01/05/25 Pre-op diagnosis: Right knee OA Post-op diagnosis: same Procedure: Right TKA Implants: Kimmie Triathlon posterior stabilized 07/20/10ps/35a cemented Surgeon: Warren Marie MD Anesthesia: regional and spinal Was an Primary Health Care Nurse used for this Procedure?: Yes Primary Health Care Nurse: Gerard Rollins Estimated blood loss (mL): 25 Tourniquet time (min): 75 IV fluids (mL): 1,000 Pathology: other Condition: stable Disposition: PACU
--- NOTE | 2025-01-05 12:46 | PC.NURSE ---
patient spouse left with patient belongings and will bring overnight bag when she comes to visit.
--- NOTE | 2025-01-05 13:34 | PM.IMCN ---
History of Present Illness Data of Consult Primary Care Provider: Allison Grider NP [facility] Medical History Back pain Constipation Bipolar 1 disorder Layne's esophagus determined by biopsy Gastroesophageal reflux disease Tubular adenoma of colon Nicotine dependence, cigarettes, uncomplicated Obesity Low vitamin D level Arthritis of right knee Right tennis elbow Family History Father No problems noted. Mother Hx of heat stroke History of colon cancer Sister Diabetes Brother No problems noted. Daughter No problems noted. Surgical History Hx of varicose vein ligation and stripping History of esophagogastroduodenoscopy (EGD) History of colonoscopy S/P cholecystectomy Social History Are you a primary career resource specialist to a significant other at home: No Do you presently have visiting nurse or other home services: No Alcohol intake: current Alcohol intake frequency: does not drink Patient Tobacco Use Status: Current everyday Tobacco user Tobacco use type: Cigarette Cigarettes Per Day: 6 Years Smoked: (onset 22yo, 1/2-1ppd x 32yrs, now 1/2ppd - 25pyh) Use of substances other than those prescribed or required for medical reasons: No Have you been hit, kicked, punched, or otherwise hurt by someone within the past year? If so, by whom?: No Are you DNR?: No Advance Directives: No Advance Directives Information Provided: Yes Advance Directives on File: No Patient : No : No Poor oral hygiene: Yes Current occupational status: disabled Current occupation: rt handed Meds Allergies Allergy/AdvReac Type Severity Reaction Status Date / Time No Known Allergies (No Known Allergy Verified 12/31/24 09:35 Allergies*) Active Medications: Current Medications Acetaminophen (Acetaminophen 325 Mg Tablet) 650 mg PO Q6H PRN PRN Reason: Pain, Mild 1-3,fever,headache Albuterol Sulfate (Albuterol Sulfate (0.083%) 2.5 Mg/3 Ml Vial.Neb) 2.5 mg INHALE ONCE PRN PRN Reason: Shortness of Breath/Wheezing Aspirin (Aspirin 325 Mg Tablet) 325 mg PO BID [facility] Buspirone HCl (Buspirone Hcl 5 Mg Tablet) 15 mg PO BID [facility] Celecoxib (Celecoxib 200 Mg Capsule) 200 mg PO BID [facility] Docusate Sodium (Docusate Sodium 100 Mg Capsule) 100 mg PO DAILY [facility] Famotidine (Famotidine 20 Mg Tablet) 40 mg PO BEDTIME [facility] Gabapentin (Gabapentin 300 Mg Capsule) 300 mg PO DAILY [facility] Hydromorphone HCl (Hydromorphone Hcl 0.5 Mg/0.5 Ml Syringe) 0.25 mg IVPUSH Q4H PRN; Protocol PRN Reason: Pain, Severe (Pain Scale 7-10) Lactated Ringer's (Lr) 1,000 mls @ 100 mls/hr IVCONT .Q10H [facility] Last Admin: 01/05/25 13:20 Dose: 100 mls/hr Lactated Ringer's (Lr) 1,000 mls @ 100 mls/hr IVCONT .Q10H [facility] Stop: 01/06/25 08:00 Cefazolin Sodium/Dextrose (Ancef) 2 gm in 50 mls @ 100 mls/hr IV POSTOP@1500 ONE Stop: 01/05/25 15:29 Magnesium Hydroxide (Milk Of Magnesia 30 Ml Oral.Susp) 30 ml PO DAILY PRN PRN Reason: Constipation Non-Formulary Medication (Melatonin) 5 mg PO BEDTIME PRN PRN Reason: insomnia Non-Formulary Medication (Simethicone [Gas Relief Extra Strength]) 125 mg PO TID-QID PRN PRN Reason: for abdominal pain Omeprazole (Omeprazole 20 Mg Capsule.Dr) 20 mg PO DAILY [facility] Ondansetron HCl (Ondansetron Hcl 4 Mg/2 Ml Vial) 4 mg IVPUSH Q8H PRN PRN Reason: Nausea and Vomiting Oxycodone HCl (Oxycodone Hcl Immed Release 5 Mg Tablet) 5 mg PO Q4H PRN PRN Reason: Pain, Moderate(Pain Scale 4-6) Oxycodone HCl (Oxycodone Hcl Er 10 Mg Tab.Er.12h) 10 mg PO BID [facility] Sodium Chloride (0.9 % Sodium Chloride Flush 3 Ml Syringe) 3 ml IVFLUSH QSHIFT [facility] Ziprasidone (Ziprasidone 80 Mg Capsule) 80 mg PO BID ULIS[facility] Zolpidem Tartrate (Zolpidem Tartrate 5 Mg Tablet) 5 mg PO BEDTIME PRN PRN Reason: Insomnia Home Medications ?Medication ?Instructions ?Recorded ?Confirmed ?Last Taken ?Type buspirone 10 mg tablet 15 mg PO BID 02/19/20 01/05/25 01/05/25 History gabapentin 300 mg capsule 300 mg PO DAILY 02/19/20 12/31/24 01/05/25 History naproxen 500 mg tablet 500 mg PO BID PRN Pain 02/19/20 12/31/24 12/29/24 History oxycodone-acetaminophen 5 mg-325 1 tab PO Q12H PRN severe pain 03/08/20 12/31/24 Unknown History mg tablet melatonin 5 mg tablet 5 mg PO BEDTIME PRN insomnia 09/21/20 12/31/24 01/03/25 History zolpidem 10 mg tablet 5 mg PO BEDTIME PRN Insomnia 09/21/20 12/31/24 01/03/25 History docusate sodium 100 mg capsule 100 mg PO DAILY 05/29/24 12/31/24 01/03/25 History famotidine 40 mg tablet 40 mg PO BEDTIME 05/29/24 12/31/24 01/03/25 History ziprasidone HCl 80 mg capsule 80 mg PO BID 05/29/24 12/31/24 01/03/25 History Physical Exam Vital Signs and Narrative: Vital Signs: Last Vital Signs Temp 97.0 F 01/05/25 13:10 Pulse 45 L 01/05/25 13:10 Resp 12 01/05/25 13:10 BP 104/60 01/05/25 13:10 Pulse Ox 97 01/05/25 13:10 O2 Del Method Room Air 01/05/25 13:10 O2 Flow Rate 6 01/05/25 11:00 BMI result Body Mass Index 36.9 Results Labs 12/07/24 11:35 12/07/24 11:35 Imaging Radiologist's Impressions: Impressions Knee X-Ray 01/05/25 11:05 IMPRESSION: Status post right total knee arthroplasty. Electronically signed by: Madhu Merchant MD 01/05/2025 11:19 AM EDT
--- NOTE | 2025-01-05 14:43 | PHA.MEDREC ---
Pharmacy Consult ? Medication Reconciliation Pharmacy has reviewed the medication reconciliation done by nursing and also spoke to pt. She has a written med list and confirmed that she takes ziprasidone 80 mg at bedtime.
[2025-01-05] MEDS: oxyCODONE HCl Immed Release 5 MG TABLET PO (14:57)
[2025-01-05] MEDS: Nicotine 21 MG PATCH.TD24 TRANSDERMA (15:01)
--- NOTE | 2025-01-05 16:55 | HO.PM.IMCN ---
History of Present Illness Data of Consult Service Date: 01/05/25 Primary Care Provider: Allison Grider NP HPI 54 year old women with hx of osteoarthritis admitted by Orthopedic surgery and is status post right TKA. Surgery was unremarkable. Patient has been able to drink without any nausea or vomiting. She does report a moderate amount of pain. Vital signs are stable. Review of Systems Review of Systems: Denies any recent fever chills or decrease in appetite respiratory denies any shortness of breath or cough cardiovascular denied chest pain gastrointestinal denies any dysphagia abdominal pain nausea vomiting or diarrhea genitourinary denies any dysuria frequency or hematuria musculoskeletal . neuropsych denies any weakness or seizures all other systems reviewed are negative [facility] Medical History Back pain Constipation Bipolar 1 disorder Layne's esophagus determined by biopsy Gastroesophageal reflux disease Tubular adenoma of colon Nicotine dependence, cigarettes, uncomplicated Obesity Low vitamin D level Arthritis of right knee Right tennis elbow Family History Father No problems noted. Mother Hx of heat stroke History of colon cancer Sister Diabetes Brother No problems noted. Daughter No problems noted. Surgical History Hx of varicose vein ligation and stripping History of esophagogastroduodenoscopy (EGD) History of colonoscopy S/P cholecystectomy Social History Household Members: Spouse Housing: House Are you a primary home care physical therapist to a significant other at home: No Do you presently have visiting nurse or other home services: No Alcohol intake: current Alcohol intake frequency: does not drink Patient Tobacco Use Status: Current everyday Tobacco user Tobacco use type: Cigarette Cigarettes Per Day: 6 Years Smoked: (onset 22yo, 1/2-1ppd x 32yrs, now 1/2ppd - 25pyh) Use of substances other than those prescribed or required for medical reasons: No Currently Displaying Signs/Symptoms of Drug Intoxication Withdrawal: No Have you been hit, kicked, punched, or otherwise hurt by someone within the past year? If so, by whom?: No Do you feel safe in your current relationship?: Yes Is there a partner from a previous relationship who is making you feel unsafe now?: No Are you made to feel afraid or neglected: No Are you DNR?: No Advance Directives: No Advance Directives Information Provided: Yes Advance Directives on File: No Do you have a plan to hurt others: No Plan Recently lost weight without trying: No Eating poorly because of decreased appetite: No Nutrition Risks: No Nutritional Risk Patient : No : No Poor oral hygiene: No Current occupational status: disabled Current occupation: rt handed Meds Allergies Allergy/AdvReac Type Severity Reaction Status Date / Time No Known Allergies (No Known Allergy Verified 12/31/24 09:35 Allergies*) Active Medications: Current Medications Acetaminophen (Acetaminophen 325 Mg Tablet) 650 mg PO Q6H PRN PRN Reason: Pain, Mild 1-3,fever,headache Albuterol Sulfate (Albuterol Sulfate (0.083%) 2.5 Mg/3 Ml Vial.Neb) 2.5 mg INHALE ONCE PRN PRN Reason: Shortness of Breath/Wheezing Aspirin (Aspirin 325 Mg Tablet) 325 mg PO BID ULISES Buspirone HCl (Buspirone Hcl 5 Mg Tablet) 15 mg PO BID ULISES Celecoxib (Celecoxib 200 Mg Capsule) 200 mg PO BID ULISES Docusate Sodium (Docusate Sodium 100 Mg Capsule) 100 mg PO DAILY ULISES Famotidine (Famotidine 20 Mg Tablet) 40 mg PO BEDTIME ULISES Gabapentin (Gabapentin 300 Mg Capsule) 300 mg PO DAILY ULISES Hydromorphone HCl (Hydromorphone Hcl 0.5 Mg/0.5 Ml Syringe) 0.25 mg IVPUSH Q4H PRN; Protocol PRN Reason: Pain, Severe (Pain Scale 7-10) Last Admin: 01/05/25 15:27 Dose: 0.25 mg Lactated Ringer's (Lr) 1,000 mls @ 100 mls/hr IVCONT .Q10H ULISES Last Admin: 01/05/25 13:20 Dose: 100 mls/hr Magnesium Hydroxide (Milk Of Magnesia 30 Ml Oral.Susp) 30 ml PO DAILY PRN PRN Reason: Constipation Melatonin (Melatonin 3 Mg Tablet) 6 mg PO BEDTIME PRN PRN Reason: insomnia Nicotine (Nicotine 21 Mg Patch.Td24) 21 mg TRANSDERMA DAILY ULISES Omeprazole (Omeprazole 20 Mg Capsule.Dr) 20 mg PO DAILY@0630 [facility] Ondansetron HCl (Ondansetron Hcl 4 Mg/2 Ml Vial) 4 mg IVPUSH Q8H PRN PRN Reason: Nausea and Vomiting Oxycodone HCl (Oxycodone Hcl Immed Release 5 Mg Tablet) 5 mg PO Q4H PRN PRN Reason: Pain, Moderate(Pain Scale 4-6) Last Admin: 01/05/25 14:57 Dose: 5 mg Oxycodone HCl (Oxycodone Hcl Er 10 Mg Tab.Er.12h) 10 mg PO BID [facility] Simethicone (Simethicone 80 Mg Tab.Chew) 120 mg PO QID PRN PRN Reason: for abdominal pain Sodium Chloride (0.9 % Sodium Chloride Flush 3 Ml Syringe) 3 ml IVFLUSH QSHIFT [facility] Last Admin: 01/05/25 14:40 Dose: Not Given Ziprasidone (Ziprasidone 80 Mg Capsule) 80 mg PO BEDTIME [facility] Zolpidem Tartrate (Zolpidem Tartrate 5 Mg Tablet) 5 mg PO BEDTIME PRN PRN Reason: Insomnia Home Medications ?Medication ?Instructions ?Recorded ?Confirmed ?Last Taken ?Type buspirone 10 mg tablet 15 mg PO BID 02/19/20 01/05/25 01/05/25 History gabapentin 300 mg capsule 300 mg PO DAILY 02/19/20 12/31/24 01/05/25 History naproxen 500 mg tablet 500 mg PO BID PRN Pain 02/19/20 12/31/24 12/29/24 History oxycodone-acetaminophen 5 mg-325 1 tab PO Q12H PRN severe pain 03/08/20 12/31/24 Unknown History mg tablet melatonin 5 mg tablet 5 mg PO BEDTIME PRN insomnia 09/21/20 12/31/24 01/03/25 History zolpidem 10 mg tablet 5 mg PO BEDTIME PRN Insomnia 09/21/20 12/31/24 01/03/25 History docusate sodium 100 mg capsule 100 mg PO DAILY 05/29/24 12/31/24 01/03/25 History famotidine 40 mg tablet 40 mg PO BEDTIME 05/29/24 12/31/24 01/03/25 History ziprasidone HCl 80 mg capsule 80 mg PO BEDTIME 05/29/24 01/05/25 01/03/25 History Physical Exam Vital Signs and Narrative: Vital Signs: Last Vital Signs Temp 97.1 F 01/05/25 15:05 Pulse 59 01/05/25 15:05 Resp 17 01/05/25 15:05 BP 112/61 01/05/25 15:05 Pulse Ox 95 01/05/25 15:05 O2 Del Method Room Air 01/05/25 15:05 O2 Flow Rate 6 01/05/25 11:00 BMI result Body Mass Index 36.9 Appearing in no acute distress head is normocephalic atraumatic eyes pupils are PERRLA sclera is anicteric mouth throat mucous membranes are intact and moist neck is supple no lymphadenopathy, no JVD noted lung sounds are clear to auscultation heart regular rate rhythm, clear S1, S2 positive bowel sounds, abdomen is soft, nontender neuro patient is alert x3, no focal deficits Surgical dressing intact, surgical incision not visualized Results Labs 12/07/24 11:35 12/07/24 11:35 Imaging Radiologist's Impressions: Impressions Knee X-Ray 01/05/25 11:05 IMPRESSION: Status post right total knee arthroplasty. Electronically signed by: Madhu Merchant MD 01/05/2025 11:19 AM EDT RP Assessment and Plan (1) Bipolar 1 disorder: Status: Acute Plan 54-year-old woman status post right total knee arthroplasty Right total knee arthroplasty Management as per surgical team Pain management Bipolar disorder Continue home medications History of Layne's esophagus Continue PPI Severe obesity. BMI 36.9 Discussed importance of weight management as this may be contributing to worsening of other comorbidities DVT prophylaxis with full-dose aspirin Full code Medical consultation complete. Will sign off
[2025-01-05] MEDS: oxyCODONE HCl ER 10 MG TAB.ER.12H PO (20:46)
[2025-01-06 03:00] VITALS: BP 129/74; PULSE 72; RESP 18; TEMP 36.7; O2SAT 97
[2025-01-06 06:18] LABS: MANUAL DIFF FLAG NO
[2025-01-06 06:25] LABS: Hematocrit 45.1 % (37.0-47.0); Hemoglobin 15.4 g/dl (12.0-16.0); Imm Gran Abs Auto 0.02 X10*3/uL (0.00-0.03); Imm Gran Pct Auto 0.3 % (0.0-0.4); Lymphocytes Absolute Auto 1.2 X10*3/uL (1.2-4.9); Mean Corpuscular HGB Conc 34.1 g/dl (31.0-35.0); Mean Corpuscular Hemoglobin 33.0 pg (27.0-33.0); Mean Corpuscular Volume 96.8 fL (80.0-98.0); NRBC Abs Auto 0.000 X10*3/uL (0.0-0.012); NRBC Pct Auto 0.0 /100WBC (0.0-0.2); Platelet Count 144 X10*3/uL (160-400); Red Blood Count 4.66 X10*6/uL (4.20-5.50); White Blood Count 7.5 X10*3/uL (4.8-10.8)
[2025-01-06 06:34] LABS: Anion Gap 13 (12-20); Blood Urea Nitrogen 11 mg/dL (9-16); Calcium 9.1 mg/dL (8.4-10.2); Carbon Dioxide 26 mmol/L (22-29); Chloride 109 mmol/L (96-108); Creatinine Clr Calc Pharmacy 82.4; Estimated Glomerular Filt Rate > 60; Potassium 4.2 mmol/L (3.3-5.1); Sodium 144 mmol/L (135-145)
[2025-01-06] MEDS: oxyCODONE HCl ER 10 MG TAB.ER.12H PO (07:32)
[2025-01-06] MEDS: Nicotine 21 MG PATCH.TD24 TRANSDERMA (07:33)
[2025-01-06] MEDS: oxyCODONE HCl Immed Release 5 MG TABLET PO (07:34)
[2025-01-06] MEDS: oxyCODONE HCl Immed Release 5 MG TABLET 10 MG PO ×3 (07:50→14:43)
[2025-01-06 08:00] VITALS: BP 144/65; PULSE 60; RESP 16; TEMP 36.6; O2SAT 97
--- NOTE | 2025-01-06 08:54 | HO.POSTANES ---
Post Anesthesia Evaluation Post Anesthesia Evaluation Date of Service: 01/06/25 Vital Signs: Vital Signs Temp Pulse Resp BP Pulse Ox O2 Del Method 01/06/25 08:00 97.9 F 60 16 144/65 H 97 Room Air 01/06/25 03:00 98.1 F 72 18 129/74 97 Room Air 01/05/25 23:00 98.7 F 62 18 135/64 97 Room Air Anesthesia: Spinal Mental Status: Awake Pain Control: Satisfactory Nausea/Vomiting: None Hydration: Adequate Anesthesia-Related Issues: No Anes. Related Issues
[2025-01-06] MEDS: Lactated Ringers 1,000 ML 100 ML IVCONT (11:21)
[2025-01-06 12:25] VITALS: BP 135/62; PULSE 65; RESP 16; TEMP 36.3; O2SAT 95
--- NOTE | 2025-01-06 15:59 | MHC.CM.PN ---
Patient lives at home w/ . Functionally independent. Has a walker to use post op. PCP Allison Grider MD No HCP. CM provided education and offered assistance. Patient declined. DP: Medically cleared for dc home w/ new [facility] services for PT/OT. transport.
[2025-01-06 16:00] VITALS: BP 159/80; PULSE 68; RESP 16; TEMP 36.2; O2SAT 100
--- NOTE | 2025-01-08 09:04 | W.PM.OPN ---
Operative Note Operative Note Date of Service: 01/05/25 Narrative: Date of Service: 01/05/25 Pre-op diagnosis: Right knee OA Post-op diagnosis: same Procedure: Right TKA Implants: [place] [employer] posterior stabilized 07/20/10ps/35a cemented Surgeon: Warren Marie MD Anesthesia: regional and spinal Was an Hazard Mitigation Officer used for this Procedure?: Yes Hazard Mitigation Officer: Gerard Rollins Estimated blood loss (mL): 25 Tourniquet time (min): 75 IV fluids (mL): 1,000 Pathology: other Condition: stable Disposition: PACU Procedure in detail: The patient was brought to the operating room and prepped and draped in standard sterile fashion. A time-out was called to identify proper site proper procedure proper surgeon and IV antibiotics were administered. 1 g of IV tranexamic acid was administered. There was a 5deg flexion contracture. I began by making a midline incision to the retinaculum and performed a medial parapatellar arthrotomy. The patella was translated laterally and the knee was flexed up. There was lateral compartment eburnation especially in the tibial plateau. There was a not loss of postero- lateral femoral condyle volume. I performed a small medial peel and resected the infrapatellar fat pad. [place]'s line was then used to drill my intramedullary femoral guide and my distal femur cut of 10 mm was made in 5 degrees of valgus while protecting the soft tissues. I then measured a # 5 femur and placed my cutting guide and made my anterior posterior and chamfer cuts protecting the soft tissues at all times. I then made my box but removing the PCL. Once I was satisfied with my cuts I turned my attention to the tibia. I removed the meniscus medially and laterally and , using an external cutting guide, in line with the tibial crest and the third ray, I made my distal tibial cut in 0 deg slope of while protecting the posterior soft tissues at all times. An extension block was used to confirm appropriate amount of bony resection. I then sized a #5 tibia and once I was satisfied that there was complete tibial coverage I placed my trial and with the trial femur in place took the knee through range of motion. I was satisfied with the extension, flexion and balance at 0, 30 and 90 degrees. There was less lateral capsular tightness then I would have expected given her pre operative valgus and a lateral pie crusting was not neccessary. I turned my attention to the patella where I removed 1 cm from the undersurface of the patella and then trialed a 35a patellar button. Again the knee was taken through range of motion I was satisfied with the tracking. I then returned to the tibia and prepared the tibia. A femoral bone plug was placed and the knee was irrigated copiously. I mixed 2 bags of [place] bone cement on the back table using 3rd gen cementation technique. I then cemented the patella, tibia and femur in standard fashion while applying axial compression and with a clamp on the patella. Once the cement was dry I removed all excess cement. I trialed different inserts until I selected a #11PS insert. The final insert was placed and a the knee was irrigated copiously and local TXA was administered. The knee was then closed with a running Quill suture, a 3 0 Vicryl and to on the skin. Patient was then placed in sterile dressing and brought to recovery room in stable condition there were no known complications.
== END 2025-01-06 16:30 | disposition home health service (06) ==
LOC: HO.SSS 11:01 → HO.S3 12:33
PROVIDERS: Nurse Practitioner; Physician Assistant; PCP Nurse Practitioner Primary Care; Visit Provider Orthopaedic Surgery
PROC: (CPT 27447; principal; 2025-01-05 08:30)
DX: M17.11 Unilateral primary osteoarthritis, right knee (principal); E55.9 Vitamin D deficiency, unspecified; K22.70 Barrett's esophagus without dysplasia; M54.9 Dorsalgia, unspecified; F31.9 Bipolar disorder, unspecified; Z79.1 Long term (current) use of non-steroidal anti-inflammatories (NSAID); Z79.899 Other long term (current) drug therapy; F17.210 Nicotine dependence, cigarettes, uncomplicated; Z98.890 Other specified postprocedural states
CPT/HCPCS: 27447; 36415; 73560; 80048; 85025; 85027; 86850; 86900; 86901; 87640; 87641; 88305; 88311; 93005; 97161; 97530; 97535; C1713; C1776; J0131; J0665; J0690; J1100; J1171; J1650; J2151; J2250; J2405; J2704; J2795; J7120

== ENCOUNTER → 2025-01-05 06:06 | Outpatient (BNV) | payer OTHER, SELFPAY | PROVIDERS: PCP Nurse Practitioner Primary Care; Visit Provider Physician Assistant | DX: Z47.1 Aftercare following joint replacement surgery (principal); Z96.651 Presence of right artificial knee joint | CPT/HCPCS: 27447; 99024; G0180 ==

== ENCOUNTER → 2025-01-05 06:06 | Outpatient (BNV) | payer OTHER, SELFPAY | PROVIDERS: PCP Nurse Practitioner Primary Care; Visit Provider Nurse Practitioner Acute Care | DX: F31.9 Bipolar disorder, unspecified (principal) | CPT/HCPCS: 99223 ==

== ENCOUNTER → 2025-01-05 10:59 | Outpatient (BNV) | payer OTHER, SELFPAY | PROVIDERS: PCP Nurse Practitioner Primary Care; Visit Provider Radiology Diagnostic Radiology | DX: Z96.651 Presence of right artificial knee joint (principal) | CPT/HCPCS: 73560 ==

== ENCOUNTER 2025-01-12 11:00 | Outpatient (AMB) | payer OTHER, SELFPAY ==
--- NOTE | 2025-01-12 11:26 | A.OFFVIS_ITS ---
Intake Visit Reasons: PO- bandage change Intake Note: Ludmila is a 54 year old female who presents today for a bandage change she is status post R TKA w/NE 01/05/25. Allergies No Known Allergies (No Known Allergies*) Allergy (Verified 01/12/25 11:37) HPI HPI PO- bandage change: Details: Ms. Tyrone Rutledge is a 54-year-old female who presents to the office today for a bandage change status post right total knee arthroplasty. She reports that the bandage began to roll off. REPLACED BY [facility] Medical History Back pain Constipation Bipolar 1 disorder Layne's esophagus determined by biopsy Gastroesophageal reflux disease Tubular adenoma of colon Nicotine dependence, cigarettes, uncomplicated Obesity Low vitamin D level Arthritis of right knee Right tennis elbow Surgical History Hx of varicose vein ligation and stripping History of esophagogastroduodenoscopy (EGD) History of colonoscopy S/P cholecystectomy Family History Father No problems noted. Mother Hx of heat stroke History of colon cancer Sister Diabetes Brother No problems noted. Daughter No problems noted. Social History Household Members: Spouse Housing: House Are you a primary director of home care hospice to a significant other at home: No Do you presently have visiting nurse or other home services: No Alcohol intake: current Alcohol intake frequency: does not drink Patient Tobacco Use Status: Current everyday Tobacco user Tobacco use type: Cigarette Cigarettes Per Day: 6 Years Smoked: (onset 22yo, 1/2-1ppd x 32yrs, now 1/2ppd - 25pyh) service: No Current occupational status: disabled Current occupation: rt handed Review of Systems Const All systems reviewed & are unremarkable except as noted in HPI and below Physical Exam Const General: cooperative, healthy appearing and no acute distress Resp Effort & Inspection: normal respiratory effort and able to speak in complete sentences Extrem Other: Right knee incision site is clean dry and intact. [place] intact. No surrounding erythema or drainage. No signs of infection. Psych Appearance: grossly normal Mental Status: mental status grossly normal Attitude: cooperative Assessment & Plan Assessment & Plan (1) Status post total right knee replacement: Code(s): Z96.651 - Presence of right artificial knee joint Category: Surgical Plan While in the office today Aquacel dressing was removed the incision site was clean dry and intact. The incision site was cleaned with ChloraPrep and a new Aquacel dressing was applied to the area. Patient will follow up at her normally scheduled follow up appointment, sooner if needed. Coding Level of Care Code Global (95998) Diagnoses Status post total right knee replacement Z96.651
== END 2025-01-12 11:37 | disposition home or self-care (01) ==
PROVIDERS: PCP Nurse Practitioner Primary Care; Visit Provider Physician Assistant
DX: Z96.651 Presence of right artificial knee joint (principal)
CPT/HCPCS: 99024

== ENCOUNTER → 2025-01-12 11:00 | Outpatient (BNVA) | payer OTHER, SELFPAY | PROVIDERS: PCP Nurse Practitioner Primary Care; Visit Provider Physician Assistant | DX: Z47.1 Aftercare following joint replacement surgery (principal); Z48.01 Encounter for change or removal of surgical wound dressing; Z96.651 Presence of right artificial knee joint | CPT/HCPCS: 99212 ==

== ENCOUNTER 2025-01-21 09:16 | Outpatient (AMB) | payer OTHER, SELFPAY ==
--- NOTE | 2025-01-21 09:27 | MHC.OFFVIS ---
Intake Visit Reasons: 2WKPO: R TKA w/NE 01/05/25 Intake Note: Ludmila is a 55 year old female who presents today post operatively after undergoing a right total knee arthroplasty, performed by Dr. Marie on 01/05/25. Today patient reports that she has pain at the posterior side of knee, her current pain level is a 7 out of 10. Patient complains of ongoing swelling in her knee. She is requesting a refill on her pain medication. Allergies No Known Allergies (No Known Allergies*) Allergy (Verified 01/21/25 09:28) Medication List - Last Reconciled 01/21/25 by Gerard Rollins PA-C acetaminophen 650 mg (2 x 325 mg) PO Q6H PRN 30 days apixaban (Eliquis) 5 mg PO BID 35 days aspirin 325 mg PO BID 42 days [bed side commode duration 99 days] buspirone 15 mg PO BID celecoxib 200 mg PO BID 30 days cholecalciferol (vitamin D3) 50 mcg PO DAILY cyanocobalamin (vitamin B-12) 1,000 mcg PO DAILY docusate sodium 100 mg PO DAILY enoxaparin 40 mg (0.4 mL) subcut Q24H 42 days famotidine 40 mg PO BEDTIME [Folding Front Wheeled walker Duration: 99 days] gabapentin 300 mg PO DAILY melatonin 5 mg PO BEDTIME PRN omeprazole 20 mg PO DAILY oxycodone 5 mg PO Q4H PRN 7 days simethicone (Gas Relief Extra Strength) 125 mg PO TID-QID PRN ziprasidone HCl 80 mg PO BEDTIME zolpidem 5 mg PO BEDTIME PRN HPI HPI 2WKPO: R TKA w/NE 01/05/25: Details: 55-year-old female returns to the office today status post right total knee arthroplasty on 01/05/[address] Marie. She is working with physical therapy at home and transition to outpatient physical therapy on 01/26/2025. She continues to take the oxycodone 5 mg and continues to have discomfort in the knee but continues to push through and work with physical therapy. She is having some pain behind the knee which extends into the calf. He was on Lovenox but as discontinued and started taking Eliquis 5 mg b.i.d.. [facility]LY [facility], [facility] Medical History Back pain Constipation Bipolar 1 disorder Layne's esophagus determined by biopsy Gastroesophageal reflux disease Tubular adenoma of colon Nicotine dependence, cigarettes, uncomplicated Obesity Low vitamin D level Arthritis of right knee Right tennis elbow Surgical History Hx of varicose vein ligation and stripping History of esophagogastroduodenoscopy (EGD) History of colonoscopy S/P cholecystectomy Family History Father No problems noted. Mother Hx of heat stroke History of colon cancer Sister Diabetes Brother No problems noted. Daughter No problems noted. Social History Household Members: Spouse Housing: House Are you a primary acute care nurse to a significant other at home: No Do you presently have visiting nurse or other home services: No Alcohol intake: current Alcohol intake frequency: does not drink Patient Tobacco Use Status: Current everyday Tobacco user Tobacco use type: Cigarette Cigarettes Per Day: 6 Years Smoked: (onset 22yo, 1/2-1ppd x 32yrs, now 1/2ppd - 25pyh) service: No Current occupational status: disabled Current occupation: rt handed Review of Systems Const All systems reviewed & are unremarkable except as noted in HPI and below Physical Exam Extrem Other: Right knee incision is clean dry and intact. No erythema or drainage from the incision. She can extend the leg with some weakness of the quad. Flexion to 85 degrees. Calf is supple with mild tenderness posteriorly. She does have some varicose veins along the medial side of the knee. Neurovascularly intact. Assessment & Plan Assessment & Plan (1) Status post total right knee replacement: Code(s): Z96.651 - Presence of right artificial knee joint Category: Surgical Plan: [place] removed today Steri-Strips applied. The patient will continue working with physical therapy to improve range of motion strength and gait training. I reminded the patient no dental work until 3 months post op and he will require antibiotics for dental prophylaxis. I did order a stat ultrasound to further evaluate the pain she is having in the right lower extremity to rule out DVT. If this is negative she needs to continue with therapy elevate and continue with Eliquis. Patient was reminded no driving until 6 weeks postop. They will return in 4 weeks for routine follow up, sooner if needed. Orders: Orders US venous duplex LE RT Today M79.89 - Other specified soft tissue disorders, R60.9 - Edema, unspecified, Z96.651 - Presence of right artificial knee joint Coding Level of Care Code Global (17829) Diagnoses Status post total right knee replacement Z96.651
--- OUTSIDE RECORDS SUMMARY | 2025-01-21 10:14 | XMS_ITS | Encounter Summary ---
Author Organization [employer] Address [address] [place] [address] Care Team Providers Care Shot Hole Shooter Name Role Phone Allison Grider Primary Care Provider [phone] Uche Dueñas PharmD Unavailable Reason for Visit * Reason Onset Date Comments Med Refill 08/13/2024 Encounter Details Date Type Department Care Team ([facility] st Contact Info) Description 08/13/2024 Telephone [facility] MEDICINE [address] [place] [address] Allison Grider ANP [address] [place] [address] Med Refill Social History Tobacco Use Types [...] to: [facility] - [address] documented in this encounter Plan of Treatment Upcoming Encounters Date Type Department Care Team ([facility] st Contact Info) Description 02/01/2025 10:00 AM EST Telemedicine [facility] MED & PEDS [address] [place] [address] Rohini Torres, RN [address] [place] [address] documented as of this encounter Goals Goal [...] documented as of this encounter Care Teams Shot Hole Shooter Relationship Specialty Start Date End Date Allison Grider ANP [address] [place] [address] PCP - General Family Medicine 04/05/20 Uche Dueñas PharmD [address] [place] [address] Pharmacist Internal Medicine 11/11/23 documented as of this encounter
--- OUTSIDE RECORDS SUMMARY | 2025-01-21 10:14 | XMS_ITS | Encounter Summary ---
Author Organization [employer] Address [address] [facility] [address] [place] [address] Care Team Providers Care Pool Table Mechanic Name Role Phone Allison Grider Primary Care Provider [phone] Uche Dueñas PharmD Unavailable [phone] Reason for Visit * Reason Onset Date Comments Med Refill 09/15/2024 Encounter Details Date Type Department Care Team ([facility] st Contact Info) Description 09/15/2024 Telephone [facility] MEDICINE [address] [place] [address] Allison Grider ANP [address] [place] [address] Med Refill Social History Tobacco Use Types [...] to: [facility] documented in this encounter Plan of Treatment Upcoming Encounters Date Type Department Care Team (Late st Contact Info) Description 02/01/2025 10:00 AM EST Telemedicine [facility] [address] [place] [address] Rohini Torres, SYMONE [address] [place] [address] documented as of this encounter Goals Goal Patient Goal Type Associated Problems Recent Progress Patient-Stated? Author Quit using tobacco (cigarettes, smokeless, etc) Tobacco Use No Uche Dueñas, Molly documented as of this encounter Visit Diagnoses Not on filedocumented in this encounter Additional Health Concerns Assessment Noted Time PHQ-9 Depression Total Score: 17 025 9:34 AM EST documented as of this encounter Care Teams Pool Table Mechanic Relationship Specialty Start Date End Date Allison Grider ANP [address] [place] [address] PCP - General Family Medicine 04/05/20 Uche Dueñas PharmD [address] [place] [address] Pharmacist Internal Medicine 11/11/23 documented as of this encounter
--- OUTSIDE RECORDS SUMMARY | 2025-01-21 10:14 | XMS_ITS | Clinical Summary ---
Author Organization [employer] Address [address] [facility] [address] [place] [address] Care Team Providers Care Academic Success Coordinator Name Role Phone Marni Yefri PEREZ Primary Care Provider [phone] Uche Dueñas PharmD Unavailable [phone] Allergies No known active allergies Medications * [...] EVERY MORNING 90 capsule 1 025 Active varenicline (Chantix) 0.5 MG tabletIndications [...] for opioid reversal. 2 each 1 Active nicotine (Nicoderm CQ) 7 MG/24HR patchIndications: Smoking trying to quit PLACE 1 PATCH ON THE SKIN ONCE A DAY AT THE SAME TIME 42 patch Active nicotine polacrilex (Nicorette) 2 MG gumIndications:Sm oking trying to quit CHEW 1 PIECE OF GUM UP TO EVERY [address] OF CIGARETTE 100 each 3 Active nicotine (Nicoderm CQ) 7 MG/24HR patchIndications: Smoking trying to quit Place 1 patch on the skin 1 (one) time each day at the same time. 42 patch 2024 Discontinued(R eorder (will not trigger notification to Pharmacy)) nicotine polacrilex (Nicorette) 2 MG gumIndications:Sm oking trying to quit Chew 1 piece up to every [address] of cigarete 100 each 3 025 2024 Discontinued(R eorder (will not trigger notification to Pharmacy)) oxyCODONE-acetami nophen (Percocet) 5-325 MG tabletIndications :Pain Take 1 tablet by mouth every 12 (twelve) hours if needed for severe pain for up to 28 days. 56 tablet 2024 Active Problems Problem Noted Date Diagnosed Date [...] with inf lammation 01/10/2023 01/10/2023 Morbid obesity ([facility]) 01/10/2023 023 Vitamin B1 deficiency 01/10/2023 01/10/2023 Vitamin B12 deficiency 01/10/2023 Bipolar 1 disorder ([facility]) 01/10/2023 Vitamin D deficiency 08/15/2022 Plantar fasciitis 05/11/2019 Shoulder pain 07/31/2018 Spasm of cervical paraspinous muscle 07/31/2018 Heel pain 07/08/2018 Bipolar disorder 06/05/2017 Osteoarthritis of knee 10/02/2016 Insomnia 07/03/2016 Post-traumatic osteoarthritis of right knee 06/16 Tear of lateral meniscus of knee 07/03/2016 Gastroesophageal reflux disease 05/31/2016 Knee pain 11/14/2012 Encounters Date Type Department Care Team Description 01/07/2025 Refill [facility] [address] [place] [address] Yefri Terrell ANP Smoking trying to quit 01/06/2025 Orders Only GENERIC EXTERNAL DATA DEPARTMENT Provider, Generic External Data 01/05/2025 Orders Only [facility] External Provider, [facility] 12/30/2024 Telephone [facility] [address] [place] [address] Yefri Terrell ANP 12/29/2024 Telephone [facility] [address] [place] [address] Yefri Terrell ANP chart prep 12/24/2024 Telephone [facility] [address] [place] [address] Yefri Terrell ANP Durable Medical Equipment 12/18/2024 Results Follow-Up [facility] [address] [place] [address] Michelle Kyle NP CBC auto differential, Hepatic Function Panel 12/18/2024 Telephone [facility] [address] [place] [address] Michelle Kyle NP 12/16/2024 10:45 AM EDT Office Visit [address] [address] Michelle Kyle NP Pre-op examination (Primary Dx) 12/16/[address] [address] Michelle Kyle NP 12/16/2024 Travel 12/15/[address] [address] Yefri Terrell ANP Durable Medical Equipment (non slip bath mat, 12 inch suction cup grab bars, commode, rollator walker with seat) 12/15/2024 Refill [facility] [address] [place] [address] Rohini Torres RN Pain 12/15/[address] [address] Yefri Terrell ANP Med Refill 12/07/[address] [address] Yefri Terrell ANP Durable Medical Equipment 12/03/2024 Travel 11/19/2024 9:15 AM EDT Office Visit [address] [address] Yefri Terrell ANP Primary osteoarthritis of right knee (Primary Dx); Smoking trying to quit 11/19/2024 Travel 11/13/[address] [address] Yefri Terrell ANP Pain 11/09/2024 9:30 AM EDT Telemedicine [facility] [address] [place] [address] Rohini Torers, SYMONE snf (current) use of opiate analgesic 11/09/2024 Refill [facility] [address] [place] [address] Rohini Torres RN 11/09/2024 Travel 11/06/[address] [address] Yefri Terrell ANP 11/04/2024 Orders Only [address] [address] Yefri Terrell ANP 10/27/2024 Telephone [facility] [address] [place] [address] Yefri Terrell ANP Appointment Request from Last 3 Months Immunizations Immunization Administration [...] Info) Description 02/01/2025 10:00 AM EST Telemedicine [facility] [address] [place] [address] Rohini Torres, RN [address] [place] [address] Health Maintenance Due Date Last Done Comments [...] Priority Date/Time Associated Diagnosis Comments BASIC METABOLIC PANEL, FASTING Routine 01/06/2025 5:45 AM EDT CBC WITH AUTO DIFFERENTIAL Routine 01/06/2025 5:45 AM EDT XR KNEE 1-2 VIEWS RIGHT Routine 01/05/2025 11:05 AM EDT GROSS AND MICROSCOPIC LEVEL 4 Routine 01/05/2025 9:43 AM EDT TYPE AND SCREEN Routine 12/31/2024 10:24 AM [...] Relevant to Health Maintenance Results * (ABNORMAL) Basic Metabolic Panel, Fasting (01/06/2025 5:45 AM EDT) Sodium 144 135 - 145 mmol/L [facility] Potassium 4.2 3.3 - 5.1 mmol/L [facility] Chloride 109(H) 96 - 108 mmol/L [facility] Carbon Dioxide 26 22 - 29 mmol/L [facility] Anion Gap 13 12 - 20 [facility] Urea Nitrogen (BUN) 11 9 - 16 mg/dL [facility] Creatinine, Serum 0.95 0.5 - 1.4 mg/dL [facility] Creatinine Clr Calc Pharmacy 82.4 [facility] Comment:Provided height and weight: 167.64 cm,103.8 kg.eGFR (calculated from the MDRD study equation) and eCrCl(calculated from the Cockcroft-Gault equation) are based ondifferent parameters and may not yield comparable results.If eCrCl result is absurd, please check patient'sheight/weight. Estimated Glomerular Filt Rate >60 [facility] Comment:Chronic Kidney Disea se: Estimated GFR < 60 mL/min/1.50v6Fstgfy Kidney Disease: Estimated GFR < 15 mL/min/1.73m2 Glucose Fasting 119(H) 60 - 99 mg/dL [facility] Comment:A fasting glucose fr om 100-125 mg/dl is considered impaired(pre-diabetes). Calcium 9.1 8.4 - 10.2 mg/dL [facility] 01/06/2025 5:45 AM EDT 01/06/2025 6:15 AM EDT us Generic External Data Provider LAB BLOOD ORDERAB LES Final Result [facility] [address] [place] [phone] * (ABNORMAL) CBC auto differential (01/06/2025 5:45 AM EDT) Only the most recent of2 resultswithin the time period is included. White Blood Count 7.5 4.8 - 10.8 X10*3/uL [facility] Red Blood Count 4.66 4.20 - 5.50 X10*6/uL [facility] Hemoglobin 15.4 12.0 - 16.0 g/dl [facility] Hematocrit 45.1 37.0 - 47.0 % [facility] Mean Corpuscular Volume 96.8 80.0 - 98.0 fL [facility] Mean Corpuscular Hemoglobin 33.0 27.0 - 33.0 pg [facility] Mean Corpuscular HGB Conc 34.1 31.0 - 35.0 g/dl [facility] Red Cell Distribution Width 13.2 11.0 - 16.0 % [facility] Platelet Count 144(L) 160 - 400 X10*3/uL [facility] Mean Platelet Volume 12.1 9.4 - 12.3 fL [facility] Neutrophils Percent Auto 73.9(H) 45 - 73 % [facility] Imm Gran Pct Auto 0.3 0.0 - 0.4 % [facility] Lymphocytes Percent Auto 15.5(L) 20 - 40 % [facility] Monocytes Percent Auto 9.7 2 - 11 % [facility] Eosinophils Percent Auto 0.3 0 - 4 % [facility] Basophils Percent Auto 0.3 0 - 2 % [facility] NRBC Pct Auto 0.0 0.0 - 0.2 /100WBC [facility] Neutrophils Absolute Auto 5.5 2.0 - 8.3 x10*3/uL [facility] Imm Gran Abs Auto 0.02 0.00 - 0.03 X10*3/uL [facility] Lymphocytes Absolute Auto 1.2 1.2 - 4.9 X10*3/uL [facility] Monocytes Absolute Auto 0.7 0.1 - 1.2 X10*3/uL [facility] Eosinophils Absolute Auto 0.0 0.0 - 0.4 X10*3/uL [facility] Basophils Absolute Auto 0.0 0.0 - 0.2 X10*3/uL [facility] NRBC Abs Auto 0.000 0.0 - 0.012 X10*3/uL [facility] 01/06/2025 5:45 AM EDT 01/06/2025 6:15 AM EDT us Generic External Data Provider LAB BLOOD ORDERAB LES Final Result [facility] [address] [place] [phone] * XR Knee 1-2 Views Right (01/05/2025 11:05 AM EDT) Anatomical Region Laterality Modality Lower Extremities, Knee Right Radiogra phic Imaging 01/05/2025 11:0 5 AM EDT Narrative 01/05/2025 11:22 AM EDT [address] [address] XRay Report Signed Patient: Ludmila Ball MR#: [id number] : 1970 Acct:[id number] Age/Sex: 54 / F ADM Date: 01/05/25 Loc: HO.[facility] Attending Dr: Warren Marie MD Ordering Physician: Gerard Rollins PA-C Date of Service: 01/05/25 Procedure(s): XR knee RT 2V Accession Number(s): [id number] cc: Gerard Rollins PA-C; YEFRI TERRELL NP Reason for Exam: rt tka EXAMINATION: XR KNEE 1-2 VIEWS RIGHT HISTORY: RT TKA COMPARISON: Comparison is made with the prior examination dated 12/31/2024. FINDINGS: AP and lateral portable views of the right knee are submitted from the operating room at 10:58 AM. The patient is status post total knee arthroplasty. The orthopedic elements are in anatomic alignment. Postoperative changes are noted in the soft tissues. XR/XR knee RT 2V IMPRESSION: Status post right total knee arthroplasty. Electronically signed by: Madhu Merchant MD 01/05/2025 11:19 AM EDT Dictated By: Madhu Merchant MD Signed By: <Electronically signed by Madhu Merchant MD in OV> 01/05/25 1119 DD/ 1105 TD/TT: 01/05/25 1115 Honing Machine Try Out Setter: Procedure Note Donotuseinterpreter, Image - 01/05/[address] [address] XRay Report Signed Patient: Ludmila Ball EMR#: [id number] : 1970Acct:[id number] Age/Sex: 54 / FADM Date: 01/05/25 Loc: HO.[facility] Attending Dr: Warren Marie MD Ordering Physician: Gerard Rollins PA-C Date of Service: 01/05/25 Procedure(s): XR knee RT 2V Accession Number(s): [id number] cc: Gerard Rollins PA-C; YEFRI TERRELL NP Reason for Exam: rt tka EXAMINATION: XR KNEE 1-2 VIEWS RIGHT HISTORY: RT TKA COMPARISON: Comparison is made with the prior examination dated 12/31/2024. FINDINGS: AP and lateral portable views of the right knee are submitted from the operating room at 10:58 AM. The patient is status post total knee arthroplasty. The orthopedic elements are in anatomic alignment. Postoperative changes are noted in the soft tissues. XR/XR knee RT 2V IMPRESSION: Status post right total knee arthroplasty. Electronically signed by: Madhu Merchant MD 01/05/2025 11:19 AM EDT Dictated By: Madhu Merchant MD Signed By: <Electronically signed by Madhu Merchant MD in OV> 01/05/25 1119 DD/ 1105 TD/TT: 01/05/25 1115 Honing Machine Try Out Setter: [facility] External Provider IMG XR PROCEDURES Edited Result - Final * Gross and Microscopic Level 4 (01/05/2025 9:43 AM EDT) 01/05/2025 9:43 AM EDT 01/05/2025 11:46 AM EDT [facility] - 01/07/2025 3:19 PM EDT ----- ------- Name: Ludmila Ball Age/Sex: 54/F : 1970 [id number]#: [id number] Attend Dr: Warren Marie MD Re01/05/25 Status: [facility] Location: [facility] Disch: ----- ------- SPEC : [id number] RECD: 01/05/25 STATUS: BRAD VALVERDE NUM: [id number] YAMILET: 01/05/[address] [facility] [address]: Warren Marie MD ENTERED: 01/05/25 SP TYPE: Surgical OTHR DR: YEFRI TERRELL DOBIE WORKER ORDERED: Gross Micro L4, Decal Diagnosis Right knee, arthroplasty: Bone and cartilage with degenerative and regenerative changes (osteoarthritis). Clinical History Unilateral osteoarthritis, right knee Microscopic Description Microscopic sections reviewed. Material Received Bone right knee Gross Description Received in formalin labeled bone right knee are multiple portions of cortical and cancellous bone, including the tibial plate and femoral condyles, forming an aggregate measuring 11.5 x 9.7 x 2.5 cm. Also received is a crescent shaped portion of yellow whiteside cartilaginous tissue measuring 4.7 x 1.5 x 0.8 cm and 2 fragments of rubbery, yellow pink fibrofatty tissue together measuring 5.0 x 3.9 x 2.5 cm. The cartilaginous surfaces are pink white and smooth with areas of red-pink erosion occupying approximately 20% of the cartilaginous surfaces. The marrow surface is yellow pink and firm. Bid Analyst sections are submitted for microscopic examination, following decalcification, 6 pieces in cassette A1. ([facility]) IHC S/NG Disclaimer NOTE: Unless otherwise stated, all tissue is formalin-fixed and paraffin-embedded. Some or all of the immunohistochemical tests reported herein may have been developed and their performance characteristics determined by [facility]. They have not been cleared or approved by the U.S. Food and Drug Administration (FDA). However, the FDA has determined that such clearance or approval is not necessary. This laboratory is certified under the Clinical Laboratory Improvement Amendments of 1988 (CLIA) as qualified to perform high complexity clinical laboratory testing. CONTINUED ON NEXT PAGE ----- ------- Name: Tyrone RutledgeLudmila Lima Age/Sex: 54/F : 1970 Unit#: [id number] Attend Dr: Warren Marie MD Re01/05/25 Status: [facility] Location: [facility] Disch: ----- ------- SPEC : [id number] RECD: 01/05/25 STATUS: BRAD VALVERDE NUM: [id number] YAMILET: 01/05/[address] [facility] [address]: Warren Marie MD ENTERED: 01/05/25 SP TYPE: Surgical OTHR DR: YEFRI TERRELL NP ORDERED: Gross Mayank L4, Decal Copies To: Warren Marie MD [facility] [address] [place] [address] [address] [place] [address] YEFRI TERRELL NP [address] [address] ----- ------- Signed (signature on file) Saravanan Walsh MD 01/07/25 1519 ----- ------- END OF REPORT Generic External Data Provider LAB CYTOLOGY EFREM CAMARENA Final Result Performing Organization Address [facility] de Phone Number [facility] [address] [place] [phone] * Type and screen (12/31/2024 10:24 AM EDT) Blood Type ON [facility] Antibody Screen NEGATIVE [facility] 12/31/2024 10:2 4 AM EDT 12/31/2024 10:51 AM EDT Narrative [facility] - 12/31/2024 11:39 AM EDT Spec expiration changed by BARTOLOME on 12/31/24Reason: PAT SSSWITNESSED BY ANAING:Call Blood Bank (ext. [phone]) to band patient on admission.Type and Screen in effect until 2300 on 01/05/2025 Generic External Data Provider LAB BLOOD BANK TE ST ORDERABLES Final Result Performing Organization Address [facility]/ZIP Co de Phone Number [facility] [address] [place] [phone] * ECG 12 lead (12/18/2024 10:03 AM EDT) Narrative Michelle Kyle, MEGAN - 12/18/2024 10:03 AM EDT HR [address]. [address] changes us Michelle Kyle DOBIE WORKER ECG ORDERABLES Final Result * Slide Review (12/17/2024 2:05 PM EDT) Slide Review VERIFIED [facility] 12/17/2024 2:05 PM EDT 12/17/2024 4:05 PM EDT us Michelle Kyle DOBIE WORKER LAB BLOOD ORDERABLES Final Resu lt Performing Organization Address City/[facility]/ZIP Co de Phone Number [facility] [address] [place] [address] [phone] * TSH W/Reflex to FT4 (12/17/2024 2:05 PM EDT) TSH reflex Free T4 1.22 0.32 - 4.0 uIU/mL [facility] Blood Venous blood specimen / Unknown 12/17/2024 2:05 PM EDT 12/17/2024 4:11 PM EDT Yefri Terrell CHRIS LAB BLOOD ORDERABLES Final Resul t Performing Organization Address City/[facility]/ZIP Co de Phone Number [facility] [address] [place] [phone] * Hemoglobin A1c (12/17/2024 2:05 PM EDT) Hemoglobin A1c 5.3 <6.0 % [facility] Comment:Hemoglobin A1C Refer ence Range Adults: 4.8 - 6.0 % Non diabetic: < 6.0 % Goal: < 7.0 %Additional Action Suggested: > 8.0 %Note: Hemoglobin A1c results are invalid for patients with abnormal amounts of HbF. Blood transfusions may impact the HbA1c concentration in the patient sample. Estimated Average Glucose 105 mg/dL [facility] Comment:eAG = Estimated ave rage glucose which is %A1C expressed asaverage glucose, using the formula of the Q6P-IckgpyxZixpanh Glucose study (ADAG), Diabetes Care, Vol.31,#8,2007 Blood Venous blood specimen / Unknown 12/17/2024 2:05 PM EDT 12/17/2024 4:05 PM EDT Yefri Terrell ANP LAB BLOOD ORDERABLES Final Resul t Performing Organization Address City/[facility]/ZIP Co de Phone Number [facility] [address] [place] [phone] * Hepatic Function Panel (12/17/2024 2:05 PM EDT) Bilirubin, Direct 0.2 0.0 - 0.5 mg/dL [facility] Blood Venous blood specimen / Unknown 12/17/2024 2:05 PM EDT 12/17/2024 4:11 PM EDT Michelle Kyle DOBIE WORKER LAB BLOOD ORDERABLES Final Resu lt Performing Organization Address [facility] Co de Phone Number [facility] [address] [place] [phone] * (ABNORMAL) Lipid Panel, Standard (12/17/2024 2:05 PM EDT) Triglycerides 70 <150 mg/dL [facility] Comment:Desirable Triglyceri de: less than 150 mg/dLBorderline High Triglyceride 150-199 mg/dLHigh Triglyceride: 200-499 mg/dLVery High Triglyceride: greater than or equal to 5OO mg/dL Cholesterol 206(H) <200 mg/dL [facility] Comment:Desirable Cholestero l: less than 200 mg/dLBorderline High Cholesterol: 200-239 mg/dLHigh Cholesterol: greater than 239 mg/dL LDL Cholesterol Calculated 119(H) <100 mg/dL [facility] Comment:Desirable LDL: less than 100 [...] EDT 12/17/2024 4:11 PM EDT Yefri Terrell [facility] LAB BLOOD ORDERABLES Final Resul t [facility] [address], [place] [phone] * (ABNORMAL) Comprehensive Metabolic Panel (12/17/2024 2:05 PM EDT) Sodium 140 135 - 145 mmol/L [facility] Potassium 4.2 3.3 - 5.1 mmol/L [facility] Chloride 106 96 - 108 mmol/L [facility] Carbon Dioxide 27 22 - 29 mmol/L [facility] Anion Gap 11(L) 12 - 20 [facility] Urea Nitrogen (BUN) 11 9 - 16 mg/dL [facility] Creatinine, Serum 0.91 0.5 - 1.4 mg/dL [facility] Estimated Glomerular Filt Rate >60 [facility] Comment:Chronic Kidney Disea se: Estimated GFR < 60 mL/min/1.02g2Lwzydl Kidney Disease: Estimated GFR < 15 mL/min/1.73m2 Glucose 125(H) 60 - 115 mg/dL [facility] Calcium 9.0 8.4 - 10.2 mg/dL [facility] Bilirubin, Total 0.5 0.0 - 1.0 mg/dL [facility] Aspartate Amino Transferase 24 5 - 31 U/L [facility] Alanine Aminotransferase 12 0 - 31 U/L [facility] Total Protein 7.2 6.5 - 8.0 g/dL [facility] Albumin Level 4.4 3.5 - 5.0 g/dL [facility] Alkaline Phosphatase 89 39 - 117 U/L [facility] Blood Venous blood specimen / Unknown 12/17/2024 2:05 PM EDT 12/17/2024 4:11 PM EDT us Yefri Marni ANP LAB BLOOD ORDERABLES Final Resul t Performing Organization Address City/[facility] Co de Phone Number [facility] [address] [place] [phone] * (ABNORMAL) CBC (12/07/2024 11:35 AM EDT) White Blood Count 5.4 4.8 - 10.8 X10*3/uL [facility] Red Blood Count 5.00 4.20 - 5.50 X10*6/uL [facility] Hemoglobin 16.2(H) 12.0 - 16.0 g/dl [facility] Hematocrit 48.3(H) 37.0 - 47.0 % [facility] Mean Corpuscular Volume 96.6 80.0 - 98.0 fL [facility] Mean Corpuscular Hemoglobin 32.4 27.0 - 33.0 pg [facility] Mean Corpuscular HGB Conc 33.5 31.0 - 35.0 g/dl [facility] Red Cell Distribution Width 13.6 11.0 - 16.0 % [facility] Platelet Count 164 160 - 400 X10*3/uL [facility] Mean Platelet Volume 11.9 9.4 - 12.3 fL [facility] NRBC Pct Auto 0.0 0.0 - 0.2 /100WBC [facility] NRBC Abs Auto 0.000 0.0 - 0.012 X10*3/uL [facility] 12/07/2024 11:3 5 AM EDT 12/07/2024 11:35 AM EDT us Generic External Data Provider LAB BLOOD ORDERAB LES Final Result [facility] [address] [place] [phone] * (ABNORMAL) Basic Metabolic Panel (12/07/2024 11:35 AM EDT) Sodium 140 135 - 145 mmol/L [facility] Potassium 4.4 3.3 - 5.1 mmol/L [facility] Chloride 107 96 - 108 mmol/L [facility] Carbon Dioxide 27 22 - 29 mmol/L [facility] Anion Gap 10(L) 12 - 20 [facility] Urea Nitrogen (BUN) 9 9 - 16 mg/dL [facility] Creatinine, Serum 0.87 0.5 - 1.4 mg/dL [facility] Creatinine Clr Calc Pharmacy 89.9 [facility] Comment:Provided height and weight: 167.64 cm,103.873 kg.eGFR (calculated from the MDRD study equation) and eCrCl(calculated from the Cockcroft-Gault equation) are based ondifferent parameters and may not yield comparable results.If eCrCl result is absurd, please check patient'sheight/weight. Estimated Glomerular Filt Rate >60 [facility] Comment:Chronic Kidney Disea se: Estimated GFR < 60 mL/min/1.93s1Ouijco Kidney Disease: Estimated GFR < 15 mL/min/1.73m2 Glucose 97 60 - 115 mg/dL [facility] Calcium 9.5 8.4 - 10.2 mg/dL [facility] 12/07/2024 11:3 5 AM EDT 12/07/2024 11:35 AM EDT us Generic External Data Provider LAB BLOOD ORDERAB LES Final Result Performing Organization Address [facility]/ZIP Co de Phone Number [facility] [address] [place] [phone] * MRSA Nasal Screen (12/07/2024 10:40 AM EDT) MRSA Nasal PCR NEGATIVE Negative [facility] SA Nasal PCR NEGATIVE Negative [facility] MRSA Interpretation SEE NOTE [facility] Comment:MRSA target DNA not detected; SA target DNA not detected.A MRSA NEGATIVE, SA NEGATIVE test result does not precludeMRSA or SA nasal colonization. 12/07/2024 10:4 0 AM EDT 12/07/2024 11:04 AM EDT us Generic External Data Provider LAB MICROBIOLOGY - GENERAL ORDERABLES Final Result Performing Organization Address City/State/[facility] Co de Phone Number [facility] [address] [place] [phone] * CT Lung Screening Low dose (11/07/2024 1:14 PM EDT) Anatomical Region Laterality Modality Lung Computed Tomogra phy 11/07/2024 1:14 PM EDT Narrative 11/07/2024 1:15 PM EDT [address] [address] [address] Scan Report Signed Patient: Ludmila Hansen MR#: [id number] : 1970 Acct:[id number] Age/Sex: 54 / F ADM Date: 11/06/24 Loc: HO.CT Attending Dr: Ginette Hollis PA-C Ordering Physician: Ginette Hollis PA-C Date of Service: 11/06/24 Procedure(s): CT lung screening Accession Number(s): [id number] cc: Ginette Hollis PA-C; YEFRI TERRELL NP Report Number: [id number]: Total DLP = 76.00 mGy-cm CLINICAL HISTORY: [...] 11/07/24 1315 DD/ 1314 TD/TT: 11/07/24 1314 Honing Machine Try Out Setter: Procedure Note Donotuseinterpreter, Image - 11/07/[address] [place] [address] [address] Scan Report Signed Patient: Ludmila Hansen EMR#: [id number] : 1970Acct:[id number] Age/Sex: 54 / FADM Date: 11/06/24 Loc: HO.CT Attending Dr: Ginette Hollis PA-C Ordering Physician: Ginette Hollis PA-C Date of Service: 11/06/24 Procedure(s): CT lung screening Accession Number(s): [id number] cc: Ginette Hollis PA-C; YEFRI TERRELL NP Report Number: [id number]: Total DLP = 76.00 mGy-cm CLINICAL HISTORY: [...] 11/07/24 1315 DD/ 1314 TD/TT: 11/07/24 1314 Honing Machine Try Out Setter: [facility] External Provider IMG CT PROCEDURES Edited Result - Final * BI Mammogram Screening Tomosynthesis Bilateral (11/04/2024 10:15 AM EDT) Anatomical Region Laterality Modality Breast Bilateral Mammography 11/04/2024 10:1 5 AM EDT Narrative 11/05/2024 4:57 PM EDT [address] [place] [address] Mammography Report Signed Patient: Ludmila Hansen MR#: [id number] : 1970 Acct:[id number] Age/Sex: 54 / F ADM Date: 11/04/24 Loc: HO.MAMMO Attending Dr: Yefri Terrell NP Ordering Physician: YEFRI TERRELL NP Results: 1Negative Date of Service: 11/04/24 Follow Up: 1 Year From Orig inal Mammogram Procedure(s): MM tomosynthesis screening BI Accession Number(s): [id number] cc: YEFRI TERRELL NP EXAMINATION: MM SCREENING [...] 11/05/24 1654 DD/ 1015 TD/TT: 11/04/24 1035 Honing Machine Try Out Setter: Procedure Note Donotuseinterpreter, Image - 11/05/[address] [place] [address] Mammography Report Signed Patient: Ludmila Hansen EMR#: [id number] : 1970Acct:[id number] Age/Sex: 54 / FADM Date: 11/04/24 Loc: HO.MAMMO Attending Dr: Yefri Terrell DOBIE WORKER Ordering Physician: YEFRI TERRELL NPResults: 1Negative Date of Service: 11/04/24Follow Up: 1 Year From Orig inal Mammogram Procedure(s): MM tomosynthesis screening BI Accession Number(s): [id number] cc: YEFRI TERRELL NP EXAMINATION: MM SCREENING [...] 11/05/24 1654 DD/ 1015 TD/TT: 11/04/24 1035 Honing Machine Try Out Setter: Yefri Terrell ANP IMG BI PROCEDURES Final Result * Thinprep TIS PAP And HPV mRNA E6/E7 With Reflex To HPV 16,18/45 (09/27/2022 12:00 AM EDT) HPV nRNA E6/E7 [facility] SOURCE: SEE NOTE [facility] Comment:None given Report Status: [facility] Clinical Information: SEE NOTE [facility] Comment:None given LMP: SEE NOTE [facility] Comment:NONE GIVEN Prev. PAP: SEE NOTE [facility] Comment:NONE GIVEN Prev. BX: SEE NOTE [facility] Comment:NONE GIVEN Statement Of Adequacy: SEE NOTE [facility] Comment:Satisfactory for karen luation.Endocervical/transformation zone componentpresent. General Categorization: [facility] Interpretation/Result: SEE NOTE [facility] Comment:Cytology Results: Ne gative for intraepitheliallesion or malignancy. Cytology Comment [facility] Psychological Aide: SEE NOTE [facility] Comment:EXJ, CT(ASCP)CT Scre ening Location: [place] [address] Review Psychological Aide: [facility] Pathologist [facility] PAP Infection [facility] 09/27/2022 09/27/2022 Yefri [facility] PATHOLOGY ORDERABLES Final R esult [facility] [address] [place] [address] [phone] * Colonoscopy (09/05/2017) Colonoscopy Normal Normal 09/05/2017 Historical Provider HEALTH MAINTENANCE Final Result from Last 3 Months or Most Recently Relevant to Health Maintenance Insurance [employer] < 65 [place] [id number] Care Teams Academic Success Coordinator Relationship Specialty Start Date End Date Yefri Terrell ANP [address] [place] [address] PCP - General Family Medicine 04/05/20 Uche Dueñas, Molly [address] [place], [place] Pharmacist Internal Medicine 11/11/23
--- OUTSIDE RECORDS SUMMARY | 2025-01-21 10:14 | XMS_ITS | Encounter Summary ---
Author Organization [employer] Address 75 [facility] 7t [place] [address] Care Team Providers Care Sr. Director Name Role Phone Allison Grider Primary Care Provider [phone] Uche Dueñas PharmD Unavailable [phone] Reason for Visit * Reason Onset Date Comments Med Refill 10/22/2022 Encounter Details Date Type Department Care Team (Late Contact Info) Description 10/22/2022 Telephone [facility] MEDICINE [address] [place] [address] Allison Grider ANP [address] [place] [address] Med Refill Social History Tobacco Use Types [...] Info) Description 02/01/2025 10:00 AM EST Telemedicine [facility] MED & PEDS [address] [place] [address] Rohini Torres, RN [address] [place] [address] documented as of this encounter Visit Diagnoses Not on filedocumented in this encounter Additional Health Concerns Assessment Noted Time PHQ-9 Depression Total Score: 13 023 1:20 PM EDT documented as of this encounter Care Teams Sr. Director Relationship Specialty Start Date End Date Allison Grider, CHRIS [address] [place] [address] PCP - General Family Medicine 04/05/20 Uche Dueñas, Molly [address] [place] [address] Pharmacist Internal Medicine 11/11/23 documented as of this encounter
--- OUTSIDE RECORDS SUMMARY | 2025-01-21 10:14 | XMS_ITS | Encounter Summary ---
Author Organization [employer] Address 75 [facility] 7t [place] [address] Care Team Providers Care Wreath And Garland Maker Name Role Phone Allison Grider Primary Care Provider [phone] Uche Dueñas PharmD Unavailable [phone] Reason for Visit * Reason Onset Date Comments Med Refill 07/20/2022 Encounter Details Date Type Department Care Team (Late st Contact Info) Description 07/20/2022 Telephone [facility] MEDICINE [address] [place] [address] Allison Grider ANP [address] [place] [address] Med Refill Social History Tobacco Use Types [...] Info) Description 02/01/2025 10:00 AM EST Telemedicine [facility] MED & PEDS [address] [place], [place] [phone] Rohini Torres, SYMONE [address] [place] [address] documented as of this encounter Visit Diagnoses Not on filedocumented in this encounter Care Teams Wreath And Garland Maker Relationship Specialty Start Date End Date Allison Grider ANP [address] [place] [address] PCP - General Family Medicine 04/05/20 Uche Dueñas, Molly [address] [place] [address] Pharmacist Internal Medicine 11/11/23 documented as of this encounter
--- OUTSIDE RECORDS SUMMARY | 2025-01-21 10:14 | XMS_ITS | Encounter Summary ---
Author Organization [employer] Address 75 [facility] 7t [place] [address] Care Team Providers Care Pipe Caulker Name Role Phone Allison Grider Primary Care Provider [phone] Uche Dueñas PharmD Unavailable [phone] Reason for Visit * Reason Onset Date Comments Med Refill 12/15/2024 Encounter Details Date Type Department Care Team ([facility] st Contact Info) Description 12/15/2024 Telephone [facility] MEDICINE [address] [place] [address] Allison Grider ANP [address] [place] [address] Med Refill Social History Tobacco Use Types [...] sent to: [facility] documented in this encounter Plan of Treatment Upcoming Encounters Date Type Department Care Team (Late st Contact Info) Description 02/01/2025 10:00 AM EST Telemedicine [facility] MED & PEDS [address] [place] [address] Rohini Torres, RN [address] [place] [address] documented as of this encounter Goals Goal Patient Goal Type Associated Problems Recent Progress Patient-Stated? Author Quit using tobacco (cigarettes, smokeless, etc) Tobacco Use No Uche Dueñas, Molly documented as of this encounter Visit Diagnoses Not on filedocumented in this encounter Additional Health Concerns Assessment Noted Time PHQ-9 Depression Total Score: 17 025 9:34 AM EST documented as of this encounter Care Teams Pipe Caulker Relationship Specialty Start Date End Date Allison Grider ANP [address] [place] [address] PCP - General Family Medicine 04/05/20 Uche Dueñas PharmD [address] [place] [address] Pharmacist Internal Medicine 11/11/23 documented as of this encounter
--- OUTSIDE RECORDS SUMMARY | 2025-01-21 10:14 | XMS_ITS | Encounter Summary ---
Author Organization [employer] Address [address] [facility] [address] 7t [place] [address] Care Team Providers Care Employment Manager Name Role Phone Allison Grider ANP Primary Care Provider [phone] Uche Dueñas PharmD Unavailable [phone] Encounter Details Date Type Department Care Team ([facility] st Contact Info) Description 11/06/2024 Abstract [facility] MEDICINE [address] [place] [address] Allison Grider ANP [address] [place] [address] Social History Tobacco Use Types Packs/Day Years [...] Upcoming Encounters Date Type Department Care Team ([facility] st Contact Info) Description 02/01/2025 10:00 AM EST Telemedicine [facility] MED & PEDS [address] [place] [address] Rohini Torres, RN [address] [place] [address] documented as of this encounter Goals Goal Patient Goal Type Associated Problems Recent Progress Patient-Stated? Author Quit using tobacco (cigarettes, smokeless, etc) Tobacco Use No Uche Dueñas PharmD documented as of this encounter Visit Diagnoses Not on filedocumented in this encounter Additional Health Concerns Assessment Noted Time PHQ-9 Depression Total Score: 17 025 9:34 AM EST documented as of this encounter Care Teams Employment Manager Relationship Specialty Start Date End Date Allison Grider ANP [address] [place] [address] PCP - General Family Medicine 04/05/20 Uche Dueñas, Molly [address] [place] [address] Pharmacist Internal Medicine 11/11/23 documented as of this encounter
--- OUTSIDE RECORDS SUMMARY | 2025-01-21 10:14 | XMS_ITS | Encounter Summary ---
Author Organization [employer] Address 75 [facility] 7t [place] [address] Care Team Providers Care Transmission Line Engineer Name Role Phone Allison Grider Primary Care Provider [phone] Uche Dueñas PharmD Unavailable [phone] Reason for Visit * Reason Onset Date Comments Med Refill 11/22/2022 Encounter Details Date Type Department Care Team (Late st Contact Info) Description 11/22/2022 Telephone [facility] MEDICINE [address] [place] [address] Allison Grider ANP [address] [place] [address] Med Refill Social History Tobacco Use Types [...] Info) Description 02/01/2025 10:00 AM EST Telemedicine [facility] MED & PEDS [address] [place] [address] Rohini Torres, RN [address] [place] [address] documented as of this encounter Visit Diagnoses Not on filedocumented in this encounter Additional Health Concerns Assessment Noted Time PHQ-9 Depression Total Score: 13 023 1:20 PM EDT documented as of this encounter Care Teams Transmission Line Engineer Relationship Specialty Start Date End Date Allison Grider, CHRIS [address] [place] [address] PCP - General Family Medicine 04/05/20 Uche Dueñas, CatarinoD [address] [place] [address] Pharmacist Internal Medicine 11/11/23 documented as of this encounter
--- OUTSIDE RECORDS SUMMARY | 2025-01-21 10:14 | XMS_ITS | Encounter Summary ---
Author Organization [employer] Address 75 [facility] 7t [place] [address] Care Team Providers Care Trench Pipe Layer Helper Name Role Phone Allison Grider Primary Care Provider [phone] Uche Dueñas PharmD Unavailable [phone] Reason for Visit * Reason Onset Date Comments Med Refill 02/17/2024 Encounter Details Date Type Department Care Team ([facility] st Contact Info) Description 02/17/2024 Telephone [facility] MEDICINE [address] [place], [place] [phone] Allison Grider ANP [address] [place] [address] Med Refill Social History Tobacco Use Types [...] 02/01/2025 10:00 AM EST Telemedicine [facility] MED & PEDS [address] [place] [address] Rohini Torres, SYMONE [address] [place] [address] documented as of this encounter Goals Goal [...] documented as of this encounter Care Teams Trench Pipe Layer Helper Relationship Specialty Start Date End Date Allison Grider ANP [address] [place] [address] PCP - General Family Medicine 04/05/20 Uche Dueñas, Molly [address] [place] [address] Pharmacist Internal Medicine 11/11/23 documented as of this encounter
--- OUTSIDE RECORDS SUMMARY | 2025-01-21 10:14 | XMS_ITS | Encounter Summary ---
Author Organization [employer] Address 75 [facility] 7t [place] [address] Care Team Providers Care Engraver Apprentice Decorative Name Role Phone Allison Grider Primary Care Provider [phone] Uche Dueñas PharmD Unavailable [phone] Reason for Visit * Reason Onset Date Comments Med Refill 12/18/2023 Encounter Details Date Type Department Care Team ([facility] st Contact Info) Description 12/18/[address] [facility] MEDICINE [address] [place], [place] [phone] Allison Grider ANP [address] [place] [address] Med Refill Social History Tobacco Use Types [...] sent to: [facility] [address] documented in this encounter Plan of Treatment Upcoming Encounters Date Type Department Care Team ([facility] Contact Info) Description 02/01/2025 10:00 AM EST Telemedicine [facility] MED & PEDS [address] [place] [address] Rohini Torres, RN [address] [place] [address] documented as of this encounter Goals Goal [...] documented as of this encounter Care Teams Engraver Apprentice Decorative Relationship Specialty Start Date End Date Allison Grider ANP [address] [place] [address] PCP - General Family Medicine 04/05/20 Uche Dueñas, CatarinoD [address] [place] [address] Pharmacist Internal Medicine 11/11/23 documented as of this encounter
--- OUTSIDE RECORDS SUMMARY | 2025-01-21 10:14 | XMS_ITS | Encounter Summary ---
Author Organization [employer] Address 75 [facility] 7t [place] [address] Care Team Providers Care Business Librarian Name Role Phone Marni Allison PEREZ Primary Care Provider [phone] Uche Dueñas PharmD Unavailable [phone] Encounter Details Date Type Department Care Team (Late st Contact Info) Description 12/18/2024 Results Follow-Up [facility] MEDICINE 230 [place] [address] Michelle Kyle NP [address] [place] [address] CBC auto differential, Hepatic Function Panel Social [...] Info) Description 02/01/2025 10:00 AM EST Telemedicine [facility] MED & PEDS [address] [place] [address] Rohini Torres, RN [address] [place] [address] documented as of this encounter Goals Goal Patient Goal Type Associated Problems Recent Progress Patient-Stated? Author Quit using tobacco (cigarettes, smokeless, etc) Tobacco Use No Uche Dueñas PharmD documented as of this encounter Visit Diagnoses Not on filedocumented in this encounter Additional Health Concerns Assessment Noted Time PHQ-9 Depression Total Score: 17 025 9:34 AM EST documented as of this encounter Care Teams Business Librarian Relationship Specialty Start Date End Date Allison Grider ANP [address] [place], [place] [phone] PCP - General Family Medicine 04/05/20 Uche Dueñas PharmD [address] [place], [place] [phone] Pharmacist Internal Medicine 11/11/23 documented as of this encounter
--- OUTSIDE RECORDS SUMMARY | 2025-01-21 10:14 | XMS_ITS | Encounter Summary ---
Author Organization [employer] Address 75 [facility] 7t [place] [address] Care Team Providers Care Senior Java Programmer Name Role Phone Allison Grider Primary Care Provider [phone] Uche Dueñas PharmD Unavailable Encounter Details Date Type Department Care Team (Late st Contact Info) Description 03/09/2022 Orders Only [facility] MED & PEDS [address] [place] [address] Allison Grider ANP [address] [place] [address] Cervical lymphadenopathy (Primary Dx) Social History Tobacco [...] Info) Description 02/01/2025 10:00 AM EST Telemedicine [facility] MED & PEDS [address] [place] [address] Rohini Torres, RN [address] [place] [address] Scheduled Orders Name Type Priority Associated Diagnoses Orde r Schedule US Cervical Lymph Node Imaging Routine Cervical lymphadenopathy Expected: 09/07/2022, Expires: 03/09/2023 documented as of this encounter Visit Diagnoses Diagnosis Cervical lymphadenopathy- Primary Enlargement of lymph nodes documented in this encounter Care Teams Senior Java Programmer Relationship Specialty Start Date End Date Allison Grider ANP [address] [place] [address] PCP - General Family Medicine 04/05/20 Uche Dueñas, CatarinoD [address] [place] [address] Pharmacist Internal Medicine 11/11/23 documented as of this encounter
--- OUTSIDE RECORDS SUMMARY | 2025-01-21 10:14 | XMS_ITS | Encounter Summary ---
Author Organization [employer] Address 75 [facility] 7t [place] [address] Care Team Providers Care Set Up Mechanic Stamping Machines Name Role Phone Allison Grider Primary Care Provider [phone] Uche Dueñas PharmD Unavailable [phone] Reason for Visit * Reason Onset Date Comments Med Refill 07/16/2024 Encounter Details Date Type Department Care Team ([facility] st Contact Info) Description 07/16/2024 Telephone [facility] MEDICINE [address] [place] [address] Allison Grider ANP [address] [place] [address] Med Refill Social History Tobacco Use Types [...] to: [facility] - [address] documented in this encounter Plan of Treatment Upcoming Encounters Date Type Department Care Team ([facility] st Contact Info) Description 02/01/2025 10:00 AM EST Telemedicine [facility] MED & PEDS [address] [place] [address] Rohini Torres, SYMONE [address] [place] [address] documented as of this encounter Goals Goal Patient Goal Type Associated Problems Recent Progress Patient-Stated? Author Quit using tobacco (cigarettes, smokeless, etc) Tobacco Use No Uche Dueñas, PharmD documented as of this encounter Visit Diagnoses Not on filedocumented in this encounter Additional Health Concerns Assessment Noted Time PHQ-9 Depression Total Score: 17 025 9:34 AM EST documented as of this encounter Care Teams Set Up Mechanic Stamping Machines Relationship Specialty Start Date End Date Allison Grider ANP [address] [place] [address] PCP - General Family Medicine 04/05/20 Uche Dueñas PharmD [address] [place] [address] Pharmacist Internal Medicine 11/11/23 documented as of this encounter
--- OUTSIDE RECORDS SUMMARY | 2025-01-21 10:14 | XMS_ITS | Encounter Summary ---
Author Organization [employer] Address 75 [facility] 7t [place] [address] Care Team Providers Care Geotechnicial Properties Technician Name Role Phone Allison Griedr Primary Care Provider [phone] Uche Dueñas PharmD Unavailable [phone] Reason for Visit * Reason Onset Date Comments Med Refill 12/21/2022 Encounter Details Date Type Department Care Team ([facility] st Contact Info) Description 12/21/2022 Telephone [facility] MEDICINE [address] [place] [address] Allison Grider ANP [address] [place] [address] Med Refill Social History Tobacco Use Types [...] Info) Description 02/01/2025 10:00 AM EST Telemedicine [facility] CHC MED & PEDS 505 [place] [address] Rohini Torres, RN [address] [place] [address] documented as of this encounter Visit Diagnoses Not on filedocumented in this encounter Additional Health Concerns Assessment Noted Time PHQ-9 Depression Total Score: 4 12/05/19 23 10:38 AM EDT documented as of this encounter Care Teams Geotechnicial Properties Technician Relationship Specialty Start Date End Date Allison Grider ANP [address] [place] [address] PCP - General Family Medicine 04/05/20 Uche Dueñas, CatarinoD [address] [place] [address] Pharmacist Internal Medicine 11/11/23 documented as of this encounter
== END 2025-01-21 10:56 | disposition home or self-care (01) ==
LOC: HO.HOS 09:17
PROVIDERS: PCP Nurse Practitioner Primary Care; Visit Provider Physician Assistant
DX: Z96.651 Presence of right artificial knee joint (principal)
CPT/HCPCS: 99024

== ENCOUNTER 2025-01-21 10:12 | Outpatient (REF) | payer OTHER, SELFPAY ==
--- NOTE | ~2025-01-21 | US_ITS ---
EXAMINATION: US TRIPLEX LOWER EXTREMITY, RIGHT CLINICAL INFORMATION: Right lower extremity edema, recent knee replacement. COMPARISON: 03/07/2021. TECHNIQUE: Color-flow triplex imaging with spectral analysis and compression Doppler were performed on the right lower extremity. FINDINGS: Respiratory variation, normal compression and augmented flow are noted throughout the right lower extremity. The visualized common femoral vein, superficial femoral vein, profunda femoral vein, popliteal vein and midcalf peroneal and posterior tibial venous segments show no evidence of deep venous thrombosis. There is no Anthony's cyst. There are reactive appearing lymph nodes in the right groin. US/US venous duplex LE RT IMPRESSION: No evidence of deep venous thrombosis involving the right lower extremity. Electronically signed by: Wayne Cordero MD 01/21/2025 11:15 AM DORIAN
== END 2025-01-21 10:13 | disposition home or self-care (01) ==
LOC: HO.US 10:12
PROVIDERS: PCP Nurse Practitioner Primary Care; Visit Provider Physician Assistant
DX: M79.89 Other specified soft tissue disorders (principal); R60.9 Edema, unspecified; Z96.651 Presence of right artificial knee joint
CPT/HCPCS: 93971; 99212

== ENCOUNTER → 2025-01-21 10:26 | Outpatient (BNV) | payer OTHER, SELFPAY | PROVIDERS: PCP Nurse Practitioner Primary Care; Visit Provider Radiology Diagnostic Radiology | DX: R60.0 Localized edema (principal); Z96.651 Presence of right artificial knee joint | CPT/HCPCS: 93971 ==

== ENCOUNTER 2025-02-18 13:52 | Outpatient (AMB) | payer OTHER, SELFPAY ==
--- NOTE | 2025-02-18 14:11 | MHC.OFFVIS ---
Intake Visit Reasons: 2nd PO: R TKA w/NE 01/05/25 Intake Note: Ludmila is a 55 year old female who presents today for a post operative appointment about 6 weeks s/p Right TKA 01/05/15. At her first post operative appointment a STAT ultrasound was ordered to rule out DVT - this was negative. Patient reports that she has some contiued pain. She has some increased pain with the cold. [facility] She is particularly struggling with knee flexion, it feels tight and painful - mostly in the back of the knee. The knee feels swollen and warm to the touch. Allergies No Known Allergies (No Known Allergies*) Allergy (Verified 02/18/25 14:14) HPI HPI 2nd PO: R TKA w/NE 01/05/25: Details: Hallucis 6 weeks status post right knee replacement. She has pain at night and some comfort at the end of the day. Her motion is 0-125 degrees. She denies fevers and chills. REPLACED BY [facility] Medical History Back pain Constipation Bipolar 1 disorder Layne's esophagus determined by biopsy Gastroesophageal reflux disease Tubular adenoma of colon Nicotine dependence, cigarettes, uncomplicated Obesity Low vitamin D level Arthritis of right knee Right tennis elbow Surgical History Hx of varicose vein ligation and stripping History of esophagogastroduodenoscopy (EGD) History of colonoscopy S/P cholecystectomy Family History Father No problems noted. Mother Hx of heat stroke History of colon cancer Sister Diabetes Brother No problems noted. Daughter No problems noted. Social History Household Members: Spouse Housing: House Are you a primary child care center assistant director to a significant other at home: No Do you presently have visiting nurse or other home services: No Alcohol intake: current Alcohol intake frequency: does not drink Patient Tobacco Use Status: Current everyday Tobacco user Tobacco use type: Cigarette Cigarettes Per Day: 6 Years Smoked: (onset 22yo, 1/2-1ppd x 32yrs, now 1/2ppd - 25pyh) service: No Current occupational status: disabled Current occupation: rt handed Physical Exam Exam Exam: Incisions clean dry and intact. Trace effusion. Full extension with 125 degrees of flexion. Stable to varus and valgus stress. Assessment & Plan Assessment & Plan (1) Status post total right knee replacement: Code(s): Z96.651 - Presence of right artificial knee joint Category: Surgical Plan: Status post knee replacement doing well. I reassured her that she is doing normal in his typical to have pain especially at night at the 6 week time point. Continue strengthening and wean narcotics. Follow up 6 weeks. Medications: Changed From oxycodone Partial Fill upon patient request. 5 mg PO Q6H 7 days PRN 28 tabs 0RF Pain, Moderate(Pain Scale 4-6) To oxycodone Partial Fill upon patient request. 5 mg PO Q8H PRN 28 tabs 0RF Pain, Moderate(Pain Scale 4-6) 14 days Coding Level of Care Code Global (33263) Diagnoses Status post total right knee replacement Z96.651
== END 2025-02-18 15:04 | disposition home or self-care (01) ==
LOC: HO.HOS 13:53
PROVIDERS: PCP Nurse Practitioner Primary Care; Visit Provider Orthopaedic Surgery
DX: Z96.651 Presence of right artificial knee joint (principal)
CPT/HCPCS: 99024

== ENCOUNTER → 2025-02-18 13:52 | Outpatient (BNVA) | payer OTHER, SELFPAY | PROVIDERS: PCP Nurse Practitioner Primary Care; Visit Provider Orthopaedic Surgery | DX: Z47.1 Aftercare following joint replacement surgery (principal); Z96.651 Presence of right artificial knee joint | CPT/HCPCS: 99212 ==